=== PATIENT | female | born 1950 | race Caucasian/White ===

== ENCOUNTER → 2018-05-28 13:53 | Outpatient (CLI) | payer MEDICARE, OTHER, SELFPAY ==
--- NOTE | 2018-05-28 13:59 | ECHOD_ITS ---
Reason For Study: AFIB/FLUTTER Procedure This was a 2D Doppler, Color Flow transthoracic echocardiogram. Exam performed in department. Left Ventricle Normal LV size. Left ventricular systolic function is normal. The estimated ejection fraction is 60 %. Stage 1 diastolic dysfunction. No regional wall motion abnormalities noted. Right Ventricle Normal RV size. Normal systolic function. Atria Normal left atrium. Normal right atrium. Mitral Valve Normal mitral valve. Tricuspid Valve Normal tricuspid valve. Mild tricuspid valve insufficiency. Aortic Valve Normal aortic valve. Pulmonic Valve Normal pulmonic valve. Great Vessels Normal aortic root. The pulmonary artery is normal size. Normal inferior vena cava. Pericardium/Pleural No pericardial effusion. MMode/2D Measurements & Calculations LVIDd: 5.1 cm IVSd: 1.0 cm Ao root diam: 3.1 cm LVIDs: 3.6 cm LVPWd: 1.1 cm RVDd: 3.1 cm FS: 30.6 % LAV(MOD-bp): 52.8 ml LA A4 area: 16.4 cm2 LA dimension(2D): 4.4 cm LAV(MOD-bp) Indexed: 25.9 ml/m2 LAV(MOD-sp2): 53.7 ml LAV(MOD-sp4): 48.3 ml RA A4 area: 12.0 cm2 Time Measurements MV dec time: 0.22 sec Doppler Measurements & Calculations MV E max jerry: 62.4 cm/sec Lat Peak E' Jerry: 7.0 cm/sec Med Peak E' Jerry: 8.8 cm/sec MV A max jerry: 75.6 cm/sec E/E' lat: 8.9 E/E' med: 7.1 MV E/A: 0.83 Ao V2 max: 126.1 cm/sec LV V1 max: 115.1 cm/sec PA V2 max: 92.4 cm/sec Ao max P.4 mmHg LV V1 max P.3 mmHg TR max jerry: 213.8 cm/sec TR max P.3 mmHg Interpretation Summary Normal LV size. Left ventricular systolic function is normal. The estimated ejection fraction is 60 %. Stage 1 diastolic dysfunction. Mild tricuspid valve insufficiency. Ordering Physician: Bobo Biggs Referring Physician: Glenda Scott Performed By: Tanya Davis, SEN, RVT
--- OUTSIDE RECORDS SUMMARY | 2018-07-23 18:35 | XMS RPT_ITS | Clinical Summary ---
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 Lucila M Nonrheumatic c mitral (ICD-10-CM 10/30 10/30 DINA Parra mitral (valve) (valve) ) prolapse prolapse CHEST PAIN R07.9 Resolved Lucila Luo Chest pain, UNSPECIFIED (ICD-10-CM 10/30 10/30 DINA Parra unspecified ) Paroxysmal 425010716 Active Lauren Salinas Paroxysmal atrial (SNOMED 10/30 10/30 [facility] fibrillatio CT) RN fibrillation n Family 136647694 Active Bobo Santizo Family history History (SNOMED 09/22 MD Kalyan of coronary Coronary CT) arteriosclerosi Heart s Disease male < 55 BODY MASS Z68.34 Active Bobo Santizo Body mass index INDEX (ICD-10-CM 11/11 11/11 MD Kalyan (BMI) 34.0-34.9 ) 34.0-34.9, ADULT adult LONG-TERM [id number] Active Jes M Long-term drug USE OF HIGH (SNOMED 10/30 10/30 [facility] therapy RISK [address]) MEDICATIONS CHEST PAIN R07.9 Removed Jes M Chest pain, UNSPECIFIED (ICD-10-CM 10/30 10/30 [facility] unspecified ) PALPITATION 79010692 Active Jes M Palpitations S (SNOMED 10/30 10/[address]) PAIN [place] 12518673 Active Jes M Pain in limb LIMB (SNOMED 10/30 10/[address]) ATRIAL 97518636 Inactive Jes M Atrial FIBRILLATIO (SNOMED 10/30 10/[address] [facility]) MITRAL 224757899 Inactive Jes M Mitral valve VALVE (SNOMED 10/30 10/30 [facility] prolapse PROLAPSE CT) MIGRAINE, 1910244 Active Jes M Migraine with CLASSICAL (SNOMED 10/30 10/[address]) HYPERLIPIDE 40500901 Active Jes M Hyperlipidemia SILKE (SNOMED 10/30 10/[address]) Medications Medication Instructions Start Stop Generic Name NDC Provider Date Date METOPROLOL one tablet by METOPROLOL [id number] Bobo S TARTRATE 50 MG mouth twice a TARTRATE MD Kalyan TABS day FLECAINIDE One tablet by FLECAINIDE [id number] Zackery Jenkins ACETATE 100 MG mouth twice / ACETATE Home POWERS TABS daily CRESTOR 20 MG One tablet by ROSUVASTATIN 85523525805 Bobo S TABS mouth daily / CALCIUM MD Kalyan ZETIA 10 MG One tablet by EZETIMIBE 58721068589 Fernando W TABS mouth daily / Josie POWERS METOPROLOL One tablet by METOPROLOL 57543163019 Jes M TARTRATE 25 MG mouth twice / TARTRATE Martínez TABS daily CALCIUM 600 MG One tablet by CALCIUM 51690147560 Jes M TABS mouth daily / Martínez CALCIUM 600 MG One tablet by CALCIUM 20183970449 Fernando W TABS mouth daily /07/30 Josie POWERS ZETIA 10 MG One tablet by EZETIMIBE [id number] [place] S TABS mouth daily /02/09 MD Kalyan FLEXERIL 10 MG One tablet by CYCLOBENZAPRINE Bobo S TABS mouth daily / HCL MD Kalyan FLEXERIL 10 MG One tablet by CYCLOBENZAPRINE [place] S TABS mouth daily /09/25 HCL MD Kalyan VALACYCLOVIR One tablet by VALACYCLOVIR HCL 82709992447 [place] S HCL 1 GM TABS mouth MD Kalyan times daily VALACYCLOVIR One tablet by VALACYCLOVIR HCL 54480863438 [place] S HCL 1 GM TABS mouth 09/25 MD Kalyan times daily PREVACID 30 MG One tablet by LANSOPRAZOLE 80700622238 Jes M CPDR mouth daily PREVACID 30 MG One tablet by LANSOPRAZOLE 64117499986 Bobo S CPDR mouth daily 09/25 MD Kalyan MULTIVITAMINS One tablet by MULTIPLE VITAMIN 49764908428 Jes M TABS mouth daily CRESTOR 20 MG One tablet by ROSUVASTATIN 49994267054 Bobo S TABS mouth daily /07/21 CALCIUM MD Kalyan ASPIRIN 325 MG One tablet by ASPIRIN 62467639448 Jes M TABS mouth daily DEPAKOTE ER 500 One tablet by DIVALPROEX SODIUM 07679375079 Jes M MG [id number] mouth twice daily NEXIUM 40 MG One tablet by ESOMEPRAZOLE 39831566048 [place] S CPDR mouth daily MAGNESIUM MD Kalyan RISHABH 180 MG as needed FEXOFENADINE HCL [place] S TABS MD Kalyan LIVALO 1 MG One tablet by PITAVASTATIN 55747766137 [place] S TABS mouth daily CALCIUM MD Kalyan (Crestor caused myalgias) CO Q-10 100 MG One tablet by COENZYME Q10 73955332370 [place] S CAPS mouth daily MD Kalyan VITAMIN D 2000 One tablet by CHOLECALCIFEROL 87202920368 [place] S UNIT TABS mouth daily MD Kalyan Medications Administered No information available. Allergies, Adverse Reactions, Alerts Allergy Name Reaction Start Date Severity Status Provider Description STATINS myalgia Critical Active Lucila Parra RN TETRACYCLINE unknow Critical Active Tamanna A Kaitlin RN AUGMENTIN unknown Critical Active Tamanna Madrigal RN CLAMS Not shrimp Critical Active Jes Martínez Results Date Name Value Unit Range Flag Description Lab Report: MG MAGNESIUM 1.9 mg/dL 1.5-2.2 N magnesium, serum Clinical Lists Update: Preload TSH 1.53 u[iU]/mL thyroid stimulating hormone, serum Lab Report: UAC SPEC GR 1.015 1.002-1.030 N specific URIN gravity, urine Lab Report: JI VALPROIC ACD 49 ug/mL 50-100 L valproic acid, serum Lab Report: CMP BILI TOTAL 0.30 mg/dL 0.00-1.00 N bilirubin, serum, total SGPT (ALT) 17 U/L 12-78 N alanine aminotransferase (SGPT), serum ALK PHOS 103 U/L 50-136 N alkaline phosphatase, serum SGOT (AST) 16 U/L 15-37 N aspartate aminotransferase (SGOT), serum ALBUMIN 3.5 g/dL 3.4-5.0 N albumin, serum Lab Report: LIPID VLDL 34 mg/dL 5-40 N very low density lipoproteins LDL 100 mg/dL 0-130 N Cholesterol in LDL [Mass/volume] in Serum or Plasma HDL 48 mg/dL N Cholesterol in HDL [Mass/volume] in Serum or Plasma TRIGLYCRDES 172 mg/dL N Triglyceride [Mass/volume] in Serum or Plasma CHOLESTEROL 182 mg/dL 200 N Cholesterol [Mass/volume] in Serum or Plasma Lab Report: BID BILI DIRECT 0.08 mg/dL 0.00-0.30 N bilirubin, serum, direct Lab Report: T4 T4, TOTAL 8.8 ug/dL 4.8-13.9 N thyroxine, serum, total Replaced Document: [facility] ECG Observations QT/QTC 434 ms QT interval/QT interval (corrected for heart rate), electrocardiogram Clinical Lists Update: Preload GLUCOSE SER 130 mg/dL H blood glucose CALCIUM 8.5 mg/dL calcium, serum BUN/CREAT 16.0 urea nitrogen/creatinin e ratio, serum CREATININE 1.0 mg/dL creatinine, serum BUN 16 mg/dL urea nitrogen, blood ANION GAP 7 anion gap, serum CO2 30.0 mmol/L carbon dioxide, venous blood CHLORIDE 105 mmol/L chloride, serum POTASSIUM 4.2 mmol/L potassium, serum SODIUM 142 mmol/L sodium, serum MPV 11.3 fL mean platelet volume PLATELETS 120 10*3/mm3 L platelet count RDW 13.4 % red blood cell distribution width MCHC RBC 32.2 g/dL mean corpuscular hemoglobin concentration, RBC MCH 30.7 pg mean corpuscular hemoglobin, RBC MCV 95.1 fL mean corpuscular volume, RBC HCT 33.2 % L hematocrit, blood HGB 10.7 g/dL L hemoglobin, blood RBC M/UL 3.49 10*6/uL L red blood count WBC BLOOD 6.0 10*9/L leukocyte (white blood cells) count, blood Office Visit CHD 10YR RSK 13 % General cardiovascular disease 10Y risk [#] 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 smoker Replaced Document: [facility] ECG Observations EKG INTERP Sinus Bradycardia electrocardiogram -First degree A-V interpretation block Luan = 236-Nonspecific QRS widening. BORDERLINE EKG T AXIS -1 deg T wave axis, electrocardiogram EKG QRS AXIS -28 deg QRS axis, electrocardiogram EKG PWAVAXIS -1 deg P wave axis, electrocardiogram QRS INTERVAL 114 ms QRS duration, electrocardiogram ZZ-GE-unk 459 ms GE use only - for LinkLogic import when terms are not otherwise specified QT INTERVAL new path ms QT interval, electrocardiogram IN INTERVAL 236 ms IN interval, electrocardiogram EKGHRTRATE 51 BPM heart rate on electrocardiogram Office Visit MEDS REVIEW Done Documentation of current medications (procedure) Clinical Lists Update: Preload JOELLEN 60 % Left ventricular Ejection fraction Plan of Care Type Date Detail Appointment 02:00 PM Rosalinda Monterroso PA-C, [address] [facility], [address], [place], [address], Pending order MMM Pending order Follow Up Appt 6 months Pending order EKG (In office) Pending order MMM Pending order Follow Up Appt 6 months Pending order Follow Up Appt 6 months Pending order DEICER INSPECTOR PNEUMATIC Pending order MMM Pending order Follow Up Appt 6 months Pending order *Lipid Profile CC PCP Pending order *Hepatic Function Panel Pending order EKG (In office) Pending order DEICER INSPECTOR PNEUMATIC Pending order Follow Up Appt 6 months Pending order Follow Up Appt 6 months Pending order *Lipid Profile Pending order *Hepatic Function Panel Pending order Follow Up Appt 3 months Pending order EKG (In office) Pending order *Lipid Profile Pending order *Hepatic Function Panel Pending order *TSH Pending order *T4 (Total) Pending order *BMP Pending order *Magnesium Pending order *Lipid Profile Pending order *Hepatic Function Panel Pending order Follow Up Appt 3 months Pending order Echocardiogram (complete) Pending order 24 hour holter monitor Pending order *FLEC Flecainide (Tambocor) Procedures Code Procedure Name Date Entry Date F/U MMM MMM FUA 6 months Follow Up Appt 6 months CPT-24399 EKG (In office) F/U MMM MMM FUA 6 months Follow Up Appt 6 months FUA 6 months Follow Up Appt 6 months F/U DEICER INSPECTOR PNEUMATIC DEICER INSPECTOR PNEUMATIC [id number] SNOMED-CT: 185806799176721 Current Medications Documented F/U MMM MMM FUA 6 months Follow Up Appt 6 months 40155-1 *Lipid Profile CC PCP 0788-1 *Hepatic Function Panel F/U DEICER INSPECTOR PNEUMATIC DEICER INSPECTOR PNEUMATIC FUA 6 months Follow Up Appt 6 months CPT-32261 EKG (In office) FUA 6 months Follow Up Appt 6 months 90189-7 *Lipid Profile 0788-1 *Hepatic Function Panel FUA 3 months Follow Up Appt 3 months CPT-14370 EKG (In office) 91331-9 *Lipid Profile 0788-1 *Hepatic Function Panel 3016-3 *TSH 3026-2 *T4 (Total) 34331-9 *Magnesium 3638-4 *FLEC Flecainide (Tambocor) Echo Echocardiogram (complete) 24 hour holter monitor FUA 3 months Follow Up Appt 3 months 0667-1 *BMP 89172-6 *Lipid Profile 0788-1 *Hepatic Function Panel Vital Signs Date Name Value Unit Description BMI (Body Mass Index) 34.94 kg/m2 Body Mass Index [Ratio] BP Diastolic 60 mm[Hg] blood pressure, diastolic - 8462-4 BP Systolic 120 mm[Hg] blood pressure, systolic - 8480-6 BSA (Body Surface 2.07 body surface area Area) Heart Rate 60 /min pulse rate E&M - 8867-4 Respiratory Rate 20 /min respiratory rate E&M - 9279-1 Weight Measured 216.5 [lb_av] weight E&M - 3141-9 Height 66 [in_us] height E&M - 8302-2
--- OUTSIDE RECORDS SUMMARY | 2018-07-23 18:36 | XMS RPT_ITS | Clinical Summary ---
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 Lucila Luo Nonrheumatic c mitral (ICD-10-CM 10/30 10/30 DINA Parra mitral (valve) (valve) ) prolapse prolapse CHEST PAIN R07.9 Resolved Lucila Luo Chest pain, UNSPECIFIED (ICD-10-CM 10/30 10/30 DINA Parra unspecified ) Paroxysmal 481260009 Active Lauren Salinas Paroxysmal atrial (SNOMED 10/30 10/[address] [facility] [address]) RN fibrillation n Family 091534818 Active Bobo Santizo Family history History (SNOMED 09/22 MD Kalyan of coronary Coronary CT) arteriosclerosi Heart s Disease male < 55 BODY MASS Z68.34 Active Bobo Santizo Body mass index INDEX (ICD-10-CM 11/11 11/11 MD Kalyan (BMI) 34.0-34.9 ) 34.0-34.9, ADULT adult LONG-TERM 792884983 Active Jes M Long-term drug USE OF HIGH (SNOMED 10/30 10/30 [facility] therapy RISK CT) MEDICATIONS CHEST PAIN R07.9 Removed Jes M Chest pain, UNSPECIFIED (ICD-10-CM 10/30 10/30 [facility] unspecified ) PALPITATION 11334216 Active Jes M Palpitations S (SNOMED 10/30 10/[address]) PAIN IN 75854526 Active Jes M Pain in limb LIMB (SNOMED 10/30 10/[address]) ATRIAL 62591117 Inactive Jes M Atrial FIBRILLATIO (SNOMED 10/30 10/[address] [facility] [address] CT) MITRAL 284523133 Inactive Jes M Mitral valve VALVE (SNOMED 10/30 10/30 [facility] prolapse PROLAPSE CT) MIGRAINE, 7779446 Active Jes M Migraine with CLASSICAL (SNOMED 10/30 10/[address]) HYPERLIPIDE 59757113 Active Jes M Hyperlipidemia SILKE (SNOMED 10/30 10/[address]) Medications Medication Instructions Start Stop Generic Name NDC Provider Date Date METOPROLOL one tablet by METOPROLOL [id number] Bobo S TARTRATE 50 MG mouth twice a / TARTRATE MD Kalyan TABS day FLECAINIDE One tablet by FLECAINIDE 26434045295 Zackery Jenkins ACETATE 100 MG mouth twice / ACETATE Home POWERS TABS daily CRESTOR 20 MG One tablet by ROSUVASTATIN 70535494774 [place] S TABS mouth daily / CALCIUM MD Kalyan ZETIA 10 MG One tablet by EZETIMIBE 64807697525 Fernando W TABS mouth daily / Josie POWERS METOPROLOL One tablet by METOPROLOL 83370244559 Jes M TARTRATE 25 MG mouth twice / TARTRATE Martí[place] TABS daily CALCIUM 600 MG One tablet by CALCIUM 38255120876 Jes M TABS mouth daily / Martínez CALCIUM 600 MG One tablet by CALCIUM 37922918195 Fernando W TABS mouth daily /07/30 Josie POWERS ZETIA 10 MG One tablet by EZETIMIBE 22945470053 Bobo S TABS mouth daily /02/09 MD Kalyan FLEXERIL 10 MG One tablet by CYCLOBENZAPRINE Bobo S TABS mouth daily / HCL MD Kalyan FLEXERIL 10 MG One tablet by CYCLOBENZAPRINE Bobo S TABS mouth daily 09/25 HCL MD Kalyan VALACYCLOVIR One tablet by VALACYCLOVIR HCL 67095320750 [place] S HCL 1 GM TABS mouth MD Kalyan times daily VALACYCLOVIR One tablet by VALACYCLOVIR HCL 99133336823 [place] S HCL 1 GM TABS mouth 09/25 MD Kalyan times daily PREVACID 30 MG One tablet by LANSOPRAZOLE 06523620973 Jes M CPDR mouth daily PREVACID 30 MG One tablet by LANSOPRAZOLE 84457366470 [place] S CPDR mouth daily 09/25 MD Kalyan MULTIVITAMINS One tablet by MULTIPLE VITAMIN 41967315821 Jes M TABS mouth daily CRESTOR 20 MG One tablet by ROSUVASTATIN 65996892232 [place] S TABS mouth daily /07/21 CALCIUM MD Kalyan ASPIRIN 325 MG One tablet by ASPIRIN 10061470604 Jes M TABS mouth daily DEPAKOTE ER 500 One tablet by DIVALPROEX SODIUM 78127724167 Jes M MG [id number] mouth twice daily NEXIUM 40 MG One tablet by ESOMEPRAZOLE 19861581253 Bobo S CPDR mouth daily MAGNESIUM MD Kalyan RISHABH 180 MG as needed FEXOFENADINE HCL [place] S TABS MD Kalyan LIVALO 1 MG One tablet by PITAVASTATIN 98062003744 [place] S TABS mouth daily CALCIUM MD Kalyan (Crestor caused myalgias) CO Q-10 100 MG One tablet by COENZYME Q10 87229031625 Bobo S CAPS mouth daily MD Kalyan VITAMIN D 2000 One tablet by CHOLECALCIFEROL 95594770006 [place] S UNIT TABS mouth daily MD Kalyan Medications Administered No information available. 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 Dietary management education, guidance, and counseling (procedure) CARD RSK GRP B cardiac risk group SMOK STATUS Former Tobacco use [facility] smoker Replaced Document: [facility] ECG Observations [...] INTERVAL new path ms QT interval, electrocardiogram [place] INTERVAL 236 ms [place] interval, electrocardiogram EKGHRTRATE 51 BPM heart rate on electrocardiogram Office Visit MEDS REVIEW Done Documentation of current medications (procedure) Clinical Lists Update: Preload JOELLEN 60 % Left ventricular Ejection fraction Plan of Care Type Date Detail Appointment 02:00 PM Rosalinda Monterroso PA-C, [address] [facility], [address], [place], [address], Pending order MMM Pending order Follow Up Appt 6 months Pending order EKG (In office) Pending order MMM Pending order Follow Up Appt 6 months Pending order Follow Up Appt 6 months Pending order EDUCATION TECHNICIAN Pending order MMM Pending order Follow Up Appt 6 months Pending order *Lipid Profile CC PCP Pending order *Hepatic Function Panel Pending order EKG (In office) Pending order EDUCATION TECHNICIAN Pending order Follow Up Appt 6 months [...] 6 months Follow Up Appt 6 months CPT-62733 EKG (In office) F/U MMM MMM FUA 6 months Follow Up Appt 6 months FUA 6 months Follow Up Appt 6 months F/U EDUCATION TECHNICIAN EDUCATION TECHNICIAN SCT-[id number] SNOMED-CT: [id number] Current Medications Documented F/U MMM MMM FUA 6 months Follow Up Appt 6 months 95928-2 *Lipid Profile CC PCP 0788-1 *Hepatic Function Panel F/U EDUCATION TECHNICIAN EDUCATION TECHNICIAN FUA 6 months Follow Up Appt 6 months CPT-45012 EKG (In office) FUA 6 months Follow Up Appt 6 months 77571-4 *Lipid Profile 0788-1 *Hepatic Function Panel FUA 3 months Follow Up Appt 3 months CPT-55593 EKG (In office) 34415-9 *Lipid Profile 0788-1 *Hepatic Function Panel 3016-3 *TSH 3026-2 *T4 (Total) 36861-1 *Magnesium 3638-4 *FLEC Flecainide (Tambocor) Echo Echocardiogram (complete) HM 24 hour holter monitor FUA 3 months Follow Up Appt 3 months 0667-1 *BMP 90932-9 *Lipid Profile 0788-1 *Hepatic Function Panel Vital [...]
--- OUTSIDE RECORDS SUMMARY | 2018-07-23 18:36 | XMS RPT_ITS | Continuity of Care Document ---
:1950 Author Organization [facility] Address [address] [place] [address] Phone Care Team Providers Name Role Phone Sonia POWERS, Glenda Luo Unavailable Myranda POWERS, Dr. Rubio Salinas Unavailable Rod , Dr. Castro Unavailable Dr. Matthew Velasco Unavailable STARLA Vaughan Unavailable Unavailable Unavailable Unavailable Problems Name Dates Details Abnormal blood sugar (R73.09, 790.29) Comments: diet only 5.7 Status: Active Abnormal result on screening urine test (R82.90, 791.9) Comments: no protien some blood will check at next follow up Status: Active Afib (I48.91, 427.31) Comments: seeing arielle. reveiwed with patient recent tests, sleep study good Status: Active Allergic rhinitis, mild (J30.9, 477.9) Comments: lindsey dily over spring summer. itch in eyes and ears better meds. Status: Active Atrophic kidney (N26.1, 587) Status: Active Bilateral anterior knee pain (M25.561, 719.46) Comments: better from fall from last year but left knee twist 3 days ago. will wear brace and rest and nsaids. if nto help then injection. Status: Active BMI 35.0-35.9,adult (Z68.35, V85.35) Status: Active Chest pain (R07.9, 786.59) 27-Feb-2012 Comments: episodic chronic had heart cath negative in past aspirin help CTA 2006 still gets on and off and aspirin help not as bad. knows that if have bad CP the asa not help to ER Status: Active Current nonsmoker (Renamed from Current non-smoker) (Z78.9, V49.89) Status: Active DDD (degenerative disc disease), lumbar (M51.36, 722.52) Comments: discetomy 2007 still ongong muscle pain. she has the stretches todo at home to help. 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 coosncopy because due. no signs and symptoms right now Status: Active Elevated uric acid in blood (E79.0, 790.6) Status: Active Encounter for routine adult medical exam with abnormal findings (Renamed from Encounter for routine adult physical exam with abnormal findings) (Z00.01, V70.0) Comments: AMP 4-18due for mammo and BD. reveiwed with patient recent tests labs. will pap next tinme has uterus told shingles vaccine. give pneumovax. then prevanr 13 i year. wait til medicare because will cover. Status: Active GERD (gastroesophageal reflux disease) (K21.9, 530.81) Status: Active Hair thinning (L65.9, 704.00) Comments: ? meds bbut needs to be on. female merced. Status: Active History of shingles (Z86.19, V12.09) Comments: she will get the feeling at times coming back and knows to call and then will give valtrex Status: Active Hypercholesterolemia (E78.00, 272.0) Comments: reveiwed with patient recent tests adn horrible. crestor brand only thing not bother her at low dose. Status: Active Impaired fasting glucose (R73.01, 790.21) Status: Active Memory impairment (R41.3, 780.93) Comments: 25 but not notice cognitive decline. able to do finances without trouble. Status: Active Menopause (Z78.0, 627.2) Status: Active Migraine (G43.909, 346.90) Comments: stable now Status: Active Mitral valve prolapse (I34.1, 424.0) Status: Active Obesity, unspecified (E66.9, 278.00) Comments: holidays now. she will limit red meat. she will cook at homes more veggies and more lean protien. keep exercising.thin up until stop smoking and house fire eat outside alot, menapause. Status: Active Onychomycosis (B35.1, 110.1) Comments: not use lamisil because of flecanide interaction. use itraconazole. pt awants to kill this Status: Active Palatal mass (R22.0, 784.2) Comments: will get to ENT stillnot goo and it is getting bigger Status: Active Pneumococcal vaccination given (Z23, V06.6) Status: Active Postmenopausal (Renamed from Post-menopausal) (Z78.0, V49.81) Status: Active Rash (R21, 782.1) Comments: steroid creme bid- get labs ?? bug bites- derm not in office today- if spread let me know? inflammatory/systemic issue but she feels well otherwise Status: Active Renal insufficiency (N28.9, 593.9) Comments: same good right now SDMA up and have atrophic kidney talk about things to protect kidney less IBU, no dyes alot water. Status: Active Renal sclerosis (N26.9, 587) Status: Active Right foot drop (M21.371, 736.79) Comments: s/p nerve damage from way laid during surgery. on and off not need brace Status: Active SK (seborrheic keratosis) (L82.1, 702.19) Comments: told okay not bother her and reassurance given classic look Status: Active Stress incontinence, female (N39.3, 625.6) Status: Active Tobacco abuse, in remission (Renamed from Tobacco dependence in remission) (F17.201, V15.82) Comments: remote quit in 30's Status: Active Vitamin D insufficiency (E55.9, 268.9) Comments: right now good Status: Active Well woman exam (Z01.419, V72.31) Comments: 04-22-17 [facility] Pap/mammo/BD tetanus up to date, refuse flu vaccine because gets sick. pneumovax now and then prevnar in a year because can get today pneumovax. rec sylviasohailrivera suzanna curt told her about. due for colonscopy not have done. eye and dental check. BD 04-14 will do hep C next blood draw Status: Active Medications Name Dates Details Lindsey Allergy 180 MG Oral Tablet 1 (one) Tablet qd for 0 days Quantity: 30 {Tablet} Refills: 0 Ordered:22-Apr-2017 Glenda Mcallister MD, MD, Dana M Start : 22-Apr-2017 Active ASPIRIN, 325MG (Oral Tablet) 1 QD for 0 days Refills: 0 Ordered:26-Jan-2009 Mahi Vaughan Crestor 5 MG Oral Tablet 1 (one) Tablet Tablet in am for 0 days Quantity: 30 {Tablet} Refills: 5 Ordered:22-Apr-2017 Lin Mcrae Start : 22-Apr-2017 Active Dispense as Written Comments:needs branded crestor the generic cause aches Depakote ER 500 MG Oral Tablet Extended Release 24 Hour 1 Tablet ER 24HR BID for 0 days Quantity: 60 {Tablet} Refills: 4 Ordered:26-Jan-2018 Sonia POWERS, Glenda Fernandez MD Start : 26-Jan-2018 Active FLECAINIDE ACETATE, 100MG (Oral Tablet) 1 bid for 0 days Refills: 0 Ordered:26-Jan-2009 Mahi Vaughan Jublia 10 % External Solution uad Application Application apply to affected toenails once daily for 48 weeks for 336 days Refills: 0 Ordered:08-Dec-2017 Glenda Mcallister MD, MD, Dana M Start : 08-Dec-2017 Active METOPROLOL TARTRATE, 25MG (Oral Tablet) 1 bid for 0 days Refills: 0 Ordered:26-Jan-2009 Mahi Vaughan NEXIUM 24HR, 20MG (Oral Capsule Delayed Release) 1 (one) Capsule DR Capsule DR qd for 0 days Quantity: 30 {Capsule} Refills: 0 Ordered:20-Jun-2015 Slarb Mirian ARVIZU Start : 24-Apr-2015 Active Vitamin D 2000 UNIT Oral Capsule 1 (one) Capsule qd for 0 days Quantity: 30 {Capsule} Refills: 0 Ordered:22-Apr-2017 Glenda Mcallister MD, MD, Dana M Start : 22-Apr-2017 Active CALCIUM-VITAMIN D, 118-050GI-LFQB (Oral Tablet) 2 QD for 0 days Refills: 0 Ordered:12-Feb-2013 STARLA Vaughan End : 12-Feb-2013 Inactive Cheratussin AC 100-10 MG/5ML Oral Syrup 1 (one) Syrup 1-2 tsp every 8 horus prn for 0 days Quantity: 4 {Fluid_Ounce} Refills: 0 Ordered:10-Dec-2016 STARLA Vaughan Start : 15-Nov-2016 End : 10-Dec-2016 Inactive Comments:four ounces Cipro 500 MG Oral Tablet 1 (one) Tablet bid for 0 days Quantity: 14 {Tablet} Refills: 0 Ordered:19-Mar-2016 STARLA Vaughan Start : 19-Feb-2016 End : 19-Mar-2016 Inactive CIPROFLOXACIN HCL, 500MG (Oral Tablet) 1 (one) Tablet bid for 7 days Quantity: 14 {Tablet} Refills: 0 Ordered:20-Jun-2015 Micheline Garcia CNP Start : 20-Jun-2015 End : 27-Jun-2015 Inactive Clotrimazole 10 MG Mouth/Throat Edgardo 1 (one) Edgardo Edgardo 5 times a day for 0 days Quantity: 50 {Edgardo} Refills: 0 Ordered:08-Dec-2017 STARLA Vaughan Start : 02-Jun-2017 End : 08-Dec-2017 Inactive Crestor 20 MG Oral Tablet 1 Tablet QD for 0 days Quantity: 30 {Tablet} Refills: 6 Ordered:01-Apr-2016 Glenda Mcallister MD, MD, Dana M Start : 01-Apr-2016 End : 01-Apr-2016 Inactive Comments:myalgia CYCLOBENZAPRINE HCL, 10MG (Oral Tablet) 1 (one) Tablet Tablet at night prn for 0 days Quantity: 30 {Tablet} Refills: 1 Ordered:12-Dec-2015 STARLA Vaughan Start : 19-Sep-2014 End : 12-Dec-2015 Inactive Doxycycline Hyclate 100 MG Oral Capsule 1 (one) Capsule bid for 0 days Quantity: 20 {Capsule} Refills: 0 Ordered:02-Jun-2017 STARLA Vaughan Start : 20-May-2017 End : 02-Jun-2017 Inactive Comments:watch for sun burndo this instead of augmentin (does not tolerate) Estrogen Vaginal Cream 1 inch vaginally q weekly Inactive Fluconazole 100 MG Oral Tablet 1 (one) Tablet qd for 7 days for 0 days Quantity: 7 {Tablet} Refills: 0 Ordered:22-Apr-2017 STARLA Vaughan Start : 22-Nov-2016 End : 22-Apr-2017 Inactive Itraconazole 100 MG Oral Capsule 1 (one) Capsule 2 tablets bid for 1 week per month for three month for 90 days Refills: 0 Ordered:08-Dec-2017 Glenda Mcallister MD, MD, Glenda Luo Start : 08-Dec-2017 End : 08-Dec-2017 Inactive Comments:interacts with Flecanide Macrobid 100 MG Oral Capsule 1 Capsule bid for 7 days Quantity: 14 {Capsule} Refills: 0 Ordered:06-Jan-2018 Glenda Mcallister MD, MD, Glenda Luo Start : 06-Jan-2018 End : 13-Jan-2018 Inactive NEXIUM, 40MG (Oral Capsule Delayed Release) 1 (one) Capsule DR qd for 0 days Quantity: 90 {Capsule} Refills: 3 Ordered:12-Dec-2015 STARLA Vaughan Start : 19-Sep-2014 End : 12-Dec-2015 Inactive PERCOCET, 5-325MG (Oral Tablet) 1 (one) Tablet q 6 hours prn for 0 days Quantity: 30 {Tablet} Refills: 0 Ordered:21-Jan-2008 STARLA Vaughan Start : 21-Jan-2008 End : 14-Dec-2008 Inactive PREDNISONE, 10MG (Oral Tablet) Tablet for 0 days Refills: 0 Ordered:18-Dec-2007 STARLA Vaughan Start : 18-Dec-2007 End : 14-Dec-2008 Inactive Comments:3 pill for 4 days 2 for 4 days and 1 for 4 days with food PREVACID, 30MG (Oral Capsule Delayed Release) [address] QD for 0 days Quantity: 90 {Capsule} Refills: 3 Ordered:07-Feb-2014 Glenda Mcallister MD, MD, Glenda Luo Start : 07-Feb-2014 End : 07-Feb-2014 Inactive SOTALOL HCL (AF), 120MG (Oral Tablet) 1 BID for 0 days Refills: 0 Ordered:02-Jan-2009 STARLA Vaughan End : 02-Jan-2009 Inactive VALACYCLOVIR HCL, 1GM (Oral Tablet) 1 (one) Tablet tid for 0 days Quantity: 21 {Tablet} Refills: 0 Ordered:19-Nov-2013 STARLA Vaughan Start : 08-Nov-2013 End : 19-Nov-2013 Inactive ZETIA, 10MG (Oral Tablet) 1 qd for 0 days Refills: 0 Ordered:12-Feb-2013 STARLA Vaughan End : 12-Feb-2013 Inactive ZOSTAVAX, 76035WHZ/0.65ML (Subcutaneous Solution Reconstituted) 1 For Solution For Solution once SC for 0 days Quantity: 1 {For_Solution} Refills: 0 Ordered:19-Nov-2013 STARLA Vaughan Start : 13-May-2013 End : 19-Nov-2013 Inactive Advair HFA 115-21 MCG/ACT Inhalation Aerosol 1 (one) Aerosol bid for 0 days Quantity: 1 {Each} Refills: 0 Ordered:19-Nov-2016 Glenda Mcallister MD, MD, Dana M Start : 19-Nov-2016 End : 19-Nov-2016 Discontinued Augmentin 875-125 MG Oral Tablet 1 (one) Tablet bid for 0 days Quantity: 20 {Tablet} Refills: 0 Ordered:15-Nov-2016 Glenda Mcallister MD, MD, Dana M Start : 15-Nov-2016 End : 15-Nov-2016 Discontinued Comments:can not do COLESTID, 1GM (Oral Tablet) 1 BID (1 GM) End : 18-Dec-2007 Discontinued DEPAKOTE ER, 500MG (Oral Tablet Extended Release 24 Hour) 1 Tablet ER 24HR BID for 0 days Refills: 0 Ordered:11-Aug-2006 Glenda Mcallistre MD, MD, Dana M Start : 11-Aug-2006 End : 11-Aug-2006 Discontinued GABAPENTIN, 300MG (Oral Capsule) 1 Capsule TAD for 0 days Quantity: 60 {Capsule} Refills: 0 Ordered:05-Feb-2007 STARLA Vaughan Start : 05-Feb-2007 End : 18-Jun-2007 Discontinued Comments:Day 1 300mg, Day 2 300mg bid, by day three may increase to tid. LEVAQUIN, 500MG (Oral Tablet) 1 Tablet qd for 0 days Quantity: 10 {Tablet} Refills: 0 Ordered:21-Dec-2010 Mast DINACorinne Start : 21-Dec-2010 End : 11-Feb-2011 Discontinued Livalo 1 MG Oral Tablet 1 (one) Tablet in am for 0 days Quantity: 30 {Tablet} Refills: 3 Ordered:14-Oct-2016 Glenda Mcallister MD, MD, Dana M Start : 14-Oct-2016 End : 14-Oct-2016 Discontinued PRAVACHOL, 40MG (Oral Tablet) 1 QD for 0 days Refills: 0 Ordered:08-Jan-2007 Glenda Mcallister MD, MD, Dana M End : 11-Aug-2006 Discontinued Relliv End : 11-Aug-2006 Discontinued TOPAMAX, 25MG (Oral Tablet) Tablet BID for 0 days Quantity: 60 {Tablet} Refills: 6 Ordered:18-Nov-2006 Glenda Mcallister MD, MD, Dana M Start : 18-Nov-2006 End : 23-Dec-2006 Discontinued Comments:higher doses cause paresthesias Allergies and Adverse Reactions Name Dates Details Clams (Allergy) Status: Active Past Medical History Name Dates Details Abdominal pain, acute, right upper quadrant (R10.11, 789.01) Comments: ? gallbladder, ? stomach may need scopedshe looks sick pale and pasty--will admit and have mallory see her, percocet could be doing some nausea. Status: Resolved as of 02-Jan-2009 Abnormal findings on diagnostic imaging of other specified body structures (R93.8, 793.99) Status: Resolved as of 02-Jan-2009 Acute pharyngitis (J02.9, 462) Comments: not look bad and treating. Status: Inactive as of 10-Dec-2016 Arch pain of left foot (M79.672, 729.5) Comments: in past saw Dr. garcia and dog behaviorist howardma. had right foot surgery. now lateral arch. had for 2 weeks. talk about good show wear. on nsaids ibu Status: Resolved as of 22-Apr-2017 Bacterial upper respiratory infection (J06.9, 465.9) Status: Resolved as of 07-Oct-2017 BMI 34.0-34.9,adult (Z68.34, V85.34) Status: Resolved as of 21-Nov-2017 BMI 36.0-36.9,adult (Z68.36, V85.36) Comments: 36.61 Status: Resolved as of 21-Nov-2017 Bursitis, hip (726.5) Comments: better. handout given on stretches given follow up if bad again can inject Status: Inactive as of 19-Nov-2013 Cough (R05, 786.2) Comments: doing well now. off advair gone. not need anything fdc for asthma. Status: Resolved as of 07-Oct-2017 Dehydration (E86.0, 276.51) Status: Resolved as of 02-Jan-2009 Dizziness and giddiness (R42, 780.4) Comments: presyncope. worry arrthymia then with other signs and symptoms to ER and monitor in hospital called and talk to hospitalist and agree with see in ER after evaluation. also concern with flying does she have PE Status: Inactive as of 12-Feb-2013 Dysphagia (R13.10, 787.2) Comments: none now Status: Resolved as of 02-Jan-2009 Dysuria (R30.0, 788.1) Status: Resolved as of 09-Feb-2018 Encounter for hepatitis C virus screening test for high risk patient (Z11.59, V73.89) Status: Resolved as of 21-Nov-2017 Encounter for screening mammogram for breast cancer (Renamed from Encounter for screening mammogram for malignant neoplasm of breast) (Z12.31, V76.12) Status: Resolved as of 21-Nov-2017 Fatigue (R53.83, 780.79) Status: Inactive as of 19-Nov-2013 Herpes zoster with other nervous system complications (B02.29, 053.19) Status: Resolved as of 02-Jan-2009 Low back pain potentially associated with radiculopathy (M54.5, 724.2) Status: Resolved as of 02-Jan-2009 Migraine, unspecified, not intractable, without status migrainosus (G43.909, 346.90) Status: Inactive as of 19-Nov-2013 Need for prophylactic vaccination and inoculation against influenza (Renamed from Need for immunization against influenza) (Z23, V04.81) Status: Resolved as of 07-Oct-2017 Paresthesia (R20.2, 782.0) Status: Inactive as of 03-Jul-2009 Screening for HPV (human papillomavirus) (Z11.51, V73.81) Status: Inactive as of 19-Nov-2013 Shingles (B02.9, 053.9) Status: Inactive as of 19-Nov-2013 Shoulder pain (M25.519, 719.41) Comments: send back to PT because in different area more on top and trapezius. 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 working at [employer] but willnot keep parttime. now have to buy benefits retire at 66yo. . mpother she has to help her. talk about this and she sets boundaries. mild anxeity and depression. try to downsize home and redo things in house to sell. Status: Resolved as of 22-Apr-2017 SYMPTOMS INVOLVING HEAD AND NECK, HEADACHE (784.0) Status: Inactive as of 12-Feb-2013 Thrush (B37.0, 112.0) Comments: on mycelex help Status: Resolved as of 07-Oct-2017 Unspecified Diagnosis Status: Resolved as of 07-Oct-2017 Unspecified Diagnosis Status: Inactive as of 19-Nov-2013 Unspecified Diagnosis Status: Inactive as of 19-Mar-2016 Unspecified Diagnosis Status: Inactive as of 10-Dec-2016 Urinary frequency (R35.0, 788.41) Comments: will await culture to treat Status: Inactive as of 19-Nov-2013 UTI (urinary tract infection) (N39.0, 599.0) Comments: nitro furantoin sensitive enterococcus Status: Inactive as of 19-Nov-2013 UTI symptoms (R39.9, 788.99) Status: Inactive as of 19-Mar-2016 uvulitis Status: Resolved as of 02-Jan-2009 Vaginal prolapse without uterine prolapse (618.00) Comments: surgery 12-13. had go in and release some sutures. Status: Inactive as of 24-Apr-2015 WWV V72.31 Status: Inactive as of 12-Feb-2013 Procedures Procedure Dates Details Bladder/rectal repair Completed Comments: June [address] Thorne, complicated with foot drop and scar in vagina cholecystectomy approximately 2006 Completed microdisectomy Completed Mar-2008 Comments: knapic plantar facisitis foot surgery 2006 Completed tubal ligation Completed Comments: 1991 Date Value Details 07-May-2018 Cardiology Visit Report Result: Comments: See Note; NOTES: [facility] [address] [place] [address] OFFICE VISIT Date of Service: 05/07/18 MR#: [id number] Acct: [id number] Name: BRIAN LONDONO Rep #: [id number] : 1950 Provider: Bobo Biggs MD Age/Sex: 67/F [place] [facility] [place] Status: Signed HPI HPI Chief Complaint: Follow-up visit. Details: BRIAN LONDONO, is a 67 F who presents to t he office today for a follow-up visit. She is a lady with a history of paroxysmal atrial fibrillation normal coronary arteries mild mitral valve prolapse who returns for routine follow-up visit. She say s that she is been doing quite well has not had any palpitations recently. She has had no neck arm or jaw discomfort suggest angina no dizziness or diaphoresis no near syncope or syncope. She has been c ompliant with all her medications. Her physical exam today demonstrates clear lung robertson regular rate and rhythm and no pedal edema her electrocardiogram demonstrates sinus bradycardia with a rate of 5 0 bpm and leftward axis is present. Intake Vital Signs05/07/18 Height 5 ft 5 in 05/07/18 Weight: 219 lb 05/07/18 Body Mass Index (BMI) 36.4 05/07/18 Blood Pressure 128/8 H 05/07/18 Blood Pressure Loca tion Lt brachial Intake Visit Reasons: last seen 04/2016 Agile Test Lead Required: No Accompanied by: None Is patient in pain?: No Allergies amoxicillin trihydrate [From Augmentin] Adverse Reaction (Veri fied 05/07/18 10:09) Other potassium clavulanate [From Augmentin] Adverse Reaction (Verified 05/07/18 10:09) Other Tetracyclines Adverse Reaction (Verified 05/07/18 10:09) Other [facility] Allergy (Intermedi ate, Uncoded 02/11/14 23:02) Nausea/Vom/Diarrhea Medications Aspirin 325 mg PO DAILY@0800 05/24/13 [History Confirmed 05/07/18] Divalproex (ER) [Depakote ER] 500 mg PO BID 05/24/13 [History Confirmed 05/07/18] metoprolol tartrate 50 mg tablet 50 mg PO BID #60 tab 11/19/17 [Rx Confirmed 05/07/18] flecainide 100 mg tablet 100 mg PO BID #60 tab 05/05/18 [Rx Confirmed 05/07/18] cholecalciferol (vitamin D3) 2,000 unit capsule 2,000 unit PO DAILY 05/07/18 [History Confirmed 05/07/18] meloxicam 15 mg tablet 15 mg PO DAILY 05/07/18 [History Confirmed 05/07/18] [facility] Medical History History of cystocele (Resolved) Single kidney (Chronic) Atrial fibrillation (Chronic) Hyperlipidemia (Chronic) Surgical History H/O microdiscectomy (Resolved) Hx of cholecystectomy (Resolved) H/O foot surgery (Resolved) H/O tubal ligation (Resolved) Family History Father CAD ( coronary artery disease) Social History Smoking Status: Never smoker ROS Const Const: Negative for fatigue, weakness, night sweats, excessive sweating, frequent falls, headache(s) or daytime sleep iness Eyes Eyes: Negative for loss of peripheral vision, transient loss of vision, blind spots, double vision or blurry vision ENT ENT: Negative for headache(s), dizziness, balance problems, Nosebleed/e pistaxis, tongue swelling or lip swelling Cardio Chest Pain: No Palpitations: No Edema: None Muscle aches with walking: None Resp Respiratory: Negative for SOB at rest, SOB orthopnea\SOB lying down, Cou gh, paroxysmal nocturnal dyspnea or SOB with activity GI GI: Negative nausea, vomiting, heartburn, black,tarry stools or bright, red blood in stools : Negative for hematuria Musc Musc: Negative for balance problems, muscle aches/ myalgia, muscle weakness or joint pain Skin Skin: Negative non-healing lesions, unusual bruising or rash Neuro Neuro: Negative for weakness, frequent falls, headache(s), double vision, dizziness, lightheadedness, orthostatic symptoms, blurry vision or lack of coordination Chet Hematologic/Lymphatic: Negative for easy bruising or easy bleeding Endo Endo: Negative for fa tigue, excessive sweating, cold intolerance, heat intolerance, increased thirst/drinking or hair loss Psych Psych: Negative for anxiety or depression Allergy Allergy/Immunology: Negative for throat swel ling, Negative for tongue swelling, Negative for hives, Negative for rash, Negative for lip swelling Cardiology Exam Const Appearance: cooperative, healthy appearing, well developed, well groomed and no acute distress Nutritional Appearance: well nourished and average body habitus Orientation: alert, awake and oriented x3 Head Head: normal to inspection, normocephalic and atraumatic Ears: hearing gr ossly normal bilaterally and external ears normal Nose: external nose normal, nasal mucous membranes and turbinates normal, nares normal, septum normal, no nasal discharge Face and Sinus: face symmetric Mouth: oral mucosae normal, tongue normal, oropharynx normal and moist mucous membranes Teeth and gingiva: dentition normal Throat: posterior oropharynx normal, tonsils normal and uvula midline Eyes Ge neral: appearance normal, both eyes and all related structures Eyelids: eyelids normal Conjunctivae: conjunctivae normal Pupils: PERRL, normal by confrontation and accommodation normal EOM: EOM intact b ilaterally Neck Neck: normal visual inspection, trachea midline and no JVD JVD: +5 Carotids: normal carotid upstroke and bounding pulses Chest Chest inspection: normal inspection of the chest, symmetric chest movement and normal respiratory effort Auscultation: Bilateral: Clear to Auscultation Cardio Palpation: normal PMI Rate: regular rate Rhythm: regular rhythm Heart sounds: S1 normal, S2 normal and normal, physiologic split S2; negative rub, gallop or murmur GI GI: normal to inspection, soft, no hepatosplenomegaly and bowel sounds present Neuro General: alert, awake, oriented x3, no focal sensory deficit, gait normal and moves all extremities Skin Skin: no rashes or lesions noted Extremities Pulses: Normal: Right Femoral Pulse, Left Femoral Pulse, Right Dorsalis Pedis Pulse, Left Dorsalis Pedis Pulse, Right Posterior Tibial Pulse, Left Posterior Tibial Pulse, Right Radial Pulse, Left Radial Pulse Lower Extremity Edema: None: Bilateral Musculoskel Musculoskeletal: No joint tenderness Psych Psy chological: normal affect Assessment AND Plan 1. Atrial fibrillation I48.91 Plan She does have a history of paroxysmal atrial fibrillation which appears to be settled on her flecainide and her beta-bl ocker. My recommendation before is to continue the same medications without making any changes. Her electrocardiogram is reassuring. I would recommend that we repeat her echocardiogram to assess her lef t ventricular function. There was a question as to whether she had mild mitral valve prolapse but there is no clinical indication of the above. Hopefully the echocardiogram will clarify this. Orders Ord ers: Plan Detail Other Orders Orders: Follow Up 6 Months (mmm) Coding Level of Care Code Off vis,est,level 3 Diagnoses Atrial fibrillation I48.91 Coding Level of Care Code Off vis,est,level 3 Coretta gnoses Atrial fibrillation I48.91 05/07/18 1026 <Electronically signed by Bobo Biggs MD> Date Bobo Biggs MD Cosigner Signature: Date (if applicable) CC: Glenda Mcallister MD 07-May-2018 12 Lead EKG performed by [facility] Result: Comments: See Note; NOTES: [facility] [address] [place] [address] 12 Lead EKG performed by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 Arm; Cuff Size: Standard Weight 216 lb Height 65 in Body Mass Index Calculated 35.94 kg/m2 Body Surface Area Calculated 2.04 m2 [id number] Temperature 97.6 f Comments: Method: Temporal Pulse 68 /min Comments: Pattern: Regular Respiration Rate 20 /min Comments: Pattern: Unlabored O2 SAT 98 % Comments: Room air BP Systolic 124 mm[Hg] Comments: Patient Position: Sitting; Cuff Location: Left Arm; Cuff Size: Large BP Diastolic 82 mm[Hg] Comments: Patient Position: Sitting; Cuff Location: Left Arm; Cuff Size: Large Weight 220 lb Height 65 in Body Mass Index Calculated 36.61 kg/m2 Body Surface Area Calculated 2.06 m2 :01 Temperature 97.6 f Comments: Method: Temporal Pulse 64 /min Comments: Pattern: Regular Respiration Rate 20 /min Comments: Pattern: Unlabored O2 SAT 97 % Comments: Room air BP Systolic 144 mm[Hg] Comments: Patient Position: Sitting; Cuff Location: Left Arm; Cuff Size: Large BP Diastolic 86 mm[Hg] Comments: Patient Position: Sitting; Cuff Location: Left Arm; Cuff Size: Large Weight 220 lb Height 65 in Body Mass Index Calculated 36.61 kg/m2 Body Surface Area Calculated 2.06 m2 :06 Temperature 97.1 f Comments: Method: Temporal Pulse 64 /min Comments: Pattern: Regular Respiration Rate 20 /min Comments: Pattern: Unlabored O2 SAT 95 % Comments: Room air BP Systolic 120 mm[Hg] Comments: Patient Position: Sitting; Cuff Location: Left Arm; Cuff Size: Large BP Diastolic 80 mm[Hg] Comments: Patient Position: Sitting; Cuff Location: Left Arm; Cuff Size: Large Weight 220 lb Height 65 in Body Mass Index Calculated 36.61 kg/m2 Body Surface Area Calculated 2.06 m2 :16 Temperature 97.6 f Comments: Method: Temporal Pulse 74 /min Comments: Pattern: Regular Respiration Rate 20 /min Comments: Pattern: Unlabored O2 SAT 97 % Comments: Room air BP Systolic 110 mm[Hg] Comments: Patient Position: Sitting; Cuff Location: Left Arm; Cuff Size: Large BP Diastolic 78 mm[Hg] Comments: Patient Position: Sitting; Cuff Location: Left Arm; Cuff Size: Large Weight 210 lb Height 65 in Body Mass Index Calculated 34.95 kg/m2 Body Surface Area Calculated 2.02 m2 :13 Temperature 97 f Comments: Method: Temporal Pulse 60 /min Comments: Pattern: Regular Respiration Rate 20 /min Comments: Pattern: Unlabored O2 SAT 95 % Comments: Room air BP Systolic 114 mm[Hg] Comments: Patient Position: Sitting; Cuff Location: Left Arm; Cuff Size: Large BP Diastolic 78 mm[Hg] Comments: Patient Position: Sitting; Cuff Location: Left Arm; Cuff Size: Large Weight 226 lb Height 65 in Body Mass Index Calculated 37.61 kg/m2 Body Surface Area Calculated 2.08 m2 :55 Temperature 97.6 f Comments: Method: Temporal Pulse 74 /min Comments: Pattern: Regular Respiration Rate 20 /min Comments: Pattern: Unlabored O2 SAT 97 % Comments: Room air BP Systolic 126 mm[Hg] Comments: Patient Position: Sitting; Cuff Location: Left Arm; Cuff Size: Large BP Diastolic 78 mm[Hg] Comments: Patient Position: Sitting; Cuff Location: Left Arm; Cuff Size: Large Weight 226 lb Height 65 in Body Mass Index Calculated 37.61 kg/m2 Body Surface Area Calculated 2.08 m2 :38 Temperature 97.6 f Pulse 65 /min Comments: Pattern: Regular Respiration Rate 16 /min Comments: Pattern: Unlabored O2 SAT 97 % Comments: Room air BP Systolic 118 mm[Hg] Comments: Patient Position: Sitting; Cuff Location: Left Arm; Cuff Size: Standard BP Diastolic 80 mm[Hg] Comments: Patient Position: Sitting; Cuff Location: Left Arm; Cuff Size: Standard Weight 222.25 lb Height 65 in Body Mass Index Calculated 36.98 kg/m2 Body Surface Area Calculated 2.07 m2 :43 Temperature 97.9 f Comments: Method: Temporal Pulse 60 /min Comments: Pattern: Regular Respiration Rate 20 /min Comments: Pattern: Unlabored O2 SAT 97 % Comments: Room air BP Systolic 118 mm[Hg] Comments: Patient Position: Sitting; Cuff Location: Left Arm; Cuff Size: Large BP Diastolic 78 mm[Hg] Comments: Patient Position: Sitting; Cuff Location: Left Arm; Cuff Size: Large Weight 223 lb Height 65 in Body Mass Index Calculated 37.11 kg/m2 Body Surface Area Calculated 2.07 m2 :20 Temperature 97.8 f Comments: Method: Temporal Pulse 60 /min Comments: Pattern: Regular Respiration Rate 20 /min Comments: Pattern: Unlabored O2 SAT 98 % Comments: Room air BP Systolic 120 mm[Hg] Comments: Patient Position: Sitting; Cuff Location: Left Arm; Cuff Size: Large BP Diastolic 78 mm[Hg] Comments: Patient Position: Sitting; Cuff Location: Left Arm; Cuff Size: Large Weight 216 lb Height 65 in Body Mass Index Calculated 35.94 kg/m2 Body Surface Area Calculated 2.04 m2 :15 Temperature 97.6 f Comments: Method: Oral Pulse 64 /min Comments: Pattern: Regular Respiration Rate 20 /min Comments: Pattern: Unlabored BP Systolic 120 mm[Hg] Comments: Patient Position: Sitting; Cuff Location: Left Arm; Cuff Size: Large BP Diastolic 80 mm[Hg] Comments: Patient Position: Sitting; Cuff Location: Left Arm; Cuff Size: Large Weight 210 lb Height 65 in Body Mass Index Calculated 34.95 kg/m2 Body Surface Area Calculated 2.02 m2 :05 Temperature 97.9 f Pulse 66 /min Comments: Pattern: Regular Respiration Rate 16 /min Comments: Pattern: Unlabored BP Systolic 112 mm[Hg] Comments: Patient Position: Sitting; Cuff Location: Left Arm; Cuff Size: Large BP Diastolic 76 mm[Hg] Comments: Patient Position: Sitting; Cuff Location: Left Arm; Cuff Size: Large Weight 211 lb Height 65 in Body Mass Index Calculated 35.11 kg/m2 Body Surface Area Calculated 2.02 m2 :02 Pulse 70 /min Comments: Pattern: Regular Respiration Rate 20 /min Comments: Pattern: Unlabored BP Systolic 120 mm[Hg] Comments: Patient Position: Sitting; Cuff Location: Left Arm; Cuff Size: Large BP Diastolic 80 mm[Hg] Comments: Patient Position: Sitting; Cuff Location: Left Arm; Cuff Size: Large Weight 204 lb Height 65 in Body Mass Index Calculated 33.95 kg/m2 Body Surface Area Calculated 1.99 m2 :57 Temperature 98 f Comments: Method: Oral Pulse 62 /min Comments: Pattern: Regular Respiration Rate 18 /min O2 SAT 98 % Comments: Room air BP Systolic 116 mm[Hg] Comments: Patient Position: Sitting; Cuff Location: Left Arm; Cuff Size: Standard BP Diastolic 70 mm[Hg] Comments: Patient Position: Sitting; Cuff Location: Left Arm; Cuff Size: Standard Weight 207 lb Height 65 in Body Mass Index Calculated 34.45 kg/m2 Body Surface Area Calculated 2.01 m2 :47 Temperature 97.6 f Comments: Method: Oral Pulse 68 /min Comments: Pattern: Regular Respiration Rate 18 /min Comments: Pattern: Unlabored BP Systolic 118 mm[Hg] Comments: Patient Position: Sitting; Cuff Location: Left Arm; Cuff Size: Standard BP Diastolic 68 mm[Hg] Comments: Patient Position: Sitting; Cuff Location: Left Arm; Cuff Size: Standard Weight 207 lb Height 65 in Body Mass Index Calculated 34.45 kg/m2 Body Surface Area Calculated 2.01 m2 :08 Temperature 98 f Pulse 56 /min Comments: Pattern: Regular Respiration Rate 16 /min Comments: Pattern: Unlabored BP Systolic 116 mm[Hg] Comments: Patient Position: Sitting; Cuff Location: Left Arm; Cuff Size: Large BP Diastolic 64 mm[Hg] Comments: Patient Position: Sitting; Cuff Location: Left Arm; Cuff Size: Large Weight 211 lb Height 65 in Body Mass Index Calculated 35.11 kg/m2 Body Surface Area Calculated 2.02 m2 :48 Temperature 97.6 f Comments: Method: Oral Pulse 70 /min Comments: Pattern: Regular Respiration Rate 20 /min Comments: Pattern: Unlabored BP Systolic 118 mm[Hg] Comments: Patient Position: Sitting; Cuff Location: Left Arm; Cuff Size: Standard BP Diastolic 68 mm[Hg] Comments: Patient Position: Sitting; Cuff Location: Left Arm; Cuff Size: Standard Weight 204 lb Height 65 in Body Mass Index Calculated 33.95 kg/m2 Body Surface Area Calculated 1.99 m2 :21 Temperature 98.1 f Comments: Method: Oral Pulse 64 /min Comments: Pattern: Regular Respiration Rate 18 /min Comments: Pattern: Unlabored BP Systolic 120 mm[Hg] Comments: Patient Position: Sitting; Cuff Location: Left Arm; Cuff Size: Large BP Diastolic 60 mm[Hg] Comments: Patient Position: Sitting; Cuff Location: Left Arm; Cuff Size: Large Weight 205 lb Height 65 in Body Mass Index Calculated 34.11 kg/m2 Body Surface Area Calculated 2 m2 :59 Temperature 97.9 f Comments: Method: Oral Pulse 70 /min Comments: Pattern: Regular Respiration Rate 16 /min Comments: Pattern: Unlabored BP Systolic 120 mm[Hg] Comments: Patient Position: Sitting; Cuff Location: Left Arm; Cuff Size: Standard BP Diastolic 74 mm[Hg] Comments: Patient Position: Sitting; Cuff Location: Left Arm; Cuff Size: Standard Weight 206 lb Height 65 in Body Mass Index Calculated 34.28 kg/m2 Body Surface Area Calculated 2 m2 :02 Pulse 64 /min Comments: Pattern: Regular Respiration Rate 18 /min Comments: Pattern: Unlabored BP Systolic 118 mm[Hg] Comments: Patient Position: Sitting; Cuff Location: Left Arm; Cuff Size: Standard BP Diastolic 78 mm[Hg] Comments: Patient Position: Sitting; Cuff Location: Left Arm; Cuff Size: Standard Weight 183.0375 lb :00 Temperature 96.9 f Comments: Method: Oral Pulse 64 /min Comments: Pattern: Regular Respiration Rate 16 /min Comments: Pattern: Unlabored BP Systolic 124 mm[Hg] Comments: Patient Position: Sitting; Cuff Location: Right Arm; Cuff Size: Large BP Diastolic 78 mm[Hg] Comments: Patient Position: Sitting; Cuff Location: Right Arm; Cuff Size: Large Weight 205 lb :03 Pulse 70 /min Comments: Pattern: Regular Respiration Rate 16 /min Comments: Pattern: Unlabored BP Systolic 118 mm[Hg] Comments: Patient Position: Sitting; Cuff Location: Left Arm; Cuff Size: Standard BP Diastolic 78 mm[Hg] Comments: Patient Position: Sitting; Cuff Location: Left Arm; Cuff Size: Standard Weight 205 lb Height 0 in Head Circumference 0.00 cm :44 Pulse 74 /min Comments: Pattern: Regular Respiration Rate 16 /min Comments: Pattern: Unlabored BP Systolic 114 mm[Hg] Comments: Patient Position: Sitting; Cuff Location: Left Arm; Cuff Size: Standard BP Diastolic 78 mm[Hg] Comments: Patient Position: Sitting; Cuff Location: Left Arm; Cuff Size: Standard Weight 202 lb Height 0 in Head Circumference 0.00 cm :20 Temperature 97 f Comments: Method: Oral Pulse 72 /min Comments: Pattern: Regular Respiration Rate 16 /min Comments: Pattern: Unlabored BP Systolic 112 mm[Hg] Comments: Patient Position: Sitting; Cuff Location: Right Arm; Cuff Size: Standard BP Diastolic 78 mm[Hg] Comments: Patient Position: Sitting; Cuff Location: Right Arm; Cuff Size: Standard Weight 196 lb Height 0 in Head Circumference 0.00 cm :51 Temperature 98.2 f Comments: Method: Undefined Pulse 60 /min Comments: Pattern: Regular Respiration Rate 16 /min Comments: Pattern: Undefined BP Systolic 114 mm[Hg] Comments: Patient Position: Sitting; Cuff Location: Right Arm; Cuff Size: Standard BP Diastolic 74 mm[Hg] Comments: Patient Position: Sitting; Cuff Location: Right Arm; Cuff Size: Standard Weight 0 lb Height 0 in Head Circumference 0.00 cm :54 Temperature 97.8 f Comments: Method: Oral Pulse 64 /min Comments: Pattern: Regular Respiration Rate 18 /min Comments: Pattern: Unlabored O2 SAT 99 % Comments: Room air BP Systolic 124 mm[Hg] Comments: Patient Position: Sitting; Cuff Location: Left Arm; Cuff Size: Standard BP Diastolic 80 mm[Hg] Comments: Patient Position: Sitting; Cuff Location: Left Arm; Cuff Size: Standard Weight 0 lb Height 0 in Head Circumference 0.00 cm :09 Temperature 97.7 f Comments: Method: Oral Pulse 70 /min Comments: Pattern: Regular Respiration Rate 20 /min Comments: Pattern: Unlabored BP Systolic 124 mm[Hg] Comments: Patient Position: Sitting; Cuff Location: Left Arm; Cuff Size: Standard BP Diastolic 76 mm[Hg] Comments: Patient Position: Sitting; Cuff Location: Left Arm; Cuff Size: Standard Weight 0 lb Height 0 in Head Circumference 0.00 cm :00 Temperature 97.5 f Comments: Method: Oral Pulse 60 /min Comments: Pattern: Regular Respiration Rate 16 /min Comments: Pattern: Unlabored BP Systolic 102 mm[Hg] Comments: Patient Position: Sitting; Cuff Location: Left Arm; Cuff Size: Large BP Diastolic 68 mm[Hg] Comments: Patient Position: Sitting; Cuff Location: Left Arm; Cuff Size: Large Weight 194 lb Height 0 in Head Circumference 0.00 cm :26 Temperature 97.6 f Comments: Method: Oral Pulse 70 /min Comments: Pattern: Regular Respiration Rate 20 /min Comments: Pattern: Unlabored BP Systolic 112 mm[Hg] Comments: Patient Position: Sitting; Cuff Location: Left Arm; Cuff Size: Standard BP Diastolic 78 mm[Hg] Comments: Patient Position: Sitting; Cuff Location: Left Arm; Cuff Size: Standard Weight 140 lb Height 0 in Head Circumference 0.00 cm :19 Pulse 64 /min Comments: Pattern: Regular Respiration Rate 17 /min Comments: Pattern: Unlabored BP Systolic 98 mm[Hg] Comments: Patient Position: Sitting; Cuff Location: Left Arm; Cuff Size: Standard BP Diastolic 68 mm[Hg] Comments: Patient Position: Sitting; Cuff Location: Left Arm; Cuff Size: Standard Weight 140.0625 lb Height 0 in Head Circumference 0.00 cm :21 Temperature 97.8 f Comments: Method: Undefined Pulse 64 /min Comments: Pattern: Regular Respiration Rate 16 /min Comments: Pattern: Undefined BP Systolic 128 mm[Hg] Comments: Patient Position: Sitting; Cuff Location: Left Arm; Cuff Size: Standard BP Diastolic 68 mm[Hg] Comments: Patient Position: Sitting; Cuff Location: Left Arm; Cuff Size: Standard Weight 0 lb Height 0 in Head Circumference 0.00 cm Results Date Description Value Details :14 HgA1C , Office (33081) HgA1C , Office 6.8 % (Normal) Range: 4.6 - 7.1 [id number] Microscopic Examination Comments: PATIENT NOT FASTINGPERFORMED BY: MAURISIO [facility] CenterCoEngle[facility] Hospital and Medical CenterZxqmuy5788 [facility] [id number] Bacteria Few (Normal) Mucus Threads Present (Normal) Epithelial Cells (non renal) None seen {/hpf} (Normal) Range: 0 - 10 RBC 0-2 {/hpf} (Normal) Range: 0 - 2 WBC 0-5 {/hpf} (Normal) Range: 0 - 5 [id number]:45 URINE ELYSSA CULTURE-IDENTIFICATN Comments: PATIENT NOT FASTINGPERFORMED BY: [employer] Goalbook [facility] [id number] ([id number]) Result 1 NG36 (Normal) Comments: No growth in 36 - 48 hours. Urine Culture,Comprehensive Final report (Normal) [id number] URINALYSIS (07274) Comments: PATIENT NOT FASTINGPERFORMED BY: Results [facility]Cox[facility] Goalbook [facility] [id number] Information: SRC:UC Microscopic Examination See below: (Normal) Comments: Microscopic was indicated and was performed. Nitrite, Urine Negative (Normal) Urobilinogen,Semi-Qn 0.2 mg/dL (Normal) Range: 0.2-1.0 Bilirubin Negative (Normal) Occult Blood Negative (Normal) Ketones Negative (Normal) Glucose Negative (Normal) Protein Negative (Normal) WBC Esterase Trace (Abnormal) Appearance Clear (Normal) Urine-Color Yellow (Normal) pH 7.0 (Normal) Range: 5.0-7.5 Specific [place] 1.012 (Normal) Range: 1.005-1.030 [id number] C-REACTIVE PROTEIN (86885) Comments: PATIENT NOT FASTINGPERFORMED BY: Results [facility] Pnlqdz0572 [facility] [id number] C-Reactive Protein, Quant 0.8 mg/L (Normal) Range: 0.0-4.9 [id number]:15 Sed Rate Erythrocyte (05045) Comments: PATIENT NOT FASTINGPERFORMED BY: Results ScorecardTr[facility] Hospital6370 [facility] [id number] Sedimentation Rate-Westergren 17 mm/h (Normal) Range: 0-40 [id number] CBC WITH MANUAL DIFF (69337) Comments: PATIENT NOT FASTINGPERFORMED BY: MAURISIO [facility]6370 [facility] [id number] Immature Grans (Abs) 0.0 {x10E3/uL} (Normal) Range: 0.0-0.1 Immature Granulocytes 0 % (Normal) Baso (Absolute) 0.0 {x10E3/uL} (Normal) Range: 0.0-0.2 Eos (Absolute) 0.2 {x10E3/uL} (Normal) Range: 0.0-0.4 Monocytes(Absolute) 0.6 {x10E3/uL} (Normal) Range: 0.1-0.9 Lymphs (Absolute) 1.8 {x10E3/uL} (Normal) Range: 0.7-3.1 Neutrophils (Absolute) 3.2 {x10E3/uL} (Normal) Range: 1.4-7.0 Basos 0 % (Normal) Eos 3 % (Normal) Monocytes 10 % (Normal) Lymphs 32 % (Normal) Neutrophils 55 % (Normal) Platelets 249 {x10E3/uL} (Normal) Range: 150-379 RDW 15.0 % (Normal) Range: 12.3-15.4 MCHC 33.1 g/dL (Normal) Range: 31.5-35.7 MCH 30.6 pg (Normal) Range: 26.6-33.0 MCV 93 fL (Normal) Range: 79-97 Hematocrit 39.6 % (Normal) Range: 34.0-46.6 Hemoglobin 13.1 g/dL (Normal) Range: 11.1-15.9 RBC 4.28 {x10E6/uL} (Normal) Range: 3.77-5.28 WBC 5.8 {x10E3/uL} (Normal) Range: 3.4-10.8 :42 Rapid Strep Test, Office (41623) Rapid Strep Test, Office Negative (Normal) [id number]:05 Microscopic Examination Comments: PATIENT NOT FASTINGPERFORMED BY: LabTr[facility]6370 [facility] [id number]; will review on 04.22 Bacteria None seen (Normal) Mucus Threads Present (Normal) Cast Type Hyaline casts (Normal) Casts Present {/lpf} (Abnormal) Epithelial Cells (non renal) 0-10 {/hpf} (Normal) Range: 0 - 10 RBC 0-2 {/hpf} (Normal) Range: 0 - 2 WBC 0-5 {/hpf} (Normal) Range: 0 - 5 :05 URINALYSIS, W/ MICRO (73903) Comments: PATIENT NOT FASTINGPERFORMED BY: Ondeego Tcwmjk1804 [facility] [id number] Microscopic Examination See below: (Normal) Comments: Microscopic was indicated and was performed. Microscopic Examination MICRON (Normal) Comments: Microscopic follows if indicated. Nitrite, Urine Negative (Normal) Urobilinogen,Semi-Qn 0.2 mg/dL (Normal) Range: 0.2-1.0 Bilirubin Negative (Normal) Occult Blood Negative (Normal) Ketones Negative (Normal) Glucose Negative (Normal) Protein Negative (Normal) WBC Esterase Negative (Normal) Appearance Clear (Normal) Urine-Color Yellow (Normal) pH 7.5 (Normal) Range: 5.0-7.5 Specific [place] 1.015 (Normal) Range: 1.005-1.030 [id number]:05 METABOLIC PANEL, COMPREHENSIVE Comments: PATIENT NOT FASTINGPERFORMED BY: [employer]6370 [facility] [id number] (33848) ALT (SGPT) 6 [iU]/L (Normal) Range: 0-32 AST (SGOT) 14 [iU]/L (Normal) Range: 0-40 Alkaline Phosphatase, S 79 [iU]/L (Normal) Range: 39-117 Bilirubin, Total <0.2 mg/dL (Normal) Range: 0.0-1.2 A/G Ratio 1.4 (Normal) Range: 1.2-2.2 Globulin, Total 2.7 g/dL (Normal) Range: 1.5-4.5 Albumin, Serum 3.7 g/dL (Normal) Range: 3.6-4.8 Protein, Total, Serum 6.4 g/dL (Normal) Range: 6.0-8.5 Calcium, Serum 10.0 mg/dL (Normal) Range: 8.7-10.3 Carbon Dioxide, Total 24 mmol/L (Normal) Range: 18-29 Chloride, Serum 104 mmol/L (Normal) Range: 96-106 Potassium, Serum 4.7 mmol/L (Normal) Range: 3.5-5.2 Sodium, Serum 144 mmol/L (Normal) Range: 134-144 BUN/Creatinine Ratio 11 (Abnormal) Range: 12-28 eGFR If Africn Am 70 mL/min/1.73 (Normal) eGFR If NonAfricn Am 61 mL/min/1.73 (Normal) Creatinine, Serum 0.98 mg/dL (Normal) Range: 0.57-1.00 BUN 11 mg/dL (Normal) Range: 8-27 Glucose, Serum 91 mg/dL (Normal) Range: 65-99 [id number]-Tey-[id number]:05 CBC with auto diff Comments: PATIENT NOT FASTINGPERFORMED BY: LabCo Xtbjma3656 [facility] [id number] Information: NURSE DRAW (49661) Immature Grans (Abs) 0.0 {x10E3/uL} (Normal) Range: 0.0-0.1 Immature Granulocytes 0 % (Normal) Baso (Absolute) 0.0 {x10E3/uL} (Normal) Range: 0.0-0.2 Eos (Absolute) 0.1 {x10E3/uL} (Normal) Range: 0.0-0.4 Monocytes(Absolute) 0.4 {x10E3/uL} (Normal) Range: 0.1-0.9 Lymphs (Absolute) 1.5 {x10E3/uL} (Normal) Range: 0.7-3.1 Neutrophils (Absolute) 1.7 {x10E3/uL} (Normal) Range: 1.4-7.0 Basos 1 % (Normal) Eos 2 % (Normal) Monocytes 11 % (Normal) Lymphs 40 % (Normal) Neutrophils 46 % (Normal) Platelets 217 {x10E3/uL} (Normal) Range: 150-379 RDW 15.4 % (Normal) Range: 12.3-15.4 MCHC 32.8 g/dL (Normal) Range: 31.5-35.7 MCH 31.6 pg (Normal) Range: 26.6-33.0 MCV 96 fL (Normal) Range: 79-97 Hematocrit 38.4 % (Normal) Range: 34.0-46.6 Hemoglobin 12.6 g/dL (Normal) Range: 11.1-15.9 RBC 3.99 {x10E6/uL} (Normal) Range: 3.77-5.28 WBC 3.7 {x10E3/uL} (Normal) Range: 3.4-10.8 :11 Rapid Strep Test, Office (99036) Rapid Strep Test, Office Negative (Normal) :42 CBC (Auto) (80674) Comments: PATIENT NOT FASTINGPERFORMED BY: LabCoEnglewood Hospital and Medical CenterTysmkb8038 [facility] [id number] Platelets 219 {x10E3/uL} (Normal) Range: 150-379 RDW 15.3 % (Normal) Range: 12.3-15.4 MCHC 32.2 g/dL (Normal) Range: 31.5-35.7 MCH 30.6 pg (Normal) Range: 26.6-33.0 MCV 95 fL (Normal) Range: 79-97 Hematocrit 39.8 % (Normal) Range: 34.0-46.6 Hemoglobin 12.8 g/dL (Normal) Range: 11.1-15.9 RBC 4.18 {x10E6/uL} (Normal) Range: 3.77-5.28 WBC 4.4 {x10E3/uL} (Normal) Range: 3.4-10.8 :42 Metabolic Panel, Comprehensive Comments: PATIENT NOT FASTINGPERFORMED BY: [facility] CenterCoEngle[facility] Medical CenterFhcqiz8579 [facility] [id number] (27652) ALT (SGPT) 5 [iU]/L (Normal) Range: 0-32 AST (SGOT) 14 [iU]/L (Normal) Range: 0-40 Alkaline Phosphatase, S 71 [iU]/L (Normal) Range: 39-117 Bilirubin, Total 0.2 mg/dL (Normal) Range: 0.0-1.2 A/G Ratio 1.6 (Normal) Range: 1.2-2.2 Globulin, Total 2.5 g/dL (Normal) Range: 1.5-4.5 Albumin, Serum 3.9 g/dL (Normal) Range: 3.6-4.8 Protein, Total, Serum 6.4 g/dL (Normal) Range: 6.0-8.5 Calcium, Serum 9.8 mg/dL (Normal) Range: 8.7-10.3 Carbon Dioxide, Total 26 mmol/L (Normal) Range: 18-29 Chloride, Serum 102 mmol/L (Normal) Range: 96-106 Potassium, Serum 5.0 mmol/L (Normal) Range: 3.5-5.2 Sodium, Serum 141 mmol/L (Normal) Range: 134-144 BUN/Creatinine Ratio 16 (Normal) Range: 12-28 eGFR If Africn Am 84 mL/min/1.73 (Normal) eGFR If NonAfricn Am 73 mL/min/1.73 (Normal) Creatinine, Serum 0.85 mg/dL (Normal) Range: 0.57-1.00 BUN 14 mg/dL (Normal) Range: 8-27 Glucose, Serum 88 mg/dL (Normal) Range: 65-99 :42 Valproic Acid (44732) Comments: PATIENT NOT FASTINGPERFORMED BY: LabRipl.io, Inc.[facility] Medical CenterQbsjuz7002 [facility] [id number] Valproic Acid (Depakote)(R),S 63 ug/mL (Normal) Range: 50-100 Comments: Detection Limit = 4 <4 indicates None Detected . Toxicity may occur at levels of 100-500. Measurements of free unbound valproic acid may improve the assess- ment of clinical response. :13 HgA1C , Office (88453) HgA1C , Office 5.2 % (Normal) Range: 4.6 - 7.1 60-[id number]-[id number]:07 IGP, Aptima HPV, rfx Comments: No. of containers..01 CYTYC Thin Prep VialPATIENT NOT FASTINGPERFORMED BY: =G LabArts & AnalyticsPswrksdwoj744 [facility] W [id number] BY: WB LabRipl[employer] [address]prkl[address] [id number] 16/18,45 HPV Aptima Negative (Normal) Comments: This test detects fourteen high-risk HPV types (16/18/31/33/35/39/45/51/52/56/58/59/66/68) without differentiation. Note: PAPSMR (Normal) Comments: The Pap smear is a screening test designed to aid in the detection ofpremalignant and malignant conditions of the uterine cervix. It is not adiagnostic procedure and should not be used as the sole mean s of detectingcervical cancer. Both false-positive and false-negative reports do occur. .This liquid based ThinPrep(R) pap test w as screened with theuse of an image guided system. See Note . (Normal) DIAGNOSIS: SPRCS (Normal) Comments: NEGATIVE FOR INTRAEPITHELIAL LESION AND MALIGNANCY.CELLULAR CHANGES ASSOCIATED WITH ATROPHY ARE PRESENT.Satisfactory for evaluation. Endocervical component may not bedistinguished in cases of atrophy.Z 01.Shan Castañeda Automatic Edger (ASCP) [id number] Thin prep Pap (94949) Comments: No. of containers..01 CYTYC Thin Prep VialPATIENT NOT FASTINGPERFORMED BY: =G [employer] [place] [address] [place] [id number] BY: WB [address] [place] [address] (no STD testing) on [place] [id number] Information: [id number] Age Gdln ACOG Testing 30-65 (Normal) 89-Dev-[id number]:42 URINE ELYSSA CULTURE-IDENTIFICATN Comments: PATIENT NOT FASTINGPERFORMED BY: [employer] [place] [id number] Information: SRC:UC (58805) Result 1 MUG (Normal) Comments: Mixed urogenital ocwcs578 Colonies/mL Urine Culture,Comprehensive Final report (Normal) 19-Cqb-071577:10 Urinalysis, Office (15678) UA - LEUKOCYTE ESTERASE Trace (Normal) UA - NITRITE Negative (Normal) URINE UROBILINGN FABRICIO TIMED Normal mg/dL (Normal) UA - PROTEIN Negative mg/dL (Normal) UA - PH 6 (Abnormal) UA - BLOOD + (Abnormal) UA - SPECIFIC GRAVITY 1.030 (Abnormal) UA - KETONES 5 mg/dL (Abnormal) UA - BILIRUBIN Negative (Normal) UA - GLUCOSE Negative (Normal) 37-Tbz-86935:20 CALCIFIDIOL (99925) VIT D 25 Comments: PATIENT WAS FASTINGPERFORMED BY: [facility] [id number] Vitamin D, 25-Hydroxy 23.4 ng/mL (Abnormal) Range: 30.0-100.0 Comments: Vitamin D deficiency has been defined by the [place] of[place] and an Endocrine Society practice guideline as alevel of serum 25-OH vitamin D less than 20 ng/mL (1,2).The Endocrine Society went on to further define vitamin Dinsufficiency as a level between 21 and 29 ng/mL (2).1. IOM ([place] of Medicine). 2010. Dietary reference intakes for calcium and D. [place]: The National AcademLucidPort Technology Press.2. Liana MF, Bertha NC, Kishan TAVAREZ, et al. Evaluation, treatment, and prevention of vitamin D deficiency: an Endocrine Society clinical practice guideline. JCEM. 2010; 96(7):1911-30. :20 ASSAY-DIPROPYLACETC ACID (68724) Comments: PATIENT WAS FASTINGPERFORMED BY: [employer] [facility] HospitalMeta IndustriesAt[facility] [id number] Valproic Acid (Depakote)(R),S 47 ug/mL (Abnormal) Range: 50-100 Comments: Detection Limit = 4 <4 indicates None Detected . Toxicity may occur at levels of 100-500. Measurements of free unbound valproic acid may improve the assess- ment of clinical response. :20 CBC WITH MANUAL DIFF Comments: PATIENT WAS FASTINGPERFORMED BY: [employer] [facility] Kzmfmu3724 [facility] [id number] Information: [id number] (97034) Immature Grans (Abs) 0.0 {x10E3/uL} (Normal) Range: 0.0-0.1 Immature Granulocytes 0 % (Normal) Baso (Absolute) 0.0 {x10E3/uL} (Normal) Range: 0.0-0.2 Eos (Absolute) 0.1 {x10E3/uL} (Normal) Range: 0.0-0.4 Monocytes(Absolute) 0.5 {x10E3/uL} (Normal) Range: 0.1-0.9 Lymphs (Absolute) 1.5 {x10E3/uL} (Normal) Range: 0.7-3.1 Neutrophils (Absolute) 2.2 {x10E3/uL} (Normal) Range: 1.4-7.0 Basos 1 % (Normal) Eos 2 % (Normal) Monocytes 11 % (Normal) Lymphs 36 % (Normal) Neutrophils 50 % (Normal) Platelets 188 {x10E3/uL} (Normal) Range: 150-379 RDW 15.1 % (Normal) Range: 12.3-15.4 MCHC 32.2 g/dL (Normal) Range: 31.5-35.7 MCH 30.1 pg (Normal) Range: 26.6-33.0 MCV 93 fL (Normal) Range: 79-97 Hematocrit 41.0 % (Normal) Range: 34.0-46.6 Hemoglobin 13.2 g/dL (Normal) Range: 11.1-15.9 RBC 4.39 {x10E6/uL} (Normal) Range: 3.77-5.28 WBC 4.3 {x10E3/uL} (Normal) Range: 3.4-10.8 :20 TSH (69118) Comments: PATIENT WAS FASTINGPERFORMED BY: LabCoEnglewood Hospital and Medical CenterPmgehj7388 [facility] [id number] TSH 1.360 {uIU/mL} (Normal) Range: 0.450-4.500 :20 Metabolic Panel, Comprehensive Comments: PATIENT WAS FASTINGPERFORMED BY: [facility] [id number] (88436) ALT (SGPT) 13 [iU]/L (Normal) Range: 0-32 AST (SGOT) 27 [iU]/L (Normal) Range: 0-40 Alkaline Phosphatase, S 79 [iU]/L (Normal) Range: 39-117 Bilirubin, Total <0.2 mg/dL (Normal) Range: 0.0-1.2 A/G Ratio 1.6 (Normal) Range: 1.1-2.5 Globulin, Total 2.6 g/dL (Normal) Range: 1.5-4.5 Albumin, Serum 4.1 g/dL (Normal) Range: 3.6-4.8 Protein, Total, Serum 6.7 g/dL (Normal) Range: 6.0-8.5 Calcium, Serum 10.2 mg/dL (Normal) Range: 8.7-10.3 Carbon Dioxide, Total 25 mmol/L (Normal) Range: 18-29 Chloride, Serum 107 mmol/L (Normal) Range: 97-108 Potassium, Serum 4.8 mmol/L (Normal) Range: 3.5-5.2 Sodium, Serum 149 mmol/L (Abnormal) Range: 134-144 BUN/Creatinine Ratio 14 (Normal) Range: 11-26 eGFR If Africn Am 85 mL/min/1.73 (Normal) eGFR If NonAfricn Am 74 mL/min/1.73 (Normal) Creatinine, Serum 0.84 mg/dL (Normal) Range: 0.57-1.00 BUN 12 mg/dL (Normal) Range: 8-27 Glucose, Serum 97 mg/dL (Normal) Range: 65-99 66-Vng-53887:20 Lipid Panel (06528) Comments: PATIENT WAS FASTINGPERFORMED BY: [facility]At[facility] [id number]; apt. 6-14 LDL/HDL Ratio 2.6 {ratio_units} (Normal) Range: 0.0-3.2 Comments: LDL/HDL Ratio Men Women 1/2 Avg.Risk 1.0 1.5 Av g.Risk 3.6 3.2 2X Avg.Risk 6.2 5.0 3X Avg.Risk 8.0 6.1 LDL Cholesterol Calc 118 mg/dL (Abnormal) Range: 0-99 VLDL Cholesterol Manoj 40 mg/dL (Normal) Range: 5-40 HDL Cholesterol 46 mg/dL (Normal) Comments: According to ATP-III Guidelines, HDL-C >59 mg/dL is considered anegative risk factor for CHD. Triglycerides 199 mg/dL (Abnormal) Range: 0-149 Cholesterol, Total 204 mg/dL (Abnormal) Range: 100-199 20-Agt-434248:17 URINE ELYSSA CULTURE-FABRICIO COL Comments: PATIENT NOT FASTINGPERFORMED BY: [facility]At[facility] [id number] Information: SRC:[facility] [id number] COUNT (75203) Antimicrobial MIHEAD (Normal) Comments: S = Susceptible; I = Intermediate; R = Resistant P = Positive; N = Negative MICS are expressed in micrograms per mL Antibiotic RSLT#1 RSLT#2 RS Susceptibility LT#3 RSLT#4Ciprofloxacin SLevofloxacin SNitrofurantoin SPenicillin STetracycline RVancomycin S Result 1 Enterococcus faecalis Comments: Greater than 100,000 colony forming units per mLNote: this isolate is vancomycin-susceptible.This information is provided for epidemiologic purposes only:vancomycin is not among the antibiotics recommen (Abnormal) ded for therapyof urinary tract infections caused by Enterococcus.For Enterococcus species, cephalosporins, aminoglycosides (except forhigh-level resistance screening), clindamycin, and trimethoprim-sul famethoxazole are not effective clinically. Fluoroquinolones areused primarily for treating urinary tract infections. (CLSI, [id number],2009) Urine Culture,Comprehensive Final report (Abnormal) 35-Jym-580578:29 Urinalysis, Office (23005) UA - LEUKOCYTE ESTERASE Large (Normal) UA - NITRITE Negative (Normal) URINE UROBILINGN FABRICIO TIMED 2 mg/dL (Normal) UA - PROTEIN Trace mg/dL (Normal) UA - PH 7.5 (Normal) UA - BLOOD Non Hemolyzed Trace (Normal) UA - SPECIFIC GRAVITY 1.015 (Normal) UA - KETONES Negative mg/dL (Normal) UA - BILIRUBIN Negative (Normal) UA - GLUCOSE Negative (Normal) 46-Fap-49226:20 Valproic Acid (17102) Comments: PATIENT WAS FASTINGPERFORMED BY: [employer]6370 [facility] [id number] Valproic Acid (Depakote)(R),S 50 ug/mL (Normal) Range: 50-100 Comments: Detection Limit = 4 <4 indicates None Detected . Toxicity may occur at levels of 100-500. Measurements of free unbound valproic acid may improve the assess- ment of clinical response. :20 Metabolic Panel, Basic Comments: PATIENT WAS FASTINGPERFORMED BY: [employer] [facility] [id number] Information: [id number] (00940) Calcium, Serum 10.1 mg/dL (Normal) Range: 8.7-10.3 Carbon Dioxide, Total 24 mmol/L (Normal) Range: 18-29 Chloride, Serum 103 mmol/L (Normal) Range: 97-108 Potassium, Serum 5.1 mmol/L (Normal) Range: 3.5-5.2 Sodium, Serum 144 mmol/L (Normal) Range: 134-144 BUN/Creatinine Ratio 16 (Normal) Range: 11-26 eGFR If Africn Am 81 mL/min/1.73 (Normal) eGFR If NonAfricn Am 70 mL/min/1.73 (Normal) Creatinine, Serum 0.88 mg/dL (Normal) Range: 0.57-1.00 BUN 14 mg/dL (Normal) Range: 8-27 Glucose, Serum 86 mg/dL (Normal) Range: 65-99 :20 LIPID PANEL (66567) Comments: PATIENT WAS FASTINGPERFORMED BY: [facility] [id number] LDL/HDL Ratio 2.5 {ratio_units} (Normal) Range: 0.0-3.2 Comments: LDL/HDL Ratio Men Women 1/2 Avg.Risk 1.0 1.5 Av g.Risk 3.6 3.2 2X Avg.Risk 6.2 5.0 3X Avg.Risk 8.0 6.1 LDL Cholesterol Calc 138 mg/dL (Abnormal) Range: 0-99 VLDL Cholesterol Manoj 46 mg/dL (Abnormal) Range: 5-40 HDL Cholesterol 56 mg/dL (Normal) Comments: According to ATP-III Guidelines, HDL-C >59 mg/dL is considered anegative risk factor for CHD. Triglycerides 232 mg/dL (Abnormal) Range: 0-149 Cholesterol, Total 240 mg/dL (Abnormal) Range: 100-199 :20 HEPATIC FUNCTION PANEL Comments: PATIENT WAS FASTINGPERFORMED BY: [employer]6370 [facility] [id number] (50082) ALT (SGPT) 8 [iU]/L (Normal) Range: 0-32 AST (SGOT) 18 [iU]/L (Normal) Range: 0-40 Alkaline Phosphatase, S 80 [iU]/L (Normal) Range: 39-117 Bilirubin, Direct 0.05 mg/dL (Normal) Range: 0.00-0.40 Bilirubin, Total <0.2 mg/dL (Normal) Range: 0.0-1.2 Albumin, Serum 4.1 g/dL (Normal) Range: 3.6-4.8 Protein, Total, Serum 6.4 g/dL (Normal) Range: 6.0-8.5 17-Tju-296431:21 CBC W/Diff, Automated Comments: Test performed at:[facility] [address] [place] [address] Absolute Lymph 1.27 {X10_3/ul} (Normal) Range: 0.83-4.51 Absolute Neut 2.7 {X10_3/uL} (Normal) Range: 2.0-7.7 IM GRAN % 0.000 % (Normal) Range: 0.0-0.9 Comments: IG% - Immature Granulocytes (promyelocytes, myelocytes andmetamyelocytes) > 1% indicates that a LEFT SHIFT is Present. BASO% 0.4 % (Normal) Range: 0-1 EO% 1.7 % (Normal) Range: 0-5 MONO% 11.4 % (Abnormal) Range: 0-10 LY% 27.4 % (Normal) Range: 19-41 NEUT% 59.1 % (Normal) Range: 47-70 MPV 11.0 fL (Normal) Range: 6.2-12.0 PLT 198 K/mm3 (Normal) Range: 150-450 RDW SD 44.6 fL (Abnormal) Range: 35.1-43.9 RDW CV 13.4 % (Normal) Range: 11.6-14.6 MCHC 32.1 {g/gl} (Normal) Range: 32-36 MCH 30.3 pg (Normal) Range: 27.0-32.0 MCV 94.3 fL (Normal) Range: 81-99 HCT 43.3 % (Normal) Range: 37-47 HGB 13.9 g/dL (Normal) Range: 12.0-15.0 RBC 4.59 {M/mm3} (Normal) Range: 4.2-5.4 WBC 4.6 K/mm3 (Normal) Range: 4.4-11.0 01-Erb-233547:21 Comprehensive Metabolic Profil Comments: Test performed at:[facility] [address] [place] [address] GAP 6 (Normal) Range: 5-15 CO2 28.0 mmol/L (Normal) Range: 21.0-32.0 CL 107 mmol/L (Normal) Range: 98-107 K 4.1 mmol/L (Normal) Range: 3.5-5.1 NA 141 mmol/L (Normal) Range: 136-145 T BILI 0.30 mg/dL (Normal) Range: 0.00-4.00 ALT 15 U/L (Normal) Range: 12-78 ALK P 83 U/L (Normal) Range: 50-136 AST 21 U/L (Normal) Range: 15-37 CA 10.0 mg/dL (Normal) Range: 8.5-10.1 A/G 0.9 {RATIO} (Normal) Range: 0.9-2.4 GLOB 3.9 g/dL (Normal) Range: 2.7-4.2 ALB 3.4 g/dL (Normal) Range: 3.4-5.0 T PROT 7.3 g/dL (Normal) Range: 6.4-8.2 BUN/CRE 13.0 {RATIO} (Normal) Range: 10-20 EST GFR - AA 73 mL/min (Normal) EST GFR 60 mL/min (Normal) CREAT,SERUM 1.0 mg/dL (Normal) Range: 0.6-1.0 BUN 13 mg/dL (Normal) Range: 7-18 GLU 88 mg/dL (Normal) Range: 70-110 69-Ark-808735:21 Lipid Profile Comments: Test performed at:[facility] [address] [place], [place] [id number] VLDL 32 mg/dL (Normal) Range: 5-40 LDL 153 mg/dL (Abnormal) Range: 0-130 HDL 54 mg/dL (Normal) Comments: Reference Range HDL <40 mg/dL Low HDL Cholesterol HDL >or= 60 mg/dL High HDL Cholesterol TRIG 158 mg/dL (Normal) Range: 0-199 Comments: Serum Triglycerides Reference Interval Normal <150 mg/dL Borderline high 150 - 199 mg/dL High 200 - 499 mg/dL Very High > or = 500 mg/dL CHOL 239 mg/dL (Abnormal) Comments: <200 mg/dL Desirable 200-240 mg/dL Borderline >240 mg/dL High Risk 45-Sko-416786:01 HPV automatic Comments: Source.............Cervical;EndocervicalNo. of containers..01 CYTYC Thin Prep VialPATIENT NOT FASTINGPERFORMED BY: WB [facility] [place] [id number] BY: =Vangie Callaway (49038) [facility] [place] [id number] Information: [id number] HPV, high-risk Negative Comments: This high-risk HPV test detects thirteen high- risk types(16/18/31/33/35/39/45/51/52/56/58/59/68) without differentiation. . (Normal) Note: PAPSMR (Normal) Comments: The Pap smear is a screening test designed to aid in the detection ofpremalignant and malignant conditions of the uterine cervix. It is not adiagnostic procedure and should not be used as the sole mean s of detectingcervical cancer. Both false-positive and false-negative reports do occur. .This liquid based ThinPrep(R) pap test w as screened with theuse of an image guided system. See Note . (Normal) DIAGNOSIS: SPRCS (Normal) Comments: NEGATIVE FOR INTRAEPITHELIAL LESION AND MALIGNANCY.CELLULAR CHANGES ASSOCIATED WITH ATROPHY ARE PRESENT.Satisfactory for evaluation. Endocervical component may not bedistinguished in cases of atrophy.V 73.81 ; Special screening examination, human papillomavirus [HPV]Karan Herman, Automatic Edger (ASCP) 67-Hli-694331:35 URINE ELYSSA CULTURE-FABRICIO COL Comments: PATIENT NOT FASTINGPERFORMED BY: [facility] Pyrlbi3086 [facility] [id number] Information: SRC: [id number] COUNT (77918) Antimicrobial MIHEAD (Normal) Comments: S = Susceptible; I = Intermediate; R = Resistant P = Positive; N = Negative MICS are expressed in micrograms per mL Antibiotic RSLT#1 RSLT#2 Susceptibility RSLT#3 RSLT#4Ciprofloxacin SLevofloxacin SNitrofurantoin SPenicillin STetracycline RVancomycin S Result 1 Enterococcus faecalis Comments: Greater than 100,000 colony forming units per mLNote: this isolate is vancomycin-susceptible.This information is provided for epidemiologic purposesonly: vancomycin is not among the antibiot icsrecommend (Normal) ed for therapy of urinary tract infectionscaused by Enterococcus.For Enterococcus species, cephalosporins, aminoglycosides (except forhigh-level resistance screening), clindamycin, and trimethoprim-sulf amethoxazole are not effective clinically. Fluoroquinolones areused primarily for treating urinary tract infections. (CLSI, [id number],2009) Urine Culture,Comprehensive Final report (Normal) 54-Tel-648662:14 Urinalysis, Office (65705) UA - BILIRUBIN Negative (Normal) UA - BLOOD Non Hemolyzed Trace (Normal) UA - GLUCOSE Negative (Normal) UA - KETONES Negative mg/dL (Normal) UA - LEUKOCYTE ESTERASE Trace (Normal) UA - NITRITE Negative (Normal) UA - PH 7.0 (Normal) UA - PROTEIN Negative mg/dL (Normal) UA - SPECIFIC GRAVITY 1.010 (Normal) URINE UROBILINGN FABRICIO Normal mg/dL (Normal) TIMED FREE T3 3.1 pg/mL (Normal) Range: 2.18-3.98 :24 T4 FREE DIRECT 0.87 ng/dL (Normal) Range: 0.76-1.46 :24 T4 THYROXIN 9.0 ug/dL (Normal) Range: 4.8-13.9 :24 VIT D,25 93359 38.2 ng/mL (Normal) Range: 30.0-100.0 :24 Comments: Vitamin D deficiency has been defined by the [place] of[place]icine and an Endocrine Society practice guideline as alevel of serum 25-OH vitamin D less than 20 ng/mL (1,2).The Endocrine Society went on to further define vitamin Dinsufficiency as a level between 21 and 29 ng/mL (2).1. IOM ([place] of [place]). 2010. Dietary reference intakes for calcium and D. [place]: The National Academies Press.2. Liana GARZA, Bertha GABRIEL, Kishan TAVAREZ, et al. Evaluation, treatment, and prevention of vitamin D deficiency: an Endocrine Society clinical practice guideline. JCEM. 2010; 96(7): 1911-30.Performed at: - [facility] [id number] Director: Brian Flowers MD, Phone: [phone] :[phone] CBCD,SMEAR DIFF Comments: ORDERED CBCMD LIPID VALPROIC ACID CMP [facility] ORDERED LIPID LIVER RED CELL MORPH SeeNote {NORMAL} (Normal) Comments: Result: NORM C+C PLT EST SeeNote (Normal) Comments: Result: ADEQUATE EOS 4 % (Normal) Range: 0-5 MONOCYTE 6 % (Normal) Range: 0-10 LYMPH 30 % (Normal) Range: 19-41 SEGS 60 % (Normal) Range: 47-70 CELLS COUNTED 100 (Normal) ABSOLUTE NEUT 2.5 3/uL (Normal) Range: 2.0-7.7 PLT 190 K/mm3 (Normal) Range: 150-450 RDW 13.1 % (Normal) Range: 11.6-14.6 MCHC 34.1 g/dL (Normal) Range: 32-36 MCH 31.1 pg (Normal) Range: 27.0-32.0 MCV 91.1 fL (Normal) Range: 81-99 HCT 38.8 % (Normal) Range: 37-47 HGB 13.2 g/dL (Normal) Range: 12.0-16.0 RBC 4.26 {M/mm3} (Normal) Range: 4.2-5.4 WBC 4.8 K/mm3 (Normal) Range: 4.4-11.0 :32 COMP METABOLIC Comments: ORDERED CBCMD LIPID VALPROIC ACID CMP [facility] ORDERED LIPID LIVER GAP 7 (Normal) Range: 5-15 CO2 29.0 mmol/L (Normal) Range: 21.0-32.0 CL 107 mmol/L (Normal) Range: 98-107 K 4.3 mmol/L (Normal) Range: 3.5-5.1 NA 143 mmol/L (Normal) Range: 136-145 T BILI 0.20 mg/dL (Normal) Range: 0.00-1.00 ALT 16 U/L (Normal) Range: 12-78 ALK P 70 U/L (Normal) Range: 50-136 AST 14 U/L (Abnormal) Range: 15-37 CA 9.2 mg/dL (Normal) Range: 8.5-10.1 A/G 0.9 {RATIO} (Normal) Range: 0.9-2.4 GLOB 3.8 g/dL (Normal) Range: 2.7-4.2 ALB 3.3 g/dL (Abnormal) Range: 3.4-5.0 T PROT 7.1 g/dL (Normal) Range: 6.4-8.2 BUN/CRE 16.0 {RATIO} (Normal) Range: 10-20 EST GFR - AA 73 mL/min (Normal) EST GFR 60 mL/min (Normal) CREAT,SERUM 1.0 mg/dL (Normal) Range: 0.6-1.0 BUN 16 mg/dL (Normal) Range: 7-18 GLU 96 mg/dL (Normal) Range: 70-110 :32 COMPLETE UA Comments: ORDERED CBCMD LIPID VALPROIC ACID [facility] ORDERED LIPID LIVER MUCUS, URINE 0 SEEN {/hpf} (Normal) BACTERIA 0 SEEN {/hpf} (Normal) SQUAM EPI 0 SEEN {/hpf} (Normal) Range: 5-10 RBC-UA 0 SEEN {/hpf} (Normal) Range: 0-5 WBC 0 SEEN {/hpf} (Normal) Range: 0-5 LEUK ESTERASE TRACE (Abnormal) OCCULT BLOOD-UR SeeNote (Normal) Comments: Result: NEGATIVE NITRITE UR SeeNote (Normal) Comments: Result: NEGATIVE UROBILI 0.2 EU/dl (Normal) Range: 0.2 - 1.0 PROT DIPSTX SeeNote (Normal) Comments: Result: NEGATIVE pH UR 6.0 (Normal) Range: 5.0-8.0 SP.GR. DIPSTX 1.015 (Normal) Range: 1.002-1.030 KETONE UR SeeNote mg/dL (Normal) Comments: Result: NEGATIVE BILIRUBIN URINE SeeNote (Normal) Comments: Result: NEGATIVE GLUCOSE, UR SeeNote (Normal) Comments: Result: NEGATIVE CLARITY CLEAR (Normal) COLOR YELLOW (Normal) :32 D BILI 0.09 mg/dL (Normal) Comments: ORDERED CBCMD LIPID VALPROIC ACID [facility] ORDERED LIPID LIVER Range: 0.00-0.30 :32 LIPID Comments: ORDERED CBCMD LIPID VALPROIC ACID [facility] ORDERED LIPID LIVER VLDL 30 mg/dL (Normal) Range: 5-40 LDL 106 mg/dL (Normal) Range: 0-130 HDL 60 mg/dL (Normal) Comments: Reference Range HDL <40 mg/dL Low HDL Cholesterol HDL >or= 60 mg/dL High HDL Cholesterol TRIG 149 mg/dL (Normal) Comments: Serum Triglycerides Reference Interval Normal <150 mg/dL Borderline high 150 - 199 mg/dL High 200 - 499 mg/dL Very High > or = 500 mg/dL CHOL 196 mg/dL (Normal) Comments: <200 mg/dL Desirable 200-240 mg/dL Borderline >240 mg/dL High Risk :32 VALPROIC ACID 59 ug/mL (Normal) Comments: ORDERED CBCMD LIPID VALPROIC ACID [facility] ORDERED LIPID LIVER Range: 50-100 55-Ilq-518400:02 Rapid Strep Test, Office (52190) Rapid Strep Test, Office Negative (Normal) 97-Jrn-711744:26 CBCD ABSOLUTE NEUT 2.8 3/uL (Normal) Range: 2.0-7.7 BASO% 0.5 % (Normal) Range: 0-1 EO% 3.0 % (Normal) Range: 0-5 LY% 31.7 % (Normal) Range: 19-41 MONO% 11.1 % (Abnormal) Range: 0-10 HCT 38.2 % (Normal) Range: 37-47 HGB 12.8 g/dL (Normal) Range: 12.0-16.0 MCH 31.4 pg (Normal) Range: 27.0-32.0 MCHC 33.5 g/dL (Normal) Range: 32-36 MCV 93.9 fL (Normal) Range: 81-99 MPV 8.0 fL (Normal) Range: 6.5-12.0 NEUT% 53.7 % (Normal) Range: 47-70 PLT 189 K/mm3 (Normal) Range: 150-450 RBC 4.07 {M/mm3} (Abnormal) Range: 4.2-5.4 RDW 13.8 % (Normal) Range: 11.6-14.6 WBC 5.2 K/mm3 (Normal) Range: 4.4-11.0 91-Ghc-669336:26 COMP METABOLIC CL 104 mmol/L (Normal) Range: 98-107 CO2 29.0 mmol/L (Normal) Range: 21.0-32.0 GAP 5 (Normal) Range: 5-15 K 4.3 mmol/L (Normal) Range: 3.5-5.1 NA 138 mmol/L (Normal) Range: 136-145 A/G 0.9 {RATIO} (Normal) Range: 0.9-2.4 ALB 3.2 g/dL (Abnormal) Range: 3.4-5.0 ALK P 75 U/L (Normal) Range: 50-136 ALT 12 U/L (Normal) Range: 12-78 AST 12 U/L (Abnormal) Range: 15-37 BUN/CRE 17.5 {RATIO} (Normal) Range: 10-20 CA 9.3 mg/dL (Normal) Range: 8.5-10.1 CREAT,SERUM 1.2 mg/dL (Abnormal) Range: 0.6-1.0 EST GFR 49 mL/min (Abnormal) EST GFR - AA 59 mL/min (Abnormal) GLOB 3.7 g/dL (Normal) Range: 2.7-4.2 T BILI 0.20 mg/dL (Normal) Range: 0.00-1.00 T PROT 6.9 g/dL (Normal) Range: 6.4-8.2 BUN 21 mg/dL (Abnormal) Range: 7-18 GLU 90 mg/dL (Normal) Range: 70-110 52-Kwr-278126:26 D BILI 0.07 mg/dL (Normal) Range: 0.00-0.30 94-Mix-524759:26 LIPID HDL 56 mg/dL (Normal) Comments: Reference RangeHDL <40 mg/dL Low HDL CholesterolHDL >or= 60 mg/dL High HDL Cholesterol LDL 107 mg/dL (Normal) Range: 0-130 TRIG 115 mg/dL (Normal) Comments: Serum Triglycerides Reference IntervalNormal <150 mg/dLBorderline high 150 - 199 mg/dLHigh 200 - 499 mg/ dLVery High > or = 500 mg/dL VLDL 23 mg/dL (Normal) Range: 5-40 CHOL 186 mg/dL (Normal) Comments: <200 mg/dL Asgtijiah161-281 mg/dL Borderline>240 mg/dL High Risk 40-Osr-603310:26 MG 2.4 mg/dL (Abnormal) Range: 1.5-2.2 11-Tkw-482577:26 ROUTINE UA LEUK ESTERASE 1+ (Abnormal) NITRITE UR SeeNote (Normal) Comments: Result: NEGATIVE OCCULT BLOOD-UR SeeNote (Normal) Comments: Result: NEGATIVE BILIRUBIN URINE SeeNote (Normal) Comments: Result: NEGATIVE CLARITY CLEAR (Normal) GLUCOSE, UR SeeNote (Normal) Comments: Result: NEGATIVE KETONE UR SeeNote mg/dL (Normal) Comments: Result: NEGATIVE pH UR 6.0 (Normal) Range: 5.0-8.0 PROT DIPSTX SeeNote (Normal) Comments: Result: NEGATIVE SP.GR. DIPSTX 1.015 (Normal) Range: 1.002-1.030 UROBILI 0.2 EU/dl (Normal) Range: 0.2 - 1.0 COLOR YELLOW (Normal) 60-Nej-623002:26 VALPROIC ACID 73 ug/mL (Normal) Range: 50-100 5-Aki-940415:26 Urinalysis, Office (39269) UA - LEUKOCYTE ESTERASE Negative (Normal) UA - NITRITE Negative (Normal) URINE UROBILINGN FABRICIO TIMED Normal mg/dL (Normal) UA - PROTEIN Trace mg/dL (Normal) UA - PH 5.0 (Normal) UA - BLOOD Negative (Normal) UA - SPECIFIC GRAVITY 1.025 (Normal) UA - KETONES Small mg/dL (Normal) UA - BILIRUBIN Negative (Normal) UA - GLUCOSE Negative (Normal) 82-Msc-754202:34 BMP BUN 15 mg/dL (Normal) Range: 7-18 BUN/CRE 15.0 {RATIO} (Normal) Range: 10-20 CA 10.2 mg/dL (Abnormal) Range: 8.5-10.1 CL 99 mmol/L (Normal) Range: 98-107 CO2 30.0 mmol/L (Normal) Range: 21.0-32.0 CREAT,SERUM 1.0 mg/dL (Normal) Range: 0.6-1.0 EST GFR 61 mL/min (Normal) EST GFR - AA 74 mL/min (Normal) GAP 9 (Normal) Range: 5-15 GLU 75 mg/dL (Normal) Range: 70-110 K 4.4 mmol/L (Normal) Range: 3.5-5.1 NA 138 mmol/L (Normal) Range: 136-145 04-Jcp-[id number]:34 MG 2.1 mg/dL (Normal) Range: 1.5-2.2 18-Hcq-676775:34 T4 THYROXIN 8.7 ug/dL (Normal) Range: 4.8-13.9 05-Ozn-603776:34 TSH 1.57 {uIU/mL} (Normal) Range: 0.358-3.74 67-Smy-397876:03 BILAT SCRN DIGITAL & CAD Radiology Report See Note (Normal) Comments: Exam Number: [id number] BILATERAL SCREENING DIGITAL MAMMOGRAM Bilateral benign breasts, showing mild fibroglandular densities inboth breasts. A few benign calcifications in the left breast andasymmetri manoj density in the right breast. No essential change ofparenchymal pattern of both breasts from the previous examination doneon August 26, 2006. Computer-aided detection was used. IMPRESSIONNo eviden ce of a malignancy in both breasts. FINAL ASSESSMENTBIRADS Category 2-benign findings. One-year followup. A letter regarding the results has been sent to the patient. This interpretation was rendered by a radiologist certified under theMammography Quality Standards Act of 1992 (MQSA). The mammograms werealso examined with computer-aided detection software ([employer], [employer] Reported By: DONTA JACKSON 48-Oqa-90052:42 Thin prep Pap Comments: Source.............Cervical;EndocervicalLMP / Prev Treat...ZYX=[id number]. of containers..01 CYTYC Thin Prep VialPATIENT NOT FASTINGClinical Information: ADD [id number] ([id number]) PERFORMED BY: [facility] [id number] . . (Normal) DIAGNOSIS: SPRCS (Normal) Comments: NEGATIVE FOR INTRAEPITHELIAL LESION AND MALIGNANCY.Satisfactory for evaluation. Endocervical component may not bedistinguished in cases of atrophy.Reynaldo Marr, Automatic Edger (ASCP) Note: PAPSMR (Normal) Comments: The Pap smear is a screening test designed to aid in the detection ofpremalignant and malignant conditions of the uterine cervix. It is not adiagnostic procedure and should not be used as the sole mean s of detectingcervical cancer. Both false-positive and false-negative reports do occur. .The HPV DNA reflex criteria were not met with this specimen resulttherefore, no HPV testing was performed. . :09 CBC With Differential/Platelet Comments: PERFORMED BY: [facility] [id number] Baso (Absolute) 0.0 {x10E3/uL} (Normal) Range: 0.0-0.2 Basos 0 % (Normal) Range: 0-3 Eos 3 % (Normal) Range: 0-7 Eos (Absolute) 0.2 {x10E3/uL} (Normal) Range: 0.0-0.4 Hematocrit 39.6 % (Normal) Range: 34.0-44.0 Hemoglobin 13.5 g/dL (Normal) Range: 11.5-15.0 Lymphs 26 % (Normal) Range: 14-46 Lymphs (Absolute) 1.4 {x10E3/uL} (Normal) Range: 0.7-4.5 MCH 31.1 pg (Normal) Range: 27.0-34.0 MCHC 34.2 g/dL (Normal) Range: 32.0-36.0 MCV 91 fL (Normal) Range: 80-98 Monocytes 10 % (Normal) Range: 4-13 Monocytes(Absolute) 0.5 {x10E3/uL} (Normal) Range: 0.1-1.0 Neutrophils 61 % (Normal) Range: 40-74 Neutrophils (Absolute) 3.3 {x10E3/uL} (Normal) Range: 1.8-7.8 Platelets 203 {x10E3/uL} (Normal) Range: 140-415 Comments: Please note reference interval change RBC 4.34 {x10E6/uL} (Normal) Range: 3.80-5.10 RDW 14.6 % (Normal) Range: 11.7-15.0 WBC 5.4 {x10E3/uL} (Normal) Range: 4.0-10.5 6-Phi-333696:09 Comp. Metabolic Panel (14) Comments: PERFORMED BY: [facility] [id number] A/G Ratio 1.4 (Normal) Range: 1.1-2.5 Albumin, Serum 4.2 g/dL (Normal) Range: 3.5-5.5 Alkaline Phosphatase, S 77 [iU]/L (Normal) Range: 25-150 ALT (SGPT) 8 [iU]/L (Normal) Range: 0-40 AST (SGOT) 17 [iU]/L (Normal) Range: 0-40 Bilirubin, Total 0.2 mg/dL (Normal) Range: 0.1-1.2 BUN 17 mg/dL (Normal) Range: 5-26 BUN/Creatinine Ratio 16 (Normal) Range: 8-27 Calcium, Serum 10.4 mg/dL (Normal) Range: 8.5-10.6 Carbon Dioxide, Total 24 mmol/L (Normal) Range: 20-32 Chloride, Serum 104 mmol/L (Normal) Range: 97-108 Creatinine, Serum 1.08 mg/dL (Abnormal) Range: 0.57-1.00 eGFR 52 mL/min/1.73 (Abnormal) eGFR AfricanAmerican >59 mL/min/1.73 Comments: Note: Persistent reduction for 3 months or more in an eGFR<60 mL/min/1.73 m2 defines CKD. Patients with eGFR values>/=60 mL/min/1.73 m2 may also have CKD if evidence of persistentproteinuria is (Normal) present. Additional information may be found [email or web address]. Globulin, Total 2.9 g/dL (Normal) Range: 1.5-4.5 Glucose, Serum 85 mg/dL (Normal) Range: 65-99 Potassium, Serum 4.6 mmol/L (Normal) Range: 3.5-5.2 Protein, Total, Serum 7.1 g/dL (Normal) Range: 6.0-8.5 Sodium, Serum 142 mmol/L (Normal) Range: 135-145 1-Vkp-154724:09 Hepatic Function Panel (7) Comments: PERFORMED BY: [facility] [id number] Bilirubin, Direct 0.07 mg/dL (Normal) Range: 0.00-0.40 4-Hgy-528537:09 Lipid Panel With LDL/HDL Comments: PERFORMED BY: [employer] [id number] Ratio Cholesterol, Total 248 mg/dL (Abnormal) Range: 100-199 HDL Cholesterol 63 mg/dL (Normal) Comments: According to ATP-III Guidelines, HDL-C >59 mg/dL is considered anegative risk factor for CHD. LDL Cholesterol Calc 143 mg/dL (Abnormal) Range: 0-99 LDL/HDL Ratio 2.3 {ratio_units} Range: 0.0-3.2 (Normal) Triglycerides 208 mg/dL (Abnormal) Range: 0-149 VLDL Cholesterol Manoj 42 mg/dL (Abnormal) Range: 5-40 Valproic Acid 56 ug/mL (Normal) Comments: PERFORMED BY: [employer]6[address] [facility] [id number] 0:09 (Depakote),S Range: 50-120 Comments: Detection Limit = 4 <4 indicates None Detected . Toxicity may occur at levels of 100-500. Measurements of free unbound valproic acid may improve the assess- ment of clinical response. 27-Liu-073567:31 SPINE,LUMBAR (ROUTINE) Radiology Report See Note (Normal) Comments: Exam Number: [id number] MRI LUMBAR SPINE WITHOUT CONTRAST. CLINICAL STATEMENTLow back pain radiating to right leg. COMPARISONNone. TECHNIQUEAxial and sagittal T1 and T2 sequences were obtained through th elumbar spine. FINDINGSThe vertebral body height and alignment are within normal limits. There is no fracture, spondylolisthesis, or spondylolysis. The bonemarrow is age appropriate. The conus is in normal position. There is a 8-mm perineural cyst atthe level of S2. There is no mass lesion within the spinal canal. The paraspinal soft tissues are within normal limits. At L1-L2, L2-L3, and L3-L4, t here is no disc abnormality, spinalstenosis, or neural foraminal narrowing. At L4-L5, there is a disc bulge, which flattens the thecal sacanteriorly; however, there is no spinal stenosis. There is li gamentumflavum hypertrophy and mild left neural foraminal narrowing. At L5- S1, there is a disc bulge with superimposed disc herniation,which is likely a disc extrusion. The disc material measuresapprox imately 8 mm in AP dimension by 8 mm in craniocaudad dimension.The material extends into the right paracentral region and indents thethecal sac. There is no central spinal stenosis. There is ligamentu mflavum and facet hypertrophy, more severe on the right than left. There is mild left neural foraminal narrowing. IMPRESSION1. There is a disc herniation probably in extrusion at L5-S1, measuring approximately 8 mm. This extends into the right paracentral region. There is no central spinal stenosis.2. Mild degenerative disc disease at L4-L5. There is mild neural foraminal narrowing at L4-L5 and L5-S1 on the left. Reported By: RADHA BENNETT M.D. 19-Nhj-966462:51 Upper Respiratory Culture Comments: Clinical Information: SRC: [facility]FORMED BY: [facility] [id number] Result 1 RRF (Normal) Comments: Routine respiratory etienne Upper Respiratory Culture Final report (Normal) :33 Rapid Strep Test, Office (76833) Comments: neg Rapid Strep Test, Office Negative (Normal) :33 AORTA ULTRASOUND (HP) Radiology Report See Note (Normal) Comments: Exam Number: [id number] ULTRASOUND OF ABDOMINAL AORTA HISTORYArteriosclerotic calcification on x-ray. High- resolution real-time sector images were obtained. The proximalabdominal aorta measures 1.8 x 2 .2 cm which is normal. The midaortameasures 1.3 x 1.5 cm. The distal aorta measures 1.3 x 1.3 cm. Theright proximal iliac artery measures 8 x 8 mm and the left proximaliliac artery measures 11 x 9 mm . There is, therefore, no aneurysmaldilatation identified. Note is made that the examination wasdifficult due to the extent of bowel gas present. IMPRESSIONNo aneurysm of the abdominal aorta is identified. Reported By: JIN ALFARO M.D. 3-Hzf-902262:51 L/S SPINE,MIN 4 VIEWS Radiology Report See Note (Normal) Comments: Exam Number: [id number] LUMBAR SPINE CLINICAL INFORMATIONLow back pain. A complete lumbar spine series was performed. There are 5 lumbar typevertebral segments which appear to be normal in height and al ignment.There is some disc space narrowing at L5-S1 but the remaining discspaces appear normally maintained. Minimal marginal osteophyteformation is seen at L4 and L5. Pedicles are intact throughout. Smallamount of atherosclerotic calcification is seen in the abdominalaorta. There is no evidence of spondylolysis or spondylolisthesis. IMPRESSIONMild degenerative changes primarily at the L5-S1 level. Reported By: LUCIANA FRANKLIN M.D. 18-Jun-2007 Antinuclear Antibodies 23 AU/mL (Normal) Comments: PATIENT NOT FASTINGPERFORMED BY: [facility] [id number] 14:54 Direct Range: 0-99 Comments: Negative <100 Equivocal 100 - 120 Positive >120 18-Jun-2007 Immunoglobulin E, Total 3 {IU/mL} (Normal) Comments: PATIENT NOT FASTINGPERFORMED BY: [facility] [id number] 14:54 Range: 0-158 60-Ngn-295336:54 Rheumatoid Arthritis Factor Comments: PATIENT NOT FASTINGPERFORMED BY: [employer] [id number] RA Latex Turbid. 8.1 {IU/mL} (Normal) Range: 0.0-13.9 :54 Sed Rate Erythrocyte (73050) Comments: PATIENT NOT FASTINGPERFORMED BY: [employer] [id number] Sedimentation Rate-Westergren 52 mm/h (Abnormal) Range: 0-30 95-Wdd-786053:54 CBC, Platelets & Auto Diff Comments: PATIENT NOT FASTINGPERFORMED BY: [facility] [id number] (10834) Baso (Absolute) 0.1 {x10E3/uL} (Normal) Range: 0.0-0.2 Basos 1 % (Normal) Range: 0-3 Eos 2 % (Normal) Range: 0-7 Eos (Absolute) 0.1 {x10E3/uL} (Normal) Range: 0.0-0.4 Hematocrit 38.3 % (Normal) Range: 34.0-44.0 Hemoglobin 13.3 g/dL (Normal) Range: 11.5-15.0 Lymphs 35 % (Normal) Range: 14-46 Lymphs (Absolute) 1.8 {x10E3/uL} (Normal) Range: 0.7-4.5 MCH 32.1 pg (Normal) Range: 27.0-34.0 MCHC 34.7 g/dL (Normal) Range: 32.0-36.0 MCV 93 fL (Normal) Range: 80-98 Monocytes 11 % (Normal) Range: 4-13 Monocytes(Absolute) 0.6 {x10E3/uL} (Normal) Range: 0.1-1.0 Neutrophils 51 % (Normal) Range: 40-74 Neutrophils (Absolute) 2.6 {x10E3/uL} (Normal) Range: 1.8-7.8 Platelets 189 {x10E3/uL} (Normal) Range: 140-415 RBC 4.13 {x10E6/uL} (Normal) Range: 3.80-5.10 RDW 13.0 % (Normal) Range: 11.7-15.0 WBC 5.0 {x10E3/uL} (Normal) Range: 4.0-10.5 :47 ELPIDIO 74 U/L (Normal) Range: 25-115 :47 CBCD BASO% 0.3 % (Normal) Range: 0-1 EO% 0.8 % (Normal) Range: 0-5 HCT 34.8 % (Abnormal) Range: 37-47 HGB 12.1 g/dL (Normal) Range: 12.0-16.0 LY% 26.1 % (Normal) Range: 19-41 MCH 31.2 pg (Normal) Range: 27.0-32.0 MCHC 34.8 g/dL (Normal) Range: 32-36 MCV 89.7 fL (Normal) Range: 81-99 MONO% 11.0 % (Abnormal) Range: 0-10 MPV 8.3 fL (Normal) Range: 6.5-12.0 NEUT% 61.0 % (Normal) Range: 47-70 PLT 174 K/mm3 (Normal) Range: 150-450 RBC 3.88 {M/mm3} (Abnormal) Range: 4.2-5.4 RDW 13.1 % (Normal) Range: 11.6-14.6 WBC 4.8 K/mm3 (Normal) Range: 4.4-11.0 :47 COMP METABOLIC A/G 0.9 {RATIO} (Normal) Range: 0.9-2.4 ALB 3.1 g/dL (Abnormal) Range: 3.4-5.0 ALK P 70 U/L (Normal) Range: 50-136 ALT 23 [iU]/L (Abnormal) Range: 30-65 AST 15 U/L (Normal) Range: 15-37 BUN 14 mg/dL (Normal) Range: 7-18 BUN/CRE 11.7 {RATIO} (Normal) Range: 10-20 CA 9.2 mg/dL (Normal) Range: 8.5-10.1 CL 105 mmol/L (Normal) Range: 98-107 CO2 30.0 mmol/L (Abnormal) Range: 22.0-29.0 CREAT,SERUM 1.2 mg/dL (Abnormal) Range: 0.6-1.0 GAP 6 (Normal) Range: 5-15 GLOB 3.4 g/dL (Normal) Range: 2.3-3.5 GLU 94 mg/dL (Normal) Range: 70-110 K 4.3 mmol/L (Normal) Range: 3.5-5.1 NA 141 mmol/L (Normal) Range: 136-145 T BILI 0.17 mg/dL (Normal) Range: 0.00-1.00 T PROT 6.5 g/dL (Normal) Range: 6.4-8.2 :47 LIPASE 266 U/L (Normal) Range: 114-286 :38 CHEST, PA AND LATERAL Radiology Report See Note (Normal) Comments: Exam Number: [id number] PA AND LATERAL CHEST HISTORYDehydration, shortness of breath, pain. Cardiac configuration is normal. No acute infiltrate, effusion orpneumothorax is noted. When compared to the study of August 08, 2005there is little if any change. There is spur formation middorsalspine. IMPRESSIONNo acute change noted in the lungs. Reported By: NIALL SEBASTIAN M.D. :38 GALLBLADDER Radiology Report See Note (Normal) Comments: Exam Number: [id number] GALLBLADDER ULTRASOUND HISTORYRight upper quadrant pain. The gallbladder is within normal limits in size. The wall is notthickened. No stones are seen. The common duct is juliane l at 4 mm. There is a focal area of altered echogenicity in the posterior aspectof the right lobe of the liver. This measures 2 x 1.4 x 1.7 cm and ismost likely to represent a benign hemangioma. For f urther evaluation,follow-up ultrasound in 3 months is recommended. No abnormality ofthe right kidney was seen. The pancreas was not adequately visualized. IMPRESSION1. Gallbladder, biliary ducts and right kidney are normal.2. There is a small echogenic nodule in the liver most likelyrepresenting a hemangioma. Follow-up ultrasound in 3 months isrecommended. Reported By: JIN ALFARO M.D. 28-Pfz-893573:00 COMPLETE UA Comments: COMMENTS: RM 10 DR VALDEZ IN OE UNTIL SPECIMEN COLLECTED? (Y/N)* N BACTERIA 0 SEEN {/hpf} (Normal) BILIRUBIN URINE SeeNote (Normal) Comments: Result: NEGATIVE CLARITY CLEAR (Normal) COLOR YELLOW (Normal) GLUCOSE, UR SeeNote (Normal) Comments: Result: NEGATIVE KETONE UR SeeNote mg/dL (Normal) Comments: Result: NEGATIVE LEUK ESTERASE SeeNote (Normal) Comments: Result: NEGATIVE MUCUS, URINE 0 SEEN {/hpf} (Normal) NITRITE UR SeeNote (Normal) Comments: Result: NEGATIVE OCCULT BLOOD-UR SeeNote (Normal) Comments: Result: NEGATIVE pH UR 7.0 (Normal) Range: 5.0-8.0 PROT DIPSTX SeeNote (Normal) Comments: Result: NEGATIVE RBC-UA 0 SEEN {/hpf} (Normal) Range: 0-5 SP.GR. DIPSTX 1.015 (Normal) Range: 1.002-1.030 SQUAM EPI SeeNote {/hpf} (Normal) Range: 5-10 Comments: Result: 0-5 SEEN TRANSITIONAL EP SeeNote {/hpf} (Normal) Range: 0-5 Comments: Result: 0-5 SEEN UROBILI 0.2 EU/dl (Normal) Range: 0.2 - 1.0 WBC SeeNote {/hpf} (Normal) Range: 0-5 Comments: Result: 0-5 SEEN :40 CBCD Comments: COMMENTS: RM 10 DR MCALLISTER CELLS COUNTED 100 (Normal) EOS 1 % (Normal) Range: 0-5 HCT 37.3 % (Normal) Range: 37-47 HGB 12.4 Gm/dl (Normal) Range: 12.0-16.0 LYMPH 41 % (Normal) Range: 19-41 MCH 30.3 PG (Normal) Range: 27-32 MCHC 33.2 g/dL (Normal) Range: 32-36 MCV 91 fL (Normal) Range: 81-99 MONOCYTE 5 % (Normal) Range: 0-10 MPV 8.4 fL (Normal) Range: 6.5-12.0 PLT 195 K/mm3 (Normal) Range: 150-450 PLT EST SeeNote (Normal) Comments: Result: ADEQUATE RBC 4.08 {M/mm3} (Abnormal) Range: 4.2-5.4 RDW 13.2 % (Normal) Range: 11.6-14.6 RED CELL MORPH SeeNote {NORMAL} (Normal) Comments: Result: NORM C&C SEGS 53 % (Normal) Range: 47-70 WBC 5.0 K/mm3 (Normal) Range: 4.4-11.0 :40 COMP METABOLIC Comments: COMMENTS: RM 10 DR MCALLISTER A/G 0.9 {RATIO} (Normal) Range: 0.9-2.4 ALB 3.2 g/dL (Abnormal) Range: 3.4-5.0 ALK P 68 U/L (Normal) Range: 50-136 ALT 21 [iU]/L (Abnormal) Range: 30-65 AST 15 U/L (Normal) Range: 15-37 BUN 17 mg/dL (Normal) Range: 7-18 BUN/CRE 14.2 {RATIO} (Normal) Range: 10-20 CA 9.2 mg/dL (Normal) Range: 8.5-10.1 CL 106 mmol/L (Normal) Range: 98-107 CO2 25.5 mmol/L (Normal) Range: 22.0-29.0 CREAT,SERUM 1.2 mg/dL (Abnormal) Range: 0.6-1.0 GAP 10 (Normal) Range: 5-15 GLOB 3.7 g/dL (Abnormal) Range: 2.3-3.5 GLU 83 mg/dL (Normal) Range: 70-110 K 4.2 mmol/L (Normal) Range: 3.5-5.1 NA 141 mmol/L (Normal) Range: 136-145 T BILI 0.25 mg/dL (Normal) Range: 0.00-1.00 T PROT 6.9 g/dL (Normal) Range: 6.4-8.2 :40 D BILI 0.11 mg/dL (Normal) Comments: COMMENTS: Reed DR MCALLISTER Range: 0.00-0.30 :40 LIPASE 244 U/L (Normal) Comments: COMMENTS: CAROLINA Mcbride DR MCALLISTER Range: 114-286 :40 TROPONIN-I < 0.04 ng/mL (Normal) Comments: COMMENTS: Reed DR MCALLISTER Comments: TROPONIN-I EXPECTED VALUES < 0.50 NEGATIVE 0.50 - 1.49 INDETERMINANT > OR = 1.50 SUGGEST LA :18 ESOPHAGUS ONLY Radiology Report See Note (Normal) Comments: Exam Number: [id number] CONTRAST ESOPHAGRAM For dysphagia, feels like something is stuck in the upper esophagus. The swallowing mechanism was normal. There is symmetrical locationand movement of the voc al cords. The mucosal pattern in theesophagus appears normal. There was a moderate size hiatus herniawith reflux. 12 mm. barium tablet had some hold up at thegastroesophageal junction but one swallo w of barium pushed it into thestomach. IMPRESSIONModerate size hiatus hernia with reflux. Reported By: NIALL SEBASTIAN M.D. :16 [facility] [id number] A/G RATIO 1.3 (Normal) Range: 0.7-2.0 ALBUMIN 3.8 g/dL (Normal) Range: 3.2-5.6 ALPHA-1 GLOBUL 0.2 g/dL (Normal) Range: 0.1-0.4 ALPHA-2 GLOBUL 0.8 g/dL (Normal) Range: 0.4-1.2 BETA GLOBULIN 1.0 g/dL (Normal) Range: 0.6-1.3 GAMMA GLOBULIN 1.0 g/dL (Normal) Range: 0.5-1.6 GLOBULIN, TOTAL 3.0 g/dL (Normal) Range: 2.0-4.5 INTERPRETATION Comment (Normal) Comments: The SPE pattern appears essentially unremarkable. Evidenceof monoclonal protein is not apparent.Performed At: [address] [id number] M-SPIKE SeeNote (Normal) Comments: Result: Not Observed NOTE: Comment (Normal) Comments: Protein electrophoresis scan will follow via mail orcourier. PROTEIN,TOTAL 6.8 g/dL (Normal) Range: 6.0-8.5 82-Mfn-977036:29 BMP BUN 8 mg/dL (Normal) Range: 7-18 BUN/CRE 7.3 {RATIO} (Abnormal) Range: 10-20 CA 9.6 mg/dL (Normal) Range: 8.5-10.1 CL 107 mmol/L (Normal) Range: 98-107 CO2 23.6 mmol/L (Normal) Range: 22.0-29.0 CREAT,SERUM 1.1 mg/dL (Abnormal) Range: 0.6-1.0 GAP 10 (Normal) Range: 5-15 GLU 89 mg/dL (Normal) Range: 70-110 K 3.9 mmol/L (Normal) Range: 3.5-5.1 NA 141 mmol/L (Normal) Range: 136-145 91-Hjn-432516:29 MG 2.2 mg/dL (Normal) Range: 1.5-2.2 01-Pnm-529024:29 TSH 0.69 {uIU/mL} (Normal) Range: 0.34-4.82 88-Iud-041691:29 VIT B12 1503 1435 pg/mL (Abnormal) Range: 211-911 Comments: Performed At: [facility] [id number] Plan of Care Name Dates Details Instructions Rash : Eprescribed prescriptions (G8553) Indication: Rash GERD (gastroesophageal reflux disease) : Eprescribed prescriptions (G8553) Indication: GERD (gastroesophageal reflux disease) Bacterial upper respiratory infection : Eprescribed prescriptions (G8553) Indication: Bacterial upper respiratory infection BMI 34.0-34.9,adult : *Weight Loss Discussion Indication: BMI 34.0-34.9,adult UTI symptoms : Follow up if no improvement or if symptoms worsen Indication: UTI symptoms Migraine : Migraine Headache: Brief Version *: pain Indication: Migraine Hypercholesterolemia : Eprescribed prescriptions (G8553) Indication: Hypercholesterolemia Hypercholesterolemia : High Cholesterol (Hypercholesterolemia) *: cardiovascular health Indication: Hypercholesterolemia Hypercholesterolemia : Eprescribed prescriptions (G8553) Indication: Hypercholesterolemia Well woman exam : Mammogram *: gynecological health Indication: Well woman exam GERD (gastroesophageal reflux disease) : Reflux Esophagitis *: heartburn Indication: GERD (gastroesophageal reflux disease) SYMPTOMS INVOLVING HEAD AND NECK, HEADACHE : Headaches and Eye Problems: headaches Indication: SYMPTOMS INVOLVING HEAD AND NECK, HEADACHE Sinusitis, acute : *URI Symptoms Indication: Sinusitis, acute Sinusitis, acute : *Antibiotic Usage Education - Female Indication: Sinusitis, acute WW V72.31 : Self Breast Exam Education Indication: [facility] V7 WWV V7 : Colon Cancer Screening Indication: [facility] V7 WWV V7 : Well Female Maintenance (KF) Indication: [facility] V7 WWV V7 : Pap/Pelvic/Bimanual/Rectal/Breast Exam was done. Indication: [facility] V7 WWV V7 : FOLLOW UP IN 6 MONTHS Indication: WWV V7 uvulitis : Antibiotic Usage Education - Female Indication: uvulitis Abnormal findings on diagnostic imaging of other specified body structures : FOLLOW UP IN 2 WEEKS Indication: Abnormal findings on diagnostic imaging of other specified body structures Well woman exam : Colon Cancer Screening Indication: Well woman exam Well woman exam : Pap/Pelvic/Bimanual/Rectal/Breast Exam was done. Indication: Well woman exam Well woman exam : Well Female Maintenance (KF) Indication: Well woman exam Planned Observations MICROALBUMIN: CREATININE RATIO (01035) AND (64199)Indication: Renal insufficiency On: 88-Siq-696176:00 Request URINALYSIS (97273)Indication: Renal insufficiency On: 03-Emx-368096:00 Request CBC WITH MANUAL DIFF (23131)Indication: Renal insufficiency On: 60-Crb-382317:00 Request Metabolic Panel, Comprehensive (32397)Indication: Renal insufficiency On: 97-Kdk-003917:00 Request HGB A1C (07480)Indication: Abnormal blood sugar On: 71-Bgz-843871:48 Request HEPATIC FUNCTION PANEL (53490)Indication: Onychomycosis On: 77-Zky-263560:04 Request Comments: after second 1 week pulse METABOLIC PANEL, COMPREHENSIVE (98574)Indication: Hypercholesterolemia On: :15 Request LIPOPROTEIN, BLD, BY NMR (72944)Indication: Hypercholesterolemia On: 41-Yri-704117:15 Request Methymalonic Acid, Serum (95338)Indication: Memory impairment On: 58-Lar-658261:50 Request Vitamin B-12 (cyanocobalamin) (38268)Indication: Memory impairment On: :50 Request URIC ACID BLOOD (38947)Indication: Elevated uric acid in blood On: :49 Request LIPOPROTEIN, BLD, BY NMR (48764)Indication: Hypercholesterolemia On: :39 Request CBC, Platelets & Auto Diff (71147)Indication: Afib On: :33 Request Metabolic Panel, Comprehensive (44762)Indication: Afib On: :33 Request Valproic Acid (56133)Indication: Migraine On: :33 Request HEPATITIS C ANTIBODY (79224)Indication: Encounter for hepatitis C virus screening test for high risk patient On: 65-Bvw-069342:07 Request LIPOPROTEIN, BLD, BY NMR (08388)Indication: Hypercholesterolemia On: 71-Ozu-141961:19 Request ACID FAST STAIN (AFB) (17577)Indication: Cough On: 75-Kii-45237:26 Request Comments: check for mycobacterium avium CULTURE, SPUTUM (56657)Indication: Cough On: 77-Cen-55046:26 Request Methymalonic Acid, Serum (18223)Indication: Memory impairment On: 47-Jer-805590:44 Request Vitamin B-12 (cyanocobalamin) (12318)Indication: Memory impairment On: 12-Bqy-136807:44 Request METABOLIC PANEL, COMPREHENSIVE (01137)Indication: Hypercholesterolemia On: :17 Request LIPID PANEL (20314)Indication: Hypercholesterolemia On: :17 Request CBC with auto diff (17766)Indication: Hypercholesterolemia On: :17 Request CBC WITH MANUAL DIFF (12366)Indication: Hypercholesterolemia On: 71-Epc-632686:30 Request Comments: copy to arielle METABOLIC PANEL, COMPREHENSIVE (95614)Indication: Hypercholesterolemia On: 04-Rdg-934737:29 Request LIPID PANEL (67179)Indication: Hypercholesterolemia On: 30-Pet-780903:29 Request Thin prep Pap (68803)Indication: Well woman exam On: 47-Zgu-857543:35 Request Valproic Acid (46151)Indication: Migraine, unspecified, not intractable, without status migrainosus On: 37-Zll-638119:34 Request CBC (Auto) (41165)Indication: Afib On: :34 Request Metabolic Panel, Comprehensive (67462)Indication: Afib On: 98-Ydi-565062:33 Request CALCIFIDIOL (64675) VIT D 25Indication: Fatigue On: :36 Request T4, TOTAL (10083)Indication: Fatigue On: :36 Request T4, FREE (THYROXINE) (35205)Indication: Fatigue On: :36 Request T3, FREE (TRIDOTHYRONINE) (69909)Indication: Fatigue On: :36 Request Valproic Acid (30401)Indication: Migraine On: :35 Request URINALYSIS, W/ MICRO (24328)Indication: Afib On: :35 Request METABOLIC PANEL, COMPREHENSIVE (24531)Indication: Afib On: :35 Request LIPID PANEL (35669)Indication: Afib On: :35 Request CBC WITH MANUAL DIFF (54214)Indication: Afib On: :35 Request URINALYSIS, W/ MICRO (76579)Indication: Afib On: :50 Request METABOLIC PANEL, COMPREHENSIVE (14400)Indication: Afib On: :50 Request LIPID PANEL (06845)Indication: Afib On: :50 Request CBC WITH MANUAL DIFF (23451)Indication: Afib On: :50 Request Valproic Acid (94503)Indication: Migraine On: :50 Request ELYSSA CULTURE-OTHER (09414)Indication: Acute pharyngitis On: :02 Request Comments: throat Metabolic Panel, Basic (18572)Indication: Renal insufficiency On: 10-Yhd-078254:19 Request Comments: 6 weeks Metabolic Panel, Comprehensive (87138)Indication: Afib On: :26 Request Lipid Panel (04508)Indication: Afib On: :26 Request CBC (Auto) (51321)Indication: Afib On: 7-Pxk-544346:25 Request Comments: in six months (approximately) ACID FAST STAIN (AFB) (24252)Indication: Abnormal findings on diagnostic imaging of other specified body structures On: :52 Request Comments: sputum CULTURE, SPUTUM (40101)Indication: Abnormal findings on diagnostic imaging of other specified body structures On: :52 Request RHEUMATOID FACTOR-QUANT (78114)Indication: Abnormal findings on diagnostic imaging of other specified body structures On: :50 Request NICKOLAS (ANTINUCLEAR ANTIBODY) (46605)Indication: Abnormal findings on diagnostic imaging of other specified body structures On: :50 Request IMMUNOGLOBULIN E (IgE) (56384)Indication: Abnormal findings on diagnostic imaging of other specified body structures On: 51-Vpr-352386:47 Request SED RATE ERYTHROCYTE (02551)Indication: Arch pain of left foot On: 05-Guh-321362:46 Request CBC, PLATELETS & AUTO DIFF (21911)Indication: Arch pain of left foot On: 28-Xtc-429065:46 Request Thin prep Pap (94565)Indication: Well woman exam On: 9-Ezn-325317:47 Request MAGNESIUM (77704)Indication: Paresthesia On: :43 Request METABOLIC PANEL, BASIC (49499)Indication: Paresthesia On: 57-Gif-628554:43 Request GLUCOSE (86415)Indication: Paresthesia On: :41 Request VITAMIN B-12 (CYANOCOBALAMIN) (78556)Indication: Paresthesia On: :41 Request TSH (51692)Indication: Paresthesia On: [id number] Request Planned Encounters Medical; [facility] Exam (Doctor) - On: 25-Jun-2018 10:30 [facility] Sonia POWERS, Glenda Mcallister MD, Glenda Luo Planned Procedures DEXA SCAN AXIAL SKELETON On: 07-Oct-2017 Intent ([id number])By: Glenda Mcallister MD, MD, Dana M SCREENING DIGITAL TOMOSYNTHESIS OF On: 07-Oct-2017 Intent BREAST ([id number])By: Glenda Mcallister MD, MD, Dana M Flu Vaccine (Quadrivalent) On: 28-Jul-2017 Intent [id number]: Wood DOYudith Comments: lot: [id number]: 12/15/17ite/route: L madeline, IMamt: 0.5mlVIS and ABN signed when applicableChelsea, [employer] [facility] PNEUM VAC ADLT/IMUMNOSPR, On: 22-Apr-2017 Intent SBC/INTRM ([id number])By: Sonia POWERS, Comments: lot:exp:08-30-2018rte:IM right deltoid dose:0.5given by:chepe ABN signedER, FIREARMS SPECIALIST Glenda Chaudhry MD XR SHOULDER BILATERAL, 2 VIEWS On: 22-Apr-2017 Intent ([id number])By: Glenda Mcallister MD, MD, Dana M XR KNEE BILATERAL COMPLETE On: 22-Apr-2017 Intent ([id number])By: Glenda Macllister MD, MD, Dana M SCREENING DIGITAL TOMOSYNTHESIS OF On: 22-Apr-2017 Intent BREAST ([id number])By: Glenda Mcallister MD, MD, Dana M Radiology - Foot - LeftBy: Sonia On: 10-Dec-2016 Intent Glenda POWERS MD, Dana M Radiology - Ankle - LeftBy: On: 10-Dec-2016 Intent Glenda Mcallister MD, MD, Dana M Radiology - ChestBy: Sonia POWERS, On: 15-Nov-2016 Intent Glenda Chaudhry MD Bone Density StudyBy: Sonia POWERS, On: 08-Apr-2016 Intent Glenda Chaudhry MD BILATERAL MAMMOGRAMS ([id number])By: On: 08-Apr-2016 Intent Glenda Mcallister MD, MD, Dana M DEXA SCAN AXIAL SKELETON On: 12-Dec-2015 Intent ([id number])By: Glenda Mcallister MD, MD, Glenda M MAMMOGRAM, SCREENING, BOTH BREAST On: 12-Dec-2015 Intent ([id number])By: Glenda Mcallister MD, MD, Glenad Luo MAMMOGRAM, SCREENING, BOTH BREASTS On: 19-Nov-2013 Intent ([id number])By: Glenda Mcallister MD, MD, Glenda M Eprescribed prescriptions On: 08-Nov-2013 Intent ([id number])By: Yudith Muir DO DXA, BONE DENSITY, AXIAL SKELETON On: 13-May-2013 Intent ([id number])By: Glenda Mcallister MD, MD, Glenda Luo MAMMOGRAM, SCREENING, BOTH BREASTS On: 13-May-2013 Intent ([id number])By: Glenda Mcallisetr MD, MD, Glenda M DXA, BONE DENSITY, AXIAL SKELETON On: 12-Feb-2013 Intent ([id number])By: Glenda Mcallister MD Comments: postmenapuse and on depakote Glenda Mcallister MD MAMMOGRAM, SCREENING, BOTH BREASTS On: 12-Feb-2013 Intent ([id number])By: Glenda Mcallister MD, MD, Glenda M Eprescribed prescriptions On: 27-Feb-2012 Intent ([id number])By: Glenda Mcallister MD, MD, Gelnda M Eprescribed prescriptions On: 27-Feb-2012 Intent ([id number])By: Carleen Ch [facility] ([id number])By: Carleen Ch On: 27-Feb-2012 Intent Comments: see scanned document of test done to see results reviewed today with patient MAMMOGRAM, SCREENING, BOTH BREASTS On: 26-Aug-2011 Intent ([id number])By: Glenda Mcallister MD, MD, Glenda Luo MAMMOGRAM, SCREENING, BOTH BREASTS On: 11-Feb-2011 Intent ([id number])By: Glenda Mcallister MD, MD, Glenda M Eprescribed prescriptions On: 11-Feb-2011 Intent ([id number])By: Glenda Mcallister MD, MD, Glenda M MAMMOGRAM, SCREENING, BOTH BREASTS On: 22-Jan-2010 Intent ([id number])By: Glenda Mcallister MD Comments: 8- Glenda Mcallister MD TDAP VACCINE >7 IM ([id number])By: On: 26-Jan-2009 Intent Glenda Mcallister MD, MD, Comments: lot #:[id number]: 05/2011site: left deltoidGiven by AURY Xiao MAMMOGRAM, SCREENING, BOTH BREASTS On: 02-Jan-2009 Intent ([id number])By: Glenda Mcallister MD, MD, Dana M Solu -Medrol Injection, 125 mg On: 18-Dec-2007 Intent ([id number])By: Yudith Muir DO Comments: Lot #: [id number] date: mount given: 125 mg/2 mlRoute: IMSite given: Left hipGiven by: Troy Shirley LPN MRI - Lumbar SpineBy: Wood NICHOLS, On: 18-Dec-2007 Intent Yudith Simmons Radiology - Lumbar SpineBy: Fast On: 04-Nov-[address] - ChestBy: Glenda Mcallister MD On: 18-Jun-2007 Intent Glenda Mcallister MD Comments: 6 w follow up infiltrate Pulse Oximetry ([id number])By: Clement On: 18-Jun-2007 Intent STARLA Ultrasound - GallbladderBy: On: 08-Jan-2007 Intent Glenda Mcallister MD, MD, Dana M MRI - OtherBy: Glenda Mcallister MD On: 11-Aug-2006 Intent Glenda Mcallister MD Comments: right foot, S/P surgery pain, metatarsal head area DXA, BONE DENSITY, AXIAL SKELETON On: 04-Aug-2006 Intent ([id number])By: Glenda Mcallister MD, MD, Dana M MAMMOGRAM, SCREENING, BOTH BREASTS On: 04-Aug-2006 Intent ([id number])By: Glenda Mcallister MD, MD, Dana M EMGBy: Glenda Mcallister MD On: 21-Jul-2006 Intent Glenda POWERS Comments: feet/leg bilateral Nerve ConductionBy: Sonia POWERS, On: 21-Jul-2006 Intent Glenda Mcallister MD, Glenda Luo Instructions Name Dates Details Tobacco abuse, in remission (Renamed from Tobacco dependence in remission) : How to access health information online Indication: Tobacco abuse, in remission (Renamed from Tobacco dependence in remission) Tobacco abuse, in remission (Renamed from Tobacco dependence in remission) : How to access health information online - Detail Indication: Tobacco abuse, in remission (Renamed from Tobacco dependence in remission) Tobacco abuse, in remission (Renamed from Tobacco dependence in remission) : Patient Instructions Indication: Tobacco abuse, in remission (Renamed from Tobacco dependence in remission) Rash : How to access health information online Indication: Rash Rash : How to access health information online - Detail Indication: Rash Rash : Patient Instructions Indication: Rash Current nonsmoker (Renamed from Current non-smoker) : How to access health information online Indication: Current nonsmoker (Renamed from Current non-smoker) Current nonsmoker (Renamed from Current non-smoker) : How to access health information online - Detail Indication: Current nonsmoker (Renamed from Current non-smoker) Current nonsmoker (Renamed from Current non-smoker) : Patient Instructions Indication: Current nonsmoker (Renamed from Current non-smoker) GERD (gastroesophageal reflux disease) : How to access health information online Indication: GERD (gastroesophageal reflux disease) GERD (gastroesophageal reflux disease) : How to access health information online - Detail Indication: GERD (gastroesophageal reflux disease) GERD (gastroesophageal reflux disease) : Patient Instructions Indication: GERD (gastroesophageal reflux disease) Bacterial upper respiratory infection : How to access health information online Indication: Bacterial upper respiratory infection Bacterial upper respiratory infection : How to access health information online - Detail Indication: Bacterial upper respiratory infection Bacterial upper respiratory infection : Patient Instructions Indication: Bacterial upper respiratory infection BMI 35.0-35.9,adult : How to access health information online Indication: BMI 35.0-35.9,adult BMI 35.0-35.9,adult : How to access health information online - Detail Indication: BMI 35.0-35.9,adult BMI 35.0-35.9,adult : Patient Instructions Indication: BMI 35.0-35.9,adult Cough : How to access health information online Indication: Cough Cough : How to access health information online - Detail Indication: Cough Cough : Patient Instructions Indication: Cough Migraine : How to access health information online Indication: Migraine Migraine : How to access health information online - Detail Indication: Migraine Migraine : Patient Instructions Indication: Migraine BMI 34.0-34.9,adult : How to access health information online Indication: BMI 34.0-34.9,adult BMI 34.0-34.9,adult : How to access health information online - Detail Indication: BMI 34.0-34.9,adult BMI 34.0-34.9,adult : Patient Instructions Indication: BMI 34.0-34.9,adult Sinusitis, acute : How to access health information online Indication: Sinusitis, acute Sinusitis, acute : How to access health information online - Detail Indication: Sinusitis, acute Sinusitis, acute : Patient Instructions Indication: Sinusitis, acute Hypercholesterolemia : How to access health information online Indication: Hypercholesterolemia Hypercholesterolemia : How to access health information online - Detail Indication: Hypercholesterolemia Hypercholesterolemia : Patient Instructions Indication: Hypercholesterolemia Hypercholesterolemia : How to access health information online Indication: Hypercholesterolemia Hypercholesterolemia : How to access health information online - Detail Indication: Hypercholesterolemia Hypercholesterolemia : Patient Instructions Indication: Hypercholesterolemia Hypercholesterolemia : Patient Instructions Indication: Hypercholesterolemia Shingles : Patient Instructions Indication: Shingles Well woman exam : Patient Instructions Indication: Well woman exam GERD (gastroesophageal reflux disease) : Patient Instructions Indication: GERD (gastroesophageal reflux disease) Encounters Lab Order On: 14-May-2018 14:57 Encounter Diagnosis: Renal insufficiency End: 14-May-2018 15:01 [facility] Office Visit On: 09-Feb-2018 13:06 Encounter Reason: Follow up for chronic medical issues - The patient feels well with minor complaints, has good energy level and is sleeping well. Patient has been compliant with instructions. Current medication use: no End: 09-Feb-2018 13:52 side effects and compliant with dosing regimen. Patient sleeps 8 hours per night. Impact of disease: emotional impact-mild. Nutrition: balanced diet and supplemental vitamins. The medical issues the pat ient is following up for include blood sugar issues, cardiac issues, high cholesterol, kidney problems and other (allergic rhinitis, memory impairment, migraine, SK, right foot drop, hx. shingles, obesity, DDD).Encounter Diagnosis: Tobacco abuse, in remission (Renamed from Tobacco dependence in remission), BMI 35.0-35.9,adult, Abnormal blood sugar, Hair thinning, Atrophic kidney, Memory impairment, History of shingles, Stress incontinence, female, Obesity, unspecified, Bilateral anterior knee pain, Hypercholesterolemia, Mitral valve prolapse, Renal sclerosis, Vitamin D insufficiency, Right foot drop, Afib, Impaired fasting glucose, Elevated uric acid in blood, GERD (gastroesophageal reflux disease), DDD (degenerative disc disease), lumbar, Onychomycosis, Palatal mass, Migraine, Allergic rhinitis, mild, SK (seborrheic keratosis), Postmenopausal (Renamed from Post-menopausal), Renal insufficiency, Abnormal result on screening urine test, Diarrhea, functional, Rash, Current nonsmoker (Renamed from Current non-smoker), Chest pain (786.59) [facility] Lab Order On: 06-Jan-2018 9:28 Encounter Diagnosis: Dysuria End: 06-Jan-2018 9:31 [facility] Phone Encounter On: 08-Dec-2017 16:59 Encounter Diagnosis: Onychomycosis End: 08-Dec-2017 17:03 [facility] Office Visit On: 26-Nov-2017 14:26 Encounter Reason: Rash - Symptoms include skin blistering, skin bumps, pruritus and skin redness. The skin rash is located on the right leg. Onset was day(s) ago. The symptoms occur constantly. The patient describes this End: 26-Nov-2017 22:49 as worsening. Current treatment includes barrier creams. Note for Rash: right leg - all have blister in center - are tender and very itchy- no fever no change in energy or joint pain- has tried corti osne no help and etoh takes itch out- was out in the weeds- no remember bite - no tick bite-Encounter Diagnosis: Current nonsmoker (Renamed from Current non- smoker), BMI 35.0-35.9,adult, Rash [facility] Office Visit On: 21-Nov-2017 12:36 Encounter Diagnosis: BMI 35.0-35.9,adult, Current nonsmoker (Renamed from Current non-smoker), Onychomycosis, SK (seborrheic keratosis) End: 21-Nov-2017 13:12 [facility] Office Visit On: 07-Oct-2017 11:32 Encounter Reason: Annual Medicare Exam - The patient had reviewed and updated the family history, medication/s, past medical history and social history. Yes the patient did have ( Alert) a mini mental status exam do End: 09-Oct-2017 7:51 ne today. The activities of daily living the patient needs help with are none. The patient has driven in past 6 months, but the patient has not had fecal incontinence, had urinary incontinence, missed o r ran out of medications to soon, fallen in the past 6 months, gotten lost, has a medalert necklace or bracelet, put area rugs through house or put handrails in bathroom. The patient has completed the [facility] preventative measures: PAP smear () and mammography (). The patient does not have durable power of manufacturing director or living will. The patient has noticed nothing from the geriatic depre ssion scale. Other providers contributing to the patient's care are mandarin speaking nanny (Dr. Biggs) and other: (Dr. Marylin Pavon).Encounter Diagnosis: Tobacco abuse, in remission (Renamed from Tobacco dependence in remission), Menopause, Mitral valve prolapse, Right foot drop, Abnormal result on screening urine test, GERD (gastroesophageal reflux disease), Vitamin D insufficiency, Impaired fasting glucose, Atrophic kidney, Renal sclerosis, Stress incontinence, female, Memory impairment, History of shingles, Afib, BMI 35.0-35.9,adult, Hypercholesterolemia, Shoulder pain (719.41), Obesity, unspecified, Bilateral anterior knee pain, Palatal mass, Migraine, Allergic rhinitis, mild, DDD (degenerative disc disease), lumbar, Elevated uric acid in blood, Renal insufficiency, Thrush, Current nonsmoker (Renamed from Current non-smoker), Prediabetes, Cough, Diarrhea, functional, Encounter for hepatitis C virus screening test for high risk patient, BMI 36.0-36.9,adult, BMI 34.0-34.9,adult, Chest pain (786.59), Encounter for routine adult medical exam with abnormal findings (Renamed from Encounter for routine a dult physical exam with abnormal findings), Encounter for screening mammogram for breast cancer (Renamed from Encounter for screening mammogram for malignant neoplasm of breast), Postmenopausal (Renamed from Post-menopausal) [facility] Office Visit On: 28-Jul-2017 14:21 Encounter Reason: Injections - The medication the patient is here to receive is other (influenza vaccine).Encounter Diagnosis: Need for prophylactic vaccination and inoculation against influenza (Renamed from Need for immunization against influenza) End: 28-Jul-2017 14:43 [facility] Office Visit On: 05-Jun-2017 10:55 Encounter Reason: Follow up acute care visit - The patient feeling better since last seen and improving. Patient has been compliant with instructions. Current medication use: no side effects, compliant with dosing regime End: 05-Jun-2017 11:38 n and considered effective by patient. Patient sleeps 7 hours per night. Impact of disease: emotional impact-mild. Nutrition: balanced diet and supplemental vitamins. The medical issues the patient is f ollowing up for include URI and other (aches and pains).Encounter Diagnosis: Shoulder pain (719.41), Obesity, unspecified, Bilateral anterior knee pain, Thrush [facility] Office Visit On: 20-May-2017 8:42 Encounter Reason: Cold Symptoms - Symptoms include nasal congestion, scratchy throat, sore throat, dry cough and headache. Onset was 1 day(s) ago. The patient describes this as worsening. Associated symptoms include plug End: 20-May-2017 12:19 ged ear(s) and chills, while associated symptoms do not include wheezing, shortness of breath, vomiting, diarrhea or fever. Current treatment includes rest, cough suppressants, nasal corticosteroids and nonsteroidal anti-inflammatory drugs. Note for Cold symptoms: cough draining yellow spuutm sore throat - no take temp at home- sinus pressure- laryngitisEncounter Diagnosis: Tobacco abuse, in remission (Renamed from Tobacco dependence in remission), BMI 35.0-35.9,adult, Bacterial upper respiratory infection [facility] Office Visit On: 22-Apr-2017 12:42 Encounter Diagnosis: BMI 35.0-35.9,adult, Right foot drop, Migraine, Mitral valve prolapse, Renal sclerosis, Stress incontinence, female, Stress reaction causing mixed disturbance of emotion and conduct, Obesity, unspecified, Atrophic kidney, End: 29-Apr-2017 6:40 Memory impairment, Impaired fasting glucose, Abnormal result on screening urine test, Allergic rhinitis, mild, Tobacco abuse, in remission (Renamed from Tobacco dependence in remission), Hypercholesterolemia, Afib, Vitamin D insufficiency, GERD (gastroesophageal reflux disease), History of shingles, Renal insufficiency, Menopause, Well woman exam, Diarrhea, functional, Encounter for screening mammogram for breast cancer (Renamed from Encounter for screening mammogram f or malignant neoplasm of breast), Encounter for hepatitis C virus screening test for high risk patient, Degenerative Disc Disease - Lumbar (722.52), Shoulder pain (719.41), Bilateral anterior knee pain, Elevated uric acid in blood, Palatal mass, Pneumococcal vaccination given [facility] Office Visit On: 10-Dec-2016 9:45 Encounter Reason: Follow up acute care visit - The patient feeling better since last seen and improving. Patient has been compliant with instructions. Current medication use: no side effects, compliant with dosing regime End: 10-Dec-2016 10:31 n and considered effective by patient. Patient sleeps 7 hours per night. Impact of disease: emotional impact-mild. Nutrition: balanced diet and supplemental vitamins. The medical issues the patient is following up for include other (thrush ). Encounter Diagnosis: BMI 35.0-35.9,adult, Tobacco abuse, in remission (Renamed from Tobacco dependence in remission), Cough, Allergic rhinitis, mild, Hypercholesterolemia, Vitamin D insufficiency, Afib, Arch pain of left foot, Shoulder pain (719.41) [facility] Office Visit On: 19-Nov-2016 14:51 Encounter Diagnosis: Thrush End: 19-Nov-2016 15:00 [facility] Annotation/Addendum On: 15-Nov-2016 9:51 Encounter Diagnosis: Unspecified Diagnosis End: 15-Nov-2016 9:56 [facility] Office Visit On: 15-Nov-2016 9:01 Encounter Reason: Cough - Symptoms include cough, chills and runny nose. The cough is described as non-productive. Cough onset was gradual. Associated symptoms include hoarseness.Encounter Diagnosis: End: 15-Nov-2016 9:42 Tobacco abuse, in remission (Renamed from Tobacco dependence in remission), Cough, Acute pharyngitis, BMI 36.0-36.9,adult [facility] Phone Encounter On: 14-Oct-2016 10:58 Encounter Diagnosis: Impaired fasting glucose End: 14-Oct-2016 11:00 [facility] Office Visit On: 14-Oct-2016 8:06 Encounter Reason: Follow up for chronic medical issues - The patient does not feel well, has decreased energy level and is sleeping poorly. Patient has been compliant with instructions. Current medication use: experienci End: 14-Oct-2016 8:48 ng side effects (Livalo causing insomnia, myalgia migraines ). Patient sleeps 5 hours per night. Impact of disease: emotional impact-moderate. Nutrition: balanced diet and supplemental vitamins. The [facility] issues the patient is following up for include cardiac issues, gastric reflux, high blood pressure, high cholesterol, kidney problems and other (migraines, obesity, vitamin d def. ).Encounter Diagnosis: BMI 36.0-36.9,adult, Migraine, Tobacco abuse, in remission (Renamed from Tobacco dependence in remission), Prediabetes, History of shingles, Renal sclerosis, Mitral valve prolapse, Stress incontinence, female, GERD (gastroesophageal reflux disease), Menopause, Current nonsmoker (Renamed from Current non-smoker), Postmenopausal (Renamed from Post-menopausal), Renal insufficiency, Atrophic kidney, Right foot drop, Memory impairment, Abnormal result on screening urine test, Vitamin D insufficiency, Obesity, unspecified, Stress reaction causing mixed disturbance of emotion and conduct, Hypercholesterolemia, Afib, BMI 34.0-34.9,adult, Chest pain (786.59), Shoulder pain (719.41) [facility] Office Visit On: 08-Apr-2016 13:16 Encounter Diagnosis: BMI 34.0-34.9,adult, Current nonsmoker (Renamed from Current non-smoker), Well woman exam, Encounter for screening mammogram for breast cancer (Renamed from Encounter for screening mammogram for malignant neoplasm of breast), End: 09-Apr-2016 13:25 Menopause, Vitamin D insufficiency, Postmenopausal (Renamed from Post-menopausal), Hypercholesterolemia, Afib, Atrophic kidney, Stress reaction causing mixed disturbance of emotion and conduct, Renal insufficiency, Obesity, unspecified, Renal sclerosis, Migraine, History of shingles, Mitral valve prolapse, GERD (gastroesophageal reflux disease), Stress incontinence, female, Tobacco abuse, in remission (Renamed from Tobacco dependence in remission), Chest pain (786.59), Prediabetes, Memory impairment, Right foot drop, Abnormal result on screening urine test [facility] Office Visit On: 19-Mar-2016 11:12 Encounter Reason: Sinusitis/ - The duration of the symptoms are 4 days The course has been constant. The sinusitis/ has no relieving factors. Associated features include The symptoms have been associated with cough, nasa End: 19-Mar-2016 11:38 l discharge/stuffy nose and sinus pain. Note for Sinusitis/: she started wtih clear nasal drainage and sinuses on fire. started few dyas ago. she then got fever 101.3, yellow green drainage from sinus and into chest. Encounter Diagnosis: Sinusitis, acute, Current nonsmoker (Renamed from Current non-smoker) [facility] Phone Encounter On: 19-Feb-2016 7:19 Encounter Diagnosis: Unspecified Diagnosis End: 19-Feb-2016 7:24 [facility] Office Visit On: 12-Dec-2015 10:55 Encounter Reason: Follow up for chronic medical issues - The patient feels well with no complaints, has good energy level and is sleeping well. Patient has been compliant with instructions. Current medication use: no robbie End: 12-Dec-2015 11:49 e effects, compliant with dosing regimen and considered effective by patient. Patient sleeps 7 hours per night. Impact of disease: emotional impact-moderate. Nutrition: balanced diet and supplemental vi tamins. The medical issues the patient is following up for include cardiac issues, gastric reflux, high cholesterol, kidney problems and other (overweight, migraines, anxiety, stress incont. ).Encounter Diagnosis: Hypercholesterolemia, Tobacco abuse, in remission (Renamed from Tobacco dependence in remission), Stress incontinence, female, Stress reaction causing mixed disturbance of emotion and conduct, GERD (gastroesophageal reflux disease), Mitral valve prolapse, Obesity, unspecified, Migraine, Atrophic kidney, Renal sclerosis, Afib, Renal insufficiency, UTI symptoms, Vitamin D insufficiency, Chest pain (786.59), Encounter for screening mammogram for breast cancer (Renamed from Encounter for screening mammogram for malignant neoplasm of breast), Postmenopausal (Renamed from Post-menopausal), Encounter for routine adult medical exam with abnormal findings (Renamed from Encounter for routine adult physical exam with abnormal findings), History of shingles [facility] Lab Order On: 07-Dec-2015 13:46 Encounter Diagnosis: Hypercholesterolemia, Atrial fibrillation (427.31), Migraine (346.80), Renal sclerosis End: 07-Dec-2015 13:52 [facility] Office Visit On: 20-Jun-2015 13:28 Encounter Reason: UTI - The urinary symptoms are described as painful urination, frequency and burning. The symptoms have been occurring for 3 days and have been constant. The urine is described as clear. There has been End: 20-Jun-2015 13:58 no associated fever, perineal pain, vulvar lesion, abdominal pain, chills, diarrhea, vulvar irritation, nausea, vomiting, low back pain, vaginal discharge or lightheadedness. There is no history of sex ual contact with a person having an STD, use of tampons, possible vaginal foreign body, douching, use of contraceptive devices, sexual assault, trauma, vulvovaginal exposure to chemical irritants, sexua l contact with a person exposed to an STD, recent catheterization, new sexual partner or current catheterization. There is no medical history of diabetes, current , vaginitis, kidney stones, re current urinary tract infections, urethritis, pyelonephritis, sexually transmitted disease, anatomic urinary anomalies, menopause, prostate disease, neurologic disorder, immuno-deficiency or renal disea se. The patient denies the use of oral contraceptives, antibiotics, hormone replacement therapy or pyridium/uristat.Encounter Diagnosis: UTI symptoms [facility] Office Visit On: 24-Apr-2015 14:43 Encounter Reason: Follow up tests - Diagnostic tests include other (labs ). Date: (03-29-15). Current symptoms include other (migraine ).Encounter Diagnosis: Hypercholesterolemia, GERD (gastroesophageal reflux disease), Migraine (346.80), End: 24-Apr-2015 15:22 Atrophic Kidney, Renal insufficiency (593.9), Atrial fibrillation (427.31), Obesity, unspecified, Stress incontinence, female, Renal sclerosis, Mitral valve prolapse, Stress reaction causing mixed disturbance of emotion and conduct [facility] Office Visit On: 19-Sep-2014 15:20 Encounter Reason: Follow up for chronic medical issues - The patient feels well with minor complaints and has decreased energy level. Patient has been compliant with instructions. Current medication use: no side effects, End: 19-Sep-2014 16:03 compliant with dosing regimen and considered effective by patient. Patient sleeps 5 hours per night. Impact of disease: emotional impact-moderate. Nutrition: balanced diet and supplemental vitamins. Th e medical issues the patient is following up for include cardiac issues, COPD, gastric reflux, high blood pressure, high cholesterol, kidney problems and other (obesity, migraine ).Encounter Diagnosis: Gerd (530.81), RENAL SCLEROSIS, UNSPECIFIED (587.), Atrial fibrillation (427.31), Hypercholesterolemia (272.0), Mitral Valve Prolapse (746.9), Renal insufficiency (593.9), Vaginal prolapse without uterine prolapse (618.00), Migraine (346.80), Obesity,unspecified (278.00), Stress incontinence, female (625.6), Atrophic Kidney [facility] Refill Request On: 07-Feb-2014 7:10 Encounter Diagnosis: Gerd (530.81) End: 07-Feb-2014 7:12 [facility] Office Visit On: 19-Nov-2013 11:14 Encounter Reason: Follow up for chronic medical issues - The patient feels well with no complaints, has good energy level and is sleeping well. Patient has been compliant with instructions. Current medication use: no robbie End: 19-Nov-2013 11:39 e effects, compliant with dosing regimen and considered effective by patient. Patient sleeps 7 hours per night. Impact of disease: emotional impact-mild. Nutrition: balanced diet and supplemental vitami ns. The medical issues the patient is following up for include cardiac issues, high blood pressure, high cholesterol, kidney problems and other (migraine, obesity, atrophic kidney ).Encounter Diagnosis: Mitral Valve Prolapse (746.9), Renal insufficiency (593.9), Obesity,unspecified (278.00), Hypercholesterolemia (272.0), Gerd (530.81), RENAL SCLEROSIS, UNSPECIFIED (587.), Well Women Exam (V72.31)( Pap, Mammo, Routine Female and Dexa), Vaginal prolapse without uterine prolapse (618.00), Atrial fibrillation (427.31), Stress incontinence, female (625.6), Atrophic Kidney, Migraine (346.80) [facility] Office Visit On: 08-Nov-2013 15:05 Encounter Reason: Shingles - The onset of the shingles has been sudden and has been occurring for 1 day. The course has been recurrent. The symptoms have been associated with pain, while the symptoms have not been associ End: 08-Nov-2013 21:52 ated with fever, itching or loss of sensation. Note for Shingles: Pt has had shingles in this area x2 adn now getting same symptoms as before when each time was shingles. Pinching feeling and band-lik e tightness around right side of chest/back. No rash yet. same sx as had before- - just like it - brning stabbing - no chest pain with exertion no cough wheeze sob feverEncounter Diagnosis: Shingles (053.9) [facility] Office Visit On: 13-May-2013 10:02 Encounter Reason: Well Women Exam - The patient feels well with minor complaints, has good energy level and is sleeping well. Pap smear: date of last pap: (2008). Contraceptive history: The patient is not using any met End: 13-May-2013 10:46 hod of contraception at this time. Patient exercises a weekly. The patient's libido is normal. The patient reports that she performs monthly self breast exam. Calcium intake includes 2 serving(s) milk daily.Encounter Diagnosis: Well Women Exam (V72.31)( Pap, Mammo, Routine Female and Dexa), Vaginal prolapse without uterine prolapse (618.00), MIGRAINE, UNSPECIFIED, WITHOUT MENTION OF INTRACTABLE MIGRAINE (346.90), Atrial fibrillation (427.31), SCREENING FOR HUMAN PAPILLOMAVIRUS (HPV) (V73.81) [facility] Annotation/Addendum On: 26-Apr-2013 11:21 Encounter Diagnosis: UTI (urinary tract infection) (599.0) End: 26-Apr-2013 11:25 [facility] Annotation/Addendum On: 21-Apr-2013 14:30 Encounter Diagnosis: Unspecified Diagnosis End: 21-Apr-2013 14:31 [facility] Office Visit On: 21-Apr-2013 13:50 Encounter Reason: Urinary problems - The onset of the urinary problems has been sudden and they have been occurring in a persistent pattern for 1 week. The course has been increasing. The urinary problems are described a End: 21-Apr-2013 14:24 s moderate. The urinary problem is characterized as frequency. Note for Urinary problems: prolapseEncounter Diagnosis: Vaginal prolapse without uterine prolapse (618.00), Urinary frequency (788.41) [facility] Office Visit On: 12-Feb-2013 11:46 Encounter Reason: Follow up for chronic medical issues - The patient feels well with minor complaints, has decreased energy level and is sleeping well. Patient has been compliant with instructions. Current medication use End: 12-Feb-2013 12:20 : no side effects, compliant with dosing regimen and considered effective by patient. Patient sleeps 7 hours per night. Impact of disease: emotional impact-mild. Nutrition: balanced diet and supplementa l vitamins. The medical issues the patient is following up for include cardiac issues, gastric reflux, high cholesterol, kidney problems and other (atrophic kidney, stress incont., migraines ).Encounter Diagnosis: Gerd (530.81), Migraine (346.80), RENAL SCLEROSIS, UNSPECIFIED (587.), Stress incontinence, female (625.6), Renal insufficiency (593.9), Mitral Valve Prolapse (746.9), Hypercholesterolemia (272.0), Well Women Exam (V72.31)( Pap, Mammo, Routine Female and Dexa), Fatigue (780.79), Atrial fibrillation (427.31), Atrophic Kidney, Obesity,unspecified (278.00), Bursitis, hip (726.5) [facility] Office Visit On: 27-Feb-2012 12:57 Encounter Reason: Chest pain - The onset of the pain has been sudden and has been occurring for 10 minutes. The pain is described as a moderate dull ache. The pain is described as being located in the substernal area. End: 28-Feb-2012 7:02 e pain radiates to the right shoulder (neck). The symptoms are aggravated by stress. The symptoms are relieved by nothing (relieved by asa). The symptoms have been associated with neck pain, while the s ymptoms have not been associated with abdominal pain, dizziness, dyspnea, fever, headache, nausea, palpitations, shoulder pain, syncope or vomiting.Encounter Diagnosis: SYMPTOMS INVOLVING HEAD AND NECK, HEADACHE (784.0), Chest pain (786.59), Dizziness(780.4) [facility] Office Visit On: 26-Aug-2011 11:48 Encounter Reason: Transition into care, [ADDITIONAL REASON] Follow up for chronic medical issues - The patient feels well with minor complaints, has good energy level and is sleeping well. Patient has been compliant with instructions. [facility] End: 26-Aug-2011 12:41 t medication use: no side effects, compliant with dosing regimen and considered effective by patient. Patient sleeps 7 hours per night. Impact of disease: emotional impact-mild. Nutrition: balanced diet and supplemental vitamins. The medical issues the patient is following up for include cardiac issues, high blood pressure, high cholesterol, kidney problems and other (migraines ). Encounter Diagnosis: Atrial fibrillation (427.31), Mitral Valve Prolapse (746.9), Hypercholesterolemia (272.0), Renal insufficiency (593.9), Gerd (530.81), Migraine (346.80), Well Women Exam (V72.31)( Pap, Mammo, Routine Female and Dexa), Obesity,unspecified (278.00), Fatigue (780.79) [facility] Office Visit On: 11-Feb-2011 9:21 Encounter Reason: Follow up for chronic medical issues - The patient feels well with no complaints ,has good energy level and is sleeping well. Patient has been compliant with instructions. Current medication use: no robbie End: 11-Feb-2011 9:50 e effects ,compliant with dosing regimen and considered effective by patient. Patient sleeps 8 hours per night. Impact of disease: emotional impact-moderate. Nutrition: balanced diet and supplemental vi tamins. The medical issues the patient is following up for include cardiac issues ,gastric reflux ,high cholesterol ,kidney problems and other (migraine). Encounter Diagnosis: Migraine (346.80), Gerd (530.81), Renal insufficiency (593.9), Hypercholesterolemia (272.0), Mitral Valve Prolapse (746.9), Atrial fibrillation (427.31), Well Women Exam (V72.31)( Pap, Mammo, Routine Female and Dexa), Shoulder pain (719.41) [facility] Office Visit On: 21-Dec-2010 14:59 Encounter Reason: Sinus pain - The onset of the pain has been sudden and has been occurring in a persistent pattern for 1 day. The course has been constant. The pain is characterized as pounding, throbbing and a dull ach End: 21-Dec-2010 15:32 e. The pain is described as being located in the entire head.Encounter Diagnosis: SINUSITIS, ACUTE NOS (461.9), PHARYNGITIS, ACUTE (462.) [facility] Office Visit On: 22-Jan-2010 14:02 Encounter Reason: Follow up for chronic medical issues - The patient feels well with no complaints ,has good energy level and is sleeping well. Patient has been compliant with instructions. Current medication use: no robbie End: 22-Jan-2010 14:33 e effects ,compliant with dosing regimen and considered effective by patient. Patient sleeps 8 hours per night. Impact of disease: emotional impact-moderate. Nutrition: balanced diet and supplemental vi tamins. The medical issues the patient is following up for include cardiac issues ,gastric reflux ,high cholesterol ,kidney problems and other (migraine). Encounter Diagnosis: WWV V72.31, Gerd (530.81), MIGRAINE, UNSPECIFIED, WITHOUT MENTION OF INTRACTABLE MIGRAINE (346.90), Hypercholesterolemia (272.0), Atrial fibrillation (427.31), Stress incontinence, female (625.6), Atrophic Kidney, RENAL SCLEROSIS, UNSPECIFIED (587.), SYMPTOMS INVOLVING HEAD AND NECK, HEADACHE (784.0), Mitral Valve Prolapse (746.9), Migraine (346.80), Renal insufficiency (593.9) [facility] Office Visit On: 03-Jul-2009 10:59 Encounter Reason: Follow up for chronic medical issues - The patient feels well with minor complaints (fatigue). Patient has been compliant with instructions. Current medication use: experiencing side effects (fatigue). End: 03-Jul-2009 11:29 Patient sleeps 9 hours per night. Nutrition: balanced diet. The medical issues the patient is following up for include All identified problems below ,cardiac issues ,gastric reflux ,high cholesterol and kidney problems. Encounter Diagnosis: Migraine (346.80), Hypercholesterolemia (272.0), Mitral Valve Prolapse (746.9), Atrial fibrillation (427.31), SYMPTOMS INVOLVING HEAD AND NECK, HEADACHE (784.0), MIGRAINE, UNSPECIFIED, WITHOUT MENTION OF INTRACTABLE MIGRAINE (346.90), WWV V72.31, RENAL SCLEROSIS, UNSPECIFIED (587.), Atrophic Kidney, Parasthesia (782.0), Gerd (530.81), Stress incontinence, female (625.6) [facility] Phone Encounter On: 02-Jun-2009 11:38 [facility] End: 02-Jun-2009 11:39 Office Visit On: 26-Jan-2009 9:03 Encounter Reason: Well Women Exam - The patient feels well with no complaints ,has good energy level and is sleeping well. Pap smear: date of last pap: (2006). Contraceptive history: The patient is not using any method o End: 26-Jan-2009 14:20 f contraception at this time. Patient does not exercise. The patient's libido is decreased. The patient reports that she performs monthly self breast exam. Calcium intake includes 1200 mg with Vit D josselyn ly supplement. Note for Well Women Exam: post menopausal Encounter Diagnosis: V V72.31 [facility] Historical Summary On: 05-Jan-2009 8:56 [facility] End: 05-Jan-2009 8:56 Office Visit On: 02-Jan-2009 9:42 Encounter Reason: Follow up for chronic medical issues - The patient feels well with minor complaints ,has decreased energy level and is sleeping poorly. Patient has been compliant with instructions. Current medication u End: 02-Jan-2009 10:03 se: no side effects ,compliant with dosing regimen and considered effective by patient. Patient sleeps 7 hours per night. Impact of disease: emotional impact-mild. Nutrition: balanced diet and supplemen xi vitamins. The medical issues the patient is following up for include cardiac issues ,gastric reflux ,high blood pressure ,high cholesterol and other (paresthesia, migraine ). Encounter Diagnosis: Migraine (346.80), Dysphagia (787.2), Hypercholesterolemia (272.0), Mitral Valve Prolapse (746.9), Atrial fibrillation (427.31), Abnormal CT(793.9), Parasthesia (782.0), Gerd (530.81), Atrophic Kidney, WWV V72.31 [facility] Office Visit On: 18-Dec-2007 9:19 Encounter Reason: Follow up acute care visit - The patient does not feel well (has sore throat). Patient has been compliant with instructions. Current medication use: no side effects. Patient sleeps 8 hours per night. Nu End: 22-Dec-2007 22:11 trition: balanced diet. The medical issues the patient is following up for include other (Low Back Pain (with radiculopathy)). Note for Follow up acute care visit: she had pt would get some short term relief but still significant sx-- she did try alot of exercises- numbness now up the back of the left leg- no change in bowel or bladder-- , [ADDITIONAL REASON] Sore throat - The onset of the sore throat has been acute and has been occurring in a persistent pattern for 1 days. The course has been worsening. Note for Sore throat: just woke up with this am-- glob a snot-- uvula is swollen Encounter Diagnosis: LOW BACK PAIN WITH RADICULOPATHY (724.4), uvulitis [facility] Office Visit On: 04-Nov-2007 9:50 Encounter Reason: sciatica - The leg pain began suddenly and has been occurring for 1 months. The symptoms have been occurring in a persistent pattern. The symptoms are described as a cramping ,sharp, stabbing pain and s End: 04-Nov-2007 10:27 hooting pain and are moderate to severe. The symptoms occur at rest ,on exertion ,when walking ,at night and during the day. There is involvement of the right lower extremity and buttocks (right). There are no precipitating factors. Aggravating factors include exertion and sitting. Relief is provided by rest and lying down. The symptoms have been associated with muscle weakness and numbness and tingli ng in toes, while the symptoms have not been associated with chest pain ,fatigue ,paresthesias ,calf swelling ,fever or chills. 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 Patient has been compliant with instructions. Current medication use: no side effects and compliant with dosing regime End: 08-Jan-2007 13:42 n. The patient does not feel well and has decreased energy level. Patient sleeps 7 hours per night. Impact of disease: emotional impact-mild. Nutrition: balanced diet. Note for Follow up ER: ER diagno sed as shingles , pain in right thoracic and chest along dermatone, nausea andepig apin labs good, percocet help, not eating and drinking much feel weak. Encounter Diagnosis: Chest pain (786.59), Abdominal Pain,RUQ(789.01), Dysphagia (787.2), VOLUME DEPLETION DISORDER; DEHYDRATION (276.51) [facility] Office Visit On: 23-Dec-2006 15:00 Encounter Diagnosis: Dysphagia (787.2) End: 23-Dec-2006 16:14 [facility] Refill Request On: 11-Dec-2006 10:01 [facility] End: 11-Dec-2006 10:09 Office Visit On: 11-Aug-2006 14:14 Encounter Diagnosis: Migraine (346.80), Hypercholesterolemia (272.0) End: 11-Aug-2006 14:19 [facility] Office Visit On: 11-Aug-2006 13:26 Encounter Reason: Follow up, Laboratory Test Results - Lab results: abnormal blood chemistry and other (abnormal B12 level ). Date: (07-23-06). Current symptoms/reason for visit include/s Symptoms include other (right shabbir End: 11-Aug-2006 13:51 t pain). There is a family history of cardiovascular disease. Past medical history includes elevated cholesterol ,elevated triglycerides and other (migraine, cardiac issues ). Note for Follow up, Labor atory Test Results: not able go back to work since octoer, walk for limited amount of time, not able to stand long, worse than before surgery, wear good shoes and orthoticsEncounter Diagnosis: Foot pain (729.5) [facility] Office Visit On: 04-Aug-2006 14:19 Encounter Reason: Well Women Exam - The patient feels well with minor complaints (R metatarsel very sore) ,has good energy level and is sleeping well. Pap smear: date of last pap: (2005). Contraceptive history: The patie End: 04-Aug-2006 14:55 nt is not using any method of contraception at this time. Patient does not exercise. The patient's libido is normal. The patient reports that she performs monthly self breast exam. The patient denies th e use of oral contraceptives or hormone replacement therapy. Menstruation: Last menstrual period date: (4 years ago). Encounter Diagnosis: Well Women Exam (V72.31)( Pap, Mammo, Routine Female and Dexa) [facility] Office Visit On: 21-Jul-2006 17:21 Encounter Reason: Follow up Meds - The patient feels well with minor complaints and has decreased energy level (Pt not sure if energy level is only good when she has something to do). Patient has been compliant with inst End: 21-Jul-2006 17:48 ructions. Current medication use: experiencing side effects (Having some numbness- tingling -pain- burning pain- coldness- can this be from neuropathy[ diabetes] or meds- topamax or crestor). Note for Follow up Meds: surgery on right foot 04-20-06 still not back to work, ? crestor because pain in shoulder more. numbness/tingling ankle down maryann feet, notice ? start, ? topamax-- work well for migraines,Encounter Diagnosis: Parasthesia (782.0), Migraine (346.80) [facility] Office Visit On: 21-Apr-2006 15:57 Encounter Diagnosis: SYMPTOMS INVOLVING HEAD AND NECK, HEADACHE (784.0), MIGRAINE, UNSPECIFIED, WITHOUT MENTION OF INTRACTABLE MIGRAINE (346.90), Migraine (346.80), Hypercholesterolemia (272.0), Mitral Valve Prolapse (746.9), End: 21-Apr-2006 16:15 Atrial fibrillation (427.31) [facility] Historical Summary On: 18-Apr-2006 14:21 [facility] End: 18-Apr-2006 14:23 Historical Summary On: 17-Apr-2006 11:40 [facility] End: 17-Apr-2006 11:47 Payers MedicareMedical Mountainside HospitalBRIAN LONDONO; a guarantor
--- OUTSIDE RECORDS SUMMARY | 2018-07-23 18:37 | XMS RPT_ITS | Continuity of Care Document ---
:1950 Author Organization [facility] Address [address] [place] [address] Phone Care Team Providers Name Role Phone [...] M Start : 22-Apr-2017 Active CALCIUM-VITAMIN D, [id number]-[id number] (Oral Tablet) 2 QD for 0 days [...] days Quantity: 90 {Capsule} Refills: 3 Ordered:07-Feb-2014 lGenda Mcallister MD, MD, Glenda Luo Start : [...] STARLA Vaughan End : 12-Feb-2013 Inactive ZOSTAVAX, 45832LTJ/0.65ML (Subcutaneous Solution Reconstituted) 1 For Solution For [...] for 0 days Refills: 0 Ordered:11-Aug-2006 Glenda Mcallister MD, MD, Dana M Start : 11-Aug-2006 [...] Comments: in 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 had right foot surgery. now lateral arch. [...] now. off advair gone. not need anything fci for asthma. Status: Resolved as of 07-Oct-2017 [...] mother at her house now. working at [employer] but willnot keep parttime. now have to [...] Visit Report Result: Comments: See Note; NOTES: [facility] [address] [place] [address] OFFICE VISIT Date of Service: 05/07/18 MR#: [id number] Acct: [id number] Name: BRIAN LONDONO Rep #: [id number] : 1950 Provider: Bobo Biggs MD Age/Sex: 67/F Location: [facility] Status: Signed HPI HPI Chief Complaint: [...] Her physical exam today demonstrates clear lung orbertson regular rate and rhythm and no pedal edema her electrocardiogram demonstrates sinus bradycardia with a rate of 5 0 bpm and leftward axis is present. 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 Accompanied by: None Is patient [...] mg PO DAILY 05/07/18 [History Confirmed 05/07/18] [facility] Medical History History of cystocele (Resolved) Single [...] MD 07-May-2018 12 Lead EKG performed by [facility] Result: Comments: See Note; NOTES: [facility] [address] [place] [address] 12 Lead EKG performed by [facility] 05/07/18 1010 MR#: [id number] Acct: [id number] Name: BRIAN LONDONO Rep #: [id number] : 1950 67 From: Bobo Biggs MD Attending Dr: Bobo Biggs MD Status: DEP AMB Ordering Dr: Bobo Biggs MD Date: 05/07/18 Location: [facility] Sex: F C Admitted: [facility]/12 Lead EKG performed by [facility] Sinus Bradycardia -First degree A-V block Luan = 232-Left axis -anterior ascicular block. ABNORMAL 05/14/18 1556 <Electronically signed by Bobo kaye MD> Date Bobo Biggs MD CC: Glenda Mcallister MD Date Dictated: 05/07/18 1010 Date Transcribed: 05/07/18 1010 Utilization Management Nurse: CO Signed 28-May-2017 PT D/C Summary (1) Result: Comments: See Note; NOTES: [facility] [address] [place] [address] Fax REHABILITATION SERVICES DISCHAR GE SUMMARY MR#: [id number] Acct: [id number] Name: BRIAN LONDONO Rep #: [id number] : 1950 66 From: Aranza BLAST Referring Dr.: Glenda Mcallister MD Status: REG RCR Insurance: MEDICARE PART A B [facility] HP - PT D/C Summary It has [...] Met - Plan Plan: Discharge to I [facility] with silver sneakers - D/C Information If there are questions or concerns regarding this patient's physical therapy, augustus pacheco feel free to call me at [phone]. Thank you for the referral of this patient. Sincerely, Aranza Solis <Electronically signed by Aranza Solis DPT> 05/28/17 1132 CC: Glenda Mcallister MD ELR Signed 30-Apr-2017 Inital Evaluation (1) - PT Result: Comments: See Note; NOTES: [facility] [address] [place] [address] Fax REHABILITATION SERVICES INITIAL EVALUATION MR#: [id number] Acct: [id number] Name: BRIAN LONDONO Rep #: [id number] : 1950 66 From: Aranza Solis DPT Referring Dr.: Glenda Mcallister MD Status: REG RCR Insurance: MEDICARE PAR T A B [facility] Patient's Visit Information BRIAN LONDONO is a [...] a couple of years- was working at [employer] and lifting repetitive. Went to the [employer] court and was standing for long per [...] to be FAXED BACK to us at [phone] for Medicare purposes. Please let me know if the re are questions or concerns regarding this plan of care. Physician Signature: Date: <Electronically signed by Aranza Solis DPT&troy crow;#62; 04/30/17 1058 CC: Glenda Mcallister MD LOKI Signed For Medicare only, by signing this I certify the plan of care. Physicians Signature Date 23-Apr-2017 Knee 4 or More Views Result: Comments: See Note; NOTES: [facility] Imaging Services [address] [place] [address] Knee 4 or More Views MR#: [id number] Acct: [id number] Name: BRIAN LONDONO Rep #: [id number] : 1950 F 66 From: Agustín Alexandre MD PCP: Glenda Mcallister MD Status: REG CLI Study: Knee 4 or More Views Date of Exam: 04/23/17 Exam# [id number] Ordering Dr: Glenda Mcallister MD STUDY: X-RAY [...] Agustín Alexandre MD at 13:50 EDT Tel [phone], Service support [phone], CC: Glenda Mcallister MD Utilization Management Nurse: Signed 23-Apr-2017 Knee 4 or More Views Result: Comments: See Note; NOTES: [facility] Imaging Services [address] [place] [address] Knee 4 or More Views MR#: [id number] Acct: [id number] Name: BRIAN LONDONO Rep #: [id number] : 1950 F 66 From: Agustín Alexandre MD PCP: Glenda Mcallister MD Status: REG CLI Study: Knee 4 or More Views Date of Exam: 04/23/17 Exam# [id number] Ordering Dr: Glenda Mcallister MD STUDY: X-RAY [...] Agustín Alexandre MD at 13:50 EDT Tel [phone], Service support , CC: Glenda Mcallister MD Utilization Management Nurse: Signed 23-Apr-2017 Shoulder min 2 Views Result: Comments: See Note; NOTES: [facility] Imaging Services [address] [place] [address] Shoulder min 2 Views MR#: [id number] Acct: [id number] Name: BRIAN LONDONO Rep #: [id number] : 1950 F 66 From: Agustín Alexandre MD PCP: Glenda Mcallister MD Status: REG CLI Study: Shoulder min 2 Views Date of Exam: 04/23/17 Exam# [id number] Ordering Dr: Glenda Mcallister MD STUDY: X-RAY [...] Agustín Alexandre MD at 13:51 EDT Tel [phone], Service support , CC: Glenda Mcallister MD Utilization Management Nurse: Signed 23-Apr-2017 Shoulder min 2 Views Result: Comments: See Note; NOTES: [facility] Imaging Services [address] [place] [address] Shoulder min 2 Views MR#: [id number] Acct: [id number] Name: BRIAN LONDONO Rep #: [id number] : 1950 F 66 From: Agustín Alexandre MD PCP: Glenda Mcallister MD Status: REG CLI Study: Shoulder min 2 Views Date of Exam: 04/23/17 Exam# [id number] Ordering Dr: Glenda Mcallister MD STUDY: X-RAY [...] Agustín Alexandre MD at 13:51 EDT Tel [phone], Service support , CC: Glenda Mcallister MD Utilization Management Nurse: Signed 10-Dec-2016 Ankle min 3 Views Result: Comments: See Note; NOTES: [facility] Imaging Services [address] [place] [address] Verdana 4d Ankle min 3 Views MR#: [id number] Acct: [id number] Name: BRIAN LONDONO Rep # : [id number] : 1950 F 66 From: Merlin Slaughter MD PCP: Glenda Mcallister MD Status: REG CLI Study: Ankle min 3 Views Date of Exam: 12/10/16 Exam# [id number] Ordering Dr: Glenda Mcallister MD STUDY: X-RA [...] Service support , CC: Glenda Mcallister MD Utilization Management Nurse: Signed 10-Dec-2016 Foot min 3 Views Result: Comments: See Note; NOTES: [facility] Imaging Services [address] [place] [address] Verdana 4d Foot min 3 Views MR#: [id number] Acct: [id number] Name: BRIAN LONDONO Rep #: [id number] : 1950 F 66 From: Merlin Slaughter MD PCP: Glenda Mcallister MD Status: REG CLI Study: Foot min 3 Views Date of Exam: 12/10/16 Exam# [id number] Ordering Dr: Glenda Mcallister MD STUDY: X-RAY [...] Service support , CC: Glenda Mcallister MD Utilization Management Nurse: Signed 18-Apr-2016 Bilat Scrn Digital AND CAD Result: Comments: See Note; NOTES: [facility] Imaging Services [address] [place] [address] Verdana 4d Bilat Scrn Digital AND CAD MR#: [id number] Acct: [id number] Name: ELISABETH LONDONO Rep #: [id number] : 1950 F 65 From: Agustín Alexandre MD PCP: Glenda Mcallister MD Status: REG CLI Study: Bilat Scrn Digital AND CAD Date of Exam: 04/18/16 Exam# [id number] Ordering Dr: Glenda Mcallister MD MAMMOGRAPHY - [...] delay biopsy of a clinically suspicious abnormality. [id number] Electronically Signed: Valerio Chino at 15:08 EDT Tel [phone], Service support [phone], CC: Glenda Mcallister MD Utilization Management Nurse: Signed 18-Apr-2016 Dexa Bone Density Study (HP) Result: Comments: See Note; NOTES: [facility] Imaging Services [address] [place] [address] Verdana 4d Dexa Bone Density Study (HP) MR#: [id number] Acct: [id number] Name: LORA LONDONO Rep #: [id number] : 1950 F 65 From: Agustín Alexandre MD PCP: Glenda Mcallister MD Status: REG CLI Study: Dexa Bone Density Study (HP) Date of Exam: 04/18/16 Exam# [id number] Ordering Dr: Glenda Dickerson MD STUDY: DUAL [...] Alexandre MD at 1 4:14 EDT Tel [phone], Service support [phone], CC: Glenda Mcallister MD Utilization Management Nurse: Signed Immunization Name Dates Details Influenza, preserv. free, enhanced immunogncty, IM Comments: at work 11-13 Tdap (7 years and up) on: 26-Jan-2009 Comments: lot #:[id number]: 05/2011site: left deltoidGiven by AURY Xiao Family History Unknown Family Member Name Dates Details Daughter 1 Comments: healthy ? 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 suman finn. Status: Active No Caffeine Use Status: Active No Drug Use Status: Active Non Smoker/No Tobacco Use Status: Active Tobacco use: Former smoker. Status: Active Smoking Status Name Dates Details Former smoker Vital Signs Date Test Result Details 43-Bel-648741:06 Temperature 97.8 f Pulse 58 /min Comments: [...] kg/m2 Body Surface Area Calculated 2.04 m2 22-Hii-276819:31 Temperature 97.3 f Comments: Method: Temporal Pulse [...] kg/m2 Body Surface Area Calculated 2.03 m2 50-Blr-890962:43 Temperature 97.6 f Comments: Method: Temporal Pulse [...] kg/m2 Body Surface Area Calculated 2.04 m2 50-Fvm-448044:51 Temperature 97.6 f Comments: Method: Temporal Pulse [...] Description Value Details :14 HgA1C , Office (39141) HgA1C , Office 6.8 % (Normal) Range: 4.6 - 7.1 44-Zgf-258429:45 Microscopic Examination Comments: PATIENT NOT FASTINGPERFORMED BY: MAURISIO [facility]CoCap[facility])Vxgspu7599 [facility] [id number] Bacteria Few (Normal) Mucus Threads Present (Normal) Epithelial Cells (non renal) None seen {/hpf} (Normal) Range: 0 - 10 RBC 0-2 {/hpf} (Normal) Range: 0 - 2 WBC 0-5 {/hpf} (Normal) Range: 0 - 5 34-Gbb-771597:45 URINE ELYSSA CULTURE-IDENTIFICATN Comments: PATIENT NOT FASTINGPERFORMED BY: [employer] FormaFina [facility] [id number] (83864) Result 1 NG36 (Normal) Comments: No growth in 36 - 48 hours. Urine Culture,Comprehensive Final report (Normal) 49-Cam-187941:45 URINALYSIS (38285) Comments: PATIENT NOT FASTINGPERFORMED BY: [facility]St[facility]Mer[facility] FormaFina [facility] [id number] Information: SRC:UC Microscopic Examination See below: (Normal) Comments: Microscopic was indicated and was performed. Nitrite, Urine Negative (Normal) Urobilinogen,Semi-Qn 0.2 mg/dL (Normal) Range: 0.2-1.0 Bilirubin Negative (Normal) Occult Blood Negative (Normal) Ketones Negative (Normal) Glucose Negative (Normal) Protein Negative (Normal) WBC Esterase Trace (Abnormal) Appearance Clear (Normal) Urine-Color Yellow (Normal) pH 7.0 (Normal) Range: 5.0-7.5 Specific [place] 1.012 (Normal) Range: 1.005-1.030 41-Uxs-307285:15 C-REACTIVE PROTEIN (66656) Comments: PATIENT NOT FASTINGPERFORMED BY: [facility]StormMer[facility] Orjfhv5755 [facility] [id number] C-Reactive Protein, Quant 0.8 mg/L (Normal) Range: 0.0-4.9 11-Bcn-199875:15 Sed Rate Erythrocyte (04927) Comments: PATIENT NOT FASTINGPERFORMED BY: [facility]ovaStormSelect Specialty Hospital6370 [facility] [id number] Sedimentation Rate-Westergren 17 mm/h (Normal) Range: 0-40 91-Ddv-093642:15 CBC WITH MANUAL DIFF (95603) Comments: PATIENT NOT FASTINGPERFORMED BY: MAURISIO [facility]6370 [facility] [id number] Immature Grans (Abs) 0.0 {x10E3/uL} (Normal) Range: [...] Range: 3.4-10.8 :42 Rapid Strep Test, Office (72708) Rapid Strep Test, Office Negative (Normal) 18-Sob-339999:05 Microscopic Examination Comments: PATIENT NOT FASTINGPERFORMED BY: LabSelect Specialty Hospital6370 [facility] [id number]; will review on 04.22 Bacteria None seen (Normal) Mucus Threads Present (Normal) Cast Type Hyaline casts (Normal) Casts Present {/lpf} (Abnormal) Epithelial Cells (non renal) 0-10 {/hpf} (Normal) Range: 0 - 10 RBC 0-2 {/hpf} (Normal) Range: 0 - 2 WBC 0-5 {/hpf} (Normal) Range: 0 - 5 :05 URINALYSIS, W/ MICRO (58155) Comments: PATIENT NOT FASTINGPERFORMED BY: [employer] Rvnwhc0860 [facility] [id number] Microscopic Examination See below: (Normal) Comments: Microscopic was indicated and was performed. Microscopic Examination MICRON (Normal) Comments: Microscopic follows if indicated. Nitrite, Urine Negative (Normal) Urobilinogen,Semi-Qn 0.2 mg/dL (Normal) Range: 0.2-1.0 Bilirubin Negative (Normal) Occult Blood Negative (Normal) Ketones Negative (Normal) Glucose Negative (Normal) Protein Negative (Normal) WBC Esterase Negative (Normal) Appearance Clear (Normal) Urine-Color Yellow (Normal) pH 7.5 (Normal) Range: 5.0-7.5 Specific [place] 1.015 (Normal) Range: 1.005-1.030 65-Mru-000054:05 METABOLIC PANEL, COMPREHENSIVE Comments: PATIENT NOT FASTINGPERFORMED BY: [employer]6370 [facility] [id number] (33348) ALT (SGPT) 6 [iU]/L (Normal) Range: 0-32 [...] Glucose, Serum 91 mg/dL (Normal) Range: 65-99 82-Amc-346246:05 CBC with auto diff Comments: PATIENT NOT FASTINGPERFORMED BY: LabCo Dgiepq5112 [facility] [id number] Information: NURSE DRAW (76985) Immature Grans (Abs) 0.0 {x10E3/uL} (Normal) Range: [...] Range: 3.4-10.8 :11 Rapid Strep Test, Office (88802) Rapid Strep Test, Office Negative (Normal) :42 CBC (Auto) (94089) Comments: PATIENT NOT FASTINGPERFORMED BY: LabCoCapital [facility])Fdvdkt8634 [facility] [id number] Platelets 219 {x10E3/uL} (Normal) Range: 150-379 RDW 15.3 % (Normal) Range: 12.3-15.4 MCHC 32.2 g/dL (Normal) Range: 31.5-35.7 MCH 30.6 pg (Normal) Range: 26.6-33.0 MCV 95 fL (Normal) Range: 79-97 Hematocrit 39.8 % (Normal) Range: 34.0-46.6 Hemoglobin 12.8 g/dL (Normal) Range: 11.1-15.9 RBC 4.18 {x10E6/uL} (Normal) Range: 3.77-5.28 WBC 4.4 {x10E3/uL} (Normal) Range: 3.4-10.8 :42 Metabolic Panel, Comprehensive Comments: PATIENT NOT FASTINGPERFORMED BY: [facility] HospitalCo[facility])Vewbiy0371 [facility] [id number] (92809) ALT (SGPT) 5 [iU]/L (Normal) Range: 0-32 [...] mg/dL (Normal) Range: 65-99 :42 Valproic Acid (41181) Comments: PATIENT NOT FASTINGPERFORMED BY: LabZigfuCapital Health System ([facility])Jkipdb9746 [facility] [id number] Valproic Acid (Depakote)(R),S 63 ug/mL (Normal) Range: 50-100 Comments: Detection Limit = 4 <4 indicates None Detected . Toxicity may occur at levels of 100-500. Measurements of free unbound valproic acid may improve the assess- ment of clinical response. :13 HgA1C , Office (61789) HgA1C , Office 5.2 % (Normal) Range: 4.6 - 7.1 66-Fnd-722203:07 IGP, Aptima HPV, rfx Comments: No. of containers..01 CYTYC Thin Prep VialPATIENT NOT FASTINGPERFORMED BY: =G LabGudvilleEqfwgkaeev978 [facility] W [id number] BY: WB LabZigfu Iowozhqbde[address] [id number] 16/18,45 HPV Aptima Negative (Normal) Comments: This [...] bedistinguished in cases of atrophy.Z 01.Shan Castañeda Regasification Plant Operator (ASCP) 53-Ceb-543435:07 Thin prep Pap (48509) Comments: No. of containers..01 CYTYC Thin Prep VialPATIENT NOT FASTINGPERFORMED BY: =G Colto[address] [place] [address] [place] [id number] BY: WB Colto[address] [place] [address] (no STD testing) on [place] [id number] Information: [id number] Age Gdln ACOG Testing 30-65 (Normal) 67-Nkz-105165:42 URINE ELYSSA CULTURE-IDENTIFICATN Comments: PATIENT NOT FASTINGPERFORMED BY: SMR [employer] [place] [id number] Information: SRC:UC (94608) Result 1 MUG (Normal) Comments: Mixed urogenital ceylh024 Colonies/mL Urine Culture,Comprehensive Final report (Normal) 93-Dha-514697:10 Urinalysis, Office (22435) UA - LEUKOCYTE ESTERASE Trace (Normal) UA - NITRITE Negative (Normal) URINE UROBILINGN FABRICIO TIMED Normal mg/dL (Normal) UA - PROTEIN Negative mg/dL (Normal) UA - PH 6 (Abnormal) UA - BLOOD + (Abnormal) UA - SPECIFIC GRAVITY 1.030 (Abnormal) UA - KETONES 5 mg/dL (Abnormal) UA - BILIRUBIN Negative (Normal) UA - GLUCOSE Negative (Normal) 71-Dtu-50168:20 CALCIFIDIOL (67839) VIT D 25 Comments: PATIENT WAS FASTINGPERFORMED BY: [facility]kC[facility] [id number] Vitamin D, 25-Hydroxy 23.4 ng/mL (Abnormal) Range: 30.0-100.0 Comments: Vitamin D deficiency has been defined by the [place] ofMedicine and an Endocrine Society practice guideline as alevel of serum 25-OH vitamin D less than 20 ng/mL (1,2).The Endocrine Society went on to further define vitamin Dinsufficiency as a level between 21 and 29 ng/mL (2).1. IOM ([place] of Medicine). 2010. Dietary reference intakes for calcium and D. [place]: The National AcademEarth [employer] Collection [employer] Press.2. Liana MF, Bertha NC, Kishan TAVAREZ, et al. Evaluation, treatment, and prevention of vitamin D deficiency: an Endocrine Society clinical practice guideline. JCEM. 2010; 96(7):1911-30. :20 ASSAY-DIPROPYLACETC ACID (07055) Comments: PATIENT WAS FASTINGPERFORMED BY: [employer]6370 [address] [facility] HospitalMind Field SolutionsFormerly [facility] [id number] Valproic Acid (Depakote)(R),S 47 ug/mL (Abnormal) Range: 50-100 Comments: Detection Limit = 4 <4 indicates None Detected . Toxicity may occur at levels of 100-500. Measurements of free unbound valproic acid may improve the assess- ment of clinical response. :20 CBC WITH MANUAL DIFF Comments: PATIENT WAS FASTINGPERFORMED BY: [employer] LabCoVCNC Yboogj7508 [facility] [id number] Information: [id number] (06953) Immature Grans (Abs) 0.0 {x10E3/uL} (Normal) Range: [...] 4.3 {x10E3/uL} (Normal) Range: 3.4-10.8 :20 TSH (42276) Comments: PATIENT WAS FASTINGPERFORMED BY: LabCoCapital [facility] System [facility])Uiixiz1128 [facility] [id number] TSH 1.360 {uIU/mL} (Normal) Range: 0.450-4.500 :20 Metabolic Panel, Comprehensive Comments: PATIENT WAS FASTINGPERFORMED BY: LabCo[address] [id number] (71798) ALT (SGPT) 13 [iU]/L (Normal) Range: 0-32 [...] Glucose, Serum 97 mg/dL (Normal) Range: 65-99 68-Bjc-81151:20 Lipid Panel (55758) Comments: PATIENT WAS FASTINGPERFORMED BY: TalkdeskFormerly [facility] [id number]; apt. 6-14 LDL/HDL Ratio 2.6 {ratio_units} (Normal) [...] Cholesterol, Total 204 mg/dL (Abnormal) Range: 100-199 83-Wxa-693945:17 URINE ELYSSA CULTURE-FABRICIO COL Comments: PATIENT NOT FASTINGPERFORMED BY: TalkdeskFormerly [facility] [id number] Information: SRC:[facility] F04040 COUNT (75244) Antimicrobial MIHEAD (Normal) Comments: S = Susceptible; [...] primarily for treating urinary tract infections. (CLSI, J366-J03,2009) Urine Culture,Comprehensive Final report (Abnormal) 07-Yjy-317558:29 Urinalysis, Office (47466) UA - LEUKOCYTE ESTERASE Large (Normal) UA - NITRITE Negative (Normal) URINE UROBILINGN FABRICIO TIMED 2 mg/dL (Normal) UA - PROTEIN Trace mg/dL (Normal) UA - PH 7.5 (Normal) UA - BLOOD Non Hemolyzed Trace (Normal) UA - SPECIFIC GRAVITY 1.015 (Normal) UA - KETONES Negative mg/dL (Normal) UA - BILIRUBIN Negative (Normal) UA - GLUCOSE Negative (Normal) 48-Lkg-13893:20 Valproic Acid (62529) Comments: PATIENT WAS FASTINGPERFORMED BY: [employer]6370 [facility] [id number] Valproic Acid (Depakote)(R),S 50 ug/mL (Normal) Range: 50-100 Comments: Detection Limit = 4 <4 indicates None Detected . Toxicity may occur at levels of 100-500. Measurements of free unbound valproic acid may improve the assess- ment of clinical response. :20 Metabolic Panel, Basic Comments: PATIENT WAS FASTINGPERFORMED BY: [employer]70 [address] [facility] [id number] Information: [id number] (51288) Calcium, Serum 10.1 mg/dL (Normal) Range: 8.7-10.3 [...] mg/dL (Normal) Range: 65-99 :20 LIPID PANEL (98704) Comments: PATIENT WAS FASTINGPERFORMED BY: TalkdeskFormerly [facility] [id number] LDL/HDL Ratio 2.5 {ratio_units} (Normal) Range: 0.0-3.2 [...] FUNCTION PANEL Comments: PATIENT WAS FASTINGPERFORMED BY: [employer]6370 [facility] [id number] (59199) ALT (SGPT) 8 [iU]/L (Normal) Range: 0-32 AST (SGOT) 18 [iU]/L (Normal) Range: 0-40 Alkaline Phosphatase, S 80 [iU]/L (Normal) Range: 39-117 Bilirubin, Direct 0.05 mg/dL (Normal) Range: 0.00-0.40 Bilirubin, Total <0.2 mg/dL (Normal) Range: 0.0-1.2 Albumin, Serum 4.1 g/dL (Normal) Range: 3.6-4.8 Protein, Total, Serum 6.4 g/dL (Normal) Range: 6.0-8.5 43-Xay-689108:21 CBC W/Diff, Automated Comments: Test performed at:[facility] [address] [place] [address] Absolute Lymph 1.27 {X10_3/ul} (Normal) [...] 4.2-5.4 WBC 4.6 K/mm3 (Normal) Range: 4.4-11.0 77-Ieu-686753:21 Comprehensive Metabolic Profil Comments: Test performed at:[facility] [address] [place] [address] GAP 6 (Normal) Range: 5-15 [...] 7-18 GLU 88 mg/dL (Normal) Range: 70-110 27-Imd-748938:21 Lipid Profile Comments: Test performed at:[facility] [address] [place], [place] [id number] VLDL 32 mg/dL (Normal) Range: 5-40 LDL [...] 200-240 mg/dL Borderline >240 mg/dL High Risk 18-Jvy-336417:01 HPV automatic Comments: Source.............Cervical;EndocervicalNo. of containers..01 CYTYC Thin Prep VialPATIENT NOT FASTINGPERFORMED BY: WB [facility] [place] [id number] BY: =Vangie Callaway (79570) [facility] [place] [id number] Information: [id number] HPV, high-risk Negative Comments: This high-risk HPV [...] Special screening examination, human papillomavirus [HPV]Karan Herman, Regasification Plant Operator (ASCP) 00-Zya-703225:35 URINE ELYSSA CULTURE-FABRICIO COL Comments: PATIENT NOT FASTINGPERFORMED BY: LabCo Rqeftq0391 [facility] [facility] [id number] Information: SRC: R35365 COUNT (14721) Antimicrobial MIHEAD (Normal) Comments: S = Susceptible; [...] primarily for treating urinary tract infections. (CLSI, F765-G39,2009) Urine Culture,Comprehensive Final report (Normal) 38-Aah-321492:14 Urinalysis, Office (23965) UA - BILIRUBIN Negative (Normal) UA - [...] ug/dL (Normal) Range: 4.8-13.9 :24 VIT D,25 86187 38.2 ng/mL (Normal) Range: 30.0-100.0 :24 Comments: Vitamin D deficiency has been defined by the [place] [employer] and an Endocrine Society practice guideline as alevel of serum 25-OH vitamin D less than 20 ng/mL (1,2).The Endocrine Society went on to further define vitamin Dinsufficiency as a level between 21 and 29 ng/mL (2).1. IOM ([place] [employer]). 2010. Dietary reference intakes for calcium and D. [place]: The National Academies Press.2. Liana GARZA, Bertha GABRIEL, Kishan TAVAREZ, et al. Evaluation, treatment, and prevention of vitamin D deficiency: an Endocrine Society clinical practice guideline. JCEM. 2010; 96(7): 1911-30.Performed at: - [facility] [id number] Director: Brian Flowers MD, Phone: [phone] :[phone] CBCD,SMEAR DIFF Comments: ORDERED CBCMD LIPID VALPROIC ACID [facility] ORDERED LIPID LIVER RED CELL MORPH SeeNote [...] Comments: ORDERED CBCMD LIPID VALPROIC ACID [facility] ORDERED LIPID LIVER GAP 7 (Normal) Range: [...] UA Comments: ORDERED CBCMD LIPID VALPROIC ACID [facility] ORDERED LIPID LIVER MUCUS, URINE 0 SEEN [...] (Normal) Comments: ORDERED CBCMD LIPID VALPROIC ACID [facility] ORDERED LIPID LIVER Range: 0.00-0.30 :32 LIPID Comments: ORDERED CBCMD LIPID VALPROIC ACID [facility] ORDERED LIPID LIVER VLDL 30 mg/dL (Normal) [...] (Normal) Comments: ORDERED CBCMD LIPID VALPROIC ACID [facility] ORDERED LIPID LIVER Range: 50-100 63-Wct-396170:02 Rapid Strep Test, Office (21420) Rapid Strep Test, Office Negative (Normal) 76-Qiv-134712:26 CBCD ABSOLUTE NEUT 2.8 3/uL (Normal) Range: [...] 11.6-14.6 WBC 5.2 K/mm3 (Normal) Range: 4.4-11.0 83-Vwd-124344:26 COMP METABOLIC CL 104 mmol/L (Normal) Range: [...] 7-18 GLU 90 mg/dL (Normal) Range: 70-110 70-Cwa-550843:26 D BILI 0.07 mg/dL (Normal) Range: 0.00-0.30 64-Ujr-133315:26 LIPID HDL 56 mg/dL (Normal) Comments: Reference [...] CHOL 186 mg/dL (Normal) Comments: <200 mg/dL Wnyrqyipl166-917 mg/dL Borderline>240 mg/dL High Risk 42-Rkl-879603:26 MG 2.4 mg/dL (Abnormal) Range: 1.5-2.2 60-Hmf-763140:26 ROUTINE UA LEUK ESTERASE 1+ (Abnormal) NITRITE [...] Range: 0.2 - 1.0 COLOR YELLOW (Normal) 52-Zjl-062214:26 VALPROIC ACID 73 ug/mL (Normal) Range: 50-100 1-Zud-954621:26 Urinalysis, Office (29769) UA - LEUKOCYTE ESTERASE Negative (Normal) UA - NITRITE Negative (Normal) URINE UROBILINGN FABRICIO TIMED Normal mg/dL (Normal) UA - PROTEIN Trace mg/dL (Normal) UA - PH 5.0 (Normal) UA - BLOOD Negative (Normal) UA - SPECIFIC GRAVITY 1.025 (Normal) UA - KETONES Small mg/dL (Normal) UA - BILIRUBIN Negative (Normal) UA - GLUCOSE Negative (Normal) 55-Fjq-113517:34 BMP BUN 15 mg/dL (Normal) Range: 7-18 [...] 3.5-5.1 NA 138 mmol/L (Normal) Range: 136-145 19-Kls-859888:34 MG 2.1 mg/dL (Normal) Range: 1.5-2.2 19-Fiu-446086:34 T4 THYROXIN 8.7 ug/dL (Normal) Range: 4.8-13.9 39-Xfg-055048:34 TSH 1.57 {uIU/mL} (Normal) Range: 0.358-3.74 03-Rhl-219619:03 BILAT SCRN DIGITAL & CAD Radiology Report See Note (Normal) Comments: Exam Number: [id number] BILATERAL SCREENING DIGITAL MAMMOGRAM Bilateral benign breasts, [...] mammograms werealso examined with computer-aided detection software ([employer], [employer] Reported By: DONTA JACKSON 75-Uwu-21346:42 Thin prep Pap Comments: Source.............Cervical;EndocervicalLMP / Prev Treat...KZI=[id number]. of containers..01 CYTYC Thin Prep VialPATIENT NOT FASTINGClinical Information: ADD [id number] (42649) PERFORMED BY: [facility] [id number] . . (Normal) DIAGNOSIS: SPRCS (Normal) Comments: NEGATIVE FOR INTRAEPITHELIAL LESION AND MALIGNANCY.Satisfactory for evaluation. Endocervical component may not bedistinguished in cases of atrophy.Reynaldo Marr, Regasification Plant Operator (ASCP) Note: PAPSMR (Normal) Comments: The Pap [...] :09 CBC With Differential/Platelet Comments: PERFORMED BY: [facility] [id number] Baso (Absolute) 0.0 {x10E3/uL} (Normal) Range: 0.0-0.2 [...] 11.7-15.0 WBC 5.4 {x10E3/uL} (Normal) Range: 4.0-10.5 0-Mru-524252:09 Comp. Metabolic Panel (14) Comments: PERFORMED BY: [facility] [id number] A/G Ratio 1.4 (Normal) Range: 1.1-2.5 Albumin, [...] Sodium, Serum 142 mmol/L (Normal) Range: 135-145 2-Zdn-216840:09 Hepatic Function Panel (7) Comments: PERFORMED BY: [facility] NetworksZfdq[facility] [id number] Bilirubin, Direct 0.07 mg/dL (Normal) Range: 0.00-0.40 7-Vay-219793:09 Lipid Panel With LDL/HDL Comments: PERFORMED BY: [employer] [facility] [id number] Ratio Cholesterol, Total 248 mg/dL (Abnormal) Range: [...] Acid 56 ug/mL (Normal) Comments: PERFORMED BY: [employer] [facility] [id number] 0:09 (Depakote),S Range: 50-120 Comments: Detection Limit = 4 <4 indicates None Detected . Toxicity may occur at levels of 100-500. Measurements of free unbound valproic acid may improve the assess- ment of clinical response. 00-Xsi-973520:31 SPINE,LUMBAR (ROUTINE) Radiology Report See Note (Normal) Comments: Exam Number: [id number] MRI LUMBAR SPINE WITHOUT CONTRAST. CLINICAL STATEMENTLow [...] the left. Reported By: RADHA BENNETT M.D. 27-Dpp-885471:51 Upper Respiratory Culture Comments: Clinical Information: SRC: PERFORMED BY: [facility] [id number] Result 1 RRF (Normal) Comments: Routine respiratory etienne Upper Respiratory Culture Final report (Normal) :33 Rapid Strep Test, Office (02560) Comments: neg Rapid Strep Test, Office Negative (Normal) :33 AORTA ULTRASOUND (HP) Radiology Report See Note (Normal) Comments: Exam Number: [id number] ULTRASOUND OF ABDOMINAL AORTA HISTORYArteriosclerotic calcification on [...] is identified. Reported By: JIN ALFARO M.D. 7-Hry-541503:51 L/S SPINE,MIN 4 VIEWS Radiology Report See Note (Normal) Comments: Exam Number: [id number] LUMBAR SPINE CLINICAL INFORMATIONLow back pain. A [...] AU/mL (Normal) Comments: PATIENT NOT FASTINGPERFORMED BY: [facility] [id number] 14:54 Direct Range: 0-99 Comments: Negative <100 Equivocal 100 - 120 Positive >120 18-Jun-2007 Immunoglobulin E, Total 3 {IU/mL} (Normal) Comments: PATIENT NOT FASTINGPERFORMED BY: [facility] [id number] 14:54 Range: 0-158 63-Fuk-025347:54 Rheumatoid Arthritis Factor Comments: PATIENT NOT FASTINGPERFORMED BY: [employer] [id number] RA Latex Turbid. 8.1 {IU/mL} (Normal) Range: 0.0-13.9 :54 Sed Rate Erythrocyte (36418) Comments: PATIENT NOT FASTINGPERFORMED BY: [employer] [id number] Sedimentation Rate-Westergren 52 mm/h (Abnormal) Range: 0-30 20-Ncy-279020:54 CBC, Platelets & Auto Diff Comments: PATIENT NOT FASTINGPERFORMED BY: [employer] [id number] (85164) Baso (Absolute) 0.1 {x10E3/uL} (Normal) Range: 0.0-0.2 [...] Report See Note (Normal) Comments: Exam Number: [id number] PA AND LATERAL CHEST HISTORYDehydration, shortness of breath, pain. Cardiac configuration is normal. No acute infiltrate, effusion orpneumothorax is noted. When compared to the study of August 08, 2005there is little if any change. There is spur formation middorsalspine. IMPRESSIONNo acute change noted in the lungs. Reported By: NIALL SEBASTIAN M.D. :38 GALLBLADDER Radiology Report See Note (Normal) Comments: Exam Number: [id number] GALLBLADDER ULTRASOUND HISTORYRight upper quadrant pain. The [...] months isrecommended. Reported By: JIN ALFARO M.D. 04-Zjn-961972:00 COMPLETE UA Comments: COMMENTS: RM 10 DR [...] 1.49 INDETERMINANT > OR = 1.50 SUGGEST [place] :18 ESOPHAGUS ONLY Radiology Report See Note (Normal) Comments: Exam Number: [id number] CONTRAST ESOPHAGRAM For dysphagia, feels like something [...] reflux. Reported By: NIALL SEBASTIAN M.D. :16 [facility] [id number] A/G RATIO 1.3 (Normal) Range: 0.7-2.0 ALBUMIN [...] Evidenceof monoclonal protein is not apparent.Performed At: [address] [id number] M-SPIKE SeeNote (Normal) Comments: Result: Not Observed NOTE: Comment (Normal) Comments: Protein electrophoresis scan will follow via mail orcourier. PROTEIN,TOTAL 6.8 g/dL (Normal) Range: 6.0-8.5 19-Whn-293368:29 BMP BUN 8 mg/dL (Normal) Range: 7-18 BUN/CRE 7.3 {RATIO} (Abnormal) Range: 10-20 CA 9.6 mg/dL (Normal) Range: 8.5-10.1 CL 107 mmol/L (Normal) Range: 98-107 CO2 23.6 mmol/L (Normal) Range: 22.0-29.0 CREAT,SERUM 1.1 mg/dL (Abnormal) Range: 0.6-1.0 GAP 10 (Normal) Range: 5-15 GLU 89 mg/dL (Normal) Range: 70-110 K 3.9 mmol/L (Normal) Range: 3.5-5.1 NA 141 mmol/L (Normal) Range: 136-145 49-Syg-067953:29 MG 2.2 mg/dL (Normal) Range: 1.5-2.2 58-Ktz-597147:29 TSH 0.69 {uIU/mL} (Normal) Range: 0.34-4.82 59-Xed-539070:29 VIT B12 1503 1435 pg/mL (Abnormal) Range: 211-911 Comments: Performed At: [employer] [facility] [id number] Plan of Care Name Dates Details Instructions [...] V72.31 : Self Breast Exam Education Indication: [facility] V7 WWV V7 : Colon Cancer Screening Indication: [facility] V7 WWV V7 : Well Female Maintenance (KF) Indication: [facility] V7 WWV V7 : Pap/Pelvic/Bimanual/Rectal/Breast Exam was done. Indication: [facility] V7 WWV V7 : FOLLOW UP IN [...] woman exam Planned Observations MICROALBUMIN: CREATININE RATIO (84381) AND (06769)Indication: Renal insufficiency On: 89-Pvn-165202:00 Request URINALYSIS (71553)Indication: Renal insufficiency On: 07-Ggd-813861:00 Request CBC WITH MANUAL DIFF (28329)Indication: Renal insufficiency On: 40-Plq-534075:00 Request Metabolic Panel, Comprehensive (76012)Indication: Renal insufficiency On: 33-Qgg-324891:00 Request HGB A1C (21835)Indication: Abnormal blood sugar On: 68-Wib-501401:48 Request HEPATIC FUNCTION PANEL (77306)Indication: Onychomycosis On: 41-Ces-179614:04 Request Comments: after second 1 week pulse METABOLIC PANEL, COMPREHENSIVE (63915)Indication: Hypercholesterolemia On: :15 Request LIPOPROTEIN, BLD, BY NMR (87682)Indication: Hypercholesterolemia On: 42-Qdn-085210:15 Request Methymalonic Acid, Serum (09522)Indication: Memory impairment On: 63-Gql-431577:50 Request Vitamin B-12 (cyanocobalamin) (29703)Indication: Memory impairment On: :50 Request URIC ACID BLOOD (88856)Indication: Elevated uric acid in blood On: :49 Request LIPOPROTEIN, BLD, BY NMR (12642)Indication: Hypercholesterolemia On: :39 Request CBC, Platelets & Auto Diff (85754)Indication: Afib On: :33 Request Metabolic Panel, Comprehensive (90180)Indication: Afib On: :33 Request Valproic Acid (70786)Indication: Migraine On: :33 Request HEPATITIS C ANTIBODY (57186)Indication: Encounter for hepatitis C virus screening test for high risk patient On: 63-Zdt-077529:07 Request LIPOPROTEIN, BLD, BY NMR (58042)Indication: Hypercholesterolemia On: 30-Eor-437834:19 Request ACID FAST STAIN (AFB) (61671)Indication: Cough On: 54-Lkl-06720:26 Request Comments: check for mycobacterium avium CULTURE, SPUTUM (65440)Indication: Cough On: 34-Rwf-55770:26 Request Methymalonic Acid, Serum (36192)Indication: Memory impairment On: 33-Stb-102447:44 Request Vitamin B-12 (cyanocobalamin) (26034)Indication: Memory impairment On: 09-Oga-765097:44 Request METABOLIC PANEL, COMPREHENSIVE (85741)Indication: Hypercholesterolemia On: :17 Request LIPID PANEL (21963)Indication: Hypercholesterolemia On: :17 Request CBC with auto diff (72736)Indication: Hypercholesterolemia On: :17 Request CBC WITH MANUAL DIFF (66988)Indication: Hypercholesterolemia On: 65-Slw-990608:30 Request Comments: copy to arielle METABOLIC PANEL, COMPREHENSIVE (10422)Indication: Hypercholesterolemia On: 12-Mdc-299302:29 Request LIPID PANEL (38808)Indication: Hypercholesterolemia On: 60-Hqj-511171:29 Request Thin prep Pap (11986)Indication: Well woman exam On: 51-Far-540937:35 Request Valproic Acid (72786)Indication: Migraine, unspecified, not intractable, without status migrainosus On: 93-Lua-718086:34 Request CBC (Auto) (88589)Indication: Afib On: :34 Request Metabolic Panel, Comprehensive (59892)Indication: Afib On: 14-Nuc-772355:33 Request CALCIFIDIOL (04672) VIT D 25Indication: Fatigue On: :36 Request T4, TOTAL (56640)Indication: Fatigue On: :36 Request T4, FREE (THYROXINE) (10403)Indication: Fatigue On: :36 Request T3, FREE (TRIDOTHYRONINE) (15312)Indication: Fatigue On: :36 Request Valproic Acid (22546)Indication: Migraine On: :35 Request URINALYSIS, W/ MICRO (38389)Indication: Afib On: :35 Request METABOLIC PANEL, COMPREHENSIVE (18302)Indication: Afib On: :35 Request LIPID PANEL (87440)Indication: Afib On: :35 Request CBC WITH MANUAL DIFF (07105)Indication: Afib On: :35 Request URINALYSIS, W/ MICRO (38496)Indication: Afib On: :50 Request METABOLIC PANEL, COMPREHENSIVE (77071)Indication: Afib On: :50 Request LIPID PANEL (25749)Indication: Afib On: :50 Request CBC WITH MANUAL DIFF (88640)Indication: Afib On: :50 Request Valproic Acid (14411)Indication: Migraine On: :50 Request ELYSSA CULTURE-OTHER (84417)Indication: Acute pharyngitis On: :02 Request Comments: throat Metabolic Panel, Basic (72786)Indication: Renal insufficiency On: 63-Wnw-685442:19 Request Comments: 6 weeks Metabolic Panel, Comprehensive (91252)Indication: Afib On: :26 Request Lipid Panel (80743)Indication: Afib On: :26 Request CBC (Auto) (68388)Indication: Afib On: 4-Jcb-966878:25 Request Comments: in six months (approximately) ACID FAST STAIN (AFB) (63818)Indication: Abnormal findings on diagnostic imaging of other specified body structures On: :52 Request Comments: sputum CULTURE, SPUTUM (54462)Indication: Abnormal findings on diagnostic imaging of other specified body structures On: :52 Request RHEUMATOID FACTOR-QUANT (71207)Indication: Abnormal findings on diagnostic imaging of other specified body structures On: :50 Request NICKOLAS (ANTINUCLEAR ANTIBODY) (27066)Indication: Abnormal findings on diagnostic imaging of other specified body structures On: :50 Request IMMUNOGLOBULIN E (IgE) (74553)Indication: Abnormal findings on diagnostic imaging of other specified body structures On: 36-Abt-179979:47 Request SED RATE ERYTHROCYTE (30335)Indication: Arch pain of left foot On: 67-Isg-033404:46 Request CBC, PLATELETS & AUTO DIFF (76039)Indication: Arch pain of left foot On: 22-Zmm-273606:46 Request Thin prep Pap (55353)Indication: Well woman exam On: 0-Wyl-539699:47 Request MAGNESIUM (74705)Indication: Paresthesia On: :43 Request METABOLIC PANEL, BASIC (98421)Indication: Paresthesia On: 16-Dtt-698572:43 Request GLUCOSE (67677)Indication: Paresthesia On: :41 Request VITAMIN B-12 (CYANOCOBALAMIN) (99183)Indication: Paresthesia On: :41 Request TSH (52559)Indication: Paresthesia On: 42-Jcs-394623:41 Request Planned Encounters Medical; [facility] (Doctor) - On: 25-Jun-2018 10:30 [facility] Sonia POWERS, Glenda Mcallister MD, Glenda Luo Planned Procedures DEXA SCAN AXIAL SKELETON On: 07-Oct-2017 Intent (47530)By: Glenda Mcallister MD, MD, Dana M SCREENING DIGITAL TOMOSYNTHESIS OF On: 07-Oct-2017 Intent BREAST (73304)By: Glenda Mcallister MD, MD, Dana M Flu Vaccine (Quadrivalent) On: 28-Jul-2017 Intent 89094Qr: Wood DOYudith Comments: lot: [id number]: 12/15/17ite/route: L madeline, IMamt: 0.5mlVIS and ABN signed when applicableChelsea, ROTOFORMER BACKTENDER PNEUM VAC ADLT/IMUMNOSPR, On: 22-Apr-2017 Intent SBC/INTRM (87964)By: Sonia POWERS, Comments: lot:exp:08-30-2018rte:IM right deltoid dose:0.5given by:chepe ABN signedER, PIPE SMOKER MACHINE OPERATOR Glenda Chaudhry MD XR SHOULDER BILATERAL, 2 VIEWS On: 22-Apr-2017 Intent (53311)By: Glenda Mcallister MD, MD, Dana M XR KNEE BILATERAL COMPLETE On: 22-Apr-2017 Intent (62503)By: Glenda Mcallister MD, MD, Dana M SCREENING DIGITAL TOMOSYNTHESIS OF On: 22-Apr-2017 Intent BREAST (64726)By: Glenda Mcallister MD, MD, Dana M Radiology - Foot - LeftBy: Sonia On: 10-Dec-2016 Intent Glenda POWERS MD, Dana M Radiology - Ankle - LeftBy: On: 10-Dec-2016 Intent Glenda Mcallister MD, MD, Dana M Radiology - ChestBy: Sonia POWERS, On: 15-Nov-2016 Intent Glenda Chaudhry MD Bone Density StudyBy: Sonia POWERS, On: 08-Apr-2016 Intent Glenda Chaudhry MD BILATERAL MAMMOGRAMS (70501)By: On: 08-Apr-2016 Intent Glenda Mcallister MD, MD, Dana M DEXA SCAN AXIAL SKELETON On: 12-Dec-2015 Intent (64464)By: Glenda Mcallister MD, MD, Glenda M MAMMOGRAM, SCREENING, BOTH BREAST On: 12-Dec-2015 Intent (92951)By: Glenda Mcallister MD, MD, Glenda Luo MAMMOGRAM, SCREENING, BOTH BREASTS On: 19-Nov-2013 Intent (13270)By: Glenda Mcallister MD, MD, Glenda M Eprescribed prescriptions On: 08-Nov-2013 Intent (G8553)By: Yudith Muir DO DXA, BONE DENSITY, AXIAL SKELETON On: 13-May-2013 Intent (07887)By: Glenda Mcallister MD, MD, Glenda Luo MAMMOGRAM, SCREENING, BOTH BREASTS On: 13-May-2013 Intent (23490)By: Glenda Mcallister MD, MD, Glenda M DXA, BONE DENSITY, AXIAL SKELETON On: 12-Feb-2013 Intent (79539)By: Glenda Mcallister MD Comments: postmenapuse and on depakote Glenda Mcallister MD MAMMOGRAM, SCREENING, BOTH BREASTS On: 12-Feb-2013 Intent (83259)By: Glenda Mcallister MD, MD, Glenda M Eprescribed prescriptions On: 27-Feb-2012 Intent (G8553)By: Glenda Mcallister MD, MD, Glenda M Eprescribed prescriptions On: 27-Feb-2012 Intent (G8553)By: Carleen Ch ON LICENSE OF [facility] (94714)By: Carleen Ch On: 27-Feb-2012 Intent Comments: see scanned document of test done to see results reviewed today with patient MAMMOGRAM, SCREENING, BOTH BREASTS On: 26-Aug-2011 Intent (83000)By: Glenda Mcallister MD, MD, Glenda Luo MAMMOGRAM, SCREENING, BOTH BREASTS On: 11-Feb-2011 Intent (72373)By: Glenda Mcallister MD, MD, Glenda M Eprescribed prescriptions On: 11-Feb-2011 Intent (G8553)By: Glenda Mcallister MD, MD, Glenda M MAMMOGRAM, SCREENING, BOTH BREASTS On: 22-Jan-2010 Intent (86557)By: Glenda Mcallister MD Comments: 8- Glenda Mcallister MD TDAP VACCINE >7 IM (97893)By: On: 26-Jan-2009 Intent Glenda Mcallister MD, MD, Comments: lot #:[id number]: 05/2011site: left deltoidGiven by AURY Xiao MAMMOGRAM, SCREENING, BOTH BREASTS On: 02-Jan-2009 Intent (11511)By: Glenda Mcallister MD, MD, Dana M Solu [...] 6 w follow up infiltrate Pulse Oximetry (01995)By: Clement On: 18-Jun-2007 Intent STARLA Ultrasound - GallbladderBy: On: 08-Jan-2007 Intent Glenda Mcallister MD, MD, Dana M MRI - OtherBy: Glenda Mcallister MD On: 11-Aug-2006 Intent Glenda Mcallister MD Comments: right foot, S/P surgery pain, metatarsal head area DXA, BONE DENSITY, AXIAL SKELETON On: 04-Aug-2006 Intent (84716)By: Glenda Mcallister MD, MD, Dana M MAMMOGRAM, SCREENING, BOTH BREASTS On: 04-Aug-2006 Intent (32107)By: Glenda Mcallister MD, MD, Dana M EMGBy: [...] in bathroom. The patient has completed the [facility] preventative measures: PAP smear () and mammography (). The patient does not have durable power of qualifications examiner or living will. The patient has noticed nothing from the geriatic depre ssion scale. Other providers contributing to the patient's care are social media job titles (Dr. Biggs) and other: (Dr. Marylin Pavon).Encounter [...] Nutrition: balanced diet and supplemental vitamins. The [facility] issues the patient is following up [...] well. Patient has been compliant with instructions. [facility] End: 26-Aug-2011 12:41 t medication use: [...] Internal Medicine End: 17-Apr-2006 11:47 Payers MedicareMedical Saint [facility] University HospitalBRIAN LONDONO; a guarantor
--- OUTSIDE RECORDS SUMMARY | 2018-07-23 18:38 | XMS RPT_ITS | Continuity of Care Document ---
:1950 Author Organization [facility] Address [address] [place] [address] Phone Care Team Providers Name Role Phone [...] M Start : 22-Apr-2017 Active CALCIUM-VITAMIN D, 232-577OM-HHGJ (Oral Tablet) 2 QD for 0 days [...] STARLA Vaughan End : 12-Feb-2013 Inactive ZOSTAVAX, 93174THL/0.65ML (Subcutaneous Solution Reconstituted) 1 For Solution For [...] Comments: in past saw Dr. garcia and pulmonology physician howardwv. had right foot surgery. now lateral arch. [...] now. off advair gone. not need anything snf for asthma. Status: Resolved as of 07-Oct-2017 [...] mother at her house now. working at [employer] but willnot keep parttime. now have to [...] Visit Report Result: Comments: See Note; NOTES: [facility] 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 Required: No Accompanied by: None Is patient [...] mg PO DAILY 05/07/18 [History Confirmed 05/07/18] [facility] Medical History History of cystocele (Resolved) Single [...] MD 07-May-2018 12 Lead EKG performed by [facility] Result: Comments: See Note; NOTES: [facility] [address] [place] [address] 12 Lead EKG performed by [facility] 05/07/18 1010 MR#: [id number] Acct: [id number] Name: BRIAN LONDONO Rep #: [id number] : 1950 67 From: Bobo Biggs MD Attending Dr: Bobo Biggs MD Status: DEP AMB Ordering Dr: Bobo Biggs MD Date: 05/07/18 Location: [facility] Sex: F C Admitted: [facility]/12 Lead EKG performed by [facility] Sinus Bradycardia -First degree A-V block Luan = 232-Left axis -anterior ascicular block. ABNORMAL 05/14/18 1556 <Electronically signed by Bobo kaye MD> Date Bobo Biggs MD CC: Glenda Mcallister MD Date Dictated: 05/07/18 1010 Date Transcribed: 05/07/18 1010 Public Address System Operator: [place] Signed 28-May-2017 PT D/C Summary (1) Result: Comments: See Note; NOTES: [facility] [address] [place] [address] Fax REHABILITATION SERVICES DISCHAR GE SUMMARY MR#: [id number] Acct: [id number] Name: BRIAN LONDONO Rep #: [id number] : 1950 66 From: Aranza BLAST Referring Dr.: Glenda Mcallister MD Status: REG RCR Insurance: MEDICARE PART A B [facility] HP - PT D/C Summary It [...] Met - Plan Plan: Discharge to I [facility] with silver sneakers - D/C Information If there are questions or concerns regarding this patient's physical therapy, augustus pacheco feel free to call me at [phone]. Thank you for the referral of this patient. Sincerely, Aranza Solis <Electronically signed by Aranza Solis DPT> 05/28/17 1132 CC: Glenda Mcallister MD ELR Signed 30-Apr-2017 Inital Evaluation (1) - PT Result: Comments: See Note; NOTES: [facility] [address] [place] [address] Fax REHABILITATION SERVICES INITIAL EVALUATION MR#: [id number] Acct: [id number] Name: BRIAN LONDONO Rep #: [id number] : 1950 66 From: Aranza Solis DPT Referring Dr.: Glenda Mcallister MD Status: REG RCR Insurance: MEDICARE PAR T A B [facility] Patient's Visit Information BRIAN LONDONO is [...] a couple of years- was working at [employer] and lifting repetitive. Went to the [employer] court and was standing for long per [...] to be FAXED BACK to us at [phone] for Medicare purposes. Please let me know if the re are questions or concerns regarding this plan of care. Physician Signature: Date: <Electronically signed by Aranza Solis DPT&troy crow;#62; 04/30/17 1058 CC: Glenda Mcallister MD LOKI Signed For Medicare only, by signing this I certify the plan of care. Physicians Signature Date 23-Apr-2017 Knee 4 or More Views Result: Comments: See Note; NOTES: [facility] Imaging Services [address] [place] [address] Knee 4 or More Views MR#: [id number] Acct: [id number] Name: BRIAN LONDONO Rep #: [id number] : 1950 F 66 From: Agustín Alexandre MD PCP: Glenda Mcallister MD Status: REG CLI Study: Knee 4 or More Views Date of Exam: 04/23/17 Exam# [id number] Ordering Dr: Glenda Mcallister MD STUDY: X-RAY [...] Agustín Alexandre MD at 13:50 EDT Tel [phone], Service support [phone], CC: Glenda Mcallister MD Public Address System Operator: Signed 23-Apr-2017 Knee 4 or More Views Result: Comments: See Note; NOTES: [facility] Imaging Services [address] [place] [address] Knee 4 or More Views MR#: [id number] Acct: [id number] Name: BRIAN LONDONO Rep #: [id number] : 1950 F 66 From: Agustín Alexandre MD PCP: Glenda Mcallister MD Status: REG CLI Study: Knee 4 or More Views Date of Exam: 04/23/17 Exam# [id number] Ordering Dr: Glenda Mcallister MD STUDY: X-RAY [...] Agustín Alexandre MD at 13:50 EDT Tel [phone], Service support , CC: Glenda Mcallister MD Public Address System Operator: Signed 23-Apr-2017 Shoulder min 2 Views Result: Comments: See Note; NOTES: [facility] Imaging Services [address] [place] [address] Shoulder min 2 Views MR#: [id number] Acct: [id number] Name: BRIAN LONDONO Rep #: [id number] : 1950 F 66 From: Agustín Alexandre MD PCP: Glenda Mcallister MD Status: REG CLI Study: Shoulder min 2 Views Date of Exam: 04/23/17 Exam# [id number] Ordering Dr: Glenda Mcallister MD STUDY: X-RAY [...] Agustín Alexandre MD at 13:51 EDT Tel [phone], Service support , CC: Glenda Mcallister MD Public Address System Operator: Signed 23-Apr-2017 Shoulder min 2 Views Result: Comments: See Note; NOTES: [facility] Imaging Services [address] [place] [address] Shoulder min 2 Views MR#: [id number] Acct: [id number] Name: BRIAN LONDONO Rep #: [id number] : 1950 F 66 From: Agustín Alexandre MD PCP: Glenda Mcallister MD Status: REG CLI Study: Shoulder min 2 Views Date of Exam: 04/23/17 Exam# [id number] Ordering Dr: Glenda Mcallister MD STUDY: X-RAY [...] Agustín Alexandre MD at 13:51 EDT Tel [phone], Service support , CC: Glenda Mcallister MD Public Address System Operator: Signed 10-Dec-2016 Ankle min 3 Views Result: Comments: See Note; NOTES: [facility] Imaging Services [address] [place] [address] Verdana 4d Ankle min 3 Views MR#: [id number] Acct: [id number] Name: BRIAN LONDONO Rep # : [id number] : 1950 F 66 From: Merlin Slaughter MD PCP: Glenda Mcallister MD Status: REG CLI Study: Ankle min 3 Views Date of Exam: 12/10/16 Exam# [id number] Ordering Dr: Glenda Mcallisetr MD STUDY: X-RA Y - LEFT ANKLE [...] Service support , CC: Glenda Mcallister MD Public Address System Operator: Signed 10-Dec-2016 Foot min 3 Views Result: Comments: See Note; NOTES: [facility] Imaging Services [address] [place] [address] Verdana 4d Foot min 3 Views MR#: [id number] Acct: [id number] Name: BRIAN LONDONO Rep #: [id number] : 1950 F 66 From: Merlin Slaughter MD PCP: Glenda Mcallister MD Status: REG CLI Study: Foot min 3 Views Date of Exam: 12/10/16 Exam# [id number] Ordering Dr: Glenda Mcallister MD STUDY: X-RAY [...] Service support , CC: Glenda Mcallister MD Public Address System Operator: Signed 18-Apr-2016 Bilat Scrn Digital AND CAD Result: Comments: See Note; NOTES: [facility] Imaging Services [address] [place] [address] Verdana 4d Bilat Scrn Digital AND CAD MR#: [id number] Acct: [id number] Name: ELISABETH LONDONO Rep #: [id number] : 1950 F 65 From: Agustín Alexandre MD PCP: Glenda Mcallister MD Status: REG CLI Study: Bilat Scrn Digital AND CAD Date of Exam: 04/18/16 Exam# [id number] Ordering Dr: Glenda Mcallister MD MAMMOGRAPHY - [...] delay biopsy of a clinically suspicious abnormality. [id number] Electronically Signed: Valerio Chino at 15:08 EDT Tel [phone], Service support [phone], CC: Glenda Mcallister MD Public Address System Operator: Signed 18-Apr-2016 Dexa Bone Density Study (HP) Result: Comments: See Note; NOTES: [facility] Imaging Services [address] [place] [address] Verdana 4d Dexa Bone Density Study (HP) MR#: [id number] Acct: [id number] Name: LORA LONDONO Rep #: [id number] : 1950 F 65 From: Agustín Alexandre MD PCP: Glenda Mcallister MD Status: REG CLI Study: Dexa Bone Density Study (HP) Date of Exam: 04/18/16 Exam# [id number] Ordering Dr: Glenda Dickerson MD STUDY: DUAL [...] Alexandre MD at 1 4:14 EDT Tel [phone], Service support [phone], CC: Glenda Mcallister MD Public Address System Operator: Signed Immunization Name Dates Details Influenza, preserv. free, enhanced immunogncty, IM Comments: at work 11-13 Tdap (7 years and up) on: 26-Jan-2009 Comments: lot #:[id number]: 05/2011site: left deltoidGiven by AURY Xiao Family History Unknown Family Member Name Dates Details Daughter 1 Comments: healthy ? 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 suman finn. Status: Active No Caffeine Use Status: Active No Drug Use Status: Active Non Smoker/No Tobacco Use Status: Active Tobacco use: Former smoker. Status: Active Smoking Status Name Dates Details Former smoker Vital Signs Date Test Result Details 45-Lrz-685141:06 Temperature 97.8 f Pulse 58 /min Comments: [...] kg/m2 Body Surface Area Calculated 2.04 m2 66-Mio-740007:31 Temperature 97.3 f Comments: Method: Temporal Pulse [...] kg/m2 Body Surface Area Calculated 2.03 m2 31-Gzb-424964:43 Temperature 97.6 f Comments: Method: Temporal Pulse [...] kg/m2 Body Surface Area Calculated 2.04 m2 55-Nkf-726348:51 Temperature 97.6 f Comments: Method: Temporal Pulse [...] Description Value Details :14 HgA1C , Office (52510) HgA1C , Office 6.8 % (Normal) Range: 4.6 - 7.1 99-Xun-050337:45 Microscopic Examination Comments: PATIENT NOT FASTINGPERFORMED BY: MAURISIO [facility]1CoPalisades Medical CenterVafzxl4192 [facility] [id number] Bacteria Few (Normal) Mucus Threads Present (Normal) Epithelial Cells (non renal) None seen {/hpf} (Normal) Range: 0 - 10 RBC 0-2 {/hpf} (Normal) Range: 0 - 2 WBC 0-5 {/hpf} (Normal) Range: 0 - 5 21-Pzk-974985:45 URINE ELYSSA CULTURE-IDENTIFICATN Comments: PATIENT NOT FASTINGPERFORMED BY: [employer] Stevie [facility] [id number] (34023) Result 1 NG36 (Normal) Comments: No growth in 36 - 48 hours. Urine Culture,Comprehensive Final report (Normal) 18-Ztz-511731:45 URINALYSIS (70461) Comments: PATIENT NOT FASTINGPERFORMED BY: [facility]Children[facility] Stevie [facility] [id number] Information: SRC:UC Microscopic Examination See below: (Normal) Comments: Microscopic was indicated and was performed. Nitrite, Urine Negative (Normal) Urobilinogen,Semi-Qn 0.2 mg/dL (Normal) Range: 0.2-1.0 Bilirubin Negative (Normal) Occult Blood Negative (Normal) Ketones Negative (Normal) Glucose Negative (Normal) Protein Negative (Normal) WBC Esterase Trace (Abnormal) Appearance Clear (Normal) Urine-Color Yellow (Normal) pH 7.0 (Normal) Range: 5.0-7.5 Specific [place] 1.012 (Normal) Range: 1.005-1.030 32-Xuz-954472:15 C-REACTIVE PROTEIN (46305) Comments: PATIENT NOT FASTINGPERFORMED BY: [facility] Sxyetq5821 [facility] [id number] C-Reactive Protein, Quant 0.8 mg/L (Normal) Range: 0.0-4.9 94-Qmu-472196:15 Sed Rate Erythrocyte (71396) Comments: PATIENT NOT FASTINGPERFORMED BY: [facility]ubeHelen [facility]6370 [facility] [id number] Sedimentation Rate-Westergren 17 mm/h (Normal) Range: 0-40 90-Noj-787339:15 CBC WITH MANUAL DIFF (08083) Comments: PATIENT NOT FASTINGPERFORMED BY: MAURISIO [facility]6370 [facility] [id number] Immature Grans (Abs) 0.0 {x10E3/uL} (Normal) Range: [...] Range: 3.4-10.8 :42 Rapid Strep Test, Office (93378) Rapid Strep Test, Office Negative (Normal) 54-Wga-004734:05 Microscopic Examination Comments: PATIENT NOT FASTINGPERFORMED BY: LabHelen [facility] Hospital6370 [facility] [id number]; will review on 04.22 Bacteria None seen (Normal) Mucus Threads Present (Normal) Cast Type Hyaline casts (Normal) Casts Present {/lpf} (Abnormal) Epithelial Cells (non renal) 0-10 {/hpf} (Normal) Range: 0 - 10 RBC 0-2 {/hpf} (Normal) Range: 0 - 2 WBC 0-5 {/hpf} (Normal) Range: 0 - 5 :05 URINALYSIS, W/ MICRO (07812) Comments: PATIENT NOT FASTINGPERFORMED BY: [employer] Cmgnkw6842 [facility] [id number] Microscopic Examination See below: (Normal) Comments: Microscopic was indicated and was performed. Microscopic Examination MICRON (Normal) Comments: Microscopic follows if indicated. Nitrite, Urine Negative (Normal) Urobilinogen,Semi-Qn 0.2 mg/dL (Normal) Range: 0.2-1.0 Bilirubin Negative (Normal) Occult Blood Negative (Normal) Ketones Negative (Normal) Glucose Negative (Normal) Protein Negative (Normal) WBC Esterase Negative (Normal) Appearance Clear (Normal) Urine-Color Yellow (Normal) pH 7.5 (Normal) Range: 5.0-7.5 Specific [place] 1.015 (Normal) Range: 1.005-1.030 63-Lfo-268317:05 METABOLIC PANEL, COMPREHENSIVE Comments: PATIENT NOT FASTINGPERFORMED BY: [employer] E[employer]6370 [facility] [id number] (35865) ALT (SGPT) 6 [iU]/L (Normal) Range: 0-32 [...] Glucose, Serum 91 mg/dL (Normal) Range: 65-99 21-Nlx-358952:05 CBC with auto diff Comments: PATIENT NOT FASTINGPERFORMED BY: LabCo Wrrxhp0122 [facility] [id number] Information: NURSE DRAW (47935) Immature Grans (Abs) 0.0 {x10E3/uL} (Normal) Range: [...] Range: 3.4-10.8 :11 Rapid Strep Test, Office (42942) Rapid Strep Test, Office Negative (Normal) :42 CBC (Auto) (79013) Comments: PATIENT NOT FASTINGPERFORMED BY: LabCoPalisades Medical CenterJapsce5797 [facility] [id number] Platelets 219 {x10E3/uL} (Normal) Range: 150-379 RDW 15.3 % (Normal) Range: 12.3-15.4 MCHC 32.2 g/dL (Normal) Range: 31.5-35.7 MCH 30.6 pg (Normal) Range: 26.6-33.0 MCV 95 fL (Normal) Range: 79-97 Hematocrit 39.8 % (Normal) Range: 34.0-46.6 Hemoglobin 12.8 g/dL (Normal) Range: 11.1-15.9 RBC 4.18 {x10E6/uL} (Normal) Range: 3.77-5.28 WBC 4.4 {x10E3/uL} (Normal) Range: 3.4-10.8 :42 Metabolic Panel, Comprehensive Comments: PATIENT NOT FASTINGPERFORMED BY: [facility] HospitalCoPalisades Medical CenterRybmfj8337 [facility] [id number] (35794) ALT (SGPT) 5 [iU]/L (Normal) Range: 0-32 [...] mg/dL (Normal) Range: 65-99 :42 Valproic Acid (05415) Comments: PATIENT NOT FASTINGPERFORMED BY: LabGroove BiopharmaPalisades Medical CenterDtpprb3493 [facility] [id number] Valproic Acid (Depakote)(R),S 63 ug/mL (Normal) Range: 50-100 Comments: Detection Limit = 4 <4 indicates None Detected . Toxicity may occur at levels of 100-500. Measurements of free unbound valproic acid may improve the assess- ment of clinical response. :13 HgA1C , Office (14569) HgA1C , Office 5.2 % (Normal) Range: 4.6 - 7.1 04-Xvm-848894:07 IGP, Aptima HPV, rfx Comments: No. of containers..01 CYTYC Thin Prep VialPATIENT NOT FASTINGPERFORMED BY: =G LabCoolirisXpqsozzrvq550 [facility] W [id number] BY: WB [employer] Klqbzzslvi[address] [id number] 16/18,45 HPV Aptima Negative (Normal) Comments: This [...] bedistinguished in cases of atrophy.Z 01.Shan Castañeda Tar Boiler (ASCP) 32-Cvl-219493:07 Thin prep Pap (34923) Comments: No. of containers..01 CYTYC Thin Prep VialPATIENT NOT FASTINGPERFORMED BY: =G [address] [place] [address] [place] [id number] BY: WB [address] [place] [address] (no STD testing) on [place] [id number] Information: [id number] Age Gdln ACOG Testing 30-65 (Normal) 73-Qfz-527114:42 URINE ELYSSA CULTURE-IDENTIFICATN Comments: PATIENT NOT FASTINGPERFORMED BY: [employer]icaMet[employer] [place] [id number] Information: SRC:UC (26014) Result 1 MUG (Normal) Comments: Mixed urogenital ixdgj455 Colonies/mL Urine Culture,Comprehensive Final report (Normal) 95-Kfe-907806:10 Urinalysis, Office (67439) UA - LEUKOCYTE ESTERASE Trace (Normal) UA - NITRITE Negative (Normal) URINE UROBILINGN FABRICIO TIMED Normal mg/dL (Normal) UA - PROTEIN Negative mg/dL (Normal) UA - PH 6 (Abnormal) UA - BLOOD + (Abnormal) UA - SPECIFIC GRAVITY 1.030 (Abnormal) UA - KETONES 5 mg/dL (Abnormal) UA - BILIRUBIN Negative (Normal) UA - GLUCOSE Negative (Normal) 24-Kiw-65931:20 CALCIFIDIOL (09321) VIT D 25 Comments: PATIENT WAS FASTINGPERFORMED BY: [employer] OTRWestlake Regional Hospital [id number] Vitamin D, 25-Hydroxy 23.4 ng/mL (Abnormal) Range: 30.0-100.0 Comments: Vitamin D deficiency has been defined by the [place] ofMedicine and an Endocrine Society practice guideline as alevel of serum 25-OH vitamin D less than 20 ng/mL (1,2).The Endocrine Society went on to further define vitamin Dinsufficiency as a level between 21 and 29 ng/mL (2).1. IOM ([place] of Medicine). 2010. Dietary reference intakes for calcium and D. [place]: The National AcademLab [employer] Press.2. Liana MF, Bertha NC, Kishan TAVAREZ, et al. Evaluation, treatment, and prevention of vitamin D deficiency: an Endocrine Society clinical practice guideline. JCEM. 2010; 96(7):1911-30. :20 ASSAY-DIPROPYLACETC ACID (48106) Comments: PATIENT WAS FASTINGPERFORMED BY: Spark Etail6370 [address] [facility] HospitalINPHIAtrium Health [id number] Valproic Acid (Depakote)(R),S 47 ug/mL (Abnormal) Range: 50-100 Comments: Detection Limit = 4 <4 indicates None Detected . Toxicity may occur at levels of 100-500. Measurements of free unbound valproic acid may improve the assess- ment of clinical response. :20 CBC WITH MANUAL DIFF Comments: PATIENT WAS FASTINGPERFORMED BY: siXis LabCoBeyond Credentials Thoytv5400 [facility] [id number] Information: [id number] (17579) Immature Grans (Abs) 0.0 {x10E3/uL} (Normal) Range: [...] 4.3 {x10E3/uL} (Normal) Range: 3.4-10.8 :20 TSH (62612) Comments: PATIENT WAS FASTINGPERFORMED BY: LabCoPalisades Medical CenterNguubn4366 [facility] [id number] TSH 1.360 {uIU/mL} (Normal) Range: 0.450-4.500 :20 Metabolic Panel, Comprehensive Comments: PATIENT WAS FASTINGPERFORMED BY: LabCo[address] [id number] (73013) ALT (SGPT) 13 [iU]/L (Normal) Range: 0-32 [...] Glucose, Serum 97 mg/dL (Normal) Range: 65-99 28-Tzb-66587:20 Lipid Panel (50145) Comments: PATIENT WAS FASTINGPERFORMED BY: [employer] OTRAtrium Health [id number]; apt. 6-14 LDL/HDL Ratio 2.6 {ratio_units} (Normal) [...] Cholesterol, Total 204 mg/dL (Abnormal) Range: 100-199 41-Vhl-444473:17 URINE ELYSSA CULTURE-FABRICIO COL Comments: PATIENT NOT FASTINGPERFORMED BY: [employer] OTRAtrium Health [id number] Information: SRC:[facility] [id number] COUNT (58170) Antimicrobial MIHEAD (Normal) Comments: S = Susceptible; [...] primarily for treating urinary tract infections. (CLSI, U760-S19,2009) Urine Culture,Comprehensive Final report (Abnormal) 75-Csh-703369:29 Urinalysis, Office (69406) UA - LEUKOCYTE ESTERASE Large (Normal) UA - NITRITE Negative (Normal) URINE UROBILINGN FABRICIO TIMED 2 mg/dL (Normal) UA - PROTEIN Trace mg/dL (Normal) UA - PH 7.5 (Normal) UA - BLOOD Non Hemolyzed Trace (Normal) UA - SPECIFIC GRAVITY 1.015 (Normal) UA - KETONES Negative mg/dL (Normal) UA - BILIRUBIN Negative (Normal) UA - GLUCOSE Negative (Normal) 56-Fkn-67256:20 Valproic Acid (79745) Comments: PATIENT WAS FASTINGPERFORMED BY: [employer] Etail6370 [facility] [id number] Valproic Acid (Depakote)(R),S 50 ug/mL (Normal) Range: 50-100 Comments: Detection Limit = 4 <4 indicates None Detected . Toxicity may occur at levels of 100-500. Measurements of free unbound valproic acid may improve the assess- ment of clinical response. :20 Metabolic Panel, Basic Comments: PATIENT WAS FASTINGPERFORMED BY: [employer]idder70 [address] [facility] [id number] Information: [id number] (37338) Calcium, Serum 10.1 mg/dL (Normal) Range: 8.7-10.3 [...] mg/dL (Normal) Range: 65-99 :20 LIPID PANEL (93587) Comments: PATIENT WAS FASTINGPERFORMED BY: [employer] OTRAtrium Health [id number] LDL/HDL Ratio 2.5 {ratio_units} (Normal) Range: 0.0-3.2 [...] FUNCTION PANEL Comments: PATIENT WAS FASTINGPERFORMED BY: [employer] Etail6370 [facility] [id number] (39257) ALT (SGPT) 8 [iU]/L (Normal) Range: 0-32 AST (SGOT) 18 [iU]/L (Normal) Range: 0-40 Alkaline Phosphatase, S 80 [iU]/L (Normal) Range: 39-117 Bilirubin, Direct 0.05 mg/dL (Normal) Range: 0.00-0.40 Bilirubin, Total <0.2 mg/dL (Normal) Range: 0.0-1.2 Albumin, Serum 4.1 g/dL (Normal) Range: 3.6-4.8 Protein, Total, Serum 6.4 g/dL (Normal) Range: 6.0-8.5 50-Erh-170501:21 CBC W/Diff, Automated Comments: Test performed at:[facility] [address] [place] [address] Absolute Lymph 1.27 {X10_3/ul} (Normal) [...] 4.2-5.4 WBC 4.6 K/mm3 (Normal) Range: 4.4-11.0 31-Rqm-101302:21 Comprehensive Metabolic Profil Comments: Test performed at:[facility] [address] [place] [address] GAP 6 (Normal) Range: 5-15 [...] 7-18 GLU 88 mg/dL (Normal) Range: 70-110 55-Djh-627042:21 Lipid Profile Comments: Test performed at:[facility] [address] [place], [place] [id number] VLDL 32 mg/dL (Normal) Range: 5-40 LDL [...] 200-240 mg/dL Borderline >240 mg/dL High Risk 98-Ggj-838581:01 HPV automatic Comments: Source.............Cervical;EndocervicalNo. of containers..01 CYTYC Thin Prep VialPATIENT NOT FASTINGPERFORMED BY: WB [facility] [place] [id number] BY: =Vangie Callaway (55171) [facility] [place] [id number] Information: [id number] HPV, high-risk Negative Comments: This high-risk HPV [...] Special screening examination, human papillomavirus [HPV]Karan Herman, Tar Boiler (ASCP) 84-Xjf-625681:35 URINE ELYSSA CULTURE-FABRICIO COL Comments: PATIENT NOT FASTINGPERFORMED BY: LabCo Akvwub0622 [facility] [id number] Information: SRC: [id number] COUNT (87426) Antimicrobial MIHEAD (Normal) Comments: S = Susceptible; [...] primarily for treating urinary tract infections. (CLSI, M808-U06,2009) Urine Culture,Comprehensive Final report (Normal) 39-Auy-304651:14 Urinalysis, Office (16348) UA - BILIRUBIN Negative (Normal) UA - [...] ug/dL (Normal) Range: 4.8-13.9 :24 VIT D,25 91401 38.2 ng/mL (Normal) Range: 30.0-100.0 :24 Comments: Vitamin D deficiency has been defined by the [place] of[place]icine and an Endocrine Society practice guideline as alevel of serum 25-OH vitamin D less than 20 ng/mL (1,2).The Endocrine Society went on to further define vitamin Dinsufficiency as a level between 21 and 29 ng/mL (2).1. IOM ([place] of Medicine). 2010. Dietary reference intakes for calcium and D. [place]: The National Academies Press.2. Liana GRAZA, Bertha GABRIEL, Kishan TAVAREZ, et al. Evaluation, treatment, and prevention of vitamin D deficiency: an Endocrine Society clinical practice guideline. JCEM. 2010; 96(7): 1911-30.Performed at: - [facility] [id number] Director: Brian Flowers MD, Phone: [phone] :32 CBCD,SMEAR DIFF Comments: ORDERED CBCMD LIPID VALPROIC ACID CMP [facility] ORDERED LIPID LIVER RED CELL MORPH SeeNote [...] Comments: ORDERED CBCMD LIPID VALPROIC ACID CMP [facility] ORDERED LIPID LIVER GAP 7 (Normal) Range: [...] UA Comments: ORDERED CBCMD LIPID VALPROIC ACID [facility] ORDERED LIPID LIVER MUCUS, URINE 0 [...] (Normal) Comments: ORDERED CBCMD LIPID VALPROIC ACID [facility] ORDERED LIPID LIVER Range: 0.00-0.30 :32 LIPID Comments: ORDERED CBCMD LIPID VALPROIC ACID [facility] ORDERED LIPID LIVER VLDL 30 mg/dL [...] (Normal) Comments: ORDERED CBCMD LIPID VALPROIC ACID [facility] ORDERED LIPID LIVER Range: 50-100 52-Inp-443887:02 Rapid Strep Test, Office (23422) Rapid Strep Test, Office Negative (Normal) 82-Lot-016844:26 CBCD ABSOLUTE NEUT 2.8 3/uL (Normal) Range: [...] 11.6-14.6 WBC 5.2 K/mm3 (Normal) Range: 4.4-11.0 46-Xqo-430943:26 COMP METABOLIC CL 104 mmol/L (Normal) Range: [...] 7-18 GLU 90 mg/dL (Normal) Range: 70-110 91-Ehr-809402:26 D BILI 0.07 mg/dL (Normal) Range: 0.00-0.30 55-Xas-658555:26 LIPID HDL 56 mg/dL (Normal) Comments: Reference [...] CHOL 186 mg/dL (Normal) Comments: <200 mg/dL Larexxprs624-014 mg/dL Borderline>240 mg/dL High Risk 90-Dfk-639714:26 MG 2.4 mg/dL (Abnormal) Range: 1.5-2.2 45-Svx-211709:26 ROUTINE UA LEUK ESTERASE 1+ (Abnormal) NITRITE [...] Range: 0.2 - 1.0 COLOR YELLOW (Normal) 29-Axa-142044:26 VALPROIC ACID 73 ug/mL (Normal) Range: 50-100 7-Shm-914719:26 Urinalysis, Office (64840) UA - LEUKOCYTE ESTERASE Negative (Normal) UA - NITRITE Negative (Normal) URINE UROBILINGN FABRICIO TIMED Normal mg/dL (Normal) UA - PROTEIN Trace mg/dL (Normal) UA - PH 5.0 (Normal) UA - BLOOD Negative (Normal) UA - SPECIFIC GRAVITY 1.025 (Normal) UA - KETONES Small mg/dL (Normal) UA - BILIRUBIN Negative (Normal) UA - GLUCOSE Negative (Normal) 30-Qja-602494:34 BMP BUN 15 mg/dL (Normal) Range: 7-18 [...] 3.5-5.1 NA 138 mmol/L (Normal) Range: 136-145 63-Eiq-809717:34 MG 2.1 mg/dL (Normal) Range: 1.5-2.2 02-Pqu-623526:34 T4 THYROXIN 8.7 ug/dL (Normal) Range: 4.8-13.9 06-Yeq-444078:34 TSH 1.57 {uIU/mL} (Normal) Range: 0.358-3.74 21-Oul-687844:03 BILAT SCRN DIGITAL & CAD Radiology Report See Note (Normal) Comments: Exam Number: [id number] BILATERAL SCREENING DIGITAL MAMMOGRAM Bilateral benign breasts, [...] mammograms werealso examined with computer-aided detection software ([employer], [employer] Reported By: DONTA JACKSON 12-Zbh-99590:42 Thin prep Pap Comments: Source.............Cervical;EndocervicalLMP / Prev Treat...DSX=[id number]. of containers..01 CYTYC Thin Prep VialPATIENT NOT FASTINGClinical Information: ADD [id number] ([id number]) PERFORMED BY: [facility] [id number] . . (Normal) DIAGNOSIS: SPRCS (Normal) Comments: NEGATIVE FOR INTRAEPITHELIAL LESION AND MALIGNANCY.Satisfactory for evaluation. Endocervical component may not bedistinguished in cases of atrophy.Reynaldo Marr, Tar Boiler (ASCP) Note: PAPSMR (Normal) Comments: The Pap [...] :09 CBC With Differential/Platelet Comments: PERFORMED BY: [facility] [id number] Baso (Absolute) 0.0 {x10E3/uL} (Normal) Range: 0.0-0.2 [...] 11.7-15.0 WBC 5.4 {x10E3/uL} (Normal) Range: 4.0-10.5 4-Tpb-616799:09 Comp. Metabolic Panel (14) Comments: PERFORMED BY: [facility] [facility] [id number] A/G Ratio 1.4 (Normal) Range: 1.1-2.5 Albumin, [...] Sodium, Serum 142 mmol/L (Normal) Range: 135-145 1-Syl-439367:09 Hepatic Function Panel (7) Comments: PERFORMED BY: [facility] [id number] Bilirubin, Direct 0.07 mg/dL (Normal) Range: 0.00-0.40 2-Gxt-234100:09 Lipid Panel With LDL/HDL Comments: PERFORMED BY: [facility] [facility] [id number] Ratio Cholesterol, Total 248 mg/dL (Abnormal) Range: [...] Acid 56 ug/mL (Normal) Comments: PERFORMED BY: [facility] [facility] [id number] 0:09 (Depakote),S Range: 50-120 Comments: Detection Limit = 4 <4 indicates None Detected . Toxicity may occur at levels of 100-500. Measurements of free unbound valproic acid may improve the assess- ment of clinical response. 49-Ooc-523552:31 SPINE,LUMBAR (ROUTINE) Radiology Report See Note (Normal) Comments: Exam Number: [id number] MRI LUMBAR SPINE WITHOUT CONTRAST. CLINICAL STATEMENTLow [...] the left. Reported By: RADHA BENNETT M.D. 96-Uyp-919958:51 Upper Respiratory Culture Comments: Clinical Information: SRC: PERFORMED BY: [facility] [facility] [id number] Result 1 RRF (Normal) Comments: Routine respiratory etienne Upper Respiratory Culture Final report (Normal) :33 Rapid Strep Test, Office (64297) Comments: neg Rapid Strep Test, Office Negative (Normal) :33 AORTA ULTRASOUND (HP) Radiology Report See Note (Normal) Comments: Exam Number: [id number] ULTRASOUND OF ABDOMINAL AORTA HISTORYArteriosclerotic calcification on [...] is identified. Reported By: JIN ALFARO M.D. 9-Sxh-251221:51 L/S SPINE,MIN 4 VIEWS Radiology Report See Note (Normal) Comments: Exam Number: [id number] LUMBAR SPINE CLINICAL INFORMATIONLow back pain. A [...] AU/mL (Normal) Comments: PATIENT NOT FASTINGPERFORMED BY: [facility] [id number] 14:54 Direct Range: 0-99 Comments: Negative <100 Equivocal 100 - 120 Positive >120 18-Jun-2007 Immunoglobulin E, Total 3 {IU/mL} (Normal) Comments: PATIENT NOT FASTINGPERFORMED BY: [facility] [id number] 14:54 Range: 0-158 48-Toq-223858:54 Rheumatoid Arthritis Factor Comments: PATIENT NOT FASTINGPERFORMED BY: [employer] [id number] RA Latex Turbid. 8.1 {IU/mL} (Normal) Range: 0.0-13.9 :54 Sed Rate Erythrocyte (20039) Comments: PATIENT NOT FASTINGPERFORMED BY: [employer] [id number] Sedimentation Rate-Westergren 52 mm/h (Abnormal) Range: 0-30 01-Snk-118482:54 CBC, Platelets & Auto Diff Comments: PATIENT NOT FASTINGPERFORMED BY: [facility] [id number] (79268) Baso (Absolute) 0.1 {x10E3/uL} (Normal) Range: 0.0-0.2 [...] Report See Note (Normal) Comments: Exam Number: [id number] PA AND LATERAL CHEST HISTORYDehydration, shortness of breath, pain. Cardiac configuration is normal. No acute infiltrate, effusion orpneumothorax is noted. When compared to the study of August 08, 2005there is little if any change. There is spur formation middorsalspine. IMPRESSIONNo acute change noted in the lungs. Reported By: NIALL SEBASTIAN M.D. :38 GALLBLADDER Radiology Report See Note (Normal) Comments: Exam Number: [id number] GALLBLADDER ULTRASOUND HISTORYRight upper quadrant pain. The [...] months isrecommended. Reported By: JIN ALFARO M.D. 13-Yfn-835694:00 COMPLETE UA Comments: COMMENTS: RM 10 DR [...] 1.49 INDETERMINANT > OR = 1.50 SUGGEST MN :18 ESOPHAGUS ONLY Radiology Report See Note (Normal) Comments: Exam Number: [id number] CONTRAST ESOPHAGRAM For dysphagia, feels like something [...] reflux. Reported By: NIALL SEBASTIAN M.D. :16 [facility] [id number] A/G RATIO 1.3 (Normal) Range: 0.7-2.0 ALBUMIN [...] monoclonal protein is not apparent.Performed At: [address] [id number] M-SPIKE SeeNote (Normal) Comments: Result: Not Observed NOTE: Comment (Normal) Comments: Protein electrophoresis scan will follow via mail orcourier. PROTEIN,TOTAL 6.8 g/dL (Normal) Range: 6.0-8.5 25-Fvc-814232:29 BMP BUN 8 mg/dL (Normal) Range: 7-18 BUN/CRE 7.3 {RATIO} (Abnormal) Range: 10-20 CA 9.6 mg/dL (Normal) Range: 8.5-10.1 CL 107 mmol/L (Normal) Range: 98-107 CO2 23.6 mmol/L (Normal) Range: 22.0-29.0 CREAT,SERUM 1.1 mg/dL (Abnormal) Range: 0.6-1.0 GAP 10 (Normal) Range: 5-15 GLU 89 mg/dL (Normal) Range: 70-110 K 3.9 mmol/L (Normal) Range: 3.5-5.1 NA 141 mmol/L (Normal) Range: 136-145 73-Gvl-795727:29 MG 2.2 mg/dL (Normal) Range: 1.5-2.2 10-Lip-412902:29 TSH 0.69 {uIU/mL} (Normal) Range: 0.34-4.82 64-Tnr-996167:29 VIT B12 1503 1435 pg/mL (Abnormal) Range: 211-911 Comments: Performed At: [facility] [id number] Plan of Care Name Dates Details Instructions [...] V72.31 : Self Breast Exam Education Indication: [facility] V7 WWV V7 : Colon Cancer Screening Indication: [facility] V7 WWV V7 : Well Female Maintenance (KF) Indication: [facility] V7 WWV V7 : Pap/Pelvic/Bimanual/Rectal/Breast Exam was done. Indication: [facility] V7 WWV V7 : FOLLOW UP [...] woman exam Planned Observations MICROALBUMIN: CREATININE RATIO (81865) AND (08613)Indication: Renal insufficiency On: 46-Yqg-188112:00 Request URINALYSIS (43197)Indication: Renal insufficiency On: 48-Ufy-272945:00 Request CBC WITH MANUAL DIFF (46112)Indication: Renal insufficiency On: 48-Tij-817600:00 Request Metabolic Panel, Comprehensive (96250)Indication: Renal insufficiency On: 43-Dbz-386209:00 Request HGB A1C (53144)Indication: Abnormal blood sugar On: 06-Awm-681989:48 Request HEPATIC FUNCTION PANEL (06411)Indication: Onychomycosis On: 36-Vkv-682147:04 Request Comments: after second 1 week pulse METABOLIC PANEL, COMPREHENSIVE (45125)Indication: Hypercholesterolemia On: :15 Request LIPOPROTEIN, BLD, BY NMR (45117)Indication: Hypercholesterolemia On: 08-Xqs-994109:15 Request Methymalonic Acid, Serum (54087)Indication: Memory impairment On: 69-Xet-556434:50 Request Vitamin B-12 (cyanocobalamin) (95716)Indication: Memory impairment On: :50 Request URIC ACID BLOOD (79446)Indication: Elevated uric acid in blood On: :49 Request LIPOPROTEIN, BLD, BY NMR (06546)Indication: Hypercholesterolemia On: :39 Request CBC, Platelets & Auto Diff (65536)Indication: Afib On: :33 Request Metabolic Panel, Comprehensive (54379)Indication: Afib On: :33 Request Valproic Acid (98388)Indication: Migraine On: :33 Request HEPATITIS C ANTIBODY (60582)Indication: Encounter for hepatitis C virus screening test for high risk patient On: 63-Zlj-024004:07 Request LIPOPROTEIN, BLD, BY NMR (86121)Indication: Hypercholesterolemia On: 32-Ktv-983752:19 Request ACID FAST STAIN (AFB) (88039)Indication: Cough On: 92-Afq-99132:26 Request Comments: check for mycobacterium avium CULTURE, SPUTUM (51602)Indication: Cough On: 95-Ugk-95473:26 Request Methymalonic Acid, Serum (32850)Indication: Memory impairment On: 75-Eja-950239:44 Request Vitamin B-12 (cyanocobalamin) (16301)Indication: Memory impairment On: 34-Vbc-709283:44 Request METABOLIC PANEL, COMPREHENSIVE (96065)Indication: Hypercholesterolemia On: :17 Request LIPID PANEL (77756)Indication: Hypercholesterolemia On: :17 Request CBC with auto diff (83034)Indication: Hypercholesterolemia On: :17 Request CBC WITH MANUAL DIFF (58949)Indication: Hypercholesterolemia On: 71-Opq-183531:30 Request Comments: copy to arielle METABOLIC PANEL, COMPREHENSIVE (90619)Indication: Hypercholesterolemia On: 86-Xsh-778413:29 Request LIPID PANEL (11617)Indication: Hypercholesterolemia On: 09-Drs-635052:29 Request Thin prep Pap (79586)Indication: Well woman exam On: 23-Xro-747658:35 Request Valproic Acid (11904)Indication: Migraine, unspecified, not intractable, without status migrainosus On: 85-Rhq-946357:34 Request CBC (Auto) (18027)Indication: Afib On: :34 Request Metabolic Panel, Comprehensive (77981)Indication: Afib On: 41-Ibl-010464:33 Request CALCIFIDIOL (40525) VIT D 25Indication: Fatigue On: :36 Request T4, TOTAL (29099)Indication: Fatigue On: :36 Request T4, FREE (THYROXINE) (99552)Indication: Fatigue On: :36 Request T3, FREE (TRIDOTHYRONINE) (75583)Indication: Fatigue On: :36 Request Valproic Acid (12050)Indication: Migraine On: :35 Request URINALYSIS, W/ MICRO (94280)Indication: Afib On: :35 Request METABOLIC PANEL, COMPREHENSIVE (62211)Indication: Afib On: :35 Request LIPID PANEL (96126)Indication: Afib On: :35 Request CBC WITH MANUAL DIFF (80180)Indication: Afib On: :35 Request URINALYSIS, W/ MICRO (69094)Indication: Afib On: :50 Request METABOLIC PANEL, COMPREHENSIVE (94684)Indication: Afib On: :50 Request LIPID PANEL (29177)Indication: Afib On: :50 Request CBC WITH MANUAL DIFF (16453)Indication: Afib On: :50 Request Valproic Acid (99505)Indication: Migraine On: :50 Request ELYSSA CULTURE-OTHER (61243)Indication: Acute pharyngitis On: :02 Request Comments: throat Metabolic Panel, Basic (36537)Indication: Renal insufficiency On: 68-Ctz-042078:19 Request Comments: 6 weeks Metabolic Panel, Comprehensive (44011)Indication: Afib On: :26 Request Lipid Panel (13867)Indication: Afib On: :26 Request CBC (Auto) (03736)Indication: Afib On: 0-Sij-677287:25 Request Comments: in six months (approximately) ACID FAST STAIN (AFB) (09367)Indication: Abnormal findings on diagnostic imaging of other specified body structures On: :52 Request Comments: sputum CULTURE, SPUTUM (53167)Indication: Abnormal findings on diagnostic imaging of other specified body structures On: :52 Request RHEUMATOID FACTOR-QUANT (86058)Indication: Abnormal findings on diagnostic imaging of other specified body structures On: :50 Request NICKOLAS (ANTINUCLEAR ANTIBODY) (68509)Indication: Abnormal findings on diagnostic imaging of other specified body structures On: :50 Request IMMUNOGLOBULIN E (IgE) (04498)Indication: Abnormal findings on diagnostic imaging of other specified body structures On: 87-Ldu-894931:47 Request SED RATE ERYTHROCYTE (47171)Indication: Arch pain of left foot On: 51-Tia-970415:46 Request CBC, PLATELETS & AUTO DIFF (20371)Indication: Arch pain of left foot On: 54-Gsq-371265:46 Request Thin prep Pap (81995)Indication: Well woman exam On: 4-Spb-907336:47 Request MAGNESIUM (08484)Indication: Paresthesia On: :43 Request METABOLIC PANEL, BASIC (53203)Indication: Paresthesia On: 60-Hou-767802:43 Request GLUCOSE (48132)Indication: Paresthesia On: :41 Request VITAMIN B-12 (CYANOCOBALAMIN) (38242)Indication: Paresthesia On: :41 Request TSH (73779)Indication: Paresthesia On: 18-Lin-828315:41 Request Planned Encounters Medical; [facility] Exam (Doctor) - On: 25-Jun-2018 10:30 [facility] Sonia POWERS, Glenda Mcallister MD, Glenda Luo Planned Procedures DEXA SCAN AXIAL SKELETON On: 07-Oct-2017 Intent (85773)By: Glenda Mcallister MD, MD, Dana M SCREENING DIGITAL TOMOSYNTHESIS OF On: 07-Oct-2017 Intent BREAST (29460)By: Glenda Mcallister MD, MD, Dana M Flu Vaccine (Quadrivalent) On: 28-Jul-2017 Intent 71739Zy: Wood DOYudith Comments: lot: [id number]: 12/15/17ite/route: L madeilne, IMamt: 0.5mlVIS and ABN signed when applicableChelsea, FITTING ROOM INSPECTOR PNEUM VAC ADLT/IMUMNOSPR, On: 22-Apr-2017 Intent SBC/INTRM (97480)By: Sonia POWERS, Comments: lot:exp:08-30-2018rte:IM right deltoid dose:0.5given by:chepe ABN signedER, TOBACCO FLAVORER Glenda Chaudhry MD XR SHOULDER BILATERAL, 2 VIEWS On: 22-Apr-2017 Intent (39809)By: Glenda Mcallister MD, MD, Dana M XR KNEE BILATERAL COMPLETE On: 22-Apr-2017 Intent (58922)By: Glenda Mcallister MD, MD, Dana M SCREENING DIGITAL TOMOSYNTHESIS OF On: 22-Apr-2017 Intent BREAST (87597)By: Glenda Mcallister MD, MD, Dana M Radiology - Foot - LeftBy: Sonia On: 10-Dec-2016 Intent Glenda POWERS MD, Dana M Radiology - Ankle - LeftBy: On: 10-Dec-2016 Intent Glenda Mcallister MD, MD, Dana M Radiology - ChestBy: Sonia POWERS, On: 15-Nov-2016 Intent Glenda Chaudhry MD Bone Density StudyBy: Sonia POWERS, On: 08-Apr-2016 Intent Glenda Chaudhry MD BILATERAL MAMMOGRAMS (87589)By: On: 08-Apr-2016 Intent Glenda Mcallister MD, MD, Dana M DEXA SCAN AXIAL SKELETON On: 12-Dec-2015 Intent (90284)By: Glenda Mcallister MD, MD, Glenda M MAMMOGRAM, SCREENING, BOTH BREAST On: 12-Dec-2015 Intent (67409)By: Glenda Mcallister MD, MD, Glenda Luo MAMMOGRAM, SCREENING, BOTH BREASTS On: 19-Nov-2013 Intent (69530)By: Glenda Mcallister MD, MD, Glenda M Eprescribed prescriptions On: 08-Nov-2013 Intent (G8553)By: Yudith Muir DO DXA, BONE DENSITY, AXIAL SKELETON On: 13-May-2013 Intent (53115)By: Glenda Mcallister MD, MD, Glenda Luo MAMMOGRAM, SCREENING, BOTH BREASTS On: 13-May-2013 Intent (82200)By: Glenda Mcallister MD, MD, Glenda M DXA, BONE DENSITY, AXIAL SKELETON On: 12-Feb-2013 Intent (99706)By: Glenda Mcallister MD Comments: postmenapuse and on depakote Glenda Mcallister MD MAMMOGRAM, SCREENING, BOTH BREASTS On: 12-Feb-2013 Intent (05278)By: Glenda Mcallister MD, MD, Glenda M Eprescribed prescriptions On: 27-Feb-2012 Intent (G8553)By: Glenda Mcallister MD, MD, Glenda M Eprescribed prescriptions On: 27-Feb-2012 Intent (G8553)By: Carleen Ch [facility] (60066)By: Carleen Ch On: 27-Feb-2012 Intent Comments: see scanned document of test done to see results reviewed today with patient MAMMOGRAM, SCREENING, BOTH BREASTS On: 26-Aug-2011 Intent (78860)By: Glenda Mcallister MD, MD, Glenda Luo MAMMOGRAM, SCREENING, BOTH BREASTS On: 11-Feb-2011 Intent (18284)By: Glenda Mcallister MD, MD, Glenda M Eprescribed prescriptions On: 11-Feb-2011 Intent (G8553)By: Glenda Mcallister MD, MD, Glenda M MAMMOGRAM, SCREENING, BOTH BREASTS On: 22-Jan-2010 Intent (71413)By: Glenda Mcallister MD Comments: 8- Glenda Mcallister MD TDAP VACCINE >7 IM (50715)By: On: 26-Jan-2009 Intent Glenda Mcallister MD, MD, Comments: lot #:[id number]: 05/2011site: left deltoidGiven by AURY Xiao MAMMOGRAM, SCREENING, BOTH BREASTS On: 02-Jan-2009 Intent (12510)By: Glenda Mcallister MD, MD, Dana M Solu [...] 6 w follow up infiltrate Pulse Oximetry (21404)By: Clement On: 18-Jun-2007 Intent STARLA Ultrasound - GallbladderBy: On: 08-Jan-2007 Intent Glenda Mcallister MD, MD, Dana M MRI - OtherBy: Glenda Mcallister MD On: 11-Aug-2006 Intent Glenda Mcallister MD Comments: right foot, S/P surgery pain, metatarsal head area DXA, BONE DENSITY, AXIAL SKELETON On: 04-Aug-2006 Intent (03229)By: Glenda Mcallister MD, MD, Dana M MAMMOGRAM, SCREENING, BOTH BREASTS On: 04-Aug-2006 Intent (71483)By: Glenda Mcallister MD, MD, Dana M EMGBy: [...] in bathroom. The patient has completed the [facility] preventative measures: PAP smear () and mammography (). The patient does not have durable power of patent prosecution attorney or living will. The patient has noticed nothing from the geriatic depre ssion scale. Other providers contributing to the patient's care are pain management nurse (Dr. Biggs) and other: (Dr. Marylin Pavon).Encounter [...] Nutrition: balanced diet and supplemental vitamins. The [facility] issues the patient is following up [...] well. Patient has been compliant with instructions. [facility] End: 26-Aug-2011 12:41 t medication use: [...] Internal Medicine End: 17-Apr-2006 11:47 Payers MedicareMedical [facility] Health CenterBRIAN LONDONO; a guarantor
--- OUTSIDE RECORDS SUMMARY | 2018-07-23 18:39 | XMS RPT_ITS ---
:1950 Author Organization OHIP Care Team Providers Name Role Phone Glenda Scott MD Attending Unavailable Glenda Scott MD Referring Unavailable Glenda Scott MD Consulting Unavailable Kalyan, Bobo Attending Unavailable Glenda Scott Referring Unavailable Kalyan, Bobo Attending Unavailable Kalyan, [place] Referring Unavailable Glenda Scott Primary Care Unavailable Kalyan, Bobo Attending Unavailable Kalyan, [place] Referring Unavailable [facility] Primary Care Unavailable Kalyan, [place] Consulting Unavailable PROBLEMS PROBLEMS DATE TYPE CONDITION / CODE ATTENDING STATUS SOURCE 05/28/2018 Unknown Z98.890 - Other Kalyan, [place] Active [facility] specified [facility] postprocedural Hospital states / Repository Z98.890(ICD-10) 05/07/2018 Unknown I48.91 - Unspecified Kalyan, [place] Active [facility] atrial fibrillation Community / I48.91(ICD-10) Hospital Repository PROCEDURES PROCEDURES No Procedure Records FoundRESULTS RESULTS ECHOCARDIOGRAM COMPLETE Observed: 05/28/2018 Status: F Source: [facility] Cardiovascular [place] [address] Echo Complete 05/28/18 1404 MR#: [id number] Acct: [id number] Name: BRIAN LONDONO Rep #: [id number] : 1950 67 From: Bobo Biggs MD Attending Dr: Kalyan POWERS,Bobo Status: REG CLI Ordering Dr: Bobo Biggs MD Date: 05/28/18 Location: [facility] Sex: F C Admitted: Reason For Study: AFIB/FLUTTER Procedure This was a 2D Doppler, Color Flow transthoracic echocardiogram. Exam performed in department. Left Ventricle Normal LV size. Left ventricular systolic function is normal. The estimated ejection fraction is 60 %. Stage 1 diastolic dysfunction. No regional wall motion abnormalities noted. Right Ventricle Normal RV size. Normal systolic function. Atria Normal left atrium. Normal right atrium. Mitral Valve Normal mitral valve. Tricuspid Valve Normal tricuspid valve. Mild tricuspid valve insufficiency. Aortic Valve Normal aortic valve. Pulmonic Valve Normal pulmonic valve. Great Vessels Normal aortic root. The pulmonary artery is normal size. Normal inferior vena cava. Pericardium/Pleural No pericardial effusion. MMode/2D Measurements AND Calculations LVIDd: 5.1 cm IVSd: 1.0 cm Ao root diam: 3.1 cm LVIDs: 3.6 cm LVPWd: 1.1 cm RVDd: 3.1 cm FS: 30.6 % LAV(MOD-bp): 52.8 ml LA A4 area: 16.4 cm2 LA dimension(2D): 4.4 cm LAV(MOD-bp) Indexed: 25.9 ml/m2 LAV(MOD-sp2): 53.7 ml LAV(MOD-sp4): 48.3 ml RA A4 area: 12.0 cm2 Time Measurements MV dec time: 0.22 sec Doppler Measurements AND Calculations MV E max jerry: 62.4 cm/sec Lat Peak E' Jerry: 7.0 cm/sec Med Peak E' Jerry: 8.8 cm/sec MV A max jerry: 75.6 cm/sec E/E' lat: 8.9 E/E' med: 7.1 MV E/A: 0.83 Ao V2 max: 126.1 cm/sec LV V1 max: 115.1 cm/sec PA V2 max: 92.4 cm/sec Ao max P.4 mmHg LV V1 max P.3 mmHg TR max jerry: 213.8 cm/sec TR max P.3 mmHg Interpretation Summary Normal LV size. Left ventricular systolic function is normal. The estimated ejection fraction is 60 %. Stage 1 diastolic dysfunction. Mild tricuspid valve insufficiency. Ordering Physician: Bobo Biggs Referring Physician: Glenda Scott Performed By: Tanya Davis, RDCS, RVT 05/28/18 1520 Date Bobo Biggs MD CC: Bobo Biggs MD; Glenda Scott MD Date Dictated: 05/28/18 1404 Date Transcribed: 05/28/18 1520 Experimental Physicist: Signed CARDIOLOGY VISIT Observed: 05/07/2018 Status: F Source: [place] RUSSELL REPORT 10:26 AM [facility] REPOSITORY [facility] [address] [place] [address]. [address] [place] [address] OFFICE VISIT Date of Service: 05/07/18 MR#: [id number] Acct: [id number] Name: BRIAN LONDONO Rep #: [id number] : 1950 Provider: Bobo Biggs MD Age/Sex: 67/F Location: [facility] Status: Signed HPI HPI Chief Complaint: Follow-up visit. Details: BRIAN LONDONO, is a 67 F who presents to the office today for a follow-up visit. She is a lady with a history of paroxysmal atrial fibrillation normal coronary arteries mild mitral valve prolapse who returns for routine follow-up visit. She says that she is been doing quite well has not had any palpitations recently. She has had no neck arm or jaw discomfort suggest angina no dizziness or diaphoresis no near syncope or syncope. She has been compliant with all her medications. Her physical exam today demonstrates clear lung robertson regular rate and rhythm and no pedal edema her electrocardiogram demonstrates sinus bradycardia with a rate of 50 bpm and leftward axis is present. 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: No Accompanied by: None Is patient in pain?: No Allergies amoxicillin trihydrate [From Augmentin] Adverse Reaction (Verified 05/07/18 10:09) Other potassium clavulanate [From Augmentin] Adverse Reaction (Verified 05/07/18 10:09) Other Tetracyclines Adverse Reaction (Verified 05/07/18 10:09) Other [facility]AMS Allergy (Intermediate, Uncoded 02/11/14 23:02) Nausea/Vom/Diarrhea Medications Aspirin 325 [...] mg PO DAILY 05/07/18 [History Confirmed 05/07/18] PFS Medical History History of cystocele (Resolved) Single kidney (Chronic) Atrial fibrillation (Chronic) Hyperlipidemia (Chronic) Surgical History H/O microdiscectomy (Resolved) Hx of cholecystectomy (Resolved) H/O foot surgery (Resolved) H/O tubal ligation (Resolved) Family History Father CAD (coronary artery disease) Social History Smoking Status: Never smoker ROS Const Const: Negative for fatigue, weakness, night sweats, excessive sweating, frequent falls, headache(s) or daytime sleepiness Eyes Eyes: Negative for loss of peripheral vision, transient loss of vision, blind spots, double vision or blurry vision ENT ENT: Negative for headache(s), dizziness, balance problems, Nosebleed/epistaxis, tongue swelling or lip swelling Cardio Chest Pain: No Palpitations: No Edema: None Muscle aches with walking: None Resp Respiratory: Negative for SOB at rest, SOB orthopnea\SOB lying down, Cough, paroxysmal nocturnal dyspnea or SOB with activity [...] or easy bleeding Endo Endo: Negative for fatigue, excessive sweating, cold intolerance, heat intolerance, increased thirst/drinking or hair loss Psych Psych: Negative for anxiety or depression Allergy Allergy/Immunology: Negative for throat swelling, Negative for tongue swelling, Negative for hives, Negative for rash, Negative for lip swelling Cardiology Exam Const Appearance: cooperative, healthy appearing, well developed, well groomed and no acute distress Nutritional Appearance: well nourished and average body habitus Orientation: alert, awake and oriented x3 Head Head: normal to inspection, normocephalic and atraumatic Ears: hearing grossly normal bilaterally and external ears normal Nose: external nose normal, nasal mucous membranes and turbinates normal, nares normal, septum normal, no nasal discharge Face and Sinus: face symmetric Mouth: oral mucosae normal, tongue normal, oropharynx normal and moist mucous membranes Teeth and gingiva: dentition normal Throat: posterior oropharynx normal, tonsils normal and uvula midline Eyes General: appearance normal, both eyes and all related structures Eyelids: eyelids normal Conjunctivae: conjunctivae normal Pupils: PERRL, normal by confrontation and accommodation normal EOM: EOM intact bilaterally Neck Neck: normal visual inspection, trachea midline [...] Bilateral Musculoskel Musculoskeletal: No joint tenderness Psych Psychological: normal affect Assessment AND Plan 1. Atrial fibrillation I48.91 Plan She does have a history of paroxysmal atrial fibrillation which appears to be settled on her flecainide and her beta-sue. My recommendation before is to continue the same medications without making any changes. Her electrocardiogram is reassuring. I would recommend that we repeat her echocardiogram to assess her left ventricular function. There was a question as to whether she had mild mitral valve prolapse but there is no clinical indication of the above. Hopefully the echocardiogram will clarify this. Orders Orders: Plan Detail Other Orders Orders: Follow Up 6 Months (mmm) Coding Level of Care Code Off vis,est,level 3 Diagnoses Atrial fibrillation I48.91 Coding Level of Care Code Off vis,est,level 3 Diagnoses Atrial fibrillation I48.91 05/07/18 1026 <Electronically signed by Bobo Biggs MD> Date Bobo Biggs MD Cosigner Signature: Date (if applicable) CC: Glenda Scott MD 12 LEAD EKG PERFORMED Observed: 05/07/2018 Status: F Source: [facility] BY KATHI 10:11 AM [facility] REPOSITORY [facility] [address] [place] [address] 12 Lead EKG performed by KATHI 05/07/18 1010 MR#: [id number] Acct: [id number] Name: BRIAN LONDONO Rep #: [id number] : 1950 67 From: Bobo Biggs MD Attending Dr: Bobo Biggs MD Status: DEP AMB Ordering Dr: Bobo Biggs MD Date: 05/07/18 Location: [facility] Sex: F C Admitted: BMS/12 Lead EKG performed by [facility] ECG Report Interpretation Sinus Bradycardia -First degree A-V block Luan = 232-Left axis -anterior fascicular block. ABNORMAL Electronically signed on 06/11/2018 at 11:35 by Bobo Biggs [employer] Version [id number] 06/11/18 1141 Date Bobo Biggs MD CC: Glenda Scott MD Date Dictated: 05/07/18 1010 Date Transcribed: 05/07/18 1010 Experimental Physicist: [place] Signed ALLERGIES ALLERGIES DATE TYPE / CODE NAME / CODE REACTION SEVERITY SOURCE 05/07/2018 Drug amoxicillin Other Unknown [facility] Allergy/317501272( trihydrate/F0000 [facility] SNOM[facility]) 62908(RXNORM) Hospital Repository 05/07/2018 Drug potassium Other Unknown [facility] Allergy/991435916( clavulanate/F000 [facility]) 541060(RXNORM) Hospital Repository 05/07/2018 Drug Tetracyclines/F0 Other Unknown [facility] Allergy/824640308( 55836708(RXNORM) [facility] Hospital Repository 02/11/2014 Miscellaneous [facility] Nausea/Vom/Di [place] [facility] Allergy/224279741( arrhea [facility] Hospital Repository ENCOUNTERS ENCOUNTERS ADMIT/DISCHARGE ACCOUNT ADMITTING ENCOUNTER LOCATION SOURCE NUMBER CLASS 05/28/2018 [id number] Ambulatory BMSBuilding:B [facility] 2 MS.CF[facility] Repository 05/28/2018 [id number] Ambulatory [facility] 8 [facility] ing:[facility] Repository 05/26/2018 4514 Ambulatory Building:[facility] [place] Practices Repository 05/07/2018/ [id number] Ambulatory BMSBuilding:B [facility] 8 1 MS.[facility] Repository PAYERS PAYERS ENCOUNTER GUARANTOR PAYER SUBSCRIBER SOURCE 05/28/2018 BRIAN J Primary BRIAN J [facility] [id number] CEDRIC Insurance:MEDICARE MEIERDOB: [facility] [id number] Hospital [address]Cbx: (330) Number: Repository [phone] () [id number] Date:2018-05-07 05/28/2018 Secondary BRIAN J [facility] Insurance:MEDICAL MEIERDOB: [facility] [id number] Hospital Number: Repository [id number] Date:5566-99-94[address] [address]DW: 05/28/2018 Tertiary NOT GIVENUNK [facility] Insurance:SELF PAY [facility] Number: Effective Repository Date:2018-05-28 05/28/2018 BRIAN J Primary BRINA J [facility] [id number] CEDRIC Insurance:MEDICARE MEIERDOB: [facility] [id number] Hospital [address]Zil: (330) Number: Repository [phone] () [id number] Date:2018-05-07 05/28/2018 Secondary BRIAN J [facility] Insurance:MEDICAL MEIERDOB: [facility] [id number] Hospital Number: Repository [id number] Date:6365-86-46CP[address] [address]WK: 05/28/2018 Tertiary NOT GIVENUNK [facility] Insurance:SELF PAY [facility] Number: Effective Repository Date:2018-05-07 05/26/2018 BRIAN J Primary BRIAN J OH[facility] Practices MEIERDOB: [facility] MEIER[facility]: Repository icy Number: [id number] Cedric [id number] [place], [place] Date:6845-25-09Gbaj [place], [place] [address]Wpd: (330) Name:[facility] [address]Tya: [address], [place] [phone] (HP) (HP)Tel: [phone]: ([phone] 05/26/2018 Secondary BRIAN J OH[facility] Practices Insurance:Medical MEIERDOB: Repository [facility] [id number] Number: Cedric [id number] [place], [place] Date:8828-73-40Uvhz [address]Qav: (330) Name:[facility] [phone] (HP) [address] [place] [address] [id number]: 05/26/2018 Tertiary BRIAN J OHIP Practices Insurance:Medical MEIERDOB: [facility] [id number] Number: Cedric [id number] Drive[place], [place] Date:2015-06-30 [address]Jpt: [phone]) [id number] [phone] (HP) Name:[address] [id number]: 05/26/2018 Tertiary BRIAN J OH[facility] Practices Insurance:MedicarePol MEIERDOB: Repository icy Number: [id number] Cedric Date:2016-11-28 [place], [place] 5607-11-97Lwlv [id number]: (330) Name:[facility] [phone] (HP) [address]192[address], [place] [address]SO: 05/07/2018 BRIAN J Primary BRIAN J [facility] [id number] CEDRIC Insurance:MEDICARE MEIERDOB: [place] PART A [facility] [id number] Hospital [address]Bxz: (330) Number: Repository [phone] () [id number] Date:2018-04-02 05/07/2018 Secondary BRIAN J [facility] Insurance:MEDICAL MEIERDOB: [facility] [id number] Hospital Number: Repository [id number] Date:2488-68-90AG [address] [address]YG: 05/07/2018 Tertiary NOT GIVENMUKUL [place] Insurance:SELF PAY [facility] Number: Effective Repository Date:2018-05-07
== END ==
PROVIDERS: Family Provider Internal Medicine; PCP Internal Medicine; Referring Provider Internal Medicine Cardiovascular Disease; Visit Provider Internal Medicine Cardiovascular Disease
DX: Z98.890 Other specified postprocedural states (principal)
CPT/HCPCS: 93306

== ENCOUNTER → 2018-07-13 13:17 | Outpatient (CLI) | payer SELFPAY ==
[2018-05-07 10:08] VITALS: BMI 36.4
--- NOTE | 2018-07-13 13:28 | CT_ITS ---
STUDY: CT CHEST WITHOUT CONTRAST REASON FOR EXAM: Female, 67 years old. Hyperlipidemia. Calcium scoring examination. Radiological over read examination. RADIATION DOSAGE (If Supplied By Facility): CTDIvol = ( 12.19 ) mGy, DLP = ( 243.79 ) mGycm TECHNIQUE: Transaxial imaging was performed without the administration of intravenous contrast material. Individualized dose optimization techniques were used for this CT. COMPARISON: None. FINDINGS: The lungs are normal. There is no demonstrated pleural abnormality. There are calcifications of the coronary arteries. There are multiple small lymph nodes within the mediastinum, which are normal in size and morphology most compatible with reactive lymph hyperplasia. Normal hilar regions. Normal unenhanced pulmonary arteries. Normal aorta arch and descending thoracic aorta. Normal osseous structures. There is no demonstrated abnormality of the visualized upper abdomen. CT/CCTA Calcium Scoring IMPRESSION: No acute abnormality is seen. Electronically Signed: Agustín Alexandre MD at 15:48 EST Tel [phone], Service support ,
--- NOTE | 2018-07-13 13:28 | CT_ITS ---
STUDY: CT CHEST WITHOUT CONTRAST REASON FOR EXAM: Female, 67 years old. Hyperlipidemia. Calcium scoring examination. Radiological over read examination. RADIATION DOSAGE (If Supplied By Facility): CTDIvol = ( 12.19 ) mGy, DLP = ( 243.79 ) mGycm TECHNIQUE: Transaxial imaging was performed without the administration of intravenous contrast material. Individualized dose optimization techniques were used for this CT. COMPARISON: None. FINDINGS: The lungs are normal. There is no demonstrated pleural abnormality. There are calcifications of the coronary arteries. There are multiple small lymph nodes within the mediastinum, which are normal in size and morphology most compatible with reactive lymph hyperplasia. Normal hilar regions. Normal unenhanced pulmonary arteries. Normal aorta arch and descending thoracic aorta. Normal osseous structures. There is no demonstrated abnormality of the visualized upper abdomen. CT/Limited Chest CT w/CCTA IMPRESSION: No acute abnormality is seen. Electronically Signed: Agustín Alexandre MD at 15:48 EST Tel [phone], Service support ,
--- NOTE | 2018-07-13 18:01 | CA.SCORE ---
Calcium Scoring Date of Study:: 07/13/18 Coronary Calcium Scoring: Coronary calcium score High-resolution computed tomographic imaging of the chest was performed on 07/13/2018 with particular attention paid to the coronary arteries. Images from the examination were analyzed for the presence and extent of coronary artery calcification. The coronary calcium quantification software was utilized. The patient tolerated the procedure well there were no complications. The results of the coronary calcification analysis are provided below. Left main coronary artery score 17.5. Left circumflex artery score 0. Left anterior descending artery score 0. Right coronary artery score 2.3. Total Agagston score 19.9. The above places the patient between the 25th and 50th percentile ranking for the age and gender. The above coronary calcification score is suggestive of mild plaque burden with minimal or mild coronary artery stenosis only.
== END ==
PROVIDERS: Family Provider Internal Medicine; PCP Internal Medicine; Referring Provider Internal Medicine; Visit Provider Internal Medicine
DX: E78.5 Hyperlipidemia, unspecified (principal)
CPT/HCPCS: 75571; 76380

== ENCOUNTER → 2018-08-12 14:09 | Outpatient (CLI) | payer MEDICARE, OTHER, SELFPAY ==
[2018-05-07 10:08] VITALS: BMI 36.4
--- NOTE | 2018-08-12 14:45 | EKG12_ITS ---
Test Reason : PRE OP Blood Pressure : / mmHG Vent. Rate : 052 BPM Atrial Rate : 052 BPM P-R Int : 240 ms QRS Dur : 108 ms QT Int : 464 ms P-R-T Axes : 036 -26 014 degrees QTc Int : 431 ms Sinus bradycardia with 1st degree A-V block Otherwise normal ECG Confirmed by MAKSIM POWERS, FABY ([id number]), rewrite editor JUSTYNA MOON ([id number]) on 08/14/2018 8:37:02 AM Referred By: Ranjith Oconnor Confirmed By:FABY SCHAEFFER MD
[2018-08-12 15:36] LABS: BUN 12 mg/dL (7-18); Creatinine, Serum 0.92 mg/dL (0.55-1.02); Glucose 82 mg/dL (74-106)
[2018-08-12 15:37] LABS: Anion Gap 7 (5-15); Calcium,Total 10.2 mg/dL (8.5-10.1); Chloride 106 mmol/L (98-107); EST Glomerular Filtration Rate 64 mL/min (>60); Est Glom Filt Rate - Afr Amer 78 mL/min (>60); Potassium 5.1 mmol/L (3.5-5.1); Sodium Level 143 mmol/L (136-145)
== END ==
PROVIDERS: Family Provider Internal Medicine; PCP Internal Medicine; Referring Provider Physician Assistant; Visit Provider Physician Assistant
DX: Z01.818 Encounter for other preprocedural examination (principal); Z01.810 Encounter for preprocedural cardiovascular examination
CPT/HCPCS: 36415; 80048; 93005

== ENCOUNTER 2018-09-23 13:00 | Outpatient (RCR) | payer MEDICARE, OTHER, SELFPAY ==
--- NOTE | 2018-08-26 13:58 | HP.PTEVAL_ITS ---
Patient's Visit Information BRIAN LONDONO is a 67 year old F referred to Physical Therapy by Geo Thorpe DO with a diagnosis of TEAR OF MEDIAL MENISCUS ,CURRENT INJURY LEFT KNEE ,LATERAL MENISCUS TEAR. Date of Evaluation: 08/26/18 Physical Therapist: Bud Vazquez, PT, Cert MDT, OCS - Visit Plan Frequency: 2x /Week Duration: 4 Weeks Plan: ROM,PRE'S QUAD/HAMS/HIP,NUSTEP,CP ,BALANCE EX'S - Subjective Findings: This 67 y/o female presenst to physical therapy with left knee arthroscopic due to meniscus tear on done by DR Thorpe at [facility] [place]. Pateint d/c same day with walker. Patient has h/o pain many years and also fell one year ago onto knees which made knees worse. Pirior to surgery had MRI and x-rays. Patient is unable to squat ,kneeling,staisr one step at time,extended standing,walking affects ADL'S. Patient lives in 2 story home with 3 steps with rail.Patient stays on 1st floor. Patient denies parathesia/tingling. Patient sleeping okay at night .Symptosm worse in the morning ,better on the move. Patient surgery affects QOL and function . SOCIAL: lives with mother. VOCATION: RETIRED - Pain Left Knee Pain Intensity (Out of 10): 3 Pain Intensity Range: 10 - Objective POSTURE: mild foward posture. GAIT: ambulates with reciprocal pattern mild antalgic left. BALANCE: good-. NEURO: INTACT. INSCION: well approximate with bandge. EDEMA: joint line 46.5 cm. AROM: 2-115 supine knee flexion. MMT: quads/hams 4-/5 ,hip flexion 4-/5,abd 3+/5 ,ankle 4/5. STAIRS: one step at time with rail. PROPRIOCEPTION: impaired. FLEXABLITY: hams min tight - Goals Goal 1:: Patient to be Independant with HEP Goal Time Frame: 4-6 Weeks Goal 2:: Patient to normalize gait pattern Goal Time Frame: 4-6 Weeks Goal 3:: Patient to improve AROM 0-130 degrees for stairs . Goal Time Frame: 4-6 Weeks Goal 4:: Ptient to increase strength quad/hams 4/5 to improve function. Goal Time Frame: 4-6 Weeks Goal 5:: Patient to improve LFES score by 5-10 points to improve QOL Goal Time Frame: 4-6 Weeks - Rehabilitation Potential Physical Therapy Diagnosis: This underwent s/p arthroscopic knee with decrease ROM,srength,gait stairs and function thus impairs ADL'S thus benifit from skilled PT. Rehabilitation Potential: Good - Anticipated Interventions Patient/Client Instruction: Educate patient on: Condition, Plan of Care For the Purpose of:: To decrease pain, To increase ROM, To improve muscle performance and motor function, To improve ability to perform ADL's, To increase tolerance to activity/condition/position, To improve performance and independence with ADL's, To improve ability of physical actions for home/community/work/leisure, To improve gait and locomotor functions, To improve health of tissue, To decrease soft tissue restriction, To increase flexibility/ROM, To reduce risk of recurrence, To improve ability to perform tasks related to life management Therapeutic Exercise to Include: Strength training, Balance training, Flexibilty training, Passive ROM, Active ROM For the Purpose of:: To decrease pain, To increase ROM, To improve muscle performance and motor function, To increase tolerance to activity/condition/position, To improve ability of physical actions for home/community/work/leisure, To improve gait and locomotor functions, To improve health of tissue, To decrease soft tissue restriction, To increase flexibility/ROM, To reduce risk of recurrence, To improve tolerance to ADL's TENS: Yes IF ES: Yes Cryotherapy (ice pack, ice massage): Yes Thermo therapy (hot pack): Yes Ultrasound (thermal/non thermal): Yes For the Purpose of:: To decrease pain, To decrease swelling/inflammation, To improve health of tissue, To decrease soft tissue restriction Thank you for the opportunity to evaluate your patient. For Medicare and Medicare HMO plans, please review the plan of care and approve it. It will need to be FAXED BACK to us at [phone] for Medicare purposes. For Medicare only, by signing this I certify the plan of care. Please let me know if there are questions or concerns regarding this plan of care. Physician Signature: Date:
--- NOTE | 2018-09-23 13:38 | HP.PTDCSUM ---
HP - PT D/C Summary It has been my pleasure to treat BRIAN LONDONO under orders from Geo Thorpe DO, for the diagnosis of TEAR OF MEDIAL MENISCUS ,CURRENT INJURY LEFT KNEE ,LATERAL MENISCUS TEAR for a total of 9 visit(s). Discharge Date: 09/23/18 Please see the following information for a summary of their discharge status. - Subjective Subjective: Doing good .Return to ADL'S WITHOUT DIFFICULTY - Pain Left Knee Pain Intensity (Out of 10): 0 - Overall Improvement % Improvement: 80 - Objective Objective/Function: POSTURE: WNL. GAIT: NORMAL JUANA. PALAPTION : MILD TENDER MEDIAL JOINT LINE. MMT: QUADS/HAMS/HIP 4/5. AROM: 0-130 SUPINE KNEE FLEXIO. STAIRS: ALTERNATING - Goals Goal 1:: Patient to be Independant with HEP Goal Progress: Goal Met Goal 2:: Patient to normalize gait pattern Goal Progress: Goal Met Goal 3:: Patient to improve AROM 0-130 degrees for stairs . Goal Progress: Goal Met Goal 4:: Ptient to increase strength quad/hams 4/5 to improve function. Goal Progress: Goal Met Goal 5:: Patient to improve LFES score by 5-10 points to improve QOL - Plan Plan: D/C TO HEP - D/C Information Discharge Comments: HEP If there are questions or concerns regarding this patient's physical therapy, please feel free to call me at [phone]. Thank you for the referral of this patient. Sincerely, Bud Vazquez, PT, Cert MDT, OCS
== END 2018-09-23 19:00 | disposition home or self-care (01) ==
LOC: PT 13:00
PROVIDERS: Family Provider Internal Medicine; PCP Internal Medicine; Referring Provider Orthopaedic Surgery; Visit Provider Orthopaedic Surgery
DX: S83.242D Other tear of medial meniscus, current injury, left knee, subsequent encounter (principal); S83.282D Other tear of lateral meniscus, current injury, left knee, subsequent encounter
CPT/HCPCS: 97110; 97162

== ENCOUNTER → 2019-07-29 11:55 | Outpatient (CLI) | payer MEDICARE, OTHER, SELFPAY ==
[2018-11-04 10:17] VITALS: BMI 34.6
--- NOTE | 2019-07-29 12:01 | BI_ITS ---
MAMMOGRAPHY - BILATERAL SCREENING REASON FOR EXAM: Female, 68 years old. Routine annual screening examination. PERTINENT HISTORY: Sister with breast cancer. Remote right stereotactic breast biopsy. TECHNIQUE: Digital bilateral breast donaldo (3D mammographic acquisition) in the CC and MLO projections. 2-D mediolateral oblique (MLO) and craniocaudad (CC) views of both breasts were obtained. CAD: Full Field Digital Mammography with Computer Added Detection was performed. COMPARISON: Comparison is made with prior study dated April 18, 2016. FINDINGS: Breast Composition: There are scattered areas of fibroglandular density. There now is evidence of a 1.3 cm x 1.6 cm well-defined nodule in the deep central medial aspect of the right breast. Correlation with ultrasound is recommended. No other significant abnormalities are identified. BI/SCREEN MAMM (CAD) W/DONALDO BILAT IMPRESSION: There is a new 1.3 cm x 1.6 cm well-defined nodule in the deep central medial aspect of the right breast as described. Correlation with ultrasound is recommended. ASSESSMENT CATEGORY: BIRADS Category 0: Incomplete. Need additional imaging evaluation. A letter regarding these results will be sent to the patient by the facility within 30 days. Approximately 10% of breast cancers are not detected by mammography. A normal mammogram should not delay biopsy of a clinically suspicious abnormality. [id number] Electronically Signed: Agustín Alexandre, at 13:44 EST , Service support ,
--- NOTE | 2019-07-29 12:27 | BD_ITS ---
STUDY: DUAL ENERGY X-RAY ABSORPTIOMETRY / DXA REASON FOR EXAM: Female, 68 years old. 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 COMPARISON: Comparison is made with prior examination in April 18, 2016. FINDINGS: Lumbar Spine (L1-L4): g/cm2 (1.456) / T-score (2.4) / Z-score (4.1) Findings are suggestive of normal bone density with a low fracture risk. Left Femur Total: g/cm2 (1.111) / T-score (0.8) / Z-score (2.2) Left Femoral Neck: g/cm2 (1.042) / T-score (0.0) / Z-score (1.6) Right Femur Total: g/cm2 (1.022) / T-score (0.1) / Z-score (1.4) Right Femoral Neck: g/cm2 (0.978) / T-score (-0.4) / Z-score (1.1) The T-Scores on the most recent prior examination were: Lumbar Spine (L1-L4): There has been improvement of bone density since the previous examination. Left Femur Total: which represents a worsening of 1.5%. Right Femur Total: which represents a worsening of 6.7%. BD/Dexa Bone Density Study IMPRESSION: The patient is considered normal as outlined below according to World Jose Organization (WHO) criteria with a low fracture risk. There has been worsening of bone density since the previous examination. Reference Information: The T-score is the number of standard deviations above or below the standard which is normal for young adults at their peak bone mineral density. The World Health Organization (WHO) interprets the T-scores as follows: Above -1 Normal bone density Between -1 and -2.5 Osteopenia Equal to / or below -2.5 Osteoporosis As a practical clinical guideline, osteopenia may be graded as follows: Mild -1 through -1.5 Moderate -1.6 through -2.0 Severe -2.1 through -2.4 The Z-score is the number of standard deviations above or below age-matched controls. A Z-score of less than -1.5 would be considered abnormal. References: 1. NIH Osteoporosis and Related Bone Diseases http://www.osteo.org 2. International Society for Clinical Densitometry http://www.iscd.org 3. National Osteoporosis Foundation http://www.nof.org Electronically Signed: Agustín Alexandre, at 13:46 EST , Service support ,
== END ==
PROVIDERS: Family Provider Internal Medicine; PCP Internal Medicine; Referring Provider Internal Medicine; Visit Provider Internal Medicine
DX: Z12.31 Encounter for screening mammogram for malignant neoplasm of breast (principal); N63.10 Unspecified lump in the right breast, unspecified quadrant; Z80.3 Family history of malignant neoplasm of breast; Z78.0 Asymptomatic menopausal state
CPT/HCPCS: 77063; 77067; 77080

== ENCOUNTER → 2019-08-03 14:55 | Outpatient (CLI) | payer MEDICARE, OTHER, SELFPAY ==
[2018-11-04 10:17] VITALS: BMI 34.6
--- NOTE | 2019-08-03 14:57 | US_ITS ---
STUDY: ULTRASOUND BREAST - RIGHT REASON FOR EXAM: Female, 68 years old. Abnormal screening mammogram. TECHNIQUE: Axial and longitudinal images of the RIGHT breast were performed with a high resolution ultrasound transducer. # OF IMAGES: 39 COMPARISON: Comparison is made with prior mammogram dated July 29, 2019. FINDINGS: RIGHT Breast: The mammographic abnormality corresponds to a 1.5 cm x 1.5 cm x 1.3 cm slightly isoechoic solid nodule at the 3:00 position of the breast at 3 cm from nipple. A biopsy is recommended. There is evidence of increased peripheral blood flow. US/Breast Limited Unilateral IMPRESSION: 1.5 cm x 1.3 cm x 1.3 cm slightly isoechoic solid nodule at the 3:00 position breast at 3 cm from nipple. A biopsy recommended. ASSESSMENT CATEGORY: BIRADS Category 4: Suspicious - Biopsy Should Be Considered. A letter regarding these results will be sent to the patient by the facility within 30 days. Electronically Signed: Agustín Alexandre, at 16:22 EST , Service support ,
== END ==
PROVIDERS: PCP Internal Medicine; Referring Provider Internal Medicine; Visit Provider Internal Medicine
DX: N63.15 Unspecified lump in the right breast, overlapping quadrants (principal)
CPT/HCPCS: 76642

== ENCOUNTER → 2019-08-13 | Outpatient (CLI) | payer MEDICARE, OTHER, SELFPAY ==
--- NOTE | 2019-08-13 | IMM_PTH ---
PATIENT: BRIAN LONDONO LOC: [facility] U#:[id number] AGE/SX: 68/F ROOM: RE08/13/[address]: Dr. Glenda Scott MD : 1950 BED: DIS: 08/13/2019 SPEC #: [id number] RECD: 08/17/19 13:58 STATUS: GAGE REQ #: [id number] ANITA: 08/13/19 00:[address]: Keo Thacker DEPT: IMMUNOHISTOCHEMISTRY RECD BY: Evette Raphael ENTERED: 08/17/19 14:04 SP TYPE: IMMUNO OTHR DR: Dr. Glenda Scott MD Tissues: Right breast, NOS Procedures: SMA (add) Calponin-1(initial) CK5-6 (add) P40 (add) PHYSICIAN & INSTITUTION [place] [id number] SPECIMEN INFORMATION: Tissue Source: Right breast Clinical Info: Breast mass Specimen Number: [id number] CPT code: 68146, 54635 x3 METHODOLOGY: Deparaffinized sections of prefer/formalin-fixed tissue or PAP/DQ stained slides are incubated with monoclonal/polyclonal antibodies/oligonucleotide probes. Localization is made via biotin free immunoperoxidase method. Appropriate controls are performed and reacted as expected. Results on target cell population are indicated in the following table: RESULTS: ANTIBODY / CLONE RESULT P40 (BC28) positive Actin (1A4) positive Calponin-1 (YR946W) positive CK5-6 (D5 & 1684) positive These tests were developed and their performance characteristics determined by [facility]. They may not have been cleared or approved by the U.S. Food and Drug Administration. The FDA has determined that such clearance or approval is not necessary. The above immunohistochemical/dualISH markers are ordered and reviewed by the Pathologist. INTERPRETATION: Right breast, needle core biopsy: Consistent with nodular adenosis. AM:gelacio 08/23/19 Case has been reviewed in consultation with Dr. Liu who concurs with the above diagnosis. IDC:SJ
--- NOTE | 2019-08-13 09:20 | BRBX_PTH ---
PATIENT: BRIAN LONDONO LOC: [facility] U#:[id number] AGE/SX: 68/F ROOM: RE08/13/[address]: Dr. Glenda Scott MD : 1950 BED: DIS: 08/13/2019 SPEC #: [id number] RECD: 08/13/19 14:37 STATUS: GAGE REQ #: [id number] ANITA: 08/13/19 09:[address]: Keo Thacker DEPT: SURGICAL PATHOLOGY RECD BY: Gagan Greenwood ENTERED: 08/16/19 08:21 SP TYPE: BREAST BX OTHR DR: Dr. Glenda Scott MD Tissues: Right breast, NOS Procedures: Gen Path Consultation (on slides) Surgery Specimen Level IV Comments: @ Ordering doctor for SUIV edited from to @ by CRISTI at 08/16/19 0940 @ Submitting doctor edited from to DR.DPEABO Mckenzie by CRISTI at 08/16/19 0940 HEADER OPERATION: Ultrasound-guided needle core biopsy right breast PRE-OP DIAGNOSIS: Breast mass TISSUE SUBMITTED: Right breast biopsy ISCHEMIC TIME: 1 minute FIXATION TIME: 82.5 hours MICROSCOPIC DIAGNOSIS Right breast mass, needle core biopsy: Consistent with nodular adenosis. AM:gelacio 08/23/19 COMMENT Immunohistochemistry ([id number]) supports the above diagnosis. Case is reviewed in consultation with of Zayo. Complete consultative report is viewable in EMR Case has been reviewed in consultation with Dr. Liu who concurs with the above diagnosis. IDC:SJ MICROSCOPIC DESCRIPTION Slides are reviewed. GROSS DESCRIPTION Received in fixative is one container labeled with the patient's name and designated right breast. The specimen consists of two cores of light helton soft tissue. Each core has an average length of 1.2 cm and an average diameter of 0.1 cm. The specimen is totally submitted in one cassette. / AM:gelacio 08/16/19 TC:1 CPT: 98967
[2019-08-13 09:28] VITALS: BMI 34.6
== END | disposition home or self-care (01) ==
LOC: LABSPEC 14:48
PROVIDERS: PCP Internal Medicine; Referring Provider Internal Medicine; Visit Provider Internal Medicine
DX: R92.8 Other abnormal and inconclusive findings on diagnostic imaging of breast (principal)
CPT/HCPCS: 88305; 88325; 88341; 88342

== ENCOUNTER → 2020-05-15 14:24 | Outpatient (CLI) | payer MEDICARE, OTHER, SELFPAY ==
[2019-08-13 09:28] VITALS: BMI 34.6
--- NOTE | 2020-05-15 14:29 | BI_ITS ---
MAMMOGRAPHY - BILATERAL DIAGNOSTIC REASON FOR EXAM: Female, 69 years old. Painful right breast lump. Prior right breast biopsy. PERTINENT HISTORY: Sister with breast cancer. TECHNIQUE: Digital bilateral breast tania (3D mammographic acquisition) in the CC and MLO projections. 2-D mediolateral oblique (MLO) and craniocaudad (CC) views of both breasts were obtained. CAD: Full Field Digital Mammography with Computer Added Detection was performed. COMPARISON: Comparison is made with prior study dated 07/29/2019 and 04/18/2016. FINDINGS: Breast Composition: There are scattered areas of fibroglandular density. The previously seen nodular density in the mid medial portion of the left breast as increased in size. It presently measures 2 cm x 2.2 cm. A tissue clip marker from prior biopsy is seen within it. Stable calcified nodule in the retroareolar region of the left breast. No other significant abnormalities are identified. Interval increase in size of the right breast nodule as described. Correlation with ultrasound is recommended. BI/DIAG MAMM W/CAD, BILAT IMPRESSION: Interval increase in size of the right breast nodule as described. Correlation with ultrasound is recommended. ASSESSMENT CATEGORY: BIRADS Category 0: Incomplete. Need additional imaging evaluation. A letter regarding these results will be sent to the patient by the facility within 30 days. Approximately 10% of breast cancers are not detected by mammography. A normal mammogram should not delay biopsy of a clinically suspicious abnormality. Electronically Signed: Agustín Alexandre, at 15:27 EST , Service support ,
--- NOTE | 2020-05-15 15:02 | US_ITS ---
STUDY: ULTRASOUND BREAST - RIGHT REASON FOR EXAM: Female, 69 years old. Abnormal screening mammogram. Right breast lump. TECHNIQUE: Axial and longitudinal images of the RIGHT breast were performed with a high resolution ultrasound transducer. # OF IMAGES: 28 COMPARISON: Comparison is made with the mammogram done earlier in the day as well as prior ultrasound of the brain dated 08/03/2019. FINDINGS: RIGHT Breast: There is a 2 cm x 2 cm x 1.7 cm slightly irregular hypoechoic solid nodule at the 3 o''clock position of the breast at 3 cm from the nipple. A tissue clip marker is seen within it. This nodule has increased in size as compared to prior study. A repeat biopsy is recommended. US/Breast Limited Unilateral IMPRESSION: Since prior study, there is been an increase in size of the hypoechoic slightly irregular nodule at the 3 o''clock position of the breast at 3 cm from the nipple. A rebiopsy is recommended. ASSESSMENT CATEGORY: BIRADS Category 4: Suspicious - Biopsy Should Be Considered. A letter regarding these results will be sent to the patient by the facility within 30 days. Electronically Signed: Agustín Alexandre, at 9:18 EST , Service support ,
== END ==
PROVIDERS: PCP Internal Medicine; Referring Provider Internal Medicine; Visit Provider Internal Medicine
DX: N63.10 Unspecified lump in the right breast, unspecified quadrant (principal); Z80.3 Family history of malignant neoplasm of breast; R92.8 Other abnormal and inconclusive findings on diagnostic imaging of breast
CPT/HCPCS: 76642; 77062; 77066; G0279

== ENCOUNTER → 2020-05-23 | Outpatient (CLI) | payer MEDICARE, OTHER, SELFPAY ==
--- NOTE | 2020-05-23 | IMM_PTH ---
PATIENT: BRIAN LONDONO LOC: [facility] U#:[id number] AGE/SX: 69/F ROOM: RE05/23/[address]: Dr. Keo Thacker MD : 1950 BED: DIS: 05/23/2020 SPEC #: [id number] RECD: 05/24/20 11:39 STATUS: GAGE REQ #: [id number] ANITA: 05/23/20 00:[address]: Keo Thacker DEPT: IMMUNOHISTOCHEMISTRY RECD BY: Evette Raphael ENTERED: 05/24/20 11:40 SP TYPE: IMMUNO OTHR DR: Dr. Glenda Scott MD Tissues: Right breast, NOS Procedures: CK8 (initial) CALPONIN-1 (add) CD31 (add) E-CAD (add) FACTOR VIII (add) P40 (add) PHYSICIAN & INSTITUTION [place] [id number] SPECIMEN INFORMATION: Tissue Source: Right breast, ultrasound-guided needle core biopsy Clinical Info: Abnormal mammogram Specimen Number: [id number] CPT code: 03701, 04368 x5 METHODOLOGY: Deparaffinized sections of prefer/formalin-fixed tissue or PAP/DQ stained slides are incubated with monoclonal/polyclonal antibodies/oligonucleotide probes. Localization is made via biotin free immunoperoxidase method. Appropriate controls are performed and reacted as expected. Results on target cell population are indicated in the following table: RESULTS: ANTIBODY / CLONE RESULT CK8 ([id number]) positive E-Cad (ECH-6) positive CD31 (YANIV/70A) positive (endothelial cells) Factor VIII (R Ag) positive (endothelial cells) P40 (BC28) positive Calponin-1 (DT803M) positive These tests were developed and their performance characteristics determined by [facility]. They may not have been cleared or approved by the U.S. Food and Drug Administration. The FDA has determined that such clearance or approval is not necessary. The above immunohistochemical/dualISH markers are ordered and reviewed by the Pathologist. INTERPRETATION: Right breast, ultrasound-guided needle core biopsy: Nodular adenosis with necrosis. No evidence of carcinoma on the current biopsy. See comment. MARGO:gelacio 06/02/20 The specimen is sent to [facility] and reviewed by Dr. Lockhart and the above diagnosis rendered. Additional immunohistochemistry also performed at [facility] supports the above diagnosis. The complete report is viewable in patient's EMR.
--- NOTE | 2020-05-23 | BRBX_PTH ---
PATIENT: BRIAN LONDONO LOC: [facility] U#:[id number] AGE/SX: 69/F ROOM: RE05/23/[address]: Dr. Keo Thacker MD : 1950 BED: DIS: 05/23/2020 SPEC #: [id number] RECD: 05/23/20 11:59 STATUS: GAGE REQ #: [id number] ANITA: 05/23/20 00:[address]: Keo Thacker DEPT: SURGICAL PATHOLOGY RECD BY: Emeterio Baum ENTERED: 05/23/20 11:59 SP TYPE: BREAST BX OTHR DR: Dr. Glenda Scott MD Tissues: Right breast, NOS Procedures: Surgery Specimen Level IV HEADER OPERATION: Ultrasound-guided needle core biopsy right breast PRE-OP DIAGNOSIS: Abnormal mammogram TISSUE SUBMITTED: Right breast biopsy ISCHEMIC TIME: <1 minute FIXATION TIME: 10 hours MICROSCOPIC DIAGNOSIS Right breast, ultrasound-guided needle core biopsy: Nodular adenosis with necrosis. No evidence of carcinoma on the current biopsy. See comment. MARGO:gelacio 06/02/20 COMMENT The specimen is sent to [facility] for expert opinion and reviewed by Dr. Lockhart and above diagnosis is rendered. The complete report is viewable in patient's EMR. Immunohistochemistry ([id number]) and additional stains performed at [facility] supports the above diagnosis. Please also make reference to previous specimen ([id number]) right breast mass, needle core biopsy with diagnosis of consistent with nodular adenosis. Case has been reviewed in consultation with Dr. Cano who concurs with the above diagnosis. IDC:AM MICROSCOPIC DESCRIPTION Slides are reviewed. GROSS DESCRIPTION Received in fixative is one container labeled with the patient's name and designated right breast biopsy. The specimen consists of two elongated fragments of light helton soft tissue that in aggregate measure 2 x 0.6 x 0.1 cm. The specimen is totally submitted in one cassette. / AM:gelacio 05/23/20 TC:5 [facility]: [id number]
[2020-05-23 09:06] VITALS: BMI 30.7
== END | disposition home or self-care (01) ==
LOC: LABSPEC 11:33
PROVIDERS: PCP Internal Medicine; Referring Provider Surgery; Visit Provider Surgery
DX: R92.8 Other abnormal and inconclusive findings on diagnostic imaging of breast (principal)
CPT/HCPCS: 88305; 88341; 88342

== ENCOUNTER → 2020-06-06 12:02 | Outpatient (CLI) | payer MEDICARE, OTHER, SELFPAY ==
[2020-06-06 08:47] VITALS: BMI 31.8
[2020-06-06 12:58] LABS: AST(SGOT) 15 U/L (15-37); Alanine Aminotransfer ALT/SGPT 14 U/L (13-56); Albumin, Serum 3.5 g/dL (3.2-5.0); Alkaline Phosphatase 88 U/L (45-117); Bilirubin, Direct 0.07 mg/dL (0.00-0.30); Cholesterol 250 mg/dL (200); Globulin 3.7 g/dL (2.2-4.2); High Density Lipoprotein 75 mg/dL; Protein, Total 7.2 g/dL (6.4-8.2); Triglycerides 142 mg/dL; Very Low Density Lipoprotein 28 mg/dL (5-40)
== END ==
PROVIDERS: PCP Internal Medicine; Referring Provider Internal Medicine Cardiovascular Disease; Visit Provider Internal Medicine Cardiovascular Disease
DX: E78.00 Pure hypercholesterolemia, unspecified (principal)
CPT/HCPCS: 36415; 80061; 80076

== ENCOUNTER 2020-11-05 02:00 | Emergency (ER) | payer MEDICARE, OTHER, SELFPAY ==
[2020-06-06 08:47] VITALS: BMI 31.8
[2020-11-05 02:01] VITALS: BP 144/120; PULSE 67; RESP 15; TEMP 36.4; O2SAT 97; BMI 32.7
[2020-11-05 03:01] LABS: Bacteria 0 SEEN /hpf (None Seen); Mucous, Urine 0 SEEN /hpf (<or=2+)
[2020-11-05 03:07] LABS: Color, Urine Yellow (Yellow); Glucose, Dipstick Normal (Normal); Ketone-Dipstick Negative (Negative); Leukocyte Esterase-Dipstick 500 /ul (Negative); Nitrite-Dipstick Negative (Negative); Occult Blood-Urine 25 /ul (Negative); Protein-Dipstick Negative (Negative); Specific Gravity, Urine 1.015 (1.002-1.030); Urine Bilirubin Dipstick Negative (Negative); Urine Clarity Clear (Clear); Urine Urobilinogen Normal (Normal)
--- NOTE | 2020-11-05 03:17 | EDS_ITS ---
HPI History of Present Illness Chief Complaint: Complaint Informant: patient Onset/Context/Timing Onset: Today Context: Gradual Onset Timing: Continuous Quality: Pressure Location: Suprapubic Worsened by: Nothing Relieved by: Nothing Associated Symptoms Associated Symptoms: Urinary frequency Narrative Narrative: Patient presents with possible urinary tract infection. Patient states she has a history of prior urinary tract infections. Patient states that tonight she felt some pressure in her lower abdomen. Patient states she has been having urinary urgency and frequency. Patient denies any dysuria or hematuria however. Patient admits to some nausea but denies any vomiting. Patient denies any fevers or chills. Patient denies any back pain. Patient denies any chest pain or shortness of breath. [facility] Medical History (Updated 11/05/20 @ 03:[address] Lyndon Medellin, ) Abnormal mammogram of right breast Abnormality of right breast on screening mammogram Gastroesophageal reflux disease History of cystocele Hyperlipidemia Kidney disease Migraine Obesity Paroxysmal atrial fibrillation Single kidney Home Medications aspirin 325 mg PO DAILY@0800 05/24/13 [History Last Taken 05/30/13 325 MG] cholecalciferol (vitamin D3) 50 mcg (2,000 unit) capsule 2,000 unit PO DAILY 1 07/07/17 [History Last Taken Unknown] esomeprazole magnesium 20 mg capsule,delayed release 20 mg PO DAILY cap 11/04/18 [History Last Taken Unknown] rosuvastatin 5 mg tablet PO 30 Days #30 tab 11/04/18 [History Last Taken Unknown] fexofenadine 60 mg-pseudoephedrine ER 120 mg tablet,ext.release,12 hr 1 tab PO Q12H PRN 08/06/19 [History Last Taken Unknown] metoprolol tartrate 25 mg tablet 25 mg PO BID #180 tab 11/16/19 [Rx Last Taken Unknown] flecainide 100 mg tablet 100 mg PO BID #180 tab 06/02/20 [Rx Last Taken Unknown] cephalexin 500 mg PO Q6 #12 capsule 11/05/20 [Rx Last Taken Unknown] Allergy/AdvReac Type Severity Reaction Status Date / Time amoxicillin trihydrate AdvReac Other Verified 06/06/20 08:48 [From Augmentin] potassium clavulanate AdvReac Other Verified 06/06/20 08:48 [From Augmentin] Tetracyclines AdvReac Other Verified 06/06/20 08:48 CLAMS Allergy Intermediate Nausea/Vom/ Uncoded 06/06/20 08:48 Diarrhea Family History Father CAD (coronary artery disease) Surgical History (Updated 11/05/20 @ 03:[address] Lyndon Medellin, DO) H/O foot surgery H/O microdiscectomy H/O tubal ligation History of arthroscopy of knee History of left heart catheterization (05/2010) History of right breast biopsy (07/2019) Hx of cholecystectomy Social History (Updated 06/06/20 @ 11:[address] Bobo Biggs MD) Smoking Status: Former smoker ROS ROS ED Constitutional Constitutional ED: Denies chills or fever(s) Eyes Eyes: Denies blurry vision or change in vision ENT ENT ED: Denies rhinorrhea or sore throat Cardiovascular Cardiovascular: Denies chest pain or palpitations Respiratory/Chest Respiratory/Chest: Denies cough or dyspnea Gastrointestinal Gastrointestinal: Reports abdominal pain, diarrhea and nausea; Denies vomiting Genitourinary Genitourinary ED: Reports urinary frequency; Denies dysuria or hematuria Musculoskeletal Musculoskeletal: Denies back pain or neck pain Integumentary Denies abscess or rash Neurologic Neurologic: Denies headache(s) or weakness Allergic/Immunologic Allergic/Immunologic ED: Denies mouth swelling or urticaria EXAM Physical Exam Const Vital Signs: 11/05/20 02:01 Temperature 97.5 F L Temperature Source Temporal Pulse Rate 67 Respiratory Rate 15 Blood Pressure 144/120 H Blood Pressure Mean 128 Pulse Ox 97 Oxygen Delivery Method Room Air Positive well nourished and well developed General Appearance ED: well developed HEENT Reports moist mucous membranes Neck supple and no JVD Resp normal respiratory effort and clear to auscultation bilaterally Cardio regular rate and regular rhythm GI normal to inspection, nondistended, normoactive bowel sounds Palpation: soft and tender suprapubic; Negative for guarding or rebound tenderness present Neuro oriented x3, CN's II-XII intact bilaterally and no sensory deficits noted Sensorium / Orientation: alert Motor Exam: strength 5/5 throughout Psych mental status grossly normal MDM MDM MDM Narrative Medical decision making narrative: Urinalysis showed leukocyte esterase of 500 with 5-10 white blood cells. Urine culture was sent. Patient was given first dose of Keflex here. Patient was given a prescription for Keflex. Patient was instructed to drink plenty of fluids. Patient was instructed to follow-up with her primary care physician in 5 to 7 days. Patient understood and was agreeable with the plan. All questions were answered. Lab Data Attestation: I reviewed the patient's lab results. Labs: Laboratory Results - last 24 hr 11/05/20 02:55 Urine Color Yellow Urine Clarity Clear Urine pH 6.0 Ur Specific [place] 1.015 Urine Protein Negative Urine Glucose (UA) Normal Urine Ketones Negative Urine Occult Blood 25 H Urine Nitrite Negative Urine Bilirubin Negative Urine Urobilinogen Normal Ur Leukocyte Esterase 500 H Urine RBC 0-5 SEEN Urine WBC 5-10 SEEN Ur Squamous Epith Cells 0-5 SEEN Urine Bacteria 0 SEEN Urine Mucus 0 SEEN Discharge Plan Triage Chief Complaint: Complaint ED Provider: Lyndon Medellin Dx/Rx/DC Orders Clinical Impression: Urinary tract infection Instructions: ED Bladder Infection, Female (Adult) Prescriptions: New cephalexin [cephalexin] 500 MG capsule 500 mg PO Q6 Qty: 12 RF: 0 No Action cholecalciferol (vitamin D3) 2,000 unit capsule 2,000 unit PO DAILY RF: 0 rosuvastatin 5 mg tablet PO 30 Days Qty: 30 RF: 0 esomeprazole magnesium [Nexium] 20 mg capsule,delayed release(DR/EC) 20 mg PO DAILY RF: 0 fexofenadine-pseudoephedrine [Lindsey-D 12 Hour] 60-120 mg tablet extended release 12 hr 1 tab PO Q12H PRNRF: 0 aspirin 325 MG tablet 325 mg PO DAILY@0800 RF: 0 metoprolol tartrate 25 mg tablet 25 mg PO BID Qty: 180 RF: 3 flecainide 100 mg tablet 100 mg PO BID Qty: 180 RF: 3 Primary Care Provider: Glenda Scott Referrals: Glenda Scott MD [Primary Care Provider] - 3-5 Days Disposition Disposition: Home, self care
[2020-11-05 03:20] LABS: Red Blood Cells-Urine 0-5 SEEN /hpf (0-5); Squamous Epithelial Cells - UA 0-5 SEEN /hpf (5-10); White Blood Cells 5-10 SEEN /hpf (0-5)
[2020-11-05] MEDS: Cephalexin 250 MG Capsule 500 MG PO (03:48)
[2020-11-05 03:50] VITALS: RESP 16
== END 2020-11-05 03:50 | disposition home or self-care (01) ==
PROVIDERS: Emergency Provider Emergency Medicine; PCP Internal Medicine
DX: N39.0 Urinary tract infection, site not specified (principal); I48.0 Paroxysmal atrial fibrillation; E66.9 Obesity, unspecified; Z68.32 Body mass index [BMI] 32.0-32.9, adult; Z79.82 Long term (current) use of aspirin; Z79.899 Other long term (current) drug therapy; Z87.891 Personal history of nicotine dependence; Z87.440 Personal history of urinary (tract) infections
CPT/HCPCS: 81001; 87086; 87088; 99283

== ENCOUNTER → 2022-08-20 | Outpatient (CLI) | payer MEDICARE, OTHER, SELFPAY ==
[2022-08-20 15:10] LABS: Absolute Neutrophil Count 4.6 X10^3/uL (2.0-7.7); Basophil# 0.05 X10^3/uL; Basophil% 0.7 % (0-1); Eosinophil# 0.12 X10^3/uL; Eosinophils% 1.7 % (0-5); Hematocrit 42.6 % (37-47); Hemoglobin 13.6 g/dL (12.0-15.0); Lymphocyte % 23.4 % (19-41); Mean Corp Hgb Conc 31.9 g/dL (32-36); Mean Platelet Vol. 10.7 fl (6.2-12.0); Monocyte# 0.74 X10^3/uL; Monocyte% 10.2 % (0-10); NRBC Flagged by Analyzer 0 % (0-5); Neutrophil # 4.64 X10^3/uL (2.7-7.7); Neutrophil % 63.9 % (47-70); Platelet Count 271 K/mm3 (150-450); RBC Distribution Width CV 12.9 % (11.6-14.6); Red Blood Count 4.53 M/mm3 (4.2-5.4); White Blood Count 7.3 K/mm3 (4.4-11.0)
[2022-08-20 15:32] LABS: BUN 19 mg/dL (7-18); Creatinine, Serum 1.06 mg/dL (0.55-1.02); EST Glomerular Filtration Rate 54 mL/min (>60); Glucose 91 mg/dL (74-106)
[2022-08-20 15:33] LABS: ALB/GLOB Ratio 0.9 RATIO (0.9-2.4); AST(SGOT) 24 U/L (15-37); Alanine Aminotransfer ALT/SGPT 15 U/L (13-56); Albumin, Serum 3.5 g/dL (3.2-5.0); Alkaline Phosphatase 89 U/L (45-117); Anion Gap 6 (5-15); BUN/Creat Ratio 17.9 RATIO (10-20); Calcium,Total 10.6 mg/dL (8.5-10.1); Chloride 106 mmol/L (98-107); Cholesterol 368 mg/dL (200); Est Glom Filt Rate - Afr Amer 66 mL/min (>60); Globulin 3.9 g/dL (2.2-4.2); High Density Lipoprotein 75 mg/dL; Potassium 4.4 mmol/L (3.5-5.1); Protein, Total 7.4 g/dL (6.4-8.2); Sodium Level 139 mmol/L (136-145); Triglycerides 184 mg/dL; Very Low Density Lipoprotein 37 mg/dL (5-40)
== END | disposition home or self-care (01) ==
PROVIDERS: PCP Family Medicine; Referring Provider Family Medicine; Visit Provider Family Medicine
DX: Z13.6 Encounter for screening for cardiovascular disorders (principal); I48.91 Unspecified atrial fibrillation
CPT/HCPCS: 36415; 80053; 80061; 85025

== ENCOUNTER → 2022-09-26 | Outpatient (CLI) | payer MEDICARE, OTHER, SELFPAY ==
--- NOTE | 2022-09-26 07:20 | ECHOD_ITS ---
Reason For Study: AFIB Procedure This was a 2D Doppler, Color Flow transthoracic echocardiogram. Exam performed in department. Left Ventricle Normal LV size. Left ventricular systolic function is normal. No regional wall motion abnormalities noted. Right Ventricle Normal RV size. Normal systolic function. Atria Normal left atrium. Normal right atrium. Bubble contrast study negative for right to left interatrial shunt. Mitral Valve Normal mitral valve. Tricuspid Valve Normal tricuspid valve. Mild (1+) tricuspid valve insufficiency. Pulmonary artery systolic pressure is 40 mmHg. Aortic Valve Normal aortic valve. Pulmonic Valve Normal pulmonic valve. Great Vessels Normal aortic root. The pulmonary artery is normal size. Normal inferior vena cava. Pericardium/Pleural No pericardial effusion. Medication Performed a rapid injection of agitated mix of 9 cc saline and 1cc air to assess for atrial septal defect. MMode/2D Measurements & Calculations LVIDd: 4.5 cm IVSd: 0.74 cm Ao root diam: 3.0 cm LVIDs: 3.1 cm LVPWd: 0.94 cm RVDd: 3.3 cm FS: 30.5 % LAV(MOD-bp): 57.1 ml LVAd ap4: 31.4 cm2 SV(MOD-sp4): 67.7 ml LAV(MOD-bp) Indexed: 29.2 ml/m2 LVLd ap4: 7.9 cm LAV(MOD-sp2): 54.0 ml EDV(MOD-sp4): 102.5 ml LAV(MOD-sp4): 58.1 ml EDV(sp4-el): 105.7 ml LVAs ap4: 16.2 cm2 LVLs ap4: 6.4 cm ESV(MOD-sp4): 34.9 ml ESV(sp4-el): 35.1 ml EF(MOD-sp4): 66.0 % EF(sp4-el): 66.8 % SV(sp4-el): 70.7 ml LA A4 area: 20.2 cm2 LA dimension(2D): 3.7 cm RA A4 area: 19.2 cm2 Time Measurements MV dec time: 0.19 sec Doppler Measurements & Calculations MV E max jerry: 92.0 cm/sec Lat Peak E' Jerry: 12.8 cm/sec Med Peak E' Jerry: 13.0 cm/sec MV A max jerry: 83.9 cm/sec E/E' lat: 7.2 E/E' med: 7.1 MV E/A: 1.1 Ao V2 max: 153.4 cm/sec LV V1 max: 146.6 cm/sec PA V2 max: 117.0 cm/sec Ao max P.4 mmHg LV V1 max P.6 mmHg TR max jerry: 300.0 cm/sec TR max P.0 mmHg ECHO/Echo Complete Interpretation Summary Normal LV size. Left ventricular systolic function is normal. Bubble contrast study negative for right to left interatrial shunt. Pulmonary artery systolic pressure is 40 mmHg. Ordering Physician: Bobo Biggs Referring Physician: ROMI BOWERS Performed By: Maddi Mclain RDCS
--- NOTE | 2022-09-26 18:25 | STRESSREP ---
Stress Test Report Pharmacologic myocardial perfusion stress test. 71-year-old lady with a history of paroxysmal atrial fibrillation Resting EKG demonstrates sinus rhythm with a rate of 49 bpm. Resting blood pressure is 122/88 mmHg. 0.4 mg of regadenoson was infused per usual protocol followed by rapid intravenous saline flush injection. Continuous EKG monitoring was performed. The maximum heart rate was 66 bpm which was 44% of max impacted heart rate the maximum workload was 1 metabolic equivalent. At rest there were no ST or T wave changes noted to suggest ischemia and at peak infusion nonspecific ST changes were noted which did not meet the criteria for ischemia. No clinical angina is noted. The final blood pressure was 122/80 mmHg. Myocardial perfusion protocol. 11.8 mCi of technetium 99m sestamibi was injected at rest. 0.4 mg of regadenoson was infused per usual protocol. At peak infusion 34.3 mCi of technetium 99m sestamibi was injected stress images were obtained stress and rest images were reconstructed and compared in the short axis vertical long and horizontal long axis. Gated images were also obtained. Perfusion SPECT analysis: Review of the stress images demonstrate normal uptake of tracer noted in all areas of the myocardium. There is an area in the inferior wall which appears to have reduced perfusion noted however. The resting images similar demonstrated normal uptake of tracer noted in all areas of the myocardium except for the area of reduced perfusion in the inferior wall. The above may be suggestive of a previous inferior infarct. Gated SPECT analysis: The gated ejection fraction is 74%. Conclusion: Normal pharmacologic myocardial perfusion stress test. Preserved ejection fraction. Previous inferior infarct cannot be completely excluded
== END | disposition home or self-care (01) ==
LOC: CVS 07:03
PROVIDERS: PCP Family Medicine; Visit Provider Internal Medicine Cardiovascular Disease
DX: I48.0 Paroxysmal atrial fibrillation (principal); R94.31 Abnormal electrocardiogram [ECG] [EKG]; Z79.899 Other long term (current) drug therapy
CPT/HCPCS: 78452; 93017; 93306; A9500; A4216; J2785

== ENCOUNTER → 2022-10-29 | Outpatient (CLI) | payer MEDICARE, OTHER, SELFPAY | END | disposition home or self-care (01) | LOC: MFPLAB 13:39 → LABSPEC 13:39 | PROVIDERS: PCP Family Medicine; Visit Provider Family Medicine | DX: N39.0 Urinary tract infection, site not specified (principal) | CPT/HCPCS: 87077; 87086; 87088; 87186 ==

== ENCOUNTER → 2022-11-05 | Outpatient (CLI) | payer MEDICARE, OTHER, SELFPAY ==
--- NOTE | 2022-11-05 14:14 | BI_ITS ---
MAMMOGRAPHY - BILATERAL SCREENING REASON FOR EXAM: Female, 71 years old. Routine annual screening examination. PERTINENT HISTORY: Sister with breast cancer. Right breast biopsy. TECHNIQUE: Digital bilateral breast donaldo (3D mammographic acquisition) in the CC and MLO projections. 2-D mediolateral oblique (MLO) and craniocaudad (CC) views of both breasts were obtained. CAD: Full Field Digital Mammography with Computer Added Detection was performed. COMPARISON: Comparison is made with prior study May 15, 2020 and July 29, 2019. FINDINGS: Breast Composition: There are scattered areas of fibroglandular density. Indication: Seen within a nodule measuring 1.4 signed by 1.1 cm in the deep central medial aspect of the right breast. This has decreased in size as compared to prior study. Stable small calcified nodule in the retroareolar region of the left breast. No other significant abnormalities are identified. There has been no significant change since the prior study. BI/SCRN MAMM (CAD)W/DONALDO BILAT IMPRESSION: Stable bilateral screening mammogram. Yearly follow-up mammogram recommended. (A) ASSESSMENT CATEGORY: BIRADS Category 2: Benign. A letter regarding these results will be sent to the patient by the facility within 30 days. Approximately 10% of breast cancers are not detected by mammography. A normal mammogram should not delay biopsy of a clinically suspicious abnormality. [id number] Electronically Signed: Agustín Alexandre MD at 8:52 EDT ,
== END | disposition home or self-care (01) ==
LOC: OPBI 14:12
PROVIDERS: PCP Family Medicine; Referring Provider Family Medicine; Visit Provider Family Medicine
DX: Z12.31 Encounter for screening mammogram for malignant neoplasm of breast (principal); Z80.3 Family history of malignant neoplasm of breast
CPT/HCPCS: 77063; 77067

== ENCOUNTER → 2023-01-07 | Outpatient (CLI) | payer MEDICARE, OTHER, SELFPAY ==
--- NOTE | 2023-01-07 12:51 | US_ITS ---
EXAM: US RETROPERITONEAL LIMITED, RENAL CLINICAL INDICATION: UTI''S TECHNIQUE: Limited grayscale and color Doppler sonographic evaluation of the retroperitoneum was performed. COMPARISON: No relevant prior studies available. FINDINGS: RIGHT KIDNEY: 13.1 cm. Simple right renal cyst measuring 1.5 cm. No follow-up imaging is recommended per consensus recommendations based on imaging criteria. No hydronephrosis. No shadowing calculus. No perinephric collection is demonstrated. LEFT KIDNEY: The left kidney is atrophic, measuring only 6.4 cm. Diffuse cortical thinning. No hydronephrosis. No shadowing calculus. No perinephric collection is demonstrated. Bladder: No filling defects identified. US/Kidney and Bladder IMPRESSION: 1. No acute findings involving the kidneys or bladder. 2. Significant atrophy of the left kidney. Electronically Signed: Narciso Tran MD at 2:41 EDT ,
== END | disposition home or self-care (01) ==
LOC: US 12:50
PROVIDERS: PCP Family Medicine; Referring Provider Urology; Visit Provider Urology
DX: N39.0 Urinary tract infection, site not specified (principal)
CPT/HCPCS: 76770

== ENCOUNTER → 2023-01-14 | Outpatient (CLI) | payer MEDICARE, OTHER, SELFPAY ==
[2023-01-14 18:34] LABS: Anion Gap 6 (5-15); BUN 16 mg/dL (7-18); BUN/Creat Ratio 15.2 RATIO (10-20); Calcium,Total 9.8 mg/dL (8.5-10.1); Chloride 108 mmol/L (98-107); Creatinine, Serum 1.05 mg/dL (0.55-1.02); EST Glomerular Filtration Rate 55 mL/min (>60); Est Glom Filt Rate - Afr Amer 66 mL/min (>60); Glucose 89 mg/dL (74-106); Potassium 4.5 mmol/L (3.5-5.1); Sodium Level 141 mmol/L (136-145)
== END | disposition home or self-care (01) ==
LOC: MFPLAB 14:55
PROVIDERS: PCP Family Medicine; Visit Provider Family Medicine
DX: N28.9 Disorder of kidney and ureter, unspecified (principal)
CPT/HCPCS: 36415; 80048

== ENCOUNTER → 2023-07-15 | Outpatient (CLI) | payer MEDICARE, OTHER, SELFPAY ==
[2023-07-15 16:25] LABS: AST(SGOT) 18 U/L (15-37); Alanine Aminotransfer ALT/SGPT 14 U/L (13-56); Albumin, Serum 3.4 g/dL (3.2-5.0); Alkaline Phosphatase 101 U/L (45-117); Anion Gap 4 (5-15); BUN 22 mg/dL (7-18); BUN/Creat Ratio 20.6 RATIO (10-20); Calcium,Total 10.6 mg/dL (8.5-10.1); Chloride 107 mmol/L (98-107); Cholesterol 346 mg/dL (200); Creatinine, Serum 1.07 mg/dL (0.55-1.02); EST Glomerular Filtration Rate 54 mL/min (>60); Est Glom Filt Rate - Afr Amer 65 mL/min (>60); Globulin 3.4 g/dL (2.2-4.2); Glucose 121 mg/dL (74-106); High Density Lipoprotein 65 mg/dL; Potassium 4.3 mmol/L (3.5-5.1); Protein, Total 6.8 g/dL (6.4-8.2); Sodium Level 139 mmol/L (136-145); Triglycerides 240 mg/dL; Very Low Density Lipoprotein 48 mg/dL (5-40)
== END | disposition home or self-care (01) ==
LOC: MFPLAB 14:20
PROVIDERS: PCP Family Medicine; Visit Provider Family Medicine
DX: E78.2 Mixed hyperlipidemia (principal)
CPT/HCPCS: 36415; 80053; 80061

== ENCOUNTER 2024-03-27 06:29 | Emergency (ER) | payer MEDICARE, OTHER, SELFPAY ==
[2024-03-27 06:30] VITALS: BP 167/95; PULSE 56; RESP 18; TEMP 36.6; O2SAT 94; BMI 31.4
--- NOTE | 2024-03-27 06:43 | EKG12_ITS ---
Test Reason : Blood Pressure : / mmHG Vent. Rate : 049 BPM Atrial Rate : 049 BPM P-R Int : 236 ms QRS Dur : 110 ms QT Int : 494 ms P-R-T Axes : 032 -44 -14 degrees QTc Int : 446 ms Sinus bradycardia with 1st degree A-V block Left axis deviation Minimal voltage criteria for LVH, may be normal variant ( [place] product ) Abnormal ECG Confirmed by MAKSIM POWERS, FABY ([id number]), fashion editor NUNU SIMS ([id number]) on 03/30/2024 2:01:49 PM Referred By: Confirmed By:FABY SCHAEFFER MD
--- NOTE | 2024-03-27 07:00 | RAD_ITS ---
EXAM: XR CHEST, 1 VIEW CLINICAL INDICATION: HYPERTENSION TECHNIQUE: Frontal view of the chest. COMPARISON: XR Chest dated 05/24/2013 FINDINGS: LUNGS AND PLEURAL SPACES: Normal. No consolidation or edema. No pneumothorax. No effusion. HEART: Normal heart size. MEDIASTINUM: No mediastinal or hilar mass. BONES/JOINTS: No acute abnormality. RAD/Chest 1 View (Portable) IMPRESSION: No acute cardiopulmonary abnormality. No interval change. Electronically Signed: Pop Mclain MD at 8:56 EDT ,
--- NOTE | 2024-03-27 07:04 | EDS_ITS ---
HPI History of Present Illness Chief Complaint: General Illness Informant: patient Narrative Narrative: 73-year-old female presenting to the emergency room with indigestion and chills. Patient states that yesterday she was working [employer]. She states that she has been experiencing chills significant indigestion and a sensation like she is falling in an elevator. She states that that feeling is not unusual for her. She states that she recently had her family stay and one of the individuals has been hospitalized with pancreatitis and diabetes so she has some concerns of pancreatitis. She has not developed a fever. No rhinorrhea sore throat or cough. No diarrhea. She notes a strange smell in her urine. [facility] Medical History Kidney disease Abnormal mammogram of right breast Abnormality of right breast on screening mammogram Obesity Paroxysmal atrial fibrillation History of cystocele Single kidney Migraine Hyperlipidemia Gastroesophageal reflux disease Home Medications ?Medication ?Instructions ?Recorded ?Last Taken ?Type aspirin 325 mg tablet 325 mg PO DAILY@0800 05/24/13 05/30/13 History 325 MG esomeprazole magnesium 20 mg 20 mg PO DAILY 11/04/18 Unknown History capsule,delayed release (Nexium) fexofenadine 60 mg-pseudoephedrine 1 tab PO Q12H PRN allergy symptoms 08/06/19 Unknown History ER 120 mg tablet,ext.release,12 hr (Lindsey-D 12 Hour) biotin 5,000 mcg disintegrating 10,000 mcg PO DAILY 06/06/21 Unknown History tablet z Stack 1 cap PO BID 08/20/22 Unknown History flecainide 100 mg tablet 100 mg PO BID #180 tabs 07/22/23 Unknown Rx metoprolol tartrate 25 mg tablet 25 mg PO BID #180 tabs 08/26/23 Unknown Rx Allergy/AdvReac Type Severity Reaction Status Date / Time doxycycline Allergy Unknown Tongue sore Verified 03/27/24 06:37 Acwwznc-OQF-HfZ Reductase AdvReac Severe muscle Verified 03/27/24 06:37 Inhibitor (Dcbcnjc-Qvz-Elz aches Reductase Inhibitor) amoxicillin trihydrate (From AdvReac Other Verified 03/27/24 06:37 Augmentin) clams AdvReac Nausea/Vom/ Verified 03/27/24 06:37 Diarrhea potassium clavulanate (From AdvReac Other Verified 03/27/24 06:37 Augmentin) Family History Father CAD (coronary artery disease) Surgical History History of arthroscopy of knee History of right breast biopsy (07/2019) History of left heart catheterization (05/2010) H/O microdiscectomy Hx of cholecystectomy H/O foot surgery H/O tubal ligation Social History Smoking Status: Former smoker how long ago did patient quit smokin years ago alcohol intake: current alcohol intake frequency: holidays/special occasions only substance use type: does not use caffeine: Yes (Occasionally) ROS ROS ED Constitutional Constitutional ED: Reports chills; Denies fever(s) or weight loss Eyes Eyes: Denies change in vision or diplopia ENT ENT ED: Denies ear pain, rhinorrhea or sore throat Cardiovascular Cardiovascular: Denies chest pain, orthopnea, palpitations or racing heartbeat Respiratory/Chest Respiratory/Chest: Denies cough, dyspnea or orthopnea Gastrointestinal Gastrointestinal: Reports other Details: Indigestion ; Denies abdominal pain, diarrhea, nausea or vomiting Genitourinary Genitourinary ED: Reports other Details: Smell to urine ; Denies dysuria, hematuria or urinary frequency Musculoskeletal Musculoskeletal: Denies arthralgias or myalgias Integumentary Denies abscess or rash Neurologic Neurologic: Reports other Details: Tingling over her whole body ; Denies headache(s) or weakness Psychiatric Psychiatric: Denies anxiety, depression, suicidal ideation or suicidal thoughts Endocrine Endocrinology: Denies polydipsia, polyphagia or polyuria Allergic/Immunologic Allergic/Immunologic ED: Denies mouth swelling, tongue swelling or urticaria EXAM Physical Exam Const Vital Signs: 03/27/24 06:30 Temperature 97.9 F Temperature Source Oral Pulse Rate 56 L Respiratory Rate 18 Blood Pressure 167/95 H Blood Pressure Mean 119 Pulse Ox 94 Oxygen Delivery Method Room Air Positive well nourished and well developed General Appearance ED: well developed HEENT Reports normocephalic, head/scalp atraumatic and moist mucous membranes Eyes PERRL and EOMs intact bilaterally Neck no lymphadenopathy, supple and no JVD Resp normal respiratory effort and clear to auscultation bilaterally Cardio regular rate, regular rhythm and no murmurs GI normal to inspection, nondistended, normoactive bowel sounds and non-tender Palpation: soft Back/Spine no CVA tenderness and normal ROM Extremity normal to inspection General Extremety ED: Negative for edema General Extremity: Negative for edema Neuro oriented x3 and CN's II-XII intact bilaterally Sensorium / Orientation: alert Motor Exam: strength 5/5 throughout Psych mental status grossly normal Mood & Affect: Negative for depressed or tearful Skin no rashes or lesions noted and no wounds MDM MDM MDM Narrative Medical decision making narrative: Differential diagnosis includes but not limited to viral syndrome UTI pneumonia electrolyte any pancreatitis gastritis/GERD White count 6.6 hemoglobin 13.1 platelet count of 259. Creatinine normal at 1.02 BUN of 19 normal LFTs and lipase. Urinalysis with 0-5 white cells 0-5 squamous cells 5-10 red cells negative nitrates positive leukocyte esterase 3+ bacteria this will be sent for culture. My independent interpretation of the chest x-ray is no acute process. COVID influenza and RSV swabs were negative. EKG is in normal sinus rhythm. Patient states that a GI cocktail did help her for about 5 minutes and as she is sad in the emergency department waiting for her results she has developed pain more towards the right flank wrapping around the upper abdomen into the left upper quadrant. She states that this is the side that she has an atrophied kidney on. She notes that it is more tender when she pushes on the lower posterior left rib cage. She notes that she has an antibiotic at home that she gets through her urologist for when she gets urinary tract infections. She has not had 1 for at least 6 months. She believes the prescription is Keflex and she is to take it for [address] Leon I think that is a reasonable plan. Patient takes Nexium. She can certainly try some Pepcid or Mylanta/continued Pepto-Bismol. I am not currently seeing strong evidence that would warrant advanced imaging at this time. Does not appear to be pancreatitis or colitis. History & Record Review Discussion w/independent historian: Patient Lab Data Attestation: I reviewed the patient's lab results. Labs: Laboratory Results - last 24 hr 09/28/24 09/28/24 06:45 07:43 WBC 6.6 RBC 4.34 Hgb 13.1 Hct 40.8 MCV 94.0 MCH 30.2 MCHC 32.1 RDW Std Deviation 43.7 RDW Coeff of Latonya 12.7 Plt Count 259 MPV 10.5 Immature Gran % (Auto) 0.300 Neut % (Auto) 58.0 Lymph % (Auto) 26.9 Crane % (Auto) 11.5 H Eos % (Auto) 2.7 Baso % (Auto) 0.6 Absolute Neuts (auto) 3.8 Absolute Lymphs (auto) 1.76 Nucleated RBC % 0 Sodium 142 Potassium 4.0 Chloride 107 Carbon Dioxide 29.0 Anion Gap 5 BUN 19 H Creatinine 1.02 Estim Creat Clear Calc 53.90 Est GFR (MDRD) Af Amer 68 Est GFR (MDRD) Non-Af 57 L BUN/Creatinine Ratio 18.6 Glucose 106 Calcium 10.4 H Total Bilirubin 0.70 Direct Bilirubin 0.10 AST 21 ALT 16 Alkaline Phosphatase 102 Troponin I High Sens 5 Total Protein 7.1 Albumin 3.4 Globulin 3.7 Lipase 63 Urine Color Yellow Urine Clarity Clear Urine pH 7.0 Ur Specific Colrain 1.010 Urine Protein Negative Urine Glucose (UA) Normal Urine Ketones Negative Urine Occult Blood 50 H Urine Nitrite Negative Urine Bilirubin Negative Urine Urobilinogen Normal Ur Leukocyte Esterase 100 H Urine RBC 5-10 SEEN Urine WBC 0-5 SEEN Ur Squamous Epith Cells 0-5 SEEN Urine Bacteria 3+ Urine Mucus 0 SEEN EKG Initial EKG: Attestation: I personally reviewed and interpreted this EKG as follows: Comments: Sinus bradycardia first-degree AV block ventricular rate of 49 bpm Discharge Plan Triage Chief Complaint: General Illness ED Provider: Keo Moreno Dx/Rx/DC Orders Prescriptions: No Action esomeprazole magnesium [Nexium] 20 mg capsule,delayed release(DR/EC) 20 mg PO DAILY fexofenadine-pseudoephedrine [Lindsey-D 12 Hour] 60-120 mg tablet extended release 12 hr 1 tab PO Q12H PRN (Reason: allergy symptoms) biotin 5,000 mcg tablet,disintegrating 10,000 mcg PO DAILY z Stack 1 cap PO BID metoprolol tartrate 25 mg tablet 25 mg PO BID Qty: 180 3RF aspirin 325 MG tablet 325 mg PO DAILY@0800 Patient Comments: heart health flecainide 100 mg tablet 100 mg PO BID Qty: 180 3RF Primary Care Provider: Leonidas Velasquez Referrals: Leonidas Velasquez MD [Primary Care Provider] - Print Language: Kazakh
[2024-03-27 07:13] LABS: Absolute Lymphocyte Count 1.76 X10^3/uL (0.83-4.51); Absolute Neutrophil Count 3.8 X10^3/uL (2.0-7.7); Basophil# 0.04 X10^3/uL; Basophil% 0.6 % (0-1); Eosinophil# 0.18 X10^3/uL; Eosinophils% 2.7 % (0-5); Hematocrit 40.8 % (37-47); Hemoglobin 13.1 g/dL (12.0-15.0); Lymphocyte # 1.76 X10^3/ul (0.83-4.51); Lymphocyte % 26.9 % (19-41); Mean Corp Hgb Conc 32.1 g/dL (32-36); Mean Corpuscular Hgb 30.2 pg (27.0-32.0); Mean Platelet Vol. 10.5 fl (6.2-12.0); Monocyte# 0.75 X10^3/uL; Monocyte% 11.5 % (0-10); NRBC Flagged by Analyzer 0 % (0-5); Platelet Count 259 K/mm3 (150-450); RBC Distribution Width CV 12.7 % (11.6-14.6); RBC Distribution Width SD 43.7 fl (35.1-43.9); Red Blood Count 4.34 M/mm3 (4.2-5.4); White Blood Count 6.6 K/mm3 (4.4-11.0)
[2024-03-27] MEDS: Mag Hydrox/Al Hydrox/Simeth 30 ML UDC PO (07:17)
[2024-03-27] MEDS: Lidocaine 2% Viscous15 ML UDC 15 ML PO (07:17)
[2024-03-27 07:32] LABS: AST(SGOT) 21 U/L (15-37); Alanine Aminotransfer ALT/SGPT 16 U/L (13-56); Albumin, Serum 3.4 g/dL (3.2-5.0); Alkaline Phosphatase 102 U/L (45-117); Anion Gap 5 (5-15); BUN 19 mg/dL (7-18); BUN/Creat Ratio 18.6 RATIO (10-20); Calcium,Total 10.4 mg/dL (8.5-10.1); Chloride 107 mmol/L (98-107); Creatinine, Serum 1.02 mg/dL (0.55-1.02); EST Glomerular Filtration Rate 57 mL/min (>60); Est Glom Filt Rate - Afr Amer 68 mL/min (>60); Globulin 3.7 g/dL (2.2-4.2); Glucose 106 mg/dL (74-106); Lipase 63 U/L (13-75); Protein, Total 7.1 g/dL (6.4-8.2); Sodium Level 142 mmol/L (136-145); Troponin-I HS 5 pg/mL (3.0-54.0)
[2024-03-27 07:49] LABS: Mucous, Urine 0 SEEN /hpf (<or=2+)
[2024-03-27 07:50] LABS: Color, Urine Yellow (Yellow); Glucose, Dipstick Normal (Normal); Ketone-Dipstick Negative (Negative); Leukocyte Esterase-Dipstick 100 /ul (Negative); Nitrite-Dipstick Negative (Negative); Occult Blood-Urine 50 /ul (Negative); Protein-Dipstick Negative (Negative); Urine Bilirubin Dipstick Negative (Negative); Urine Clarity Clear (Clear); Urine Urobilinogen Normal (Normal)
[2024-03-27 08:03] LABS: Bacteria 3+ /hpf (None Seen); Red Blood Cells-Urine 5-10 SEEN /hpf (0-5); Squamous Epithelial Cells - UA 0-5 SEEN /hpf (5-10); White Blood Cells 0-5 SEEN /hpf (0-5)
[2024-03-27 08:30] VITALS: BP 144/74; PULSE 55; RESP 16; O2SAT 94
[2024-03-27 08:35] VITALS: BP 144/74; PULSE 55; RESP 16; TEMP 36.4; O2SAT 94
== END 2024-03-27 08:42 | disposition home or self-care (01) ==
PROVIDERS: Emergency Provider Emergency Medicine; PCP Family Medicine; Visit Provider Emergency Medicine
DX: R68.83 Chills (without fever) (principal); R10.9 Unspecified abdominal pain; E78.5 Hyperlipidemia, unspecified; Z79.82 Long term (current) use of aspirin; Z79.899 Other long term (current) drug therapy; Z87.891 Personal history of nicotine dependence
CPT/HCPCS: 71045; 80048; 80076; 81001; 83690; 84484; 85025; 87086; 87631; 93005; 99282; A4216

== ENCOUNTER → 2024-05-10 | Outpatient (CLI) | payer MEDICARE, OTHER, SELFPAY | END | disposition home or self-care (01) | LOC: PSN 08:05 | PROVIDERS: PCP Family Medicine; Referring Provider Physician Assistant Medical; Visit Provider Physician Assistant Medical | DX: R42 Dizziness and giddiness (principal); R00.1 Bradycardia, unspecified; R53.83 Other fatigue | CPT/HCPCS: 93225; 93226 ==

== ENCOUNTER → 2024-07-08 | Outpatient (CLI) | payer MEDICARE, OTHER, SELFPAY | END | disposition home or self-care (01) | PROVIDERS: PCP Family Medicine; Referring Provider Urology; Visit Provider Urology | DX: N39.0 Urinary tract infection, site not specified (principal) | CPT/HCPCS: 87086; 87088 ==

== ENCOUNTER → 2024-08-19 | Outpatient (CLI) | payer MEDICARE, OTHER, SELFPAY ==
[2024-08-19 10:19] LABS: Absolute Lymphocyte Count 1.23 X10^3/uL (0.83-4.51); Absolute Neutrophil Count 2.8 X10^3/uL (2.0-7.7); Basophil# 0.04 X10^3/uL; Basophil% 0.8 % (0-1); Eosinophil# 0.12 X10^3/uL; Eosinophils% 2.5 % (0-5); Hematocrit 42.4 % (37-47); Hemoglobin 13.4 g/dL (12.0-15.0); Lymphocyte # 1.23 X10^3/ul (0.83-4.51); Mean Corp Hgb Conc 31.6 g/dL (32-36); Mean Corpuscular Hgb 29.6 pg (27.0-32.0); Mean Corpuscular Volume 93.6 fL (81-99); Mean Platelet Vol. 10.9 fl (6.2-12.0); Monocyte% 10.6 % (0-10); NRBC Flagged by Analyzer 0 % (0-5); Neutrophil # 2.83 X10^3/uL (2.7-7.7); Neutrophil % 59.9 % (47-70); Platelet Count 219 K/mm3 (150-450); RBC Distribution Width CV 12.5 % (11.6-14.6); RBC Distribution Width SD 43.1 fl (35.1-43.9); Red Blood Count 4.53 M/mm3 (4.2-5.4); White Blood Count 4.7 K/mm3 (4.4-11.0)
[2024-08-19 10:43] LABS: AST(SGOT) 20 U/L (15-37); Alanine Aminotransfer ALT/SGPT 13 U/L (13-56); Albumin, Serum 3.5 g/dL (3.2-5.0); Alkaline Phosphatase 101 U/L (45-117); Anion Gap 2 (5-15); BUN 17 mg/dL (7-18); BUN/Creat Ratio 16.5 RATIO (10-20); Calcium,Total 10.3 mg/dL (8.5-10.1); Chloride 108 mmol/L (98-107); Cholesterol 307 mg/dL (200); Creatinine, Serum 1.03 mg/dL (0.55-1.02); EST Glomerular Filtration Rate 56 mL/min (>60); Est Glom Filt Rate - Afr Amer 68 mL/min (>60); Globulin 3.4 g/dL (2.2-4.2); Glucose 100 mg/dL (74-106); High Density Lipoprotein 64 mg/dL; Potassium 4.1 mmol/L (3.5-5.1); Protein, Total 6.9 g/dL (6.4-8.2); Sodium Level 141 mmol/L (136-145); Triglycerides 147 mg/dL; Very Low Density Lipoprotein 29 mg/dL (5-40)
[2024-08-19 14:37] LABS: Vitamin D,25 Hydroxy 71.3 ng/mL
== END | disposition home or self-care (01) ==
LOC: MFPLAB 08:44
PROVIDERS: PCP Family Medicine; Referring Provider Family Medicine; Visit Provider Family Medicine
DX: N26.1 Atrophy of kidney (terminal) (principal); E78.2 Mixed hyperlipidemia; Z78.0 Asymptomatic menopausal state
CPT/HCPCS: 36415; 80053; 80061; 82306; 85025

== ENCOUNTER → 2024-09-08 | Outpatient (CLI) | payer MEDICARE, OTHER, SELFPAY ==
--- NOTE | 2024-09-08 14:50 | CT_ITS ---
PROCEDURE: ABDOMEN WITH IV CONTRAST REASON FOR EXAM: Right upper quadrant pain. Prior cholecystectomy. TECHNIQUE: Abdomen CT with intravenous contrast. Oral contrast was also used. IV CONTRAST: 100 cc of Isovue-300. COMPARISON: None. FINDINGS: Lung bases: Clear Liver: Mild degree of central intrahepatic biliary ducts. Gallbladder: Surgically absent. Spleen: Unremarkable. Pancreas: Unremarkable. Adrenals: Unremarkable. Kidneys: Marked atrophy of the left kidney. Nonobstructive calculi are seen in the upper pole calyx of the left kidney. Bowel: Visualized loops of bowel in the upper abdomen are unremarkable. Lymph nodes: No suspicious lymph node enlargement. Vasculature: Mild atherosclerotic plaque formation of the abdominal aorta. Peritoneum / Retroperitoneum: No ascites or free air at the upper abdomen. Bones: Degenerative changes of the spine. CT/Abdomen WITH IV Contrast IMPRESSION: Status post cholecystectomy with the mild degree of central intrahepatic biliar y ductal dilatation. Marked atrophy of the left kidney. One or more dose reduction techniques were used (e.g., Automated exposure contr ol, adjustment of the mA and/or kV according to patient size, use of iterative reconstruction technique). Reading Location: [place] [id number]
== END | disposition home or self-care (01) ==
LOC: CT 14:41
PROVIDERS: PCP Family Medicine; Referring Provider Family Medicine; Visit Provider Family Medicine
DX: R10.31 Right lower quadrant pain (principal)
CPT/HCPCS: 74160; Q9967; A4216

== ENCOUNTER 2024-09-22 08:30 | Outpatient (RCR) | payer MEDICARE, OTHER, SELFPAY ==
--- NOTE | 2024-08-30 17:25 | HP.PTEVAL ---
Patient's Visit Information Visit Information Visit Information: BRIAN LONDONO is a 73 year old F referred to Physical Therapy by Leonidas Velasquez MD with a diagnosis of B shoulder pain. Date of Evaluation: 08/30/24 Physical Therapist: Narciso Sam, PT, ATC Visit Plan Frequency: 2-3x /Week Duration: 4-6 Weeks Plan: B shoulder rotator cuff strengthening, scap stab ex's, UBE, and HEP Subjective Subjective: Pt reports she has been dealing with R shoulder pain for over one year. 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 Pt reports approximately 6 mos ago, her L shoulder started hurting for no known reason. Pt reports she is R hand dominant. Pt notes she gets severe pain in her shoulders when she moves them the wrong way. Pt reports reaching behind her back or attempting to lift heavy objects increases her pain. Pt reports sleep difficulty at this time secondary to pain. Pt denies any UE tingling or numbness at this time. Pt denies having any diagnostic testing at this time. Pt reports she feels like her pain is a nerve pain. Pt reports she does have neck pain at this time, but feels like this is a totally different kind of pain. Pain R shoulder: Pain Intensity (Out of 10): 0 Pain Intensity Range: 9 L shoulder: Pain Intensity (Out of 10): 0 Pain Intensity Range: 9 Objective Objective: Neuro: B UE sensation is WNL to light touch. B biceps reflex= 1/3 Palpation: Pt is sore along the distributions of the LHB tendon and distribution of the supraspinatus. No obvious deformity at this time. ROM: R shoulder flex= 80, abd= 90, ER= 50, IR= WNL; L shoulder flex= 105, abd= 70, ER= 45, IR= WNL MMT: R shoulder flex= 10, abd= 21, ER= 17, IR= 18 #F; L shoulder flex= 6, abd= 7, ER= 14, IR= 14 #F Special tests: pos speeds, pos HK, pos empty can Balance/Special Test Scores Quick DASH Score: 29.5450 Goals Goal 1:: Decrease B shoulder pain x 50% to aid with sleep Goal Time Frame: 4-6 Weeks Goal 2:: Increase B shoulder flex and abd ROM x 40 degrees to aid with overhead lifting Goal Time Frame: 4-6 Weeks Goal 3:: Increase B shoulder strength x 5#F in all planes to aid with IADL's Goal Time Frame: 4-6 Weeks Goal 4:: I with HEP Goal Time Frame: 4-6 Weeks Rehabilitation Potential Physical Therapy Diagnosis: Pt has B shoulder pain, weakness, and limited ROM secondary to impingement Rehabilitation Potential: Good Anticipated Interventions Patient/Client Instruction: Educate patient on: Condition and Plan of Care For the Purpose of:: To improve self management Therapeutic Exercise to Include: Strength training, Endurance training, Flexibilty training, Active ROM and Scapular Strength/Stabilization For the Purpose of:: To decrease pain, To increase ROM and To improve muscle performance and motor function Cryotherapy (ice pack, ice massage): Yes For the Purpose of:: To decrease pain Text: Thank you for the opportunity to evaluate your patient. For Medicare and Medicare HMO plans, please review the plan of care and approve it. It will need to be FAXED BACK to us at [phone] for Medicare purposes. For Medicare only, by signing this I certify the plan of care. Please let me know if there are questions or concerns regarding this plan of care. Physician Signature: Date:
--- NOTE | 2024-09-22 09:28 | HP.PTREVAL ---
Re-Evaluation Intro: Leonidas Velasquez MD, It has been my pleasure to treat BRIAN LONDONO over the last 9 visits for B shoulder pain. Please see the progress note below for an update on the physical therapy plan of care! Subjective Subjective: Pt reports pain ranges from 0-5/10. Pt reports occasional sleep difficulty secondary to pain Objective Objective/Function: B shoulder pain ranges from 0-5/10 ROM: R shoulder abd= 160, flex= 130; L shoulder flex= 150, abd= 130 MMT: R shoulder flex= 11, abd= 18, er= 17, IR = 20; L shoulder flex= 10, abd= 17, er= 18, IR= 19 #F Pt is I with HEP Plan Plan Plan: Follow up or discharge in one month Balance/Gait/Functional tests Balance/Special Test Scores Quick DASH Score: 29.5450 Goals Goals Goal 1:: Decrease B shoulder pain x 50% to aid with sleep Goal Time Frame: 4-6 Weeks Goal Progress: Goal Met Goal 2:: Increase B shoulder flex and abd ROM x 40 degrees to aid with overhead lifting Goal Time Frame: 4-6 Weeks Goal Progress: Goal Met Goal 3:: Increase B shoulder strength x 5#F in all planes to aid with IADL's Goal Time Frame: 4-6 Weeks Goal Progress: Progressing Goal 4:: I with HEP Goal Time Frame: 4-6 Weeks Goal Progress: Goal Met Anticipated Interventions Anticipated Interventions Patient/Client Instruction: Educate patient on: Condition and Plan of Care For the Purpose of:: To improve self management Therapeutic Exercise to Include: Strength training, Endurance training, Flexibilty training, Active ROM and Scapular Strength/Stabilization For the Purpose of:: To decrease pain, To increase ROM and To improve muscle performance and motor function Cryotherapy (ice pack, ice massage): Yes For the Purpose of:: To decrease pain Re-Evaluation Ending Re-evaluation ending: Please do not hesitate to contact me at [phone] by phone or if you have questions or concerns regarding this new plan of care! Sincerely, Narciso Sam, PT, ATC
--- NOTE | 2024-12-29 13:54 | HP.PT.NRP ---
Patient Information Patient Information: BRIAN LONDONO was seen in my office for initial evaluation on 08/30/24. The following Plan of Care was established for this patient: POC Established Initial Frequency: 2-3x /Week Initial Duration: 4-6 Weeks Anticipated Interventions Patient/Client Instruction: Educate patient on: Condition and Plan of Care For the Purpose of:: To improve self management Therapeutic Exercise to Include: Strength training, Endurance training, Flexibilty training, Active ROM and Scapular Strength/Stabilization For the Purpose of:: To decrease pain, To increase ROM and To improve muscle performance and motor function Cryotherapy (ice pack, ice massage): Yes For the Purpose of:: To decrease pain Last Seen Last Seen: This patient was last seen in our office . Pertinent comments regarding their Physical therapy will appear below: Pt has not returned for greater than 30 days and is discontinued at this time. At this point I will be discontinuing this patient from physical therapy. I would be happy to see this patient again in the future if found appropriate by the physician. Thank you! Narciso Sam, PT, ATC Balance/Gait/Functional tests Balance/Special Test Scores Quick DASH Score: [phone]
== END 2024-09-22 19:00 | disposition home or self-care (01) ==
LOC: PT 08:30
PROVIDERS: PCP Family Medicine; Referring Provider Family Medicine; Visit Provider Family Medicine
DX: M25.511 Pain in right shoulder (principal); M25.512 Pain in left shoulder
CPT/HCPCS: 97110; 97161; 97530

== ENCOUNTER 2024-10-04 08:37 | Day surgery (SDC) | payer MEDICARE, OTHER, SELFPAY ==
--- NOTE | 2024-09-30 10:17 | PAT.ANESEVAL ---
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 When Was Last Pacemaker Check QUESTION #4 FULL TEXT: You/Your Family Experience fever (hyperthermia) with Anesthesia Last Oral Intake Last Oral intake: Last Oral Intake NPO since Meds taken in AM with sips of water? 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 Female Yes 09/30/24 09:00 HX of Motion Sickness No 09/30/24 09:00 HX of N/V After Surgery No 09/30/24 09:00 Non-Smoker Yes 09/30/24 09:00 Duration of Surgery greater No 09/30/24 09:00 than 60 minutes Number of Risk Factors 2 09/30/24 09:00 PONV Score Moderate Risk 09/30/24 09:00 Height & Weight Height & Weight: Anesthesia: Height & Weight Height 5 ft 5 in 08/31/24 09:56 Respiratory Assessment Respiratory Assessment - power plant operators supervisor: Respiratory Tract Infection Hx - power plant operators supervisor Hx Respiratory Tract Infection No 09/30/24 09:00 STOP Sleep Apnea STOP Sleep Apnea - power plant operators supervisor: STOP Sleep Apnea - power plant operators supervisor Hx Hypertension No 09/30/24 09:00 Hx Sleep Apnea No 09/30/24 09:00 CPAP No 09/30/24 09:00 BIPAP No 09/30/24 09:00 Do you snore loudly (louder Yes 09/30/24 09:00 than talking or can be heard Do you often feel tired/ No 09/30/24 09:00 fatigued/ sleepy during daytime? Has anyone observed you stop No 09/30/24 09:00 breathing during sleep? STOP Results Negative 09/30/24 09:00 QUESTION #5 FULL TEXT : Do you snore loudly (louder than talking or can be heard through closed doors)? 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 Specify any problems Hx of Preganancy in last 3 No 09/30/24 09:00 Months Nurse Filling Out Transfusion MGGRICELDA 09/30/24 09:00 & Questions: Date: 09/30/24 09/30/24 09:00 Time: 09:04 09/30/24 09:00 Patient unable to answer at this time (ie. 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 supervisor: /Reproductive Hx- power plant operators supervisor Hx Now No 09/30/24 09:00 Gestational Age (in weeks): EDC: Hx Hx Para Hx Section SAB No 09/30/24 09:00 [facility] Medical History (Updated 09/30/24 @ 09:14 by Pelra Morales) Wears glasses Post-menopausal Migraine headache Injury of head and neck History of hiatal hernia Gastric reflux Former smoker Leg cramps History of Holter monitoring History of stress test History of echocardiogram Cardiology follow-up encounter History of atrial fibrillation Kidney disease Abnormal mammogram of right breast Abnormality of right breast on screening mammogram Obesity Paroxysmal atrial fibrillation History of cystocele Single kidney Migraine Hyperlipidemia Gastroesophageal reflux disease Home Medications ?Medication ?Instructions ?Recorded ?Last Taken ?Type aspirin 325 mg tablet 325 mg PO DAILY@0800 05/24/13 09/29/24 History biotin 5,000 mcg disintegrating 5,000 mcg PO DAILY 06/06/21 Unknown History tablet z Stack 1 cap PO BID 08/20/22 Unknown History metoprolol tartrate 25 mg tablet 12.5 mg (1/2 x 25 mg) PO BID #180 05/25/24 Unknown Rx tabs esomeprazole magnesium 20 mg 40 mg PO DAILY 08/31/24 Unknown History capsule,delayed release (Nexium) famotidine 20 mg tablet 40 mg PO DAILY PRN acid reflux 08/31/24 Unknown History sodium sul 1.479 gram-potas ch See Rx Instructions PO PER PKG DIR 08/31/24 Unknown Rx 0.188 gram-magnes sul 0.225 gram #1 pkg tablet (Sutab) VITAFUSION FIBER 09/30/24 Unknown History acetaminophen 500 mg capsule 1,000 mg PO Q6H PRN pain 09/30/24 Unknown History calcium carbonate (Tums) 300 mg PO DAILY PRN dyspepsia 09/30/24 Unknown History fexofenadine 180 mg tablet 180 mg PO DAILY 09/30/24 Unknown History (Lindsey Allergy) lactobacillus combination no.4 3 3,000 mmu cells PO DAILY 09/30/24 Unknown History billion cell capsule (Probiotic) melatonin 3 mg tablet 3 mg PO QHS PRN sleep 09/30/24 Unknown History Allergy/AdvReac Type Severity Reaction Status Date / Time doxycycline Allergy Unknown Tongue sore Verified 09/30/24 08:47 Xtzvnww-[id number] Reductase AdvReac Severe muscle Verified 09/30/24 08:47 Inhibitor (Dgyswms-Rzv-Ure aches Reductase Inhibitor) amoxicillin trihydrate (From AdvReac Other Verified 09/30/24 08:47 Augmentin) clams AdvReac Nausea/Vom/ Verified 09/30/24 08:47 Diarrhea potassium clavulanate (From AdvReac Other Verified 09/30/24 08:47 Augmentin) Family History Father CAD (coronary artery disease) Surgical History (Updated 09/30/24 @ 09:14 by Perla Morales) History of cardiac catheterization History of arthroscopy of knee History of right breast biopsy (07/2019) History of left heart catheterization (05/2010) H/O microdiscectomy Hx of cholecystectomy H/O foot surgery H/O tubal ligation Social History Smoking Status: Former smoker how long ago did patient quit smokin years ago alcohol intake: current alcohol intake frequency: holidays/special occasions only substance use type: does not use caffeine: Yes (Occasionally) Audit: Pertinent Findings Pertinent Findings EKG Perinent findings: August 24, 2024. Sinus bradycardia. Left anterior fascicular block LVH. ST-T wave abnormality may be normal. Stress test pertinent findings: September 26, 2022. Ejection fraction 74%. There is an area in the inferior wall which appears to have reduced perfusion this may be suggestive of a previous inferior infarct. Echo (EF%) pertinent findings: September 26, 2022. Left ventricular function is normal. PA systolic pressure is 40 mmHg. No aortic stenosis is noted. Consult pertinent findings: August 24, 2024. Rebecca ROSAS. 1. Paroxysmal small atrial [id number] 24-hour Holter did not show any atrial fibrillation. Patient's continues to have bradycardia though asymptomatic. DC flecainide and continue metoprolol. Monitor for and report back any recurrence of A-fib. 2. Long-term use of antiarrhythmic drug-deseeding of the flecainide discussed above. 3. Bradycardia?chronic patient still having episodes of dizziness and fatigue. Discussed discontinuing metoprolol at next visit. Current Visit Impressions Current Visit Impressions: 24-hour Holter monitor done on 05/10/2024. Average heart rate was 53 bpm at normal sinus rhythm or sinus bradycardia with first-degree AV block. There were 4 ectopic ventricular beats and 2 supraventricular beats. There was no atrial fibrillation. Recommendation Anesthesia Recommendation Anesthesia recommendation: OPTIMIZED for anesthesia
--- NOTE | 2024-10-04 08:53 | PCM.PRE.AN2 ---
ASA Classification* ASA Classification ASA Classification: 2 Assessment & Plan Anesthesia* Anesthesia Assessment Anesthesia Assessment: Discussed sedation and/or anesthesia options, risks, benefits, and alternatives with patient/parents/legal guardian/POA. Questions invited. The patient/parents/legal guardian/POA seems to understand and agrees to proceed with anesthesia plan. Reviewed the physical assessment, medical history, allergy history and patient home medications list prior to surgery/procedure/anesthetic and documented any changes. Performed airway and anesthesia risk assessments. Anesthesia Type Anesthesia Type: MAC Anesthesia Focused Assessment* Airway Assessment Mouth opens: >3 cm Mallampati Score: II Focused Labs Anesthesia Preop lab: CBC WBC 4.7 K/mm3 (4.4-11.0) 08/19/24 08:44 08/19/24 RBC 4.53 M/mm3 (4.2-5.4) 08/19/24 08:44 08/19/24 Hgb 13.4 g/dL (12.0-15.0) 08/19/24 08:44 08/19/24 Hct 42.4 % (37-47) 08/19/24 08:44 08/19/24 Plt Count 219 K/mm3 (150-450) 08/19/24 08:44 08/19/24 CHEMISTRY Potassium 4.1 mmol/L (3.5-5.1) 08/19/24 08:44 08/19/24 Sodium 141 mmol/L (136-145) 08/19/24 08:44 08/19/24 Magnesium 1.7 mg/dL (1.8-2.4) L 06/02/13 22:30 06/02/13 BUN 17 mg/dL (7-18) 08/19/24 08:44 08/19/24 Creatinine 1.03 mg/dL (0.55-1.02) H 08/19/24 08:44 08/19/24 Glucose 100 mg/dL (74-106) 08/19/24 08:44 08/19/24 TSH 1.53 uIU/mL (0.358-3.74) 02/28/12 12:40 02/28/12 COAG PT 11.1 SECONDS (11.9-14.4) L 05/24/13 11:04 05/24/13 Pre-Assessment Diagnosis/Proposed Procedure Planned Operative Procedure(s): COLONOSCOPY, EGD Anesthesia History 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 When Was Last Pacemaker Check QUESTION #4 FULL TEXT: You/Your Family Experience fever (hyperthermia) with Anesthesia Last Oral Intake Last Oral intake: Last Oral Intake NPO since Meds taken in AM with sips of water? Meds patient instructed to take am of surgery PONV PONV - farmworker animal: PONV - farmworker animal Female Yes 09/30/24 09:00 HX of Motion Sickness No 09/30/24 09:00 HX of N/V After Surgery No 09/30/24 09:00 Non-Smoker Yes 09/30/24 09:00 Duration of Surgery greater No 09/30/24 09:00 than 60 minutes Number of Risk Factors 2 09/30/24 09:00 PONV Score Moderate Risk 09/30/24 09:00 Height & Weight Height & Weight: Anesthesia: Height & Weight Height 5 ft 5 in 08/31/24 09:56 Respiratory Assessment Respiratory Assessment - farmworker animal: Respiratory Tract Infection Hx - farmworker animal Hx Respiratory Tract Infection No 09/30/24 09:00 STOP Sleep Apnea STOP Sleep Apnea - farmworker animal: STOP Sleep Apnea - farmworker animal Hx Hypertension No 09/30/24 09:00 Hx Sleep Apnea No 09/30/24 09:00 CPAP No 09/30/24 09:00 BIPAP No 09/30/24 09:00 Do you snore loudly (louder Yes 09/30/24 09:00 than talking or can be heard Do you often feel tired/ No 09/30/24 09:00 fatigued/ sleepy during daytime? Has anyone observed you stop No 09/30/24 09:00 breathing during sleep? STOP Results Negative 09/30/24 09:00 QUESTION #5 FULL TEXT : Do you snore loudly (louder than talking or can be heard through closed doors)? 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 Specify any problems Hx of Preganancy in last 3 No 09/30/24 09:00 Months Nurse Filling Out Transfusion MGRIFFITH 09/30/24 09:00 & Questions: Date: 09/30/24 09/30/24 09:00 Time: 09:04 09/30/24 09:00 Patient unable to answer at this time (ie. confused, unrespo /Reproduction History /Reproductive History - farmworker animal: /Reproductive Hx- farmworker animal Hx Now No 09/30/24 09:00 Gestational Age (in weeks): EDC: Hx Hx Para Hx Section SAB No 09/30/24 09:00 [facility] Medical History Wears glasses Post-menopausal Migraine headache Injury of head and neck History of hiatal hernia Gastric reflux Former smoker Leg cramps History of Holter monitoring History of stress test History of echocardiogram Cardiology follow-up encounter History of atrial fibrillation Kidney disease Abnormal mammogram of right breast Abnormality of right breast on screening mammogram Obesity Paroxysmal atrial fibrillation History of cystocele Single kidney Migraine Hyperlipidemia Gastroesophageal reflux disease Home Medications ?Medication ?Instructions ?Recorded ?Last Taken ?Type aspirin 325 mg tablet 325 mg PO DAILY@0800 11/25/13 04/02/25 History biotin 5,000 mcg disintegrating 5,000 mcg PO DAILY 06/06/21 Unknown History tablet z Stack 1 cap PO BID 08/20/22 Unknown History esomeprazole magnesium 20 mg 40 mg PO DAILY 08/31/24 Unknown History capsule,delayed release (Nexium) famotidine 20 mg tablet 40 mg PO DAILY PRN acid reflux 08/31/24 Unknown History sodium sul 1.479 gram-potas ch See Rx Instructions PO PER PKG DIR 08/31/24 Unknown Rx 0.188 gram-magnes sul 0.225 gram #1 pkg tablet (Sutab) VITAFUSION FIBER 09/30/24 Unknown History acetaminophen 500 mg capsule 1,000 mg PO Q6H PRN pain 09/30/24 Unknown History calcium carbonate (Tums) 300 mg PO DAILY PRN dyspepsia 09/30/24 Unknown History fexofenadine 180 mg tablet 180 mg PO DAILY 09/30/24 Unknown History (Lindsey Allergy) lactobacillus combination no.4 3 3,000 mmu cells PO DAILY 09/30/24 Unknown History billion cell capsule (Probiotic) melatonin 3 mg tablet 3 mg PO QHS PRN sleep 09/30/24 Unknown History metoprolol tartrate 25 mg tablet 12.5 mg (1/2 x 25 mg) PO BID #90 10/02/24 Unknown Rx tabs Allergy/AdvReac Type Severity Reaction Status Date / Time doxycycline Allergy Unknown Tongue sore Verified 09/30/24 08:47 Ykjvoqa-[id number]-AsM Reductase AdvReac Severe muscle Verified 09/30/24 08:47 Inhibitor (Hggznst-Ecv-Ndi aches Reductase Inhibitor) amoxicillin trihydrate (From AdvReac Other Verified 09/30/24 08:47 Augmentin) clams AdvReac Nausea/Vom/ Verified 09/30/24 08:47 Diarrhea potassium clavulanate (From AdvReac Other Verified 09/30/24 08:47 Augmentin) Family History Father CAD (coronary artery disease) Surgical History History of cardiac catheterization History of arthroscopy of knee History of right breast biopsy (07/2019) History of left heart catheterization (05/2010) H/O microdiscectomy Hx of cholecystectomy H/O foot surgery H/O tubal ligation Social History Smoking Status: Former smoker how long ago did patient quit smokin years ago alcohol intake: current alcohol intake frequency: holidays/special occasions only substance use type: does not use caffeine: Yes (Occasionally) Review of Systems (Anesthesia) ROS Narrative System reviewed and no additional complaints, except as documented.
[2024-10-04 09:10] VITALS: BP 127/64; PULSE 57; RESP 18; TEMP 36.2; O2SAT 99
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
--- NOTE | 2024-10-04 10:00 | EGD_PTH ---
PATIENT: BRIAN LONDONO LOC: EN U#:[id number] AGE/SX: 73/F ROOM: RE10/04/[address]: Dr. Jessica Gifford MD : 1950 BED: DIS: 10/04/2024 SPEC #: [id number] RECD: 10/04/24 14:13 STATUS: GAGE CASSIDY #: [id number] ANITA: 10/04/24 10:[address]: Jessica Gifford DEPT: SURGICAL PATHOLOGY RECD BY: Arnav Farah ENTERED: 10/04/24 14:14 SP TYPE: EGD BIOPSY OTHR DR: Leonidas Velasquez MD Tissues: A - Gastric mucous membrane B - Gastric mucous membrane C - Ascending colon D - Ascending colon E - Transverse colon F - Rectum, NOS Procedures: Immunohistochemical Stains Surgery Specimen Level IV IHC Stain ADDITIONAL HEADER OPERATION: Colonoscopy, polypectomy, EGD with biopsy PRE-OP DIAGNOSIS: Gastroesophageal reflux disease, screening for colon cancer TISSUE SUBMITTED: A- Antrum biopsy, B- Gastric body biopsy, C- Ascending colon polyps x2 biopsy, D- Lipoma ascending colon biopsy, E- Transverse colon polyp biopsy, F- Rectal polyps x2 MICROSCOPIC DIAGNOSIS A. Stomach, antrum, biopsy: - Chronic gastritis with features of reactive gastropathy. - IHC negative for H pylori organisms. B. Stomach, body, biopsy: - Chronic gastritis with features of reactive gastropathy. - IHC negative for H pylori organisms. C. Ascending colon, polyp x 2, biopsy: - Tubular adenoma. - Serrated polyp with features of sessile serrated lesion. D. Ascending colon, lipoma, biopsy: - Submucosal adipose consistent with submucosal lipoma. E. Transverse colon, polyp, biopsy: - Tubular adenoma. F. Rectum, polyp x 2, biopsy: - Hyperplastic polyp x2. MICROSCOPIC DESCRIPTION Slides are reviewed. These tests were developed and their performance characteristics determined by [facility]. They may not have been cleared or approved by the U.S. Food and Drug Administration. The FDA has determined that such clearance or approval is not necessary. The above immunohistochemical/dualISH markers are ordered and reviewed by the Pathologist. GROSS DESCRIPTION A. Received in formalin in a container labeled with the patient's name, date of , and antrum biopsy for H. pylori and histology is a 0.4 x 0.3 x 0.3 cm fragment of helton-pink mucosal tissue. Submitted in toto in A1. B. Received in formalin in a container labeled with the patient's name, date of , and gastric body for H. pylori and pathology is a 0.4 x 0.3 x 0.3 cm fragment of helton-pink mucosal tissue. Submitted in toto in B1. C. Received in formalin in a container labeled with the patient's name, date of , and ascending colon polyp x 2 are multiple helton-pink fragments of mucosal tissue measuring 0.7 x 0.6 x 0.2 cm in aggregate. Submitted in toto in C1. D. Received in formalin in a container labeled with the patient's name, date of , and lipoma ascending colon is a 0.7 x 0.3 x 0.2 cm fragment of helton-yellow soft tissue. Submitted in toto in D1. E. Received in formalin in a container labeled with the patient's name, date of , and transverse colon polyp biopsy is a 0.3 x 0.2 x 0.2 cm fragment of helton-pink mucosal tissue. Submitted in toto in E1. F. Received in formalin in a container labeled with the patient's name, date of , and rectal polyp x 2 are 2 helton-pink fragments of mucosal tissue, each measuring 0.3 x 0.2 x 0.2 cm. Submitted in toto in F1. [facility] 10-04-2024 CPT:40048r9,[id number]
[2024-10-04 12:11] VITALS: BP 107/79; BP 127/64; PULSE 53; RESP 16; TEMP 37.2; O2SAT 98
--- NOTE | 2024-10-04 12:13 | OP.EGD_ITS ---
Patient Name: Veena Mirza Procedure Date: 10/04/2024 11:20 AM Date of : 1950 Age: 73 Procedure: Upper GI endoscopy Indications: Heartburn Providers: Jessica Gifford MD Referring MD: Leonidas Velasquez Md Medicines: Monitored Anesthesia Care Patient Profile: This is a 73 year old female. Complications: No immediate complications. Procedure: Pre-Anesthesia Assessment: - Prior to the procedure, a History and Physical was performed, and patient medications and allergies were reviewed. The patient's tolerance of previous anesthesia was also reviewed. The risks and benefits of the procedure and the sedation options and risks were discussed with the patient. All questions were answered, and informed consent was obtained. Prior Anticoagulants: The patient has taken no anticoagulant or antiplatelet agents except for aspirin. ASA Grade Assessment: Per anesthesia. After reviewing the risks and benefits, the patient was deemed in satisfactory condition to undergo the procedure. After obtaining informed consent, the endoscope was passed under direct vision. Throughout the procedure, the patient's blood pressure, pulse, and oxygen saturations were monitored continuously. The Colonoscope was introduced through the mouth, and advanced to the second part of duodenum. The upper GI endoscopy was accomplished without difficulty. The patient tolerated the procedure well. Scope In: 11:31:44 AM Scope Out: 11:37:11 AM Total Procedure Duration Time 0 hours 5 minutes 27 seconds Findings: The Z-line was regular and was found 40 cm from the incisors. A small hiatal hernia was present. Diffuse moderate inflammation characterized by erythema was found in the gastric body and in the gastric antrum. Biopsies were taken with a cold forceps for histology. Biopsies were taken with a cold forceps for Helicobacter pylori cultures. The examined duodenum was normal. Bilious fluid was found in the gastric antrum. Impression: - Z-line regular, 40 cm from the incisors. - Small hiatal hernia. - Gastritis. Biopsied. - Normal examined duodenum. - Bilious gastric fluid. Recommendation: - Discharge patient to home. - Resume previous diet. - Continue present medications. - Use sucralfate tablets 1 gram PO QID for 2 weeks. Procedure Code(s): --- Professional --- 09574, Esophagogastroduodenoscopy, flexible, transoral; with biopsy, single or multiple Diagnosis Code(s): --- Professional --- K44.9, Diaphragmatic hernia without obstruction or gangrene K29.70, Gastritis, unspecified, without bleeding R12, Heartburn CPT copyright 2021 [employer]. All rights reserved. The codes documented in this report are preliminary and upon guest experience manager review may be revised to meet current compliance requirements. MD Jessica Greenfield MD 10/04/2024 12:13:21 PM This report has been signed electronically. Number of Addenda: 0 Note Initiated On: 10/04/2024 11:20 AM
--- NOTE | 2024-10-04 12:13 | OP.CCLET_ITS ---
10/04/2024 Leonidas Velasquez Md Re : Upper GI endoscopy procedure for Veena Mirza Dear Eva This procedure was performed on Friday, October 04, 2024. My impressions and recommendations are as follows: Impressions : - Z-line regular, 40 cm from the incisors. - Small hiatal hernia. - Gastritis. Biopsied. - Normal examined duodenum. - Bilious gastric fluid. Recommendations : - Discharge patient to home. - Resume previous diet. - Continue present medications. - Use sucralfate tablets 1 gram PO QID for 2 weeks. My findings are described in the full procedure note, which is enclosed. If I can be of further assistance, please feel free to contact me at Doctor phone number(s): , Work: . Sincerely, MD Jessica Greenfield MD 10/04/2024 12:13:21 PM This report has been signed electronically.
--- NOTE | 2024-10-04 12:14 | PCM.POST.ANE ---
Anesthesia: Postop Eval I Current Vital Signs Temperature: 98.1 F Pulse Rate: 66 Blood Pressure: 107/79 Respiratory Rate: 16 Pulse Ox: 98 Oxygen Delivery Method: Room Air Assessment Airway patent: Yes Spontaneous unlabored respirations: Yes Mental status: Awake and Calm nausea: No Vomiting: No Anesthesia Complication: No Fluid Hydration Crystalloid volume administer (ml): 80 Total IV fluid infused: 80 Progress Note Anesthesia document: Postop Eval 1 completed: Yes
[2024-10-04 12:15] VITALS: BP 107/79; BP 117/72; BP 127/64; PULSE 57; PULSE 66; RESP 16; TEMP 36.7; O2SAT 98; O2SAT 99
--- NOTE | 2024-10-04 12:18 | OP.COLON_ITS ---
Patient Name: Veena Mirza Procedure Date: 10/04/2024 11:37 AM Date of : 1950 Age: 73 Procedure: Colonoscopy Indications: Screening for colorectal malignant neoplasm Providers: Jessica Gifford MD Referring MD: Leonidas Velasquez Md Medicines: Monitored Anesthesia Care Patient Profile: This is a 73 year old female. Last Colonoscopy: none. The patient's first colonoscopy is today. Complications: No immediate complications. Procedure: Pre-Anesthesia Assessment: - Prior to the procedure, a History and Physical was performed, and patient medications and allergies were reviewed. The patient's tolerance of previous anesthesia was also reviewed. The risks and benefits of the procedure and the sedation options and risks were discussed with the patient. All questions were answered, and informed consent was obtained. Prior Anticoagulants: The patient has taken no anticoagulant or antiplatelet agents except for aspirin. ASA Grade Assessment: Per anesthesia. After reviewing the risks and benefits, the patient was deemed in satisfactory condition to undergo the procedure. After I obtained informed consent, the scope was passed under direct vision. Throughout the procedure, the patient's blood pressure, pulse, and oxygen saturations were monitored continuously. The Colonoscope was introduced through the anus and advanced to the cecum, identified by appendiceal orifice and ileocecal valve. The colonoscopy was performed without difficulty. The patient tolerated the procedure well. The quality of the bowel preparation was good. Scope In: 11:38:17 AM Scope Withdrawal Time 0 hours 18 minutes 46 seconds Scope Out: 12:04:06 PM Total Procedure Duration Time 0 hours 25 minutes 49 seconds Findings: Hemorrhoids were found on perianal exam. Non-bleeding internal hemorrhoids were found. The hemorrhoids were Grade I (internal hemorrhoids that do not prolapse). Three sessile polyps were found in the rectum, transverse colon and ascending colon. The polyps were less than 5 mm in size. These polyps were removed with a cold biopsy forceps. Resection and retrieval were complete. A less than 5 mm polyp was found in the rectum. The polyp was semi-pedunculated. The polyp was removed with a hot snare. Resection and retrieval were complete. There was a small lipoma, 6 mm in diameter, in the ascending colon. Biopsies were taken with a cold forceps for histology. The exam was otherwise without abnormality. Impression: - Hemorrhoids found on perianal exam. - Non-bleeding internal hemorrhoids. - Three less than 5 mm polyps in the rectum, in the transverse colon and in the ascending colon, removed with a cold biopsy forceps. Resected and retrieved. - One less than 5 mm polyp in the rectum, removed with a hot snare. Resected and retrieved. - Small lipoma in the ascending colon. Biopsied. - The examination was otherwise normal. Recommendation: - Discharge patient to home. - Resume previous diet. - Continue present medications. - Await pathology results. - Repeat colonoscopy in 5 years for surveillance based on pathology results. Procedure Code(s): --- Professional --- 59764, PT, Colonoscopy, flexible; with removal of tumor(s), polyp(s), or other lesion(s) by snare technique 41030, 59, Colonoscopy, flexible; with biopsy, single or multiple Diagnosis Code(s): --- Professional --- Z12.11, Encounter for screening for malignant neoplasm of colon K64.0, First degree hemorrhoids D12.8, Benign neoplasm of rectum D12.3, Benign neoplasm of transverse colon (hepatic flexure or splenic flexure) D12.2, Benign neoplasm of ascending colon D17.5, Benign lipomatous neoplasm of intra-abdominal organs CPT copyright 2021 [employer]. All rights reserved. The codes documented in this report are preliminary and upon replenishment analyst review may be revised to meet current compliance requirements. MD Jessica Greenfield MD 10/04/2024 12:17:54 PM This report has been signed electronically. Number of Addenda: 0 Note Initiated On: 10/04/2024 11:37 AM
--- NOTE | 2024-10-04 12:18 | OP.CCLET_ITS ---
10/04/2024 Leonidas Velasquez Md Re : Colonoscopy procedure for Veena Mirza Dear Eva This procedure was performed on Friday, October 04, 2024. My impressions and recommendations are as follows: Impressions : - Hemorrhoids found on perianal exam. - Non-bleeding internal hemorrhoids. - Three less than 5 mm polyps in the rectum, in the transverse colon and in the ascending colon, removed with a cold biopsy forceps. Resected and retrieved. - One less than 5 mm polyp in the rectum, removed with a hot snare. Resected and retrieved. - Small lipoma in the ascending colon. Biopsied. - The examination was otherwise normal. Recommendations : - Discharge patient to home. - Resume previous diet. - Continue present medications. - Await pathology results. - Repeat colonoscopy in 5 years for surveillance based on pathology results. My findings are described in the full procedure note, which is enclosed. If I can be of further assistance, please feel free to contact me at Doctor phone number(s): , Work: . Sincerely, MD Jessica Greenfield MD 10/04/2024 12:17:54 PM This report has been signed electronically.
[2024-10-04 12:20] VITALS: BP 122/78; BP 127/64; PULSE 54; RESP 16; O2SAT 98
[2024-10-04 12:22] VITALS: BP 100/61; BP 127/64; PULSE 50; RESP 16; TEMP 36.7; O2SAT 98
--- NOTE | 2024-10-04 12:40 | PCM.POSTANE2 ---
Anesthesia Postop Eval I Sum Postop Eval Completion status Anesthesia document: Postop Eval 1 completed: Yes Anesthesia Postop Eval I Summary Anesthesia Postop Eval I Summary: Anesthesia Postop Eval I: Assessment Summary Airway patent Yes 10/04/24 12:15 [email or web address] Spontaneous unlabored Yes 10/04/24 12:15 [email or web address] respirations Mental status Awake,Calm 10/04/24 12:15 [email or web address] nausea No 10/04/24 12:15 [email or web address] Vomiting No 10/04/24 12:15 [email or web address] Anesthesia Postop Eval I: Fluid Summary Crystalloid volume administer 80 10/04/24 12:15 [email or web address] (ml) Colloids volume administered ( ml) Blood Product volume administered (ml) Total IV fluid infused 80 10/04/24 12:15 [email or web address] Anesthesia Postop Eval I: Summary Notes Anesthesia Complication No 10/04/24 12:15 [email or web address] Anesthesia Complication Comment: Post-operative progress note Anesthesia: Postop Eval II Evaluation Mental status: Awake Pain Level: 0 nausea: No Vomiting: No
[2024-10-04 12:41] VITALS: BP 127/64
== END 2024-10-04 12:56 | disposition home or self-care (01) ==
LOC: EN 08:39 → AC 08:40
PROVIDERS: PCP Family Medicine; Referring Provider Family Medicine; Visit Provider Surgery
PROC: 0DJD8ZZ Inspection of Lower Intestinal Tract, Via Natural or Artificial Opening Endoscopic (ICD-10-PCS; CPT 45378; principal; 2024-10-04 09:55)
DX: Z12.11 Encounter for screening for malignant neoplasm of colon (principal); I48.0 Paroxysmal atrial fibrillation; K21.9 Gastro-esophageal reflux disease without esophagitis; E78.5 Hyperlipidemia, unspecified; K29.50 Unspecified chronic gastritis without bleeding; K44.9 Diaphragmatic hernia without obstruction or gangrene; D12.2 Benign neoplasm of ascending colon; D12.3 Benign neoplasm of transverse colon; K64.0 First degree hemorrhoids; K31.89 Other diseases of stomach and duodenum; Z79.82 Long term (current) use of aspirin; Z79.899 Other long term (current) drug therapy; Z87.891 Personal history of nicotine dependence
CPT/HCPCS: 45385; 45380; 43239; 88305; 88341; 88342; A4216; J2405

== ENCOUNTER → 2025-03-11 | Outpatient (CLI) | payer MEDICARE, OTHER, SELFPAY ==
--- NOTE | 2025-03-11 08:13 | BI_ITS ---
EXAM: SCRN MAMM (CAD)W/DONALDO BILAT DATE: 03/11/2025 CLINICAL HISTORY: F, Age 74 y/o , SCREEN TECHNIQUE: Procedure Code: [id number] Modality: MG Procedure: SCRN MAMM (CAD)W/DONALDO BILAT COMPARISON: Prior exam(s) dated 11/05/2022, 05/15/2020. FINDINGS: TISSUE DENSITY: There are scattered areas of fibroglandular density. Bilateral Breast Mammographic Findings: There is a mass in the slightly lower inner right breast at middle depth that has increased in size when compared to the most recent prior exam of 11/05/2022. The mass has 2 associated biopsy marker clips with an associated pathology of nodular adenosis in 2019. However, the mass has increased in size when compared to 2022. No significant masses, calcifications or other abnormalities are identified in the left breast. BI/SCRN MAMM (CAD)W/DONALDO BILAT IMPRESSION: Increased size of the mass with associated biopsy marker clips in the lower inn er right breast at middle depth. Recommend diagnostic ultrasound of the right breast for further evaluation. Recommend pink rgical consultation and consider surgical excision considering the increasing size of the previously biopsied right breast mass. OVERALL FINAL ASSESSMENT BI-RADS 0: INCOMPLETE - NEED ADDITIONAL IMAGING EVALUATION. RECOMMENDATION: Ultrasound Recommended A letter with findings and recommendations will be mailed to the patient. Reading Location: [id number]
== END | disposition home or self-care (01) ==
LOC: OPBI 08:10
PROVIDERS: PCP Family Medicine; Referring Provider Family Medicine; Visit Provider Family Medicine
DX: Z12.31 Encounter for screening mammogram for malignant neoplasm of breast (principal)
CPT/HCPCS: 77063; 77067

== ENCOUNTER → 2025-03-22 | Outpatient (CLI) | payer MEDICARE, OTHER, SELFPAY ==
--- NOTE | 2025-03-22 08:22 | US_ITS ---
PROCEDURE: BREAST LIMITED UNILATERAL 03/22/2025 REASON FOR EXAM: F, Age 74 y/o , INCONCLUSIVE MAMMOGRAM COMPARISON: Prior mammogram dated March 11, 2025 and prior sonogram dated May 15, 2020.. TECHNIQUE: Procedure Code: USBRSTLIMIT Modality: US Procedure: BREAST LIMITED UNILATERAL. The upper inner quadrant of the right breast was examined. FINDINGS: The mammographic abnormality corresponds to a 2.1 cm 1.9 cm 1.6 cm slightly lobulated hypoechoic nodule with increased vascularity. 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 This is essentially unchanged. US/Breast Limited Unilateral IMPRESSION: Stable hypoechoic slightly lobulated soft tissue nodule at the 2 to 3 o'clock p osition of the breast at 3 cm from the nipple. This measures 2.1 cm 1.9 cm 1.6 cm. This is essentially unchanged. This has b een biopsied in the past. Clinical correlation recommended. BI-RADS 2: BENIGN RECOMMENDATION: Routine annual follow-up in 1 Year Reading Location: [place] [id number]
--- NOTE | 2025-03-22 08:22 | US_ITS ---
PROCEDURE: BREAST LIMITED UNILATERAL 03/22/2025 REASON FOR EXAM: F, Age 74 y/o , INCONCLUSIVE MAMMOGRAM COMPARISON: Prior mammogram dated March 11, 2025 and prior sonogram dated May 15, 2020.. TECHNIQUE: Procedure Code: USBRSTLIMIT Modality: US Procedure: BREAST LIMITED UNILATERAL. The upper inner quadrant of the right breast was examined. FINDINGS: The mammographic abnormality corresponds to a 2.1 cm 1.9 cm 1.6 cm slightly lobulated hypoechoic nodule with increased vascularity. 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 This is essentially unchanged. US/Breast Limited Unilateral IMPRESSION: Stable hypoechoic slightly lobulated soft tissue nodule at the 2 to 3 o'clock p osition of the breast at 3 cm from the nipple. This measures 2.1 cm 1.9 cm 1.6 cm. This is essentially unchanged. This has b een biopsied in the past. Clinical correlation recommended. BI-RADS 2: BENIGN RECOMMENDATION: Routine annual follow-up in 1 Year Reading Location: [place] [id number]
== END | disposition home or self-care (01) ==
LOC: OPUS 08:21
PROVIDERS: PCP Family Medicine; Referring Provider Family Medicine; Visit Provider Family Medicine
DX: R92.2 Inconclusive mammogram (principal)
CPT/HCPCS: 76642